=== PATIENT | female | born 1950 | race Two or more races ===

== ENCOUNTER 2020-04-20 08:23 | Outpatient (REF) | payer MEDICARE, SELFPAY ==
[2020-04-20 09:14] LABS: MANUAL DIFF FLAG NO
[2020-04-20 09:18] LABS: Basophils Percent Auto 0.4 % (0-2); Eosinophils Absolute Auto 0.2 X10*3/uL (0.0-0.4); Eosinophils Percent Auto 2.3 % (0-4); Hematocrit 37.1 % (37-47); Hemoglobin 12.5 g/dl (12.0-16.0); Imm Gran Abs Auto 0.02 X10*3/uL (0.00-0.03); Imm Gran Pct Auto 0.3 % (0.0-0.4); Lymphocytes Absolute Auto 1.8 X10*3/uL (1.2-4.9); Mean Corpuscular HGB Conc 33.7 g/dl (31.0-35.0); Mean Corpuscular Hemoglobin 30.8 pg (27.0-33.0); Mean Corpuscular Volume 91.4 fL (80-98); Mean Platelet Volume 11.4 fL (9.4-12.3); Monocytes Absolute Auto 0.6 X10*3/uL (0.1-1.2); Monocytes Percent Auto 7.7 % (2-11); Neutrophils Absolute Auto 4.9 X10*3/uL (2.0-8.3); Neutrophils Percent Auto 65.3 % (45-73); Platelet Count 165 X10*3/uL (160-400); Red Blood Count 4.06 X10*6/uL (4.20-5.50); Red Cell Distribution Width 12.5 % (11.0-16.0); White Blood Count 7.5 X10*3/uL (4.8-10.8)
[2020-04-20 09:30] LABS: Glucose Urine UA NEG (NEG); Leukocyte Esterase Urine NEG (NEG); Nitrite Urine NEG (NEG); Specific Gravity - Urine 1.025 (1.005-1.025); Urine Blood NEG (NEG); Urine Ketones NEG (NEG); Urine Protein NEG (NEG-TRACE)
[2020-04-20 09:32] LABS: Appearance Urine CLEAR; Color Urine YELLOW
[2020-04-20 09:48] LABS: Alanine Aminotransferase 14 U/L (0-31); Alkaline Phosphatase 112 U/L (39-117); Anion Gap 13 (12-20); Aspartate Amino Transferase 15 U/L (5-31); Bilirubin Total 0.7 mg/dL (0.0-1.0); Blood Urea Nitrogen 18 mg/dL (9-16); Calcium 8.9 mg/dL (8.4-10.2); Carbon Dioxide 29 mmol/L (22-29); Chloride 103 mmol/L (96-108); Cholesterol 157 mg/dL; Estimated Glomerular Filt Rate 59; Glucose Fasting 90 mg/dL (60-99); HDL Cholesterol 44 mg/dL; LDL Cholesterol Calculated 82 mg/dl; Potassium 4.5 mmol/l (3.3-5.1); Sodium 140 mmol/L (135-145); Total Protein 6.5 g/dL (6.5-8.0); Triglycerides 157 mg/dL
[2020-04-20 10:14] LABS: Erythrocyte Sedimentation Rate 23 MM/HR (0-20)
[2020-04-20 10:53] LABS: Folate 14.5 ng/mL (> or = 4.0); Vitamin B12 404 pg/mL (200-900)
[2020-04-20 13:24] LABS: Free T4 (Free Thyroxine) 1.16 ng/dL (0.71-1.85); Thyroid Stimulating Hormone 0.28 uIU/mL (0.32-4.0); Vitamin D 25-OH Total 29.4 ng/mL (>30)
== END 2020-04-20 08:24 | disposition home or self-care (01) ==
LOC: HO.LAB 08:23
PROVIDERS: PCP Internal Medicine; Visit Provider Internal Medicine
DX: E66.01 Morbid (severe) obesity due to excess calories (principal); I12.9 Hypertensive chronic kidney disease with stage 1 through stage 4 chronic kidney disease, or unspecified chronic kidney disease; N18.2 Chronic kidney disease, stage 2 (mild); K76.0 Fatty (change of) liver, not elsewhere classified; E03.9 Hypothyroidism, unspecified; E53.8 Deficiency of other specified B group vitamins; R01.1 Cardiac murmur, unspecified; M79.7 Fibromyalgia; N32.81 Overactive bladder; E55.9 Vitamin D deficiency, unspecified
CPT/HCPCS: 36415; 80053; 80061; 81003; 82306; 82607; 82746; 84439; 84443; 85025; 85652

== ENCOUNTER → 2020-05-18 08:18 | Outpatient (BNVA) | payer MEDICARE, SELFPAY | PROVIDERS: PCP Internal Medicine; Visit Provider Student in an Organized Health Care Education/Training Program | DX: M89.49 Other hypertrophic osteoarthropathy, multiple sites (principal) | CPT/HCPCS: Q3014 ==

== ENCOUNTER 2020-07-19 08:20 | Outpatient (REF) | payer MEDICARE, SELFPAY ==
[2020-07-19 09:07] LABS: MANUAL DIFF FLAG NO
[2020-07-19 09:14] LABS: Basophils Percent Auto 0.3 % (0-2); Eosinophils Absolute Auto 0.2 X10*3/uL (0.0-0.4); Eosinophils Percent Auto 2.3 % (0-4); Hematocrit 38.1 % (37-47); Hemoglobin 12.4 g/dl (12.0-16.0); Imm Gran Abs Auto 0.04 X10*3/uL (0.00-0.03); Imm Gran Pct Auto 0.5 % (0.0-0.4); Lymphocytes Absolute Auto 2.4 X10*3/uL (1.2-4.9); Lymphocytes Percent Auto 27.2 % (20-40); Mean Corpuscular HGB Conc 32.5 g/dl (31.0-35.0); Mean Corpuscular Hemoglobin 30.5 pg (27.0-33.0); Mean Corpuscular Volume 93.6 fL (80-98); Mean Platelet Volume 11.1 fL (9.4-12.3); Monocytes Absolute Auto 0.7 X10*3/uL (0.1-1.2); Neutrophils Absolute Auto 5.3 X10*3/uL (2.0-8.3); Neutrophils Percent Auto 61.7 % (45-73); Platelet Count 157 X10*3/uL (160-400); Red Blood Count 4.07 X10*6/uL (4.20-5.50); Red Cell Distribution Width 12.8 % (11.0-16.0); White Blood Count 8.7 X10*3/uL (4.8-10.8)
[2020-07-19 09:28] LABS: Alanine Aminotransferase 11 U/L (0-31); Albumin Level 4.1 g/dL (3.5-5.0); Alkaline Phosphatase 107 U/L (39-117); Anion Gap 12 (12-20); Aspartate Amino Transferase 13 U/L (5-31); Bilirubin Total 0.5 mg/dL (0.0-1.0); Blood Urea Nitrogen 24 mg/dL (9-16); Carbon Dioxide 31 mmol/L (22-29); Chloride 103 mmol/L (96-108); Cholesterol 169 mg/dL; Estimated Glomerular Filt Rate 47; Glucose Fasting 95 mg/dL (60-99); HDL Cholesterol 52 mg/dL; LDL Cholesterol Calculated 97 mg/dl; Potassium 4.8 mmol/L (3.3-5.1); Sodium 141 mmol/L (135-145); Total Protein 6.6 g/dL (6.5-8.0); Triglycerides 103 mg/dL
[2020-07-19 09:41] LABS: Glucose Urine UA NEG (NEG); Leukocyte Esterase Urine NEG (NEG); Nitrite Urine NEG (NEG); Specific Gravity - Urine >= 1.030 (1.005-1.025); Urine Blood NEG (NEG); Urine Ketones NEG (NEG); Urine Protein NEG (NEG-TRACE)
[2020-07-19 09:44] LABS: Appearance Urine CLEAR; Color Urine YELLOW
[2020-07-19 09:51] LABS: Free T4 (Free Thyroxine) 1.08 ng/dL (0.71-1.85); Thyroid Stimulating Hormone 0.94 uIU/mL (0.32-4.0); Vitamin D 25-OH Total 33.4 ng/mL (>30)
[2020-07-19 10:20] LABS: Folate 11.3 ng/mL (> or = 4.0); Vitamin B12 299 pg/mL (200-900)
[2020-07-19 10:34] LABS: Erythrocyte Sedimentation Rate 20 MM/HR (0-20)
== END 2020-07-19 08:21 | disposition home or self-care (01) ==
LOC: HO.LAB 08:20
PROVIDERS: PCP Internal Medicine; Visit Provider Internal Medicine
DX: I12.9 Hypertensive chronic kidney disease with stage 1 through stage 4 chronic kidney disease, or unspecified chronic kidney disease (principal); N18.2 Chronic kidney disease, stage 2 (mild); E55.9 Vitamin D deficiency, unspecified; E66.01 Morbid (severe) obesity due to excess calories; E03.9 Hypothyroidism, unspecified; M79.7 Fibromyalgia; K21.9 Gastro-esophageal reflux disease without esophagitis; K59.00 Constipation, unspecified; E53.8 Deficiency of other specified B group vitamins; E78.00 Pure hypercholesterolemia, unspecified; Z68.42 Body mass index [BMI] 45.0-49.9, adult
CPT/HCPCS: 36415; 80053; 80061; 81003; 82306; 82607; 82746; 84439; 84443; 85025; 85652

== ENCOUNTER 2020-10-18 08:13 | Outpatient (REF) | payer MEDICARE, SELFPAY ==
[2020-10-18 09:12] LABS: MANUAL DIFF FLAG NO
[2020-10-18 09:19] LABS: Basophils Percent Auto 0.5 % (0-2); Eosinophils Absolute Auto 0.2 X10*3/uL (0.0-0.4); Eosinophils Percent Auto 1.8 % (0-4); Hematocrit 37.6 % (37-47); Hemoglobin 12.6 g/dl (12.0-16.0); Imm Gran Abs Auto 0.04 X10*3/uL (0.00-0.03); Imm Gran Pct Auto 0.5 % (0.0-0.4); Lymphocytes Absolute Auto 2.1 X10*3/uL (1.2-4.9); Mean Corpuscular HGB Conc 33.5 g/dl (31.0-35.0); Mean Corpuscular Hemoglobin 30.8 pg (27.0-33.0); Mean Corpuscular Volume 91.9 fL (80-98); Mean Platelet Volume 11.1 fL (9.4-12.3); Monocytes Absolute Auto 0.7 X10*3/uL (0.1-1.2); Monocytes Percent Auto 8.6 % (2-11); Neutrophils Absolute Auto 5.1 X10*3/uL (2.0-8.3); Neutrophils Percent Auto 62.6 % (45-73); Platelet Count 177 X10*3/uL (160-400); Red Blood Count 4.09 X10*6/uL (4.20-5.50); Red Cell Distribution Width 12.8 % (11.0-16.0); White Blood Count 8.2 X10*3/uL (4.8-10.8)
[2020-10-18 09:41] LABS: Glucose Urine UA NEG (NEG); Leukocyte Esterase Urine NEG (NEG); Nitrite Urine NEG (NEG); Specific Gravity - Urine 1.025 (1.005-1.025); Urine Blood NEG (NEG); Urine Ketones NEG (NEG); Urine Protein NEG (NEG-TRACE)
[2020-10-18 09:42] LABS: Appearance Urine HAZY; Color Urine YELLOW
[2020-10-18 09:46] LABS: Alanine Aminotransferase 18 U/L (0-31); Albumin Level 4.2 g/dL (3.5-5.0); Alkaline Phosphatase 117 U/L (39-117); Anion Gap 14 (12-20); Aspartate Amino Transferase 16 U/L (5-31); Bilirubin Total 0.6 mg/dL (0.0-1.0); Blood Urea Nitrogen 24 mg/dL (9-16); Calcium 9.3 mg/dL (8.4-10.2); Carbon Dioxide 28 mmol/L (22-29); Chloride 105 mmol/L (96-108); Cholesterol 173 mg/dL; Estimated Glomerular Filt Rate 53; Glucose Fasting 113 mg/dL (60-99); HDL Cholesterol 48 mg/dL; LDL Cholesterol Calculated 103 mg/dl; Potassium 4.7 mmol/L (3.3-5.1); Sodium 142 mmol/L (135-145); Total Protein 6.7 g/dL (6.5-8.0); Triglycerides 110 mg/dL
[2020-10-18 09:48] LABS: Alanine Aminotransferase 18 U/L (0-31); Albumin Level 4.2 g/dL (3.5-5.0); Alkaline Phosphatase 118 U/L (39-117); Aspartate Amino Transferase 15 U/L (5-31); Bilirubin Direct 0.2 mg/dL (0.0-0.5); Bilirubin Total 0.6 mg/dL (0.0-1.0); Total Protein 6.7 g/dL (6.5-8.0)
[2020-10-18 09:51] LABS: Free T4 (Free Thyroxine) 1.13 ng/dL (0.71-1.85); Thyroid Stimulating Hormone 0.43 uIU/mL (0.32-4.0)
[2020-10-18 09:53] LABS: Vitamin D 25-OH Total 35.8 ng/mL (>30)
[2020-10-18 10:01] LABS: TSH reflex Free T4 0.47 uIU/mL (0.32-4.0)
[2020-10-18 10:06] LABS: Folate 12.9 ng/mL (> or = 4.0); Vitamin B12 334 pg/mL (200-900)
[2020-10-18 10:10] LABS: Erythrocyte Sedimentation Rate 19 MM/HR (0-20)
== END 2020-10-18 08:14 | disposition home or self-care (01) ==
LOC: HO.LAB 08:13
PROVIDERS: Nurse Practitioner Family; PCP Internal Medicine; Visit Provider Internal Medicine
DX: Z00.00 Encounter for general adult medical examination without abnormal findings (principal); K59.00 Constipation, unspecified; K21.9 Gastro-esophageal reflux disease without esophagitis; E53.8 Deficiency of other specified B group vitamins; M79.7 Fibromyalgia; I12.9 Hypertensive chronic kidney disease with stage 1 through stage 4 chronic kidney disease, or unspecified chronic kidney disease; N18.2 Chronic kidney disease, stage 2 (mild); M19.91 Primary osteoarthritis, unspecified site; M51.36 Other intervertebral disc degeneration, lumbar region; M50.30 Other cervical disc degeneration, unspecified cervical region; E03.9 Hypothyroidism, unspecified; E66.01 Morbid (severe) obesity due to excess calories; Z68.42 Body mass index [BMI] 45.0-49.9, adult; N32.81 Overactive bladder; E55.9 Vitamin D deficiency, unspecified
CPT/HCPCS: 36415; 80053; 80061; 80076; 81003; 82248; 82306; 82607; 82746; 84439; 84443; 85025; 85652

== ENCOUNTER 2020-11-01 08:55 | Outpatient (REF) | payer MEDICARE, SELFPAY ==
--- NOTE | ~2020-11-01 | XR_ITS ---
EXAMINATION: XR KNEES, BILATERAL CLINICAL INFORMATION: Primary osteoarthritis. COMPARISON: None TECHNIQUE: 3 views each knee. FINDINGS: Right Knee: Mild reduction in medial and patellofemoral compartment joint space with periarticular spurring. There is minimal suprapatellar joint effusion. No loose body seen. There is no acute fracture. There is small anterior superior patellar enthesophyte. Left Knee: There is mild reduction in the tricompartment joint space with moderate superior patellar spurring. No abnormal joint effusion. No loose bodies. No bony erosive changes. The soft tissues are normal. XR/XR knee LT 3V IMPRESSION: Mild tricompartment degenerative changes left knee with superior patellar spurring. No loose bodies. No acute fracture. Mild degenerative changes medial and patellofemoral compartment with periarticular spurring. No acute fracture or dislocation. Minimal suprapatellar joint effusion.
--- NOTE | ~2020-11-01 | XR_ITS ---
EXAMINATION: XR KNEES, BILATERAL CLINICAL INFORMATION: Primary osteoarthritis. COMPARISON: None TECHNIQUE: 3 views each knee. FINDINGS: Right Knee: Mild reduction in medial and patellofemoral compartment joint space with periarticular spurring. There is minimal suprapatellar joint effusion. No loose body seen. There is no acute fracture. There is small anterior superior patellar enthesophyte. Left Knee: There is mild reduction in the tricompartment joint space with moderate superior patellar spurring. No abnormal joint effusion. No loose bodies. No bony erosive changes. The soft tissues are normal. XR/XR knee RT 3V IMPRESSION: Mild tricompartment degenerative changes left knee with superior patellar spurring. No loose bodies. No acute fracture. Mild degenerative changes medial and patellofemoral compartment with periarticular spurring. No acute fracture or dislocation. Minimal suprapatellar joint effusion.
== END 2020-11-01 08:56 | disposition home or self-care (01) ==
LOC: HO.XRAY 08:55
PROVIDERS: PCP Internal Medicine; Visit Provider Internal Medicine
DX: M19.91 Primary osteoarthritis, unspecified site (principal); M76.52 Patellar tendinitis, left knee; M76.51 Patellar tendinitis, right knee
CPT/HCPCS: 73562

== ENCOUNTER 2021-01-17 08:47 | Outpatient (REF) | payer MEDICARE, SELFPAY ==
[2021-01-17 09:21] LABS: MANUAL DIFF FLAG NO
[2021-01-17 09:25] LABS: Basophils Percent Auto 0.5 % (0-2); Eosinophils Absolute Auto 0.2 X10*3/uL (0.0-0.4); Eosinophils Percent Auto 1.8 % (0-4); Hematocrit 38.2 % (37-47); Hemoglobin 12.6 g/dl (12.0-16.0); Imm Gran Abs Auto 0.04 X10*3/uL (0.00-0.03); Imm Gran Pct Auto 0.5 % (0.0-0.4); Lymphocytes Absolute Auto 1.9 X10*3/uL (1.2-4.9); Lymphocytes Percent Auto 22.4 % (20-40); Mean Corpuscular Hemoglobin 30.8 pg (27.0-33.0); Mean Corpuscular Volume 93.4 fL (80-98); Mean Platelet Volume 10.8 fL (9.4-12.3); Monocytes Absolute Auto 0.7 X10*3/uL (0.1-1.2); Monocytes Percent Auto 8.4 % (2-11); Neutrophils Absolute Auto 5.6 X10*3/uL (2.0-8.3); Neutrophils Percent Auto 66.4 % (45-73); Platelet Count 160 X10*3/uL (160-400); Red Blood Count 4.09 X10*6/uL (4.20-5.50); White Blood Count 8.5 X10*3/uL (4.8-10.8)
[2021-01-17 09:34] LABS: Estimated Average Glucose 114 mg/dL; Hemoglobin A1c % 5.6 %
[2021-01-17 09:46] LABS: Alanine Aminotransferase 18 U/L (0-31); Albumin Level 4.1 g/dL (3.5-5.0); Alkaline Phosphatase 107 U/L (39-117); Anion Gap 12 (12-20); Aspartate Amino Transferase 17 U/L (5-31); Bilirubin Total 0.5 mg/dL (0.0-1.0); Blood Urea Nitrogen 15 mg/dL (9-16); Calcium 9.1 mg/dL (8.4-10.2); Carbon Dioxide 30 mmol/L (22-29); Chloride 106 mmol/L (96-108); Cholesterol 170 mg/dL; Estimated Glomerular Filt Rate 55; Glucose Fasting 102 mg/dL (60-99); HDL Cholesterol 46 mg/dL; LDL Cholesterol Calculated 98 mg/dl; Potassium 4.5 mmol/L (3.3-5.1); Sodium 143 mmol/L (135-145); Total Protein 6.5 g/dL (6.5-8.0); Triglycerides 130 mg/dL
[2021-01-17 09:53] LABS: B Type Natriuretic Peptide 62 pg/mL (<100)
[2021-01-17 10:09] LABS: Free T4 (Free Thyroxine) 1.31 ng/dL (0.71-1.85); Thyroid Stimulating Hormone 0.73 uIU/mL (0.32-4.0)
[2021-01-17 10:53] LABS: Glucose Urine UA NEG (NEG); Leukocyte Esterase Urine NEG (NEG); Nitrite Urine NEG (NEG); Specific Gravity - Urine 1.025 (1.005-1.025); Urine Blood NEG (NEG); Urine Ketones NEG (NEG); Urine Protein NEG (NEG-TRACE)
[2021-01-17 10:57] LABS: Appearance Urine CLEAR; Color Urine YELLOW
== END 2021-01-17 08:48 | disposition home or self-care (01) ==
LOC: HO.LAB 08:47
PROVIDERS: PCP Internal Medicine; Visit Provider Internal Medicine
DX: R06.00 Dyspnea, unspecified (principal); I10 Essential (primary) hypertension; E78.00 Pure hypercholesterolemia, unspecified; E03.9 Hypothyroidism, unspecified; R73.01 Impaired fasting glucose; E66.01 Morbid (severe) obesity due to excess calories; Z68.42 Body mass index [BMI] 45.0-49.9, adult
CPT/HCPCS: 36415; 80053; 80061; 81003; 83036; 83880; 84439; 84443; 85025

== ENCOUNTER 2021-01-20 11:12 | Outpatient (REF) | payer MEDICARE, SELFPAY ==
--- NOTE | ~2021-01-20 | MM_ITS ---
EXAMINATION: MM SCREENING DIGITAL BREAST TOMOSYNTHESIS, BILATERAL CLINICAL INFORMATION: Screening. Asymptomatic. The lifetime risk of breast cancer based on the Tyrer-Cuzick Model is 3%. COMPARISON: Mammography: 01/20/2020, 07/11/2018, 07/09/2017, 05/30/2016 TECHNIQUE: Digital breast tomosynthesis is performed in both the craniocaudal and mediolateral oblique views along with computer-aided detection (CAD). Synthesized 2D images are generated from the tomosynthesis. Additional bilateral exaggerated CC views are provided. FINDINGS: There are scattered areas of fibroglandular density (ACR BI-RADS breast composition Category b). Parenchymal pattern is similar to prior studies. There is scattered benign stable fine smooth nodularity again seen. There is a small stable nodule on left with biopsy clip marker. Bilateral low lying axillary tail nodes again noted. There are scattered punctate and vascular calcifications as well as grouped coarse calcifications central left breast. Neither breast shows developing density or interval mass or architectural abnormality. The skin contours are smooth. No significant changes. MM/MM tomosynthesis screening BI IMPRESSION: No significant changes from prior studies. ASSESSMENT: BI-RADS 2: Benign RECOMMENDATION: Routine annual mammography screening. This patient's information was entered into a reminder system with a target due date for their next mammogram.
== END 2021-01-20 11:13 | disposition home or self-care (01) ==
LOC: HO.MAMMO 11:12
PROVIDERS: PCP Internal Medicine; Visit Provider Internal Medicine
DX: Z12.31 Encounter for screening mammogram for malignant neoplasm of breast (principal)
CPT/HCPCS: 77063; 77067

== ENCOUNTER 2021-04-21 08:46 | Outpatient (REF) | payer MEDICARE, SELFPAY ==
[2021-04-21 08:59] LABS: MANUAL DIFF FLAG NO
[2021-04-21 09:35] LABS: Basophils Percent Auto 0.4 % (0-2); Eosinophils Absolute Auto 0.2 X10*3/uL (0.0-0.4); Eosinophils Percent Auto 2.4 % (0-4); Hematocrit 37.6 % (37.0-47.0); Hemoglobin 12.7 g/dl (12.0-16.0); Imm Gran Abs Auto 0.05 X10*3/uL (0.00-0.03); Imm Gran Pct Auto 0.6 % (0.0-0.4); Lymphocytes Absolute Auto 1.8 X10*3/uL (1.2-4.9); Mean Corpuscular HGB Conc 33.8 g/dl (31.0-35.0); Mean Corpuscular Hemoglobin 31.2 pg (27.0-33.0); Mean Corpuscular Volume 92.4 fL (80.0-98.0); Mean Platelet Volume 10.8 fL (9.4-12.3); Monocytes Absolute Auto 0.8 X10*3/uL (0.1-1.2); Monocytes Percent Auto 10.4 % (2-11); Neutrophils Percent Auto 63.2 % (45-73); Platelet Count 163 X10*3/uL (160-400); Red Blood Count 4.07 X10*6/uL (4.20-5.50); Red Cell Distribution Width 13.1 % (11.0-16.0); White Blood Count 7.9 X10*3/uL (4.8-10.8)
[2021-04-21 09:58] LABS: Alanine Aminotransferase 22 U/L (0-31); Albumin Level 4.1 g/dL (3.5-5.0); Alkaline Phosphatase 117 U/L (39-117); Anion Gap 13 (12-20); Aspartate Amino Transferase 22 U/L (5-31); Bilirubin Total 0.8 mg/dL (0.0-1.0); Blood Urea Nitrogen 13 mg/dL (9-16); Calcium 9.2 mg/dL (8.4-10.2); Carbon Dioxide 29 mmol/L (22-29); Chloride 105 mmol/L (96-108); Cholesterol 191 mg/dL; Estimated Glomerular Filt Rate 53; Glucose Fasting 105 mg/dL (60-99); HDL Cholesterol 47 mg/dL; LDL Cholesterol Calculated 117 mg/dl; Potassium 4.7 mmol/L (3.3-5.1); Sodium 142 mmol/L (135-145); Total Protein 6.6 g/dL (6.5-8.0); Triglycerides 137 mg/dL
[2021-04-21 10:01] LABS: Cholesterol 193 mg/dL; HDL Cholesterol 47 mg/dL; LDL Cholesterol Calculated 119 mg/dl; Triglycerides 138 mg/dL
[2021-04-21 10:20] LABS: TSH reflex Free T4 1.01 uIU/mL (0.32-4.0); Vitamin D 25-OH Total 31.7 ng/mL (>30)
[2021-04-21 10:36] LABS: Folate 18.7 ng/mL (> or = 4.0); Vitamin B12 426 pg/mL (200-900)
[2021-04-21 12:17] LABS: Appearance Urine HAZY; Color Urine YELLOW; Glucose Urine UA NEG (NEG); Leukocyte Esterase Urine NEG (NEG); Nitrite Urine NEG (NEG); Specific Gravity - Urine >= 1.030 (1.005-1.025); Urine Blood NEG (NEG); Urine Ketones 5 MG/DL (NEG); Urine Protein TRACE MG/DL (NEG-TRACE)
== END 2021-04-21 08:47 | disposition home or self-care (01) ==
LOC: HO.LAB 08:46
PROVIDERS: Nurse Practitioner Family; PCP Internal Medicine; Visit Provider Internal Medicine
DX: Z00.00 Encounter for general adult medical examination without abnormal findings (principal); E55.9 Vitamin D deficiency, unspecified; E53.8 Deficiency of other specified B group vitamins; I10 Essential (primary) hypertension; E78.00 Pure hypercholesterolemia, unspecified
CPT/HCPCS: 36415; 80053; 80061; 81003; 82306; 82607; 82746; 84443; 85025

== ENCOUNTER → 2021-05-18 07:54 | Outpatient (BNVA) | payer MEDICARE, SELFPAY | PROVIDERS: PCP Internal Medicine; Visit Provider Nurse Practitioner Family | DX: M89.49 Other hypertrophic osteoarthropathy, multiple sites (principal) | CPT/HCPCS: 99212 ==

== ENCOUNTER 2021-07-22 08:40 | Outpatient (REF) | payer MEDICARE, SELFPAY ==
[2021-07-22 09:02] LABS: MANUAL DIFF FLAG NO
[2021-07-22 09:52] LABS: Estimated Average Glucose 114 mg/dL; Hemoglobin A1c % 5.6 %
[2021-07-22 09:54] LABS: Appearance Urine CLEAR; Color Urine YELLOW; Glucose Urine UA NEG (NEG); Leukocyte Esterase Urine NEG (NEG); Nitrite Urine NEG (NEG); Specific Gravity - Urine >= 1.030 (1.005-1.025); Urine Blood NEG (NEG); Urine Ketones NEG (NEG); Urine Protein NEG (NEG-TRACE)
[2021-07-22 09:55] LABS: Basophils Percent Auto 0.5 % (0-2); Eosinophils Absolute Auto 0.2 X10*3/uL (0.0-0.4); Eosinophils Percent Auto 2.5 % (0-4); Hematocrit 36.9 % (37.0-47.0); Hemoglobin 12.3 g/dl (12.0-16.0); Imm Gran Abs Auto 0.04 X10*3/uL (0.00-0.03); Imm Gran Pct Auto 0.5 % (0.0-0.4); Lymphocytes Absolute Auto 1.8 X10*3/uL (1.2-4.9); Lymphocytes Percent Auto 22.6 % (20-40); Mean Corpuscular HGB Conc 33.3 g/dl (31.0-35.0); Mean Corpuscular Hemoglobin 30.9 pg (27.0-33.0); Mean Corpuscular Volume 92.7 fL (80.0-98.0); Mean Platelet Volume 11.4 fL (9.4-12.3); Monocytes Absolute Auto 0.7 X10*3/uL (0.1-1.2); Monocytes Percent Auto 8.3 % (2-11); Neutrophils Absolute Auto 5.2 x10*3/uL (2.0-8.3); Neutrophils Percent Auto 65.6 % (45-73); Platelet Count 165 X10*3/uL (160-400); Red Blood Count 3.98 X10*6/uL (4.20-5.50); Red Cell Distribution Width 12.7 % (11.0-16.0)
[2021-07-22 10:01] LABS: Alanine Aminotransferase 14 U/L (0-31); Alkaline Phosphatase 114 U/L (39-117); Anion Gap 12 (12-20); Aspartate Amino Transferase 17 U/L (5-31); Bilirubin Total 0.6 mg/dL (0.0-1.0); Blood Urea Nitrogen 18 mg/dL (9-16); Calcium 9.5 mg/dL (8.4-10.2); Carbon Dioxide 30 mmol/L (22-29); Chloride 105 mmol/L (96-108); Cholesterol 174 mg/dL; Estimated Glomerular Filt Rate 53; Glucose Fasting 110 mg/dL (60-99); HDL Cholesterol 43 mg/dL; LDL Cholesterol Calculated 109 mg/dl; Potassium 4.8 mmol/L (3.3-5.1); Sodium 142 mmol/L (135-145); Total Protein 6.5 g/dL (6.5-8.0); Triglycerides 112 mg/dL
[2021-07-22 10:14] LABS: Thyroid Stimulating Hormone 0.35 uIU/mL (0.32-4.0); Vitamin D 25-OH Total 34.1 ng/mL (>30)
== END 2021-07-22 08:41 | disposition home or self-care (01) ==
LOC: HO.LAB 08:40
PROVIDERS: PCP Internal Medicine; Visit Provider Internal Medicine
DX: E78.00 Pure hypercholesterolemia, unspecified (principal); E55.9 Vitamin D deficiency, unspecified; E11.9 Type 2 diabetes mellitus without complications; E03.9 Hypothyroidism, unspecified; I10 Essential (primary) hypertension
CPT/HCPCS: 36415; 80053; 80061; 81003; 82306; 83036; 84443; 85025

== ENCOUNTER 2021-10-26 08:32 | Outpatient (REF) | payer OTHER, SELFPAY ==
[2021-10-26 08:57] LABS: MANUAL DIFF FLAG NO
[2021-10-26 09:25] LABS: Basophils Percent Auto 0.4 % (0-2); Eosinophils Absolute Auto 0.2 X10*3/uL (0.0-0.4); Eosinophils Percent Auto 2.4 % (0-4); Hematocrit 37.1 % (37.0-47.0); Hemoglobin 12.3 g/dl (12.0-16.0); Imm Gran Abs Auto 0.03 X10*3/uL (0.00-0.03); Imm Gran Pct Auto 0.4 % (0.0-0.4); Lymphocytes Absolute Auto 1.7 X10*3/uL (1.2-4.9); Lymphocytes Percent Auto 21.2 % (20-40); Mean Corpuscular HGB Conc 33.2 g/dl (31.0-35.0); Mean Corpuscular Hemoglobin 30.4 pg (27.0-33.0); Mean Corpuscular Volume 91.8 fL (80.0-98.0); Mean Platelet Volume 10.7 fL (9.4-12.3); Monocytes Absolute Auto 0.6 X10*3/uL (0.1-1.2); Monocytes Percent Auto 7.8 % (2-11); Neutrophils Absolute Auto 5.4 x10*3/uL (2.0-8.3); Neutrophils Percent Auto 67.8 % (45-73); Platelet Count 171 X10*3/uL (160-400); Red Blood Count 4.04 X10*6/uL (4.20-5.50); White Blood Count 7.9 X10*3/uL (4.8-10.8)
[2021-10-26 09:35] LABS: Estimated Average Glucose 114 mg/dL; Hemoglobin A1c % 5.6 %
[2021-10-26 09:45] LABS: Alanine Aminotransferase 16 U/L (0-31); Albumin Level 3.8 g/dL (3.5-5.0); Alkaline Phosphatase 120 U/L (39-117); Anion Gap 13 (12-20); Aspartate Amino Transferase 16 U/L (5-31); Bilirubin Total 0.7 mg/dL (0.0-1.0); Blood Urea Nitrogen 12 mg/dL (9-16); Calcium 9.1 mg/dL (8.4-10.2); Carbon Dioxide 28 mmol/L (22-29); Chloride 107 mmol/L (96-108); Cholesterol 165 mg/dL; Estimated Glomerular Filt Rate > 60; Glucose Fasting 103 mg/dL (60-99); HDL Cholesterol 42 mg/dL; LDL Cholesterol Calculated 104 mg/dl; Potassium 4.6 mmol/L (3.3-5.1); Sodium 143 mmol/L (135-145); Total Protein 6.3 g/dL (6.5-8.0); Triglycerides 96 mg/dL
[2021-10-26 10:00] LABS: Appearance Urine HAZY; Color Urine YELLOW; Glucose Urine UA NEG (NEG); Leukocyte Esterase Urine NEG (NEG); Nitrite Urine NEG (NEG); Specific Gravity - Urine 1.025 (1.005-1.025); Urine Blood NEG (NEG); Urine Ketones NEG (NEG); Urine Protein NEG (NEG-TRACE)
[2021-10-26 10:08] LABS: Free T4 (Free Thyroxine) 1.42 ng/dL (0.71-1.85); Thyroid Stimulating Hormone 0.36 uIU/mL (0.32-4.0); Vitamin D 25-OH Total 24.9 ng/mL (>30)
[2021-10-26 10:22] LABS: Folate 10.4 ng/mL (> or = 4.0); Vitamin B12 555 pg/mL (200-900)
== END 2021-10-26 08:33 | disposition home or self-care (01) ==
LOC: HO.LAB 08:32
PROVIDERS: PCP Internal Medicine; Visit Provider Internal Medicine
DX: E78.00 Pure hypercholesterolemia, unspecified (principal); R73.01 Impaired fasting glucose; E03.9 Hypothyroidism, unspecified; E53.8 Deficiency of other specified B group vitamins; I10 Essential (primary) hypertension; E55.9 Vitamin D deficiency, unspecified
CPT/HCPCS: 36415; 80053; 80061; 81003; 82306; 82607; 82746; 83036; 84439; 84443; 85025

== ENCOUNTER 2022-01-04 13:56 | Outpatient (REF) | payer OTHER, SELFPAY ==
[2022-01-04 16:42] LABS: MANUAL DIFF FLAG NO
[2022-01-04 16:46] LABS: Basophils Percent Auto 0.5 % (0-2); Eosinophils Absolute Auto 0.1 X10*3/uL (0.0-0.4); Eosinophils Percent Auto 1.9 % (0-4); Hematocrit 38.4 % (37.0-47.0); Hemoglobin 12.5 g/dl (12.0-16.0); Imm Gran Abs Auto 0.03 X10*3/uL (0.00-0.03); Imm Gran Pct Auto 0.4 % (0.0-0.4); Lymphocytes Absolute Auto 1.8 X10*3/uL (1.2-4.9); Mean Corpuscular HGB Conc 32.6 g/dl (31.0-35.0); Mean Corpuscular Volume 92.1 fL (80.0-98.0); Mean Platelet Volume 11.2 fL (9.4-12.3); Monocytes Absolute Auto 0.7 X10*3/uL (0.1-1.2); Monocytes Percent Auto 9.6 % (2-11); Neutrophils Absolute Auto 4.7 x10*3/uL (2.0-8.3); Neutrophils Percent Auto 63.6 % (45-73); Platelet Count 166 X10*3/uL (160-400); Red Blood Count 4.17 X10*6/uL (4.20-5.50); Red Cell Distribution Width 12.9 % (11.0-16.0); White Blood Count 7.3 X10*3/uL (4.8-10.8)
[2022-01-04 17:10] LABS: Anion Gap 14 (12-20); Carbon Dioxide 27 mmol/L (22-29); Chloride 102 mmol/L (96-108); Potassium 3.7 mmol/L (3.3-5.1); Sodium 139 mmol/L (135-145)
== END 2022-01-04 13:57 | disposition home or self-care (01) ==
LOC: HO.HMGCLDS 13:56
DX: R10.11 Right upper quadrant pain (principal)
CPT/HCPCS: 36415; 80051; 85025

== ENCOUNTER 2022-01-04 14:32 | Outpatient (REF) | payer OTHER, SELFPAY ==
--- NOTE | ~2022-01-04 | US_ITS ---
EXAMINATION: US ABDOMEN LIMITED CLINICAL INFORMATION: Right upper quadrant pain. COMPARISON: 01/17/2018 TECHNIQUE: Real-time imaging of the right upper quadrant abdominal viscera. FINDINGS: The region the pancreas infiltrates no suspicious finding. No free fluid. The distal body and tail are not seen. The liver is prominent in size. 18.5 cm. Appears hyperechoic. Consistent with fatty change. The gallbladder shows no evidence for stone or edema. Common duct measures 2 mm within normal limits. The right kidney is 10.6 cm. No hydronephrosis or stone. US/US abdomen limited IMPRESSION: No evidence for cholelithiasis or cholecystitis. No ductal dilatation. Enlarged hyperechoic liver most consistent with fatty change. No free fluid
== END 2022-01-04 14:33 | disposition home or self-care (01) ==
LOC: HO.HMGCX 14:32
DX: R10.11 Right upper quadrant pain (principal)
CPT/HCPCS: 76705

== ENCOUNTER 2022-01-29 10:29 | Outpatient (REF) | payer OTHER, SELFPAY ==
--- NOTE | ~2022-01-29 | MM_ITS ---
EXAMINATION: MM SCREENING DIGITAL BREAST TOMOSYNTHESIS, BILATERAL CLINICAL INFORMATION: Screening. Asymptomatic. COMPARISON: Mammography: January 20, 2021 and studies dating back to April 01, 2014 TECHNIQUE: Digital breast tomosynthesis is performed in both the craniocaudal and mediolateral oblique views along with computer-aided detection (CAD). Synthesized 2D images are generated from the tomosynthesis. Bilateral exaggerated craniocaudal views performed. FINDINGS: There are scattered areas of fibroglandular density (ACR BI-RADS breast composition Category b). There are no new significant masses, abnormal calcifications, or other abnormalities. MM/MM tomosynthesis screening BI IMPRESSION: No significant changes from prior exam. ASSESSMENT: BI-RADS 1: Negative RECOMMENDATION: Routine annual mammography screening. This patient's information was entered into a reminder system with a target due date for their next mammogram.
== END 2022-01-29 10:30 | disposition home or self-care (01) ==
LOC: HO.MAMMO 10:29
PROVIDERS: PCP Internal Medicine; Visit Provider Internal Medicine
DX: Z12.31 Encounter for screening mammogram for malignant neoplasm of breast (principal)
CPT/HCPCS: 77063; 77067

== ENCOUNTER 2022-02-01 11:49 | Outpatient (REF) | payer OTHER, SELFPAY ==
--- NOTE | ~2022-02-01 | XR_ITS ---
EXAMINATION: XR ABDOMEN WITH DECUBITUS VIEWS CLINICAL INDICATION: Constipation COMPARISON: Previous exam April 2018 TECHNIQUE: Supine and upright views of the abdomen and pelvis FINDINGS: There is stool throughout the colon suggestive of mild constipation. There are no dilated loops of bowel or air-fluid levels to suggest obstruction. There is no evidence of free air. No calcifications are seen. There are degenerative changes of the spine. XR/XR abdomen w decubitus IMPRESSION: Constipation. No evidence of obstruction.
== END 2022-02-01 11:50 | disposition home or self-care (01) ==
LOC: HO.XRAY 11:49
PROVIDERS: Visit Provider Nurse Practitioner
DX: K59.04 Chronic idiopathic constipation (principal); R10.11 Right upper quadrant pain
CPT/HCPCS: 74021; 99202; 99212

== ENCOUNTER → 2022-02-16 11:32 | Outpatient (BNVA) | payer OTHER, SELFPAY | PROVIDERS: PCP Internal Medicine; Referring Provider Internal Medicine; Visit Provider Nurse Practitioner | DX: K59.04 Chronic idiopathic constipation (principal); R10.11 Right upper quadrant pain | CPT/HCPCS: 99212 ==

== ENCOUNTER 2022-02-19 08:44 | Outpatient (REF) | payer OTHER, SELFPAY ==
[2022-02-19 09:13] LABS: MANUAL DIFF FLAG NO
[2022-02-19 09:37] LABS: Basophils Absolute Auto 0.1 X10*3/uL (0.0-0.2); Basophils Percent Auto 0.6 % (0-2); Eosinophils Absolute Auto 0.2 X10*3/uL (0.0-0.4); Eosinophils Percent Auto 2.2 % (0-4); Hematocrit 37.8 % (37.0-47.0); Hemoglobin 12.6 g/dl (12.0-16.0); Imm Gran Abs Auto 0.04 X10*3/uL (0.00-0.03); Imm Gran Pct Auto 0.5 % (0.0-0.4); Lymphocytes Absolute Auto 2.1 X10*3/uL (1.2-4.9); Lymphocytes Percent Auto 24.2 % (20-40); Mean Corpuscular HGB Conc 33.3 g/dl (31.0-35.0); Mean Corpuscular Hemoglobin 30.1 pg (27.0-33.0); Mean Corpuscular Volume 90.4 fL (80.0-98.0); Monocytes Absolute Auto 0.6 X10*3/uL (0.1-1.2); Monocytes Percent Auto 7.2 % (2-11); Neutrophils Absolute Auto 5.7 x10*3/uL (2.0-8.3); Neutrophils Percent Auto 65.3 % (45-73); Platelet Count 173 X10*3/uL (160-400); Red Blood Count 4.18 X10*6/uL (4.20-5.50); White Blood Count 8.7 X10*3/uL (4.8-10.8)
[2022-02-19 09:40] LABS: Appearance Urine Clear; Color Urine Yellow; Glucose Urine UA Negative (Negative); Leukocyte Esterase Urine Negative (Negative); Nitrite Urine Negative (Negative); Urine Blood Negative (Negative); Urine Ketones Negative (Negative); Urine Protein Negative (Neg-Trace)
[2022-02-19 09:59] LABS: Alanine Aminotransferase 17 U/L (0-31); Albumin Level 4.1 g/dL (3.5-5.0); Alkaline Phosphatase 121 U/L (39-117); Anion Gap 15 (12-20); Aspartate Amino Transferase 19 U/L (5-31); Bilirubin Total 0.8 mg/dL (0.0-1.0); Blood Urea Nitrogen 16 mg/dL (9-16); Calcium 9.1 mg/dL (8.4-10.2); Carbon Dioxide 28 mmol/L (22-29); Chloride 105 mmol/L (96-108); Cholesterol 170 mg/dL; Estimated Glomerular Filt Rate 58; Glucose Fasting 99 mg/dL (60-99); HDL Cholesterol 47 mg/dL; LDL Cholesterol Calculated 95 mg/dl; Potassium 4.8 mmol/L (3.3-5.1); Sodium 143 mmol/L (135-145); Total Protein 6.5 g/dL (6.5-8.0); Triglycerides 144 mg/dL
[2022-02-19 10:26] LABS: Free T4 (Free Thyroxine) 1.16 ng/dL (0.71-1.85); Thyroid Stimulating Hormone 0.37 uIU/mL (0.32-4.0)
[2022-02-19 11:02] LABS: Vitamin D 25-OH Total 37.5 ng/mL (>30)
== END 2022-02-19 08:45 | disposition home or self-care (01) ==
LOC: HO.LAB 08:44
PROVIDERS: PCP Internal Medicine; Visit Provider Internal Medicine
DX: E03.9 Hypothyroidism, unspecified (principal); E78.00 Pure hypercholesterolemia, unspecified; I10 Essential (primary) hypertension; E55.9 Vitamin D deficiency, unspecified
CPT/HCPCS: 36415; 80053; 80061; 81003; 82306; 84439; 84443; 85025

== ENCOUNTER → 2022-05-22 12:08 | Outpatient (BNVA) | payer OTHER, SELFPAY | PROVIDERS: PCP Internal Medicine; Visit Provider Nurse Practitioner | DX: K59.04 Chronic idiopathic constipation (principal); R10.11 Right upper quadrant pain; Z79.899 Other long term (current) drug therapy | CPT/HCPCS: 99212 ==

== ENCOUNTER 2022-06-19 08:34 | Outpatient (REF) | payer OTHER, SELFPAY ==
--- NOTE | ~2022-06-19 | XR_ITS ---
EXAMINATION: XR KNEE, BILATERAL CLINICAL INFORMATION: Chronic bilateral knee pain COMPARISON: 11/01/2020 TECHNIQUE: 3 views of each knee FINDINGS: Right knee: Moderate medial and mild patellofemoral/lateral compartment osteoarthritis. No joint effusion. No significant change. Left knee: Moderate-severe patellofemoral compartment and [id number] medial/lateral compartment osteoarthritis. No joint effusion. No change. XR/XR knee RT 3V IMPRESSION: RIGHT KNEE: Moderate medial and mild patellofemoral/lateral compartment osteoarthritis. No significant change. LEFT KNEE: Tricompartmental osteoarthritis, most severe in the patellofemoral compartment. No significant change.
--- NOTE | ~2022-06-19 | XR_ITS ---
EXAMINATION: XR KNEE, BILATERAL CLINICAL INFORMATION: Chronic bilateral knee pain COMPARISON: 11/01/2020 TECHNIQUE: 3 views of each knee FINDINGS: Right knee: Moderate medial and mild patellofemoral/lateral compartment osteoarthritis. No joint effusion. No significant change. Left knee: Moderate-severe patellofemoral compartment and [id number] medial/lateral compartment osteoarthritis. No joint effusion. No change. XR/XR knee LT 3V IMPRESSION: RIGHT KNEE: Moderate medial and mild patellofemoral/lateral compartment osteoarthritis. No significant change. LEFT KNEE: Tricompartmental osteoarthritis, most severe in the patellofemoral compartment. No significant change.
== END 2022-06-19 08:35 | disposition home or self-care (01) ==
LOC: HO.LAB 08:34
PROVIDERS: PCP Internal Medicine; Visit Provider Nurse Practitioner Family
DX: M25.562 Pain in left knee (principal); M25.561 Pain in right knee
CPT/HCPCS: 73562; 99212

== ENCOUNTER → 2022-07-19 09:01 | Outpatient (BNVA) | payer OTHER, SELFPAY | PROVIDERS: PCP Internal Medicine; Visit Provider Nurse Practitioner | DX: K59.04 Chronic idiopathic constipation (principal); K21.9 Gastro-esophageal reflux disease without esophagitis; R10.11 Right upper quadrant pain | CPT/HCPCS: 99212 ==

== ENCOUNTER 2022-08-17 15:52 | Outpatient (REF) | payer OTHER, SELFPAY ==
--- NOTE | ~2022-08-17 | XR_ITS ---
EXAMINATION: XR KNEE AP STANDING CLINICAL INFORMATION: Knee pain COMPARISON: None TECHNIQUE: AP bilateral standing view of the knees was obtained. FINDINGS: Mild narrowing of the medial tibiofemoral compartments with medial and lateral osteophytes seen bilaterally. XR/XR knee standing BI IMPRESSION: Mild osteoarthritis of the bilateral knees.
== END 2022-08-17 15:53 | disposition home or self-care (01) ==
LOC: HO.HOSX 15:52
PROVIDERS: Visit Provider Physician Assistant
DX: M17.0 Bilateral primary osteoarthritis of knee (principal)
CPT/HCPCS: 73565; 99202

== ENCOUNTER 2022-08-24 10:50 | Outpatient (REF) | payer OTHER, SELFPAY ==
[2022-08-24 12:52] LABS: Appearance Urine Cloudy; Color Urine Yellow; Glucose Urine UA Negative (Negative); Leukocyte Esterase Urine Large (3+) (Negative); Nitrite Urine Negative (Negative); UMIC TRIGGER UACC YES; Urine Blood Moderate (2+) (Negative); Urine Ketones Trace mg/dL (Negative); Urine Protein 30 (1+) mg/dL (Neg-Trace)
[2022-08-24 13:09] LABS: Bacteria Urine 2+ (None Seen); Hyaline Casts Urine 0-2 /LPF (0-2); RBC Urine >20 /HPF (0-2); UACC Culture Trigger YES; WBC Urine >50 /HPF (0-5)
== END 2022-08-24 10:51 | disposition home or self-care (01) ==
LOC: HO.LAB 10:50
PROVIDERS: PCP Internal Medicine; Visit Provider Internal Medicine
DX: R30.0 Dysuria (principal); R82.90 Unspecified abnormal findings in urine
CPT/HCPCS: 81001; 87086

== ENCOUNTER 2022-08-25 10:36 | Outpatient (REF) | payer OTHER, SELFPAY ==
[2022-08-25 10:48] LABS: MANUAL DIFF FLAG NO
[2022-08-25 10:57] LABS: Basophils Absolute Auto 0.1 X10*3/uL (0.0-0.2); Basophils Percent Auto 0.5 % (0-2); Eosinophils Absolute Auto 0.2 X10*3/uL (0.0-0.4); Eosinophils Percent Auto 2.2 % (0-4); Hematocrit 39.8 % (37.0-47.0); Hemoglobin 13.4 g/dl (12.0-16.0); Imm Gran Abs Auto 0.03 X10*3/uL (0.00-0.03); Imm Gran Pct Auto 0.3 % (0.0-0.4); Lymphocytes Absolute Auto 2.2 X10*3/uL (1.2-4.9); Lymphocytes Percent Auto 21.9 % (20-40); Mean Corpuscular HGB Conc 33.7 g/dl (31.0-35.0); Mean Corpuscular Hemoglobin 30.4 pg (27.0-33.0); Mean Corpuscular Volume 90.2 fL (80.0-98.0); Mean Platelet Volume 10.5 fL (9.4-12.3); Monocytes Absolute Auto 0.8 X10*3/uL (0.1-1.2); Monocytes Percent Auto 8.2 % (2-11); Neutrophils Absolute Auto 6.6 x10*3/uL (2.0-8.3); Neutrophils Percent Auto 66.9 % (45-73); Platelet Count 193 X10*3/uL (160-400); Red Blood Count 4.41 X10*6/uL (4.20-5.50); Red Cell Distribution Width 12.6 % (11.0-16.0); White Blood Count 9.8 X10*3/uL (4.8-10.8)
[2022-08-25 11:50] LABS: Alanine Aminotransferase 13 U/L (0-31); Albumin Level 4.1 g/dL (3.5-5.0); Alkaline Phosphatase 122 U/L (39-117); Anion Gap 14 (12-20); Aspartate Amino Transferase 17 U/L (5-31); Blood Urea Nitrogen 16 mg/dL (9-16); Calcium 9.6 mg/dL (8.4-10.2); Carbon Dioxide 29 mmol/L (22-29); Chloride 104 mmol/L (96-108); Cholesterol 175 mg/dL; Estimated Glomerular Filt Rate 53; Glucose Fasting 97 mg/dL (60-99); HDL Cholesterol 44 mg/dL; LDL Cholesterol Calculated 109 mg/dl; Potassium 4.9 mmol/L (3.3-5.1); Sodium 142 mmol/L (135-145); Thyroid Stimulating Hormone 0.24 uIU/mL (0.32-4.0); Total Protein 6.6 g/dL (6.5-8.0); Triglycerides 111 mg/dL; Vitamin D 25-OH Total 36.8 ng/mL (>30)
== END 2022-08-25 10:37 | disposition home or self-care (01) ==
LOC: HO.LAB 10:36
PROVIDERS: PCP Internal Medicine; Visit Provider Internal Medicine
DX: E03.9 Hypothyroidism, unspecified (principal); E78.00 Pure hypercholesterolemia, unspecified; E55.9 Vitamin D deficiency, unspecified; I10 Essential (primary) hypertension
CPT/HCPCS: 36415; 80053; 80061; 82306; 84439; 84443; 85025

== ENCOUNTER 2022-09-06 09:33 | Outpatient (REF) | payer OTHER, SELFPAY ==
[2022-09-06 10:25] LABS: Appearance Urine Clear; Color Urine Yellow; Glucose Urine UA Negative (Negative); Leukocyte Esterase Urine Moderate (2+) (Negative); Nitrite Urine Negative (Negative); PH 5.5 (5.0-9.0); UMIC TRIGGER UACC YES; Urine Blood Negative (Negative); Urine Ketones Negative (Negative); Urine Protein Negative (Neg-Trace)
[2022-09-06 10:31] LABS: Bacteria Urine None Seen (None Seen); Hyaline Casts Urine 0-2 /LPF (0-2); RBC Urine 0-2 /HPF (0-2); Squamous Epithelial Cell Urine 0-2 /HPF (0-2); UACC Culture Trigger YES; WBC Urine >50 /HPF (0-5)
== END 2022-09-06 09:34 | disposition home or self-care (01) ==
LOC: HO.LAB 09:33
PROVIDERS: PCP Internal Medicine; Visit Provider Internal Medicine
DX: R30.0 Dysuria (principal)
CPT/HCPCS: 81001; 87086; 87088; 87186

== ENCOUNTER 2022-10-02 08:33 | Outpatient (REF) | payer OTHER, SELFPAY ==
--- NOTE | ~2022-10-02 | CT_ITS ---
EXAMINATION: CT ABDOMEN AND PELVIS WITH CONTRAST CLINICAL INFORMATION: Right upper quadrant pain. COMPARISON: CT abdomen and pelvis 12/22/2015. TECHNIQUE: Multidetector volumetric images were obtained from the superior aspect of the liver through the pubic symphysis following administration 85 mL of Omnipaque 350 intravenous contrast. Sagittal and coronal reformatted images were obtained on the technologist's workstation. Oral contrast: No This CT examination was performed using dose optimization techniques as appropriate, variously including the following: *Automated exposure control *Adjustment of mA and/or kV according to patient size (this includes techniques or standardized protocols for targeted exams where dose is matched to indication/reason for exam; i.e. extremities or head) *Use of iterative reconstruction technique DLP: 788 mGy-cm FINDINGS: LUNG BASES: There are mild atelectatic changes in the lingula. Heart size is normal. LIVER, GALLBLADDER, AND BILIARY TREE: The liver is normal in size, shape, and attenuation. No focal hepatic lesion or biliary ductal dilatation is present. The gallbladder is unremarkable with no evidence of radiopaque gallstones, gallbladder wall thickening, or obvious pericholecystic inflammatory changes. PANCREAS: Unremarkable. SPLEEN: Unremarkable. ADRENAL GLANDS: Unremarkable. KIDNEYS AND URETERS: The kidneys are normal in size, shape, and attenuation. No hydronephrosis, hydroureter, or calculi seen. No perinephric stranding. There is an exophytic hypodense lesion upper pole left kidney measuring 2.0 x 2.3 cm and 19 Hounsfield units likely slightly complex cyst. No additional lesions seen. BLADDER: Unremarkable. GASTROINTESTINAL TRACT: Scattered stool, gas and oral contrast seen throughout the colon without distention. The small bowel loops are normal caliber. Appendix is not visualized. No free air or free fluid seen. ABDOMINAL WALL: A small umbilical hernia containing fat and hyperdense nodule. LYMPH NODES: Normal. VASCULAR: Unremarkable. PELVIC VISCERA: The uterus is anteverted and appears unremarkable. There is no adnexal mass or free fluid. OSSEOUS STRUCTURES: No aggressive lytic or sclerotic process seen. There is vacuum disc phenomena at L5-S1 disc level and lower dorsal spine with mild ventral spondylosis in the lower dorsal spine. No aggressive lytic or sclerotic process seen. CT/CT abdomen pelvis w IV con IMPRESSION: 1. No acute intra-abdominal process seen. 2. Mild constipation. 3. Small complex cyst upper pole left kidney. Fleischner guidelines were followed.
[2022-10-02] MEDS: iohexoL 350 MG/ML 100 ML INFUS..BTL IV (11:14)
[2022-10-02] MEDS: Barium Sulfate Oral (Vanilla) 450 ML ORAL.SUSP 900 ML PO (11:14)
[2022-10-02 12:48] LABS: Creatinine POC 0.7 mg/dL (0.5-1.4); GFR POC > 60
== END 2022-10-02 08:34 | disposition home or self-care (01) ==
LOC: HO.CT 08:33
PROVIDERS: PCP Internal Medicine; Visit Provider Internal Medicine
DX: R10.11 Right upper quadrant pain (principal); R30.0 Dysuria; R31.9 Hematuria, unspecified; R82.81 Pyuria
CPT/HCPCS: 74177; 82565; Q9967

== ENCOUNTER 2022-12-05 09:05 | Outpatient (REF) | payer OTHER, SELFPAY ==
[2022-12-05 09:17] LABS: MANUAL DIFF FLAG NO
[2022-12-05 09:48] LABS: Basophils Percent Auto 0.5 % (0-2); Eosinophils Absolute Auto 0.2 X10*3/uL (0.0-0.4); Eosinophils Percent Auto 2.1 % (0-4); Hematocrit 36.7 % (37.0-47.0); Hemoglobin 12.1 g/dl (12.0-16.0); Imm Gran Abs Auto 0.04 X10*3/uL (0.00-0.03); Imm Gran Pct Auto 0.5 % (0.0-0.4); Lymphocytes Absolute Auto 1.7 X10*3/uL (1.2-4.9); Lymphocytes Percent Auto 21.2 % (20-40); Mean Corpuscular Volume 91.1 fL (80.0-98.0); Mean Platelet Volume 10.7 fL (9.4-12.3); Monocytes Absolute Auto 0.6 X10*3/uL (0.1-1.2); Monocytes Percent Auto 7.2 % (2-11); Neutrophils Absolute Auto 5.6 x10*3/uL (2.0-8.3); Neutrophils Percent Auto 68.5 % (45-73); Platelet Count 161 X10*3/uL (160-400); Red Blood Count 4.03 X10*6/uL (4.20-5.50); White Blood Count 8.1 X10*3/uL (4.8-10.8)
[2022-12-05 10:09] LABS: Appearance Urine Clear; Color Urine Yellow; Glucose Urine UA Negative (Negative); Leukocyte Esterase Urine Negative (Negative); Nitrite Urine Negative (Negative); Urine Blood Negative (Negative); Urine Ketones Negative (Negative); Urine Protein Negative (Neg-Trace)
[2022-12-05 10:25] LABS: Alanine Aminotransferase 12 U/L (0-31); Albumin Level 3.7 g/dL (3.5-5.0); Alkaline Phosphatase 100 U/L (39-117); Anion Gap 8 (12-20); Aspartate Amino Transferase 14 U/L (5-31); Bilirubin Total 0.8 mg/dL (0.0-1.0); Blood Urea Nitrogen 13 mg/dL (9-16); Carbon Dioxide 27 mmol/L (22-29); Chloride 106 mmol/L (96-108); Cholesterol 178 mg/dL; Estimated Glomerular Filt Rate > 60; Glucose Fasting 105 mg/dL (60-99); HDL Cholesterol 42 mg/dL; LDL Cholesterol Calculated 119 mg/dl; Potassium 4.2 mmol/L (3.3-5.1); Sodium 137 mmol/L (135-145); Total Protein 6.4 g/dL (6.5-8.0); Triglycerides 87 mg/dL
[2022-12-05 10:40] LABS: Free T4 (Free Thyroxine) 1.18 ng/dL (0.71-1.85); Thyroid Stimulating Hormone 0.24 uIU/mL (0.32-4.0); Vitamin D 25-OH Total 34.6 ng/mL (>30)
== END 2022-12-05 09:06 | disposition home or self-care (01) ==
LOC: HO.LAB 09:05
PROVIDERS: PCP Internal Medicine; Visit Provider Internal Medicine
DX: E78.00 Pure hypercholesterolemia, unspecified (principal); R30.0 Dysuria; I10 Essential (primary) hypertension; E03.9 Hypothyroidism, unspecified; E55.9 Vitamin D deficiency, unspecified
CPT/HCPCS: 36415; 80053; 80061; 81003; 82306; 84439; 84443; 85025

== ENCOUNTER 2023-02-01 09:33 | Outpatient (REF) | payer OTHER, SELFPAY ==
--- NOTE | ~2023-02-01 | MM_ITS ---
EXAMINATION: MM SCREENING DIGITAL BREAST TOMOSYNTHESIS, BILATERAL CLINICAL INFORMATION: Screening. Asymptomatic. COMPARISON: Mammography: This study is compared with prior exams dating back to 2018. TECHNIQUE: Digital breast tomosynthesis is performed in both the craniocaudal and mediolateral oblique views along with computer-aided detection (CAD). Synthesized 2D images are generated from the tomosynthesis. FINDINGS: There are scattered areas of fibroglandular density (ACR BI-RADS breast composition Category b). There are no significant masses, abnormal calcifications, or other abnormalities. Few, benign calcifications are present in each breast. MM/MM tomosynthesis screening BI IMPRESSION: No mammographic evidence of malignancy. ASSESSMENT: BI-RADS BI-RADS 2 - Benign Findings RECOMMENDATION: Routine annual mammography screening. 1 year F/U This examination should not preclude the clinical evaluation of a suspicious palpable abnormality. This patient's information was entered into a reminder system with a target due date for their next mammogram.
== END 2023-02-01 09:34 | disposition home or self-care (01) ==
LOC: HO.MAMMO 09:33
PROVIDERS: PCP Internal Medicine; Visit Provider Internal Medicine
DX: Z12.31 Encounter for screening mammogram for malignant neoplasm of breast (principal)
CPT/HCPCS: 77063; 77067

== ENCOUNTER → 2023-02-01 10:00 | Outpatient (BNV) | payer OTHER, SELFPAY | PROVIDERS: PCP Internal Medicine; Visit Provider Radiology Diagnostic Radiology | DX: Z12.31 Encounter for screening mammogram for malignant neoplasm of breast (principal) | CPT/HCPCS: 77063; 77067 ==

== ENCOUNTER 2023-03-09 08:52 | Outpatient (REF) | payer OTHER, SELFPAY ==
[2023-03-09 09:15] LABS: MANUAL DIFF FLAG NO
[2023-03-09 09:44] LABS: Basophils Absolute Auto 0.1 X10*3/uL (0.0-0.2); Basophils Percent Auto 0.6 % (0-2); Eosinophils Absolute Auto 0.2 X10*3/uL (0.0-0.4); Eosinophils Percent Auto 2.3 % (0-4); Estimated Average Glucose 114 mg/dL; Hematocrit 38.3 % (37.0-47.0); Hemoglobin 12.7 g/dl (12.0-16.0); Hemoglobin A1c % 5.6 % (<6.0); Imm Gran Abs Auto 0.04 X10*3/uL (0.00-0.03); Imm Gran Pct Auto 0.5 % (0.0-0.4); Lymphocytes Absolute Auto 2.4 X10*3/uL (1.2-4.9); Lymphocytes Percent Auto 28.7 % (20-40); Mean Corpuscular HGB Conc 33.2 g/dl (31.0-35.0); Mean Corpuscular Hemoglobin 30.6 pg (27.0-33.0); Mean Corpuscular Volume 92.3 fL (80.0-98.0); Mean Platelet Volume 11.3 fL (9.4-12.3); Monocytes Absolute Auto 0.7 X10*3/uL (0.1-1.2); Monocytes Percent Auto 8.6 % (2-11); Neutrophils Percent Auto 59.3 % (45-73); Platelet Count 166 X10*3/uL (160-400); Red Blood Count 4.15 X10*6/uL (4.20-5.50); Red Cell Distribution Width 12.8 % (11.0-16.0); White Blood Count 8.4 X10*3/uL (4.8-10.8)
[2023-03-09 10:06] LABS: Appearance Urine Clear; Color Urine Yellow; Glucose Urine UA Negative (Negative); Leukocyte Esterase Urine Negative (Negative); Nitrite Urine Negative (Negative); Specific Gravity - Urine 1.015 (1.005-1.025); Urine Blood Negative (Negative); Urine Ketones Negative (Negative); Urine Protein Negative (Neg-Trace)
[2023-03-09 10:34] LABS: Alanine Aminotransferase 14 U/L (0-31); Alkaline Phosphatase 112 U/L (39-117); Aspartate Amino Transferase 16 U/L (5-31); Bilirubin Total 0.6 mg/dL (0.0-1.0); Blood Urea Nitrogen 19 mg/dL (9-16); Calcium 9.5 mg/dL (8.4-10.2); Chloride 105 mmol/L (96-108); Cholesterol 160 mg/dL (<200); Estimated Glomerular Filt Rate > 60; Glucose Fasting 94 mg/dL (60-99); HDL Cholesterol 45 mg/dL (>40); LDL Cholesterol Calculated 90 mg/dL (<100); Potassium 4.4 mmol/L (3.3-5.1); Sodium 143 mmol/L (135-145); Total Protein 6.7 g/dL (6.5-8.0); Triglycerides 127 mg/dL (<150)
[2023-03-09 10:41] LABS: Anion Gap 13 (12-20)
[2023-03-09 10:47] LABS: Free T4 (Free Thyroxine) 1.21 ng/dL (0.71-1.85); Thyroid Stimulating Hormone 0.27 uIU/mL (0.32-4.0)
[2023-03-09 10:55] LABS: Carbon Dioxide 29 mmol/L (22-29)
== END 2023-03-09 08:53 | disposition home or self-care (01) ==
LOC: HO.LAB 08:52
PROVIDERS: PCP Internal Medicine; Visit Provider Internal Medicine
DX: R30.0 Dysuria (principal); E78.00 Pure hypercholesterolemia, unspecified; R73.01 Impaired fasting glucose; E03.9 Hypothyroidism, unspecified; E55.9 Vitamin D deficiency, unspecified; I10 Essential (primary) hypertension
CPT/HCPCS: 36415; 80053; 80061; 81003; 82306; 83036; 84439; 84443; 85025

== ENCOUNTER 2023-03-20 10:36 | Outpatient (AMB) | payer OTHER, SELFPAY ==
[2023-03-20 10:40] VITALS: BP 134/86; PULSE 81; O2SAT 94; BMI 45.0
--- NOTE | 2023-03-20 10:40 | MHC.PC.OV ---
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 Accompanied by: Self / Same As Patient Allergies No Known Allergies [No Known Allergies*] Allergy (Verified 03/20/23 11:35) Medication List - Last Reconciled 03/20/23 by Antonino Barrera MD [ADULT PULL UPS (Size XXL) As directed] [ADULT WIPES As directed] albuterol sulfate 2.5 mg (3 mL) continuous nebulization Q6-8H PRN albuterol sulfate 90 mcg/actuation (ProAir HFA) 2 puffs inhalation Q6H PRN amlodipine 2.5 mg PO DAILY [BEDSIDE COMMODE As directed] bisacodyl (Dulcolax (bisacodyl)) 10 mg (2 x 5 mg) PO BEDTIME 30 days cholecalciferol (vitamin D3) 25 mcg PO DAILY 90 days CPAP (CPAP Machine/Device) As directed cyanocobalamin (vitamin B-12) 1,000 mcg PO DAILY 90 days diclofenac sodium 1% (Voltaren Arthritis Pain) 2 grams topical BID [DISPOSABLE BED PADS As directed] [Disposable UNDERPADS As directed] donepezil (Aricept) 10 mg PO BEDTIME doxepin 25 mg PO BEDTIME gabapentin 400 mg PO TID hydrocortisone 1% (Cortisone (hydrocortisone)) 1 appl topical BID PRN 10 days hydrocortisone 1% (Anti-Itch (hydrocortisone)) 1 appl topical TID PRN hydrocortisone acetate (Anusol-HC) 25 mg OK BID 14 days [INCONTINENT BED PADS As directed] [KOTEX PADS As directed] levothyroxine 137 mcg PO DAILY 90 days linaclotide (Linzess) 290 mcg PO QAM 30 days lisinopril 40 mg PO DAILY 90 days meclizine 25 mg PO BID PRN omeprazole 20 mg PO DAILY oxybutynin chloride ER 10 mg PO DAILY 90 days oxycodone-acetaminophen 5-325 mg 1 tab PO Q6H PRN 28 days [ROLLATOR WALKER As directed] sertraline 100 mg PO DAILY 90 days [SHOWER CHAIR As directed] spironolactone 100 mg PO BID triamcinolone acetonide 0.025% 1 appl topical BID 10 days Tobacco use date assessed: 03/20/23 Fall risk assessment: No Falls in past year Last assessed Fall Risk: 03/20/23 Dental Screening Dental Screen Date: 03/20/23 Did you have a dental visit in the last 12 months?: Yes Did you have a dental problem in the last 6 months where you did not have access to dental care?: No Was dental information given to patient?: Patient has dentist HPI hyperlipidemia, brain stem lesion, migraine HPI Details Patient comes in today for her follow up visit States that she is currently having some dental issues - received some kind of dental implant around one of her right lower molars a few months ago but the oral surgeon who did her implant in [place] supposedly suddenly took off and closed his practice and states that the dentist that she is now seeing do not know what to do with her implant, which she states is bothering her a lot, and she has been referred over to specialists at [facility] in [place] - is scheduled for sometime next month States that she feels okay otherwise She denies any headaches or dizziness; denies any fever Denies any chest pains, no SOB No nausea/vomiting, no abdominal pain No change in bowel habits noted States that her chronic low back pain and joint pains remain adequately controlled on her current Rx Had her follow up labs done a couple of weeks ago - to discuss her results [facility] Medical History Bilateral primary osteoarthritis of knee Right upper quadrant pain Pruritus Impaired fasting glucose Dyspnea on exertion (~06/2020) Screening for cervical cancer Primary osteoarthritis involving multiple joints Morbid obesity with BMI of 45.0-49.9, adult Depression Anxiety Insomnia Overactive bladder Osteoarthritis Lumbar degenerative disc disease Degenerative disc disease, cervical Vitamin D deficiency Constipation GERD without esophagitis Obstructive sleep apnea Vitamin B12 deficiency Fibromyalgia Cardiac murmur Mild intermittent asthma without complication Chronic kidney disease (CKD), stage II (mild) Acquired hypothyroidism Benign essential hypertension Surgical History History of colonoscopy Family History Father CVD (cardiovascular disease) Mother CVD (cardiovascular disease) Diabetes Hypertension Social History Housing: Apartment Alcohol intake: never Patient Tobacco Use Status: Never used Tobacco e-Cigarette/Vaping Use: Never Used Second Hand Smoke Exposure: No service: No Current occupational status: unemployed, student and disabled Cognitive needs: No Hearing needs: No Vision needs: No Questionnaire PHQ-9 Over the last 2 weeks, how often have you been bothered by any of the following problems? 1. Little interest or pleasure in doing things: not at all 2. Feeling down, depressed, or hopeless: not at all 3. Trouble falling or staying asleep, or sleeping too much: not at all 4. Feeling tired or having little energy: not at all 5. Poor appetite or overeating: not at all 6. Feeling bad about yourself - or that you are a failure or have let yourself or your family down: not at all 7. Trouble concentrating on things, such as reading the newspaper or watching television: not at all 8. Moving or speaking so slowly that other people could have noticed. Or the opposite - being so fidgety or restless that you have been moving around a lot more than usual: not at all 9. Thoughts that you would be better off or of hurting yourself in some way: not at all Total score: 0 Depression Screening Interpretation: Negative Depression Screening Done: Yes 09702 - PHQ-9 Billing: Yes Source: Developed by Drs. Feng Lopez, Selina Pedro, Merlin Villalta and colleagues, with an educational nacho from [employer]. Thrive Questionnaire Date Thrive assessed: 03/20/23 I am a: Patient What is your living situation today?: I have a steady place to live Within the past 12 months, did the food you bought not last and you didn't have the money to get more?: Never true Within the past 12 months, did you worry whether your food would run out before you got money to buy more?: Never true Do you have trouble paying for medicines?: No Do you have trouble getting transportation to medical appointments?: No Do you have trouble paying your heating and electricity bill?: No Do you have trouble taking care of your child, family member or friend?: No Do you have trouble with day-to-day activities such as bathing, preparing meals, shopping, managing finances, etc.?: No Are you currently unemployed and looking for a job?: No Are you interested in more education?: No Please select the resources that you would like help with: None Currently or been in a relationship where the following occur: no concerns reported AUDIT C Alcohol Use Questionnaire (AUDIT-C) 1. How often do you have a drink containing alcohol?: Never 3. How often do you have six or more drinks on one occasion?: Never Total Score: 0 Score Reviewed/Action Taken: Yes IGNACIA-7 AMB Questionnaire IGNACIA-7 Date IGNACIA - 7 assessed: 03/20/23 Feeling nervous, anxious, or on edge: 0 = Not at all Not being able to stop or control worryin = Not at all Worrying too much about different things: 0 = Not at all Trouble relaxin = Not at all Being so restless that it is hard to sit still: 0 = Not at all Becoming easily annoyed or irritable: 0 = Not at all Feeling afraid as if something awful might happen: 0 = Not at all Total IGNACIA-7 score (0-4 normal; 5-9 mild; 10-14 moderate; 15-21 severe): 0 Source: Developed by Drs. Feng Lopez, Selina Pedro, Merlin Villalta and colleagues, with an educational nacho from [employer]. Review of Systems Const Denies chills, Reports fatigue, Denies fever(s) and Denies headache(s) ENT Reports dental pain (see HPI), Denies dysphagia, Denies dizziness, Denies otalgia, Denies headache(s), Reports neck pain, Denies odynophagia and Denies sore throat Card Denies chest pain, Denies palpitations and Reports dyspnea on exertion (mild) Resp Denies cough, Reports dyspnea on exertion (mild) and Denies wheezing GI Details: (+) pain over her hemorrhoids lately Denies abdominal pain, Denies hematochezia, Reports constipation (on and off), Denies dysphagia, Denies heartburn, Denies diarrhea, Denies nausea, Denies odynophagia and Denies vomiting Denies hematuria, Denies difficulty voiding, Denies nocturia, Denies dysuria and Denies urinary urgency Musc Reports back pain, Reports arthralgias (over both knees ) and Reports neck pain Neuro Denies dizziness and Denies headache(s) Endo Reports fatigue and Denies palpitations Aller/Immun Denies wheezing Physical exam (Primary Care) Vital Signs: Last Vital Signs Pulse 81 03/20/23 10:40 BP 134/86 03/20/23 10:40 Pulse Ox 94 03/20/23 10:40 Oxygen Delivery Method Room Air 03/20/23 10:40 BMI result Body Mass Index 45.0 Tobacco/Smoking Status: Tobacco use Status Tobacco use date assessed 03/20/23 03/20/23 10:43 Patient Tobacco Use Status Never used Tobacco 03/20/23 10:43 e-Cigarette/Vaping Use Never Used 03/20/23 10:43 PHQ-9: PHQ-9 Score PHQ-9: Total score 0 03/20/23 11:01 Depression Screening Interpretation: Negative Thrive Assessment: Date of Thrive Assessment Date Thrive assessed 03/20/23 03/20/23 10:43 Currently or been in a relationship where the following occur: no concerns reported Const General: no acute distress and alert HENMT Ears: TM's normal bilaterally and EAC's normal Throat: Yes posterior oropharynx normal and Yes tonsils normal (no TP congestion noted) Neck Neck: Yes no lymphadenopathy and Yes supple Resp Auscultation: clear to auscultation bilaterally, no rales and no wheezes Cardio Rate: regular rate Rhythm: regular rhythm Heart sounds: Murmur heart sound present systolic soft and at the left sternal border (at the left lower sternal border) GI Palpation (GI): Soft to palpation and nontender Auscultation: bowels sounds not normal Back/Spine/Pelvis Cervical Spine: Cervical spine tenderness Thoracic/Lumbar Spine: lumbar spinal tenderness Extrem General: Yes no clubbing, cyanosis or edema Right lower extremity: knee Details: tenderness; no swelling Left lower extremity: knee Details: tenderness; no swelling Results Reviewed Results Reviewed: Laboratory Tests 03/09/23 03/09/23 03/09/23 09:10 09:10 09:12 WBC 8.4 Hgb 12.7 Hct 38.3 Plt Count 166 Sodium 143 Potassium 4.4 Creatinine 0.87 Estimated GFR > 60 Fasting Glucose 94 Hemoglobin A1c % 5.6 Calcium 9.5 AST 16 ALT 14 Triglycerides 127 Cholesterol 160 LDL Cholesterol, Calc 90 HDL Cholesterol 45 25-OH Vitamin D Total 45.0 TSH 0.27 L Free T4 1.21 Ur Specific [place] 1.015 Urine Protein Negative Urine Glucose (UA) Negative Urine Blood Negative Assessment and Plan Assessment & Plan (1) Benign essential hypertension: Code(s): I10 - Essential (primary) hypertension Plan: Results of her labs done a couple of weeks ago reviewed and discussed with patient Reinforced low-sodium diet -?goal is systolic BP of at least 130 to 140 mm or less Continue Lisinopril 40 mg QD, Spironolactone 100 mg BID and Amlodipine 2.5 mg QD Will recheck her labs in 3 months for follow-up (2) Chronic kidney disease (CKD), stage II (mild): Code(s): N18.2 - Chronic kidney disease, stage 2 (mild) Plan: GFR stable?-? will continue to monitor her renal function regularly (3) Acquired hypothyroidism: Code(s): E03.9 - Hypothyroidism, unspecified Plan: TFTs were normal on her recent labs Continue Levothyroxine 150 mcg QD Will continue to monitor her TFTs regularly (4) Mild intermittent asthma without complication: Code(s): J45.20 - Mild intermittent asthma, uncomplicated Plan: Stable/controlled Continue ProAir HFA 2 puffs 4 times a day as needed; patient also has her Albuterol nebulizer that she uses when needed (5) Impaired fasting glucose: Code(s): R73.01 - Impaired fasting glucose Plan: HgbA1c was normal at 5.6% when checked previously Reinforced low calorie/low carb diet; exercise as tolerated (6) Cardiac murmur: Comment: Echocardiogram done in 2011 showed (+) mild MR and trace TR, which are the most likely cause of her cardiac murmur; LVEF was normal and there were no other abnormalities noted Repeat echocardiogram done last year (2019) showed no significant changes from her previous echo in 2012; LV systolic function remains normal and EF was between 65-70% Code(s): R01.1 - Cardiac murmur, unspecified Plan: Will continue to monitor regularly/periodically - will consider repeating her echo next year for follow up (7) Obstructive sleep apnea: Code(s): G47.33 - Obstructive sleep apnea (adult) (pediatric) Plan: Continue using her CPAP device when sleeping at night -??CPAP titration done in January 2018 recommended acceptable CPAP pressure setting of 13-14 cm (8) GERD without esophagitis: Code(s): K21.9 - Gastro-esophageal reflux disease without esophagitis Plan: Dietary restrictions reinforced Continue Omeprazole 20 mg daily (9) Lumbar degenerative disc disease: Code(s): M51.36 - Other intervertebral disc degeneration, lumbar region Plan: Reinforced activity and weight lifting restrictions to minimize aggravating her low back pain Symptoms remain manageable on her current medications, including her Percocet 5-325 mg that she takes every 6 hours as needed (10) Degenerative disc disease, cervical: Code(s): M50.30 - Other cervical disc degeneration, unspecified cervical region Plan: Findings confirmed on cervical spine x-rays done in 2014 -? symptoms are reportedly manageable on her current meds (11) Primary osteoarthritis involving multiple joints: Code(s): M89.49 - Other hypertrophic osteoarthropathy, multiple sites Plan: Continue Salsalate 500 mg 2 tablets 3 times a day and Oxycodone-Acetaminophen 5-325 mg 1 tablet every 6 hours as needed [place] [facility] [place] X[place]rays of both knees done a couple of years ago showed (+) OA? changes bilaterally; repeat x-rays done a few months ago in October 2020 showed similar findings (12) Fibromyalgia: Code(s): M79.7 - Fibromyalgia Plan: Continue Gabapentin 400 mg 3 times a day and Lidoderm patches 5% 1 patch daily Patient again encouraged to exercise regularly to help manage her fibromyalgia symptoms better Follow-up with rheumatology as scheduled (13) Constipation: Code(s): K59.00 - Constipation, unspecified Qualifiers: Constipation type: unspecified constipation type Qualified Code(s): K59.00 - Constipation, unspecified Plan: Encouraged again on increased oral fluids and dietary fiber Continue Senna 8.6 mg 2 tablets at bedtime daily Follow up with GI as scheduled (14) Vitamin B12 deficiency: Code(s): E53.8 - Deficiency of other specified B group vitamins Plan: Corrected - will continue to monitor Vitamin B12 level regularly (15) Vitamin D deficiency: Code(s): E55.9 - Vitamin D deficiency, unspecified Plan: Continue Vitamin D2 32906 units once a week (16) Overactive bladder: Code(s): N32.81 - Overactive bladder Plan: Continue Oxybutynin ER 10 mg once a day (17) Insomnia: Code(s): G47.00 - Insomnia, unspecified Qualifiers: Insomnia type: unspecified Qualified Code(s): G47.00 - Insomnia, unspecified Plan: Sleep hygiene reinforced Continue Zolpidem 10 mg daily at bedtime as needed (18) Anxiety: Code(s): F41.9 - Anxiety disorder, unspecified Plan: Continue Doxepin 25 mg daily at bedtime as needed Patient is also on Sertraline, which helps with her anxiety as well (19) Depression: Code(s): F32.9 - Major depressive disorder, single episode, unspecified Qualifiers: Depression Type: major depressive disorder Major depression recurrence: recurrent Active/Remission status: currently active Major depression episode severity: unspecified Qualified Code(s): F33.9 - Major depressive disorder, recurrent, unspecified Plan: Continue Sertraline 100 mg once a day Follow-up with Psychiatry as scheduled (20) Morbid obesity with BMI of 45.0-49.9, adult: Code(s): E66.01 - Morbid (severe) obesity due to excess calories; Z68.42 - Body mass index [BMI] 45.0-49.9, adult Plan: Reinforced diet/exercise as tolerated/lose weight Plan Follow up in 3 months Orders: Orders Complete Blood Count Auto Diff 3 Months I10 - Essential (primary) hypertension Comprehensive [place]. Panel Fast 3 Months E78.00 - Pure hypercholesterolemia, unspecified Lipid Panel 3 Months E78.00 - Pure hypercholesterolemia, unspecified UA CC w/rflx Micro + Cult 3 Months R30.0 - Dysuria Vitamin D 25-OH Total 3 Months E55.9 - Vitamin D deficiency, unspecified Influenza [id number] Immunization Today Z23 - Encounter for immunization Vitamin B12 and Folate 3 Months E53.8 - Deficiency of other specified B group vitamins Thyroid Stimulating Hormone 3 Months E03.9 - Hypothyroidism, unspecified Free T4 (Free Thyroxine) 3 Months E03.9 - Hypothyroidism, unspecified Medications: New flu vacc [id number] 6mos up(PF) 0.5 mL IM ONCE 0.5 mL 0RF Z23 - Encounter for immunization Coding Level of Care Code Est Pt Level 4 (22545) Diagnoses Benign essential hypertension I10 Chronic kidney disease (CKD), stage II (mild) N18.2 Acquired hypothyroidism E03.9 Mild intermittent asthma without complication J45.20 Impaired fasting glucose R73.01 Cardiac murmur R01.1 Obstructive sleep apnea G47.33 GERD without esophagitis K21.9 Lumbar degenerative disc disease M51.36 Degenerative disc disease, cervical M50.30 Primary osteoarthritis involving multiple joints M89.49 Fibromyalgia M79.7 Constipation, unspecified constipation type K59.00 Constipation type: unspecified constipation type Vitamin B12 deficiency E53.8 Vitamin D deficiency E55.9 Overactive bladder N32.81 Insomnia, unspecified type G47.00 Insomnia type: unspecified Anxiety F41.9 Episode of recurrent major depressive disorder, unspecified depression episode severity F33.9 Depression Type: major depressive disorder Major depression recurrence: recurrent Active/Remission status: currently active Major depression episode severity: unspecified Morbid obesity with BMI of 45.0-49.9, adult E66.01; Z68.42
== END 2023-03-20 11:48 | disposition home or self-care (01) ==
PROVIDERS: PCP Internal Medicine; Visit Provider Internal Medicine
DX: I12.9 Hypertensive chronic kidney disease with stage 1 through stage 4 chronic kidney disease, or unspecified chronic kidney disease (principal); Z68.42 Body mass index [BMI] 45.0-49.9, adult; E66.01 Morbid (severe) obesity due to excess calories; N18.2 Chronic kidney disease, stage 2 (mild); F33.9 Major depressive disorder, recurrent, unspecified; E03.9 Hypothyroidism, unspecified; J45.20 Mild intermittent asthma, uncomplicated; R73.01 Impaired fasting glucose; R01.1 Cardiac murmur, unspecified; G47.33 Obstructive sleep apnea (adult) (pediatric); K21.9 Gastro-esophageal reflux disease without esophagitis; M50.30 Other cervical disc degeneration, unspecified cervical region
CPT/HCPCS: 99214

== ENCOUNTER 2023-04-30 09:36 | Outpatient (AMB) | payer OTHER, SELFPAY ==
--- NOTE | 2023-04-30 09:44 | AM.OFFVISNUR ---
Intake Intake Visit Reasons: flu shot Allergies No Known Allergies [No Known Allergies*] Allergy (Verified 03/20/23 11:35) Office Procedures Flu Questionnaire Does the patient have a severe egg allergy?: No Does the patient have severe life threatening allergies?: No Does the patient have a fever or illness today?: No Has the patient ever had Guillain-[place] Syndrome?: No Has the patient ever had any past reaction to a flu shot?: No Immunizations flu vacc [id number] 6mos up(PF) 60 mcg(15 mcgx4)/0.5 mL IM syringe Performing Provider: Antonino Barrera MD [facility] Administered by: Jackeline Valentin RN on 04/30/23 09:44 Dose Route Admin Location Dispensed Lot Number Expiration Date NDC Regulatory Affairs Assistant 0.5 mL IM Left Deltoid 0.5 mL [id number] 12/08/23 [id number] [employer] VIS Given Date VIS Provided VIS Publication Date 04/30/23 Single Vaccine 21 Eligibility Eligibility Date Funding Source Not [facility] Eligible 04/30/23 Private Coding Assessment & Plan Assessment & Plan Orders: Orders Influenza [id number] Immunization Today Z23 - Encounter for immunization
== END 2023-04-30 09:47 | disposition home or self-care (01) ==
LOC: HO.HMGH 09:36
PROVIDERS: PCP Internal Medicine; Visit Provider Internal Medicine
DX: Z23 Encounter for immunization (principal)
CPT/HCPCS: 90471; 90686

== ENCOUNTER 2023-05-04 09:14 | Inpatient (IN) | payer OTHER, SELFPAY ==
[2023-05-04] VITALS (12 sets, daily range): BP systolic 117–154; BP diastolic 56–71; PULSE 64–96; RESP 16–20; TEMP 36.4–37.4; O2SAT 91–97; BMI 43.3
--- NOTE | ~2023-05-04 | XR_ITS ---
EXAMINATION: XR CHEST CLINICAL INFORMATION: Dyspnea. COMPARISON: None available. TECHNIQUE: Frontal view of the chest was obtained. FINDINGS: No significant abnormality is noted involving the heart, lungs, mediastinum, bony thorax or soft tissues. XR/XR chest 1V IMPRESSION: Unremarkable chest examination.
--- NOTE | 2023-05-04 09:28 | ECG_ITS ---
Test Reason : CHEST PAIN Blood Pressure : / mmHG Vent. Rate : 091 BPM Atrial Rate : 091 BPM P-R Int : 124 ms QRS Dur : 074 ms QT Int : 340 ms P-R-T Axes : 044 -11 035 degrees QTc Int : 418 ms Normal sinus rhythm Nonspecific ST abnormality Abnormal ECG When compared with ECG of 15-JUN-2017 10:37, No significant change was found Referred By: Generic ED Physician Electronically Signed By:DOMINGO CANALES MD
[2023-05-04 09:46] LABS: MANUAL DIFF FLAG NO
--- NOTE | 2023-05-04 09:59 | PC.NURSE ---
a&ox3, vss and up to date aside from low grade oral temp at this time. pt verbalizing fever/chills/n/v/dyspnea/pain on inspiration. pt states pain level increases w/ movement. no sob/wob noted at this time. respirations even and unlabored at this time. fine crackles noted in lower lungs bilaterally. family bedside. call [place] placed within reach.
[2023-05-04 10:09] LABS: Basophils Percent Auto 0.2 % (0-2); Eosinophils Percent Auto 0.4 % (0-4); Hematocrit 38.9 % (37.0-47.0); Hemoglobin 12.9 g/dl (12.0-16.0); Imm Gran Abs Auto 0.02 X10*3/uL (0.00-0.03); Imm Gran Pct Auto 0.4 % (0.0-0.4); Lymphocytes Absolute Auto 1.1 X10*3/uL (1.2-4.9); Lymphocytes Percent Auto 22.2 % (20-40); Mean Corpuscular HGB Conc 33.2 g/dl (31.0-35.0); Mean Corpuscular Hemoglobin 30.3 pg (27.0-33.0); Mean Corpuscular Volume 91.3 fL (80.0-98.0); Mean Platelet Volume 10.7 fL (9.4-12.3); Monocytes Percent Auto 18.9 % (2-11); Neutrophils Percent Auto 57.9 % (45-73); Platelet Count 132 X10*3/uL (160-400); Red Blood Count 4.26 X10*6/uL (4.20-5.50); Red Cell Distribution Width 13.1 % (11.0-16.0); White Blood Count 5.1 X10*3/uL (4.8-10.8)
--- NOTE | 2023-05-04 10:11 | ED_ITS ---
HPI - General Adult General Chief complaint: Dyspnea Stated complaint: cough fever congestion Time Seen by Provider: 05/04/23 09:49 Source: patient and RN notes reviewed Mode of arrival: ambulatory Limitations: no limitations History of Present Illness HPI narrative: This is a 73-year-old female, with a history of asthma, ROSA on CPAP, depression, anxiety, osteoarthritis, degenerative disc disease, constipation, GERD, fibromyalgia, cardiac murmur, chronic kidney disease, hypothyroidism, presenting to the emergency department with complaints of fevers, chills, productive cough, exertional dyspnea, and fevers x4 days. Patient denies any recent sick contacts. Denies chest pain. Denies abdominal pain. No recent travel, hospitalizations, surgeries. She is a nonsmoker. No other complaints or concerns at this time. MD complaint: Cough Onset (ago): day(s) Relieving factors: none Exacerbating factors: none Associated symptoms: cough, diaphoresis, fever/chills, headaches and loss of appetite Treatments prior to arrival: none Related Data Home Medications Medication Instructions Recorded Confirmed CPAP (CPAP Machine/Device) 02/01/22 03/20/23 diclofenac sodium 1 % topical gel 2 g topical BID PRN Pain 05/04/23 05/04/23 linaclotide 290 mcg capsule 290 mcg PO QAM PRN Stomach Upset 05/04/23 05/04/23 (Linzess) Previous Rx's Medication Instructions Recorded Disposable UNDERPADS #100 ea 01/19/21 INCONTINENT BED PADS #2 ea 10/26/21 ROLLATOR WALKER #1 ea 10/26/21 SHOWER CHAIR #1 ea 10/26/21 hydrocortisone 1 % topical cream 1 appl topical TID PRN itching 02/21/22 (Anti-Itch (hydrocortisone)) #28.4 grams ADULT PULL UPS (Size XXL) #100 ea 04/25/22 BEDSIDE COMMODE #1 ea 04/25/22 cyanocobalamin (vitamin B-12) 1,000 mcg PO DAILY 90 days #90 tabs 07/15/22 1,000 mcg tablet omeprazole 20 mg capsule,delayed 20 mg PO DAILY #90 caps 07/19/22 release levothyroxine 137 mcg tablet 137 mcg PO DAILY 90 days #90 tabs 10/10/22 spironolactone 100 mg tablet 100 mg PO BID #180 tabs 08/03/23 albuterol sulfate 2.5 mg/3 mL 2.5 mg (3 mL) continuous 01/16/23 (0.083 %) solution for nebulization nebulization Q6-8H PRN bronchospasm #180 mL lisinopril 40 mg tablet 40 mg PO DAILY 90 days #90 tabs 01/16/23 ADULT WIPES #100 ea 01/22/23 DISPOSABLE BED PADS #30 ea 01/22/23 KOTEX PADS #100 ea 01/22/23 albuterol sulfate 90 mcg/actuation 2 puff inhalation Q6H PRN 01/23/23 aerosol inhaler (ProAir HFA) bronchospasm #8.5 grams amlodipine 2.5 mg tablet 2.5 mg PO DAILY #90 tabs 03/29/23 cholecalciferol (vitamin D3) 25 25 mcg PO DAILY 90 days #90 caps 03/29/23 mcg (1,000 unit) capsule gabapentin 400 mg capsule 400 mg PO TID #270 caps 03/29/23 meclizine 25 mg tablet 25 mg PO BID PRN dizziness #20 tabs 03/29/23 oxybutynin chloride 10 mg 10 mg PO DAILY 90 days #90 tabs 03/29/23 tablet,extended release 24 hr sertraline 100 mg tablet 100 mg PO DAILY 90 days #90 tabs 03/29/23 bisacodyl 5 mg tablet,delayed 10 mg (2 x 5 mg) PO BEDTIME #60 04/05/23 release (Laxative (bisacodyl)) tabs oxycodone-acetaminophen 5 mg-325 1 tab PO Q6H PRN pain 28 days #112 04/29/23 mg tablet tabs dexamethasone 6 mg tablet 6 mg PO DAILY #7 tabs 05/06/23 Allergies Allergy/AdvReac Type Severity Reaction Status Date / Time No Known Allergies Allergy Verified 03/20/23 11:35 [No Known Allergies*] Review of Systems 2 Review of Systems: Yes all other systems are reviewed and are negative Constitutional: Constitutional: Reports as per [facility] Past Medical History Attestation statement: The following information was validated with the patient. Medical History Bilateral primary osteoarthritis of knee Right upper quadrant pain Pruritus Impaired fasting glucose Dyspnea on exertion (~06/2020) Screening for cervical cancer Primary osteoarthritis involving multiple joints Morbid obesity with BMI of 45.0-49.9, adult Depression Anxiety Insomnia Overactive bladder Osteoarthritis Lumbar degenerative disc disease Degenerative disc disease, cervical Vitamin D deficiency Constipation GERD without esophagitis Obstructive sleep apnea Vitamin B12 deficiency Fibromyalgia Cardiac murmur Mild intermittent asthma without complication Chronic kidney disease (CKD), stage II (mild) Acquired hypothyroidism Benign essential hypertension Surgical History History of colonoscopy Family History Family History Father CVD (cardiovascular disease) Mother CVD (cardiovascular disease) Diabetes Hypertension Social History Social History Household Members: Spouse Housing: Condominium Do you presently have visiting nurse or other home services: Yes Alcohol intake: never Patient Tobacco Use Status: Never used Tobacco e-Cigarette/Vaping Use: Never Used Second Hand Smoke Exposure: No service: No Current occupational status: unemployed, student and disabled Cognitive needs: No Hearing needs: No Vision needs: No Physical Exam ED Vital Signs: Vital Signs - 24 hr 05/04/23 09:23 05/04/23 09:47 05/04/23 11:23 Temperature 98.0 F 99.1 F Pulse Rate 96 94 81 Respiratory Rate 20 16 20 Blood Pressure 122/68 138/68 Pulse Oximetry 93 93 Oxygen Delivery Method Room Air Room Air 05/04/23 12:03 Temperature Pulse Rate 86 Respiratory Rate 16 Blood Pressure 138/60 Pulse Oximetry 91 L Oxygen Delivery Method Room Air BMI result Body Mass Index 43.3 Const General: cooperative, comfortable and no acute distress Orientation/consciousness: patient oriented x3 Limitations: no limitations [facility] Head: Yes normal to inspection, Yes normocephalic and Yes atraumatic Ears: hearing grossly normal bilaterally General nose exam: Normal external nose present Face and sinus: Yes normal facial exam Mouth: Normal oral and palatal mucosa present, oropharynx normal and moist mucous membranes Throat: Yes posterior oropharynx normal Eyes General: appearance normal, both eyes and all related structures Eyelids: Yes eyelids normal Conjunctivae: conjunctivae normal Sclerae: sclerae normal Pupils: Equal, round and reactive pupils present EOM: EOMs intact bilaterally Neck Neck: Yes normal visual inspection, Yes full ROM and Yes no lymphadenopathy Lymphatic: no lymphadenopathy noted Chest Chest palpation & inspection: normal inspection of the chest Resp Other: Lungs are diminished in bilateral lung bases, no wheezes, rales, or rhonchi auscultated. Effort & Inspection: normal respiratory effort and able to speak in complete sentences Auscultation: rales Cardio Rate: regular rate Rhythm: regular rhythm Heart sounds: S1 normal heart sound present and S2 normal heart sound present GI Inspection: Yes normal to inspection Skin General skin exam: no rashes or lesions noted Trauma: no lacerations or abrasions Wounds: no wounds Neuro General: patient oriented x3 and moves all extremities Cranial nerves: Yes Equal, round and reactive pupils present Extrem Other: No calf tenderness, no peripheral edema noted. General: Yes normal to inspection Right upper extremity: normal to inspection Left upper extremity: normal to inspection Right lower extremity: normal to inspection Left lower extremity: normal to inspection Course Reevaluation(s) Reevaluation #1: Patient tested positive for COVID, chest x-ray without any consolidations, leukocytosis, chemistry within normal limits. BNP 133. Symptoms consistent with COVID like infection. Oxygen saturation 99 % on room air during reassessment.. Lungs are clear to auscultation bilaterally, will have respiratory therapy evaluate, Will obtain walking O2 saturation Time: 11:09 Reevaluation #2: Walking O2 saturation was 93% to start, and with ambulation O2 saturation down to 84%. Discussed case with Dr. Graham who agrees hospitalist admission is warranted. Decadron 6 mg IV push ordered. Spoke to hospitalist, Tasha Brewster, who recommends medicating with Decadron and re-evaluating. Time: 12:12 Reevaluation #3: after decadron administration, walking o2 at 89%, will transfer care to hospitalist. Discussed this with pt who is agreeable. Medications Administered Discontinued Medications Generic Name Dose Route Start Last Admin Trade Name Freq PRN Reason Stop Dose Admin Albuterol Sulfate 4 puff 05/04/23 11:18 05/04/23 11:22 Albuterol Sulfate 90 Mcg 8 Gm Inhaler INHALE 05/04/23 11:19 4 puff ONCE ONE Administration Albuterol Sulfate 2 puff 05/04/23 13:59 05/05/23 20:33 Albuterol Sulfate 90 Mcg 8 Gm Inhaler INHALE 2 puff Q2H PRN Administration Shortness of Breath/Wheezing Albuterol Sulfate 2 puff 05/04/23 20:26 05/06/23 08:06 Albuterol Sulfate 90 Mcg 8 Gm Inhaler INHALE 2 puff Q6H PRN Administration bronchospasm Albuterol/Ipratropium 3 ml 05/04/23 16:00 05/06/23 17:44 Albuterol/Iprat 2.5/0.5mg 3 Ml Ampul.Neb INHALE Not Given RQ4H WHILE AWAKE [facility] Amlodipine Besylate 2.5 mg 05/05/23 09:00 05/06/23 09:34 Amlodipine Besylate 2.5 Mg Tablet PO 2.5 mg DAILY [facility] Administration Protocol Bisacodyl 10 mg 05/04/23 21:00 05/05/23 23:16 Bisacodyl 5 Mg Tablet.Dr PO Not Given BEDTIME [facility] Cyanocobalamin 1,000 mcg 05/05/23 09:00 05/06/23 09:34 Cyanocobalamin (Vitamin B-12) 1,000 Mcg Tablet PO 1,000 mcg DAILY MARYAM Administration Dexamethasone 6 mg 05/05/23 09:00 05/06/23 09:34 Dexamethasone 6 Mg Tablet PO 6 mg DAILY MARYAM Administration Dexamethasone Sodium Phosphate 6 mg 05/04/23 11:59 05/04/23 12:15 Dexamethasone Sod Phosphate 4 Mg/Ml Vial IVPUSH 05/04/23 12:00 6 mg ONCE ONE Administration Gabapentin 400 mg 05/04/23 21:00 05/06/23 14:58 Gabapentin 400 Mg Capsule PO 400 mg TID MARYAM Administration Heparin Sodium (Porcine) 5,000 unit 05/04/23 14:00 05/06/23 14:53 Heparin Sodium,Porcine 5,000 Unit/Ml Vial SUBCUT 5,000 unit Q12H MARYAM Administration Levothyroxine Sodium 112 mcg 05/05/23 06:00 05/06/23 05:37 Levothyroxine Sodium 112 Mcg Tablet PO 112 mcg DAILY@0600 MARYAM Administration Levothyroxine Sodium 25 mcg 05/05/23 06:00 05/06/23 05:37 Levothyroxine Sodium 25 Mcg Tablet PO 25 mcg DAILY@0600 MARYAM Administration Lisinopril 40 mg 05/05/23 09:00 05/06/23 09:34 Lisinopril 40 Mg Tablet PO 40 mg DAILY [facility] Administration Protocol Omeprazole 20 mg 05/05/23 09:00 05/06/23 09:34 Omeprazole 20 Mg Capsule.Dr PO 20 mg DAILY MARYAM Administration Oxybutynin Chloride 10 mg 05/05/23 09:00 05/06/23 09:34 Oxybutynin Chloride Er 5 Mg Tab.Er.24 PO 10 mg DAILY MARYAM Administration Sertraline HCl 100 mg 05/05/23 09:00 05/06/23 09:35 Sertraline Hcl 100 Mg Tablet PO 100 mg DAILY MARYAM Administration Sodium Chloride 3 ml 05/04/23 16:00 05/06/23 09:35 0.9 % Sodium Chloride Flush 3 Ml Syringe IVFLUSH 3 ml QSHIFT MARYAM Administration Spironolactone 100 mg 05/04/23 21:00 05/06/23 09:34 Spironolactone 25 Mg Tablet PO 100 mg BID MARYAM Administration Protocol Vitamin D 25 mcg 05/05/23 09:00 05/06/23 09:34 Cholecalciferol (Vitamin D3) 25 Mcg Tablet PO 25 mcg DAILY MARYAM Administration Medical Decision Making Medical Decision Making [facility] Narrative: This is a 73-year-old female presenting to the emergency department for evaluation of cough, fevers, wheezing, and fevers for the last 4 days. On arrival to have a blood pressure within normal limits, oxygen saturation 93% on room air. She is not on oxygen at home. Lungs are diminished in bilateral lung bases. She is nontoxic-appearing, under no acute respiratory distress. She has no chest pain. Patient has no risk factors for pulmonary embolism. Plan: Labs, viral swabs, chest x-ray, EKG Differential Diagnosis Differential Diagnoses: The differential diagnosis associated with the presentation includes Pneumonia, COVID, bronchitis Admission/Observation Consideration of admission/observation: Escalation of care including admission/observation considered Escalation of care including admission observation was considered given hypoxia Lab Data [facility] Lab Attestation statement: I reviewed the patient's lab results. No leukocytosis, stable H&H, creatinine 1.2, base line appears to be around 1. BMP 133, COVID positive. 05/05/23 06:09 05/05/23 06:09 Labs: Lab Results 05/04/23 05/04/23 05/05/23 Range/Units 09:33 09:34 06:09 WBC 5.1 4.6 L (4.8-10.8) X10*3/uL RBC 4.26 4.03 L (4.20-5.50) X10*6/uL Hgb 12.9 12.5 (12.0-16.0) g/dl Hct 38.9 36.9 L (37.0-47.0) % MCV 91.3 91.6 (80.0-98.0) fL MCH 30.3 31.0 (27.0-33.0) pg MCHC 33.2 33.9 (31.0-35.0) g/dl RDW 13.1 12.6 (11.0-16.0) % Plt Count 132 L 145 L (160-400) X10*3/uL MPV 10.7 11.4 (9.4-12.3) fL Immature Gran % (Auto) 0.4 0.2 (0.0-0.4) % Neut % (Auto) 57.9 70.2 (45-73) % Lymph % (Auto) 22.2 16.9 L (20-40) % Owen % (Auto) 18.9 H 12.5 H (2-11) % Eos % (Auto) 0.4 0.0 (0-4) % Baso % (Auto) 0.2 0.2 (0-2) % Lymph # (Auto) 1.1 L 0.8 L (1.2-4.9) X10*3/uL [place] # (Auto) 1.0 0.6 (0.1-1.2) X10*3/uL Eos # (Auto) 0.0 0.0 (0.0-0.4) X10*3/uL Baso # (Auto) 0.0 0.0 (0.0-0.2) X10*3/uL Abs Immat Gran (auto) 0.02 0.01 (0.00-0.03) X10*3/uL Absolute Neuts (auto) 3.0 3.2 (2.0-8.3) x10*3/uL Absolute Nucleated RBC 0.000 0.000 (0.0-0.012) X10*3/uL Nucleated RBC % (auto) 0.0 0.0 (0.0-0.2) /100WBC Sodium 139 140 (135-145) mmol/L Potassium 4.0 4.2 (3.3-5.1) mmol/L Chloride 102 105 (96-108) mmol/L Carbon Dioxide 27 26 (22-29) mmol/L Anion Gap 14 13 (12-20) BUN 16 22 H (9-16) mg/dL Creatinine 1.27 1.03 (0.5-1.4) mg/dL Estim Creat Clear Calc 46.4 57.3 Estimated GFR 41 52 Random Glucose 95 132 H (60-115) mg/dL Calcium 9.2 9.1 (8.4-10.2) mg/dL B-Natriuretic Peptide 133 H (<100) pg/mL Influenza Type A (PCR) NEGATIVE (Negative) Influenza Type B (PCR) NEGATIVE (Negative) RSV RNA Qual (PCR) NEGATIVE (Negative) SARS-CoV-2 RNA (RT-PCR) POSITIVE A (Negative) Radiology Impression Discussion of test interpretation with radiology: I have reviewed the radiologist's reading. Radiologist Impression: EXAMINATION: XR CHEST CLINICAL INFORMATION: Dyspnea. COMPARISON: None available. TECHNIQUE: Frontal view of the chest was obtained. FINDINGS: No significant abnormality is noted involving the heart, lungs, mediastinum, bony thorax or soft tissues. XR/XR chest 1V IMPRESSION: Unremarkable chest examination. Dictated By: Ernesto Ashley MD Critical Care Time Critical Care Time Critical Care Time: Yes Total Critical Care Time: 35 Attestation: I have personally provided critical care time exclusive of time spent on separately billable procedures. Time includes review of lab data, radiology results, discussion with consultants, and monitoring for potential decompensation. Intervention performed as documented. Discharge Plan Discharge Clinical Impression: COVID-19, Hypoxia Patient Disposition: Admitted As Inpatient Interventions: Admission Worksheet (ED) Last Done: 05/04/23 16:48 Discharge Date/Time: 05/04/23 17:05
[2023-05-04 10:25] LABS: Anion Gap 14 (12-20); Blood Urea Nitrogen 16 mg/dL (9-16); Calcium 9.2 mg/dL (8.4-10.2); Carbon Dioxide 27 mmol/L (22-29); Chloride 102 mmol/L (96-108); Creatinine Clr Calc Pharmacy 46.4; Estimated Glomerular Filt Rate 41; Glucose Random 95 mg/dL (60-115); Sodium 139 mmol/L (135-145)
[2023-05-04 10:44] LABS: Influenza A PCR NEGATIVE (Negative); Influenza B PCR NEGATIVE (Negative); Resp Syncy Virus RNA Qual PCR NEGATIVE (Negative); SARS COV2 PCR INHOUSE POSITIVE (Negative)
[2023-05-04 10:46] LABS: B Type Natriuretic Peptide 133 pg/mL (<100)
--- NOTE | 2023-05-04 11:16 | PC.NURSE ---
pt performed ambulation trial - 92% on RA, O2 dropped to 84% on RA while ambulating w/ walker. pt ambulated w/ steady gait w/ walker as assistance. RT bedside assessing pt at this time.
[2023-05-04] MEDS: Albuterol Sulfate 90 MCG 8 GM INHALER 4 PUFF INHALE (11:22)
[2023-05-04] MEDS: dexAMETHasone sod phosphate 4 MG/ML VIAL 6 MG IVPUSH (12:15)
--- NOTE | 2023-05-04 12:17 | PC.NURSE ---
pt placed on 2Lvia NC to promote comfort. 22gIV placed in the right AC w/o difficulty - medication administered per provider order. resting comfortably w/ family bedside. respirations remain even and unlabored. call [place] placed within reach.
--- NOTE | 2023-05-04 13:42 | MHC.EDTECH ---
Ambulated with Pt. O2 89-91%. BRE Angulo aware.
--- NOTE | 2023-05-04 13:54 | PM.IMHP ---
History of Present Illness Date of Service: 05/04/23 Attending physician on admission: [facility] Chief Complaint: sob,cough, subjective fevers 73-year-old female with history of depression and anxiety, morbid obesity, lumbar DDD, GERD, ROSA compliant with CPAP, fibromyalgia, asthma, hypothyroidism, hypertension presented to the ED earlier today for evaluation of subjective fevers, dry cough, shortness of breath, pleuritic chest pain, dysgeusia ongoing for 2 days. Denies any known sick contacts. Denies any rigors, sore throat, congestion, abdominal pain, nausea, vomiting, diarrhea, melena, hematochezia, lightheadedness, palpitations, wheezing, chest pain. On arrival, vital stable. No hypoxia at rest or fevers. No leukocytosis. Renal function and electrolyte levels normal. BNP 133. Positive for COVID-19, negative for RSV and influenza. Chest x-ray negative for any acute cardiopulmonary abnormality. EKG shows NSR with nonspecific ST abnormality, rate 91. No BETSY or depressions. Noted to desaturate to 84-89% on RA with ambulation following treatment with albuterol and 6mg IV dexamethasone. Review of Systems Review of Systems: General: +subjective fevers. No malaise, unintentional weight loss HEENT: +dysgeusia. No sore throat, nasal congestion, rhinorrhea, sinus pain, ear pain Cardiovascular: No chest pain, palpitations, or leg edema Respiratory: +sob, +cough. No wheezing GI: No abdominal pain, nausea, vomiting, diarrhea, constipation, melena, hematochezia : No dysuria, hematuria, increased urinary frequency, decreased urinary output MSK: No myalgia, back pain Neuro: No headaches, focal weakness, paresthesias Skin: No rashes or lesions [facility] Medical History Bilateral primary osteoarthritis of knee Right upper quadrant pain Pruritus Impaired fasting glucose Dyspnea on exertion (~06/2020) Screening for cervical cancer Primary osteoarthritis involving multiple joints Morbid obesity with BMI of 45.0-49.9, adult Depression Anxiety Insomnia Overactive bladder Osteoarthritis Lumbar degenerative disc disease Degenerative disc disease, cervical Vitamin D deficiency Constipation GERD without esophagitis Obstructive sleep apnea Vitamin B12 deficiency Fibromyalgia Cardiac murmur Mild intermittent asthma without complication Chronic kidney disease (CKD), stage II (mild) Acquired hypothyroidism Benign essential hypertension Family History Father CVD (cardiovascular disease) Mother CVD (cardiovascular disease) Diabetes Hypertension Surgical History History of colonoscopy Household Members: Spouse Housing: Condominium Do you presently have visiting nurse or other home services: Yes Alcohol intake: never Patient Tobacco Use Status: Never used Tobacco Smoked in Last 30 Days: No e-Cigarette/Vaping Use: Never Used Patient Interested in Nicotine Replacement: No Patient Given Instructions on How to Stop Smoking: No Second Hand Smoke Exposure: No Use of substances other than those prescribed or required for medical reasons: No Currently Displaying Signs/Symptoms of Drug Intoxication Withdrawal: No Any prior treatment program specific to substance use: No Have you been hit, kicked, punched, or otherwise hurt by someone within the past year? If so, by whom?: No Do you feel safe in your current relationship?: Yes Advance Directives: No Advance Directives Information Provided: No Do you have thoughts of harming others: None Do you have a plan to hurt others: No Plan How much weight loss: 2-13 pounds Eating poorly because of decreased appetite: Yes Nutrition Risks: No Nutritional Risk Patient : No : No Poor oral hygiene: No service: No Current occupational status: unemployed, student and disabled Cognitive needs: No Hearing needs: No Vision needs: No Meds Allergies Allergy/AdvReac Type Severity Reaction Status Date / Time No Known Allergies Allergy Verified 03/20/23 11:35 [No Known Allergies*] Home Medications Medication Instructions Recorded Confirmed Last Taken Type CPAP (CPAP Machine/Device) 02/01/22 03/20/23 Unknown History diclofenac sodium 1 % topical gel 2 g topical BID PRN Pain 05/04/23 05/04/23 Unknown History linaclotide 290 mcg capsule 290 mcg PO QAM PRN Stomach Upset 05/04/23 05/04/23 Unknown History (Linzess) Physical Exam Vital Signs and Narrative: Vital Signs: Last Vital Signs Temp 99.3 F 05/04/23 13:40 Pulse 86 05/04/23 13:40 Resp 20 05/04/23 13:40 BP 121/56 L 05/04/23 13:40 Pulse Ox 93 05/04/23 13:40 O2 Del Method Room Air 05/04/23 13:40 O2 Flow Rate 2 05/04/23 12:03 BMI result Body Mass Index 43.3 Constitutional - Awake and Alert, No apparent distress Eyes - PERRLA, EOMI Cardiovascular - S1S2, RRR, No edema Respiratory - Normal lung expansion, Normal respiratory effort, No respiratory distress, diminished bilaterally but CTA bilaterally Gastrointestinal - mild diffuse ttp. ND; +BS; No rebound or guarding Extremities - no calf tenderness bilaterally, no swelling Skin - Warm/Dry Neurological - Alert & oriented x3 Psychological - Appropriate affect Results Labs 05/05/23 06:09 05/05/23 06:09 Labs: Laboratory Results - last 24 hr 05/04/23 05/04/23 09:33 09:34 MCV 91.3 MCH 30.3 MCHC 33.2 RDW 13.1 Plt Count 132 L MPV 10.7 Immature Gran % (Auto) 0.4 Neut % (Auto) 57.9 Lymph % (Auto) 22.2 [place] % (Auto) 18.9 H Eos % (Auto) 0.4 Baso % (Auto) 0.2 Lymph # (Auto) 1.1 L [place] # (Auto) 1.0 Eos # (Auto) 0.0 Baso # (Auto) 0.0 Abs Immat Gran (auto) 0.02 Absolute Neuts (auto) 3.0 Absolute Nucleated RBC 0.000 Nucleated RBC % (auto) 0.0 Anion Gap 14 Estim Creat Clear Calc 46.4 Estimated GFR 41 Random Glucose 95 Calcium 9.2 B-Natriuretic Peptide 133 H Influenza Type A (PCR) NEGATIVE Influenza Type B (PCR) NEGATIVE RSV RNA Qual (PCR) NEGATIVE SARS-CoV-2 RNA (RT-PCR) POSITIVE A Imaging Radiologist's Impressions: Impressions Chest X-Ray 05/04/23 10:08 IMPRESSION: Unremarkable chest examination. Assessment and Plan (1) Exercise hypoxemia: Status: Acute (2) COVID-19: Status: Acute Plan 73-year-old female with history of depression and anxiety, morbid obesity, lumbar DDD, GERD, ROSA compliant with CPAP, fibromyalgia, asthma, hypothyroidism, hypertension to be observed for ambulatory hypoxia related to COVID-19. #Exertional hypoxia r/t COVID-19 likely complicated by obesity hypoventilation syndrome -94-95% on RA, but desaturates to 84-89% with ambulation -CXR negative for any acute pneumonia -decadron 6mg daily (initiated 05/04) -DuoNebs, albuterol p.r.n. -Airborne/contact precautions -HOld on antiviral therapy at this time. No indication for IV antiviral therapy -symptomatic management # mild intermittent asthma -no acute exacerbation -DuoNebs, albuterol p.r.n. as above # hypertension -blood pressure reasonably controlled -continue spironolactone, lisinopril, amlodipine -monitor blood pressures # lumbar degenerative disc disease -continue home oxycodone # hypothyroidism -continue levothyroxine # fibromyalgia/mood disorder -continue home meds # morbid obesity with BMI greater than 43 -weight loss efforts encouraged # GERD -continue PPI DVT prophylaxis-heparin Full code Quality Stroke Does the patient have a stroke diagnosis?: No VTE Prior VTE?: No VTE Risk Level:: Medical - moderate - high VTE Device Contraindication: Treatment Not Indicated VTE Drug Contraindication: N/A - Med Ordered
--- NOTE | 2023-05-04 14:33 | PC.NURSE ---
pt's O2 decreased to 88% on RA - pt placed on 2L via NC at this time - now at 95%. no sob/wob noted. respirations remain even and unlabored. call [place] placed within reach.
[2023-05-04] MEDS: Heparin Sodium,Porcine 5,000 UNIT/ML VIAL 5000 UNIT SUBCUT (14:46)
--- NOTE | 2023-05-04 15:22 | PHA.MEDREC ---
Pharmacy Consult ? Medication Reconciliation Pharmacy has completed the medication reconciliation. Spoke with patients daughter (jovanny). She brought in a list for the patient and reviewed it with me. She reports that the patient did not take any medications today.
--- NOTE | 2023-05-04 15:47 | PC.NURSE ---
this RN attempted to call to give report but was unsuccessful. will try again.
[2023-05-04] MEDS: Albuterol Sulfate 90 MCG 8 GM INHALER 2 PUFF INHALE (15:51)
[2023-05-04] MEDS: 0.9 % Sodium Chloride Flush 3 ML SYRINGE IVFLUSH (16:55)
[2023-05-04] MEDS: Albuterol/Iprat 2.5/0.5MG 3 ML AMPUL.NEB INHALE (19:46)
[2023-05-04] MEDS: Spironolactone 25 MG TABLET 100 MG PO (21:07)
[2023-05-04] MEDS: bisacodyL 5 MG TABLET.DR 10 MG PO (21:07)
[2023-05-04] MEDS: Gabapentin 400 MG CAPSULE PO (21:07)
[2023-05-05] VITALS (11 sets, daily range): BP systolic 106–140; BP diastolic 58–83; PULSE 59–84; RESP 18–20; TEMP 36.2–37.4; O2SAT 91–99
[2023-05-05] MEDS: 0.9 % Sodium Chloride Flush 3 ML SYRINGE IVFLUSH ×4 (00:21→22:39)
[2023-05-05] MEDS: Heparin Sodium,Porcine 5,000 UNIT/ML VIAL 5000 UNIT SUBCUT ×2 (00:21→16:39)
[2023-05-05] MEDS: Levothyroxine Sodium 25 MCG TABLET PO (05:47)
[2023-05-05] MEDS: Levothyroxine Sodium 112 MCG TABLET PO (05:47)
[2023-05-05 06:26] LABS: MANUAL DIFF FLAG NO
[2023-05-05 06:42] LABS: Basophils Percent Auto 0.2 % (0-2); Hematocrit 36.9 % (37.0-47.0); Hemoglobin 12.5 g/dl (12.0-16.0); Imm Gran Abs Auto 0.01 X10*3/uL (0.00-0.03); Imm Gran Pct Auto 0.2 % (0.0-0.4); Lymphocytes Absolute Auto 0.8 X10*3/uL (1.2-4.9); Lymphocytes Percent Auto 16.9 % (20-40); Mean Corpuscular HGB Conc 33.9 g/dl (31.0-35.0); Mean Corpuscular Volume 91.6 fL (80.0-98.0); Mean Platelet Volume 11.4 fL (9.4-12.3); Monocytes Absolute Auto 0.6 X10*3/uL (0.1-1.2); Monocytes Percent Auto 12.5 % (2-11); Neutrophils Absolute Auto 3.2 x10*3/uL (2.0-8.3); Neutrophils Percent Auto 70.2 % (45-73); Platelet Count 145 X10*3/uL (160-400); Red Blood Count 4.03 X10*6/uL (4.20-5.50); Red Cell Distribution Width 12.6 % (11.0-16.0); White Blood Count 4.6 X10*3/uL (4.8-10.8)
[2023-05-05 06:47] LABS: Anion Gap 13 (12-20); Blood Urea Nitrogen 22 mg/dL (9-16); Calcium 9.1 mg/dL (8.4-10.2); Carbon Dioxide 26 mmol/L (22-29); Chloride 105 mmol/L (96-108); Creatinine Clr Calc Pharmacy 57.3; Estimated Glomerular Filt Rate 52; Glucose Random 132 mg/dL (60-115); Potassium 4.2 mmol/L (3.3-5.1); Sodium 140 mmol/L (135-145)
[2023-05-05] MEDS: oxyBUTYnin chloride ER 5 MG TAB.ER.24 10 MG PO (08:47)
[2023-05-05] MEDS: dexAMETHasone 6 MG TABLET PO (08:48)
[2023-05-05] MEDS: Omeprazole 20 MG CAPSULE.DR PO (08:48)
[2023-05-05] MEDS: Sertraline HCL 100 MG TABLET PO (08:49)
[2023-05-05] MEDS: Cyanocobalamin (Vitamin B-12) 1,000 MCG TABLET 1000 MCG PO (08:49)
[2023-05-05] MEDS: Cholecalciferol (Vitamin D3) 25 MCG TABLET PO (08:50)
[2023-05-05] MEDS: Gabapentin 400 MG CAPSULE PO ×3 (08:50→22:39)
[2023-05-05] MEDS: Spironolactone 25 MG TABLET 100 MG PO ×2 (08:50→22:38)
[2023-05-05] MEDS: amLODIPine Besylate 2.5 MG TABLET PO (08:51)
[2023-05-05] MEDS: lisinopriL 40 MG TABLET PO (08:51)
--- NOTE | 2023-05-05 09:49 | HO.PM.IMPN ---
Subjective Subjective Date of Service: 05/05/23 Interval History: Feels better than yesterday Physical Exam Vital Signs: Vital Signs: Last Vital Signs Temp 97.3 F 05/05/23 07:42 Pulse 59 05/05/23 08:41 Resp 18 05/05/23 08:41 BP 140/75 H 05/05/23 07:42 Pulse Ox 96 05/05/23 07:42 O2 Del Method Nasal Cannula 05/05/23 07:42 O2 Flow Rate 3 05/05/23 07:42 BMI result Body Mass Index 43.3 Const: Other: General: AO X 3, no acute distress Resp: CTA bilateral CVS: S1,S2,RRR GI: +BS, NT, no distention Skin: No rash Neuro: motor grossly intact Psych: appropriate affect Objective Data Active Medications Acetaminophen (Acetaminophen 325 Mg Tablet) 650 mg PO Q6H PRN PRN Reason: Pain, Mild (Pain Scale 1-3) Albuterol Sulfate (Albuterol Sulfate 90 Mcg 8 Gm Inhaler) 2 puff INHALE Q2H PRN PRN Reason: Shortness of Breath/Wheezing Last Admin: 05/04/23 15:51 Dose: 2 puff Documented By: MADY Albuterol Sulfate (Albuterol Sulfate (0.083%) 2.5 Mg/3 Ml Vial.Neb) 2.5 mg INHALE Q6H PRN PRN Reason: bronchospasm Albuterol Sulfate (Albuterol Sulfate 90 Mcg 8 Gm Inhaler) 2 puff INHALE Q6H PRN PRN Reason: bronchospasm Albuterol/Ipratropium (Albuterol/Iprat 2.5/0.5mg 3 Ml Ampul.Neb) 3 ml INHALE RQ4H WHILE AWAKE [facility] Last Admin: 05/05/23 08:40 Dose: Not Given Documented By: NEIL Non-Admin Reason: pt given 4 p Albuterol, covid +, no aerosol. Amlodipine Besylate (Amlodipine Besylate 2.5 Mg Tablet) 2.5 mg PO DAILY [facility]; Protocol Last Admin: 05/05/23 08:51 Dose: 2.5 mg Documented By: SERA Bisacodyl (Bisacodyl 5 Mg Tablet.) 10 mg PO BEDTIME [facility] Last Admin: 05/04/23 21:07 Dose: 10 mg Documented By: KELSIE Cyanocobalamin (Cyanocobalamin (Vitamin B-12) 1,000 Mcg Tablet) 1,000 mcg PO DAILY [facility] Last Admin: 05/05/23 08:49 Dose: 1,000 mcg Documented By: SERA Dexamethasone (Dexamethasone 6 Mg Tablet) 6 mg PO DAILY [facility] Last Admin: 05/05/23 08:48 Dose: 6 mg Documented By: SERA Gabapentin (Gabapentin 400 Mg Capsule) 400 mg PO TID [facility] Last Admin: 05/05/23 08:50 Dose: 400 mg Documented By: SERA Guaifenesin (Guaifenesin 200 Mg/10 Ml 10 Ml Liquid) 10 ml PO Q4H PRN PRN Reason: Cough Heparin Sodium (Porcine) (Heparin Sodium,Porcine 5,000 Unit/Ml Vial) 5,000 unit SUBCUT Q12H [facility] Last Admin: 05/05/23 00:21 Dose: 5,000 unit Documented By: YUDY Levothyroxine Sodium (Levothyroxine Sodium 112 Mcg Tablet) 112 mcg PO DAILY@0600 [facility] Last Admin: 05/05/23 05:47 Dose: 112 mcg Documented By: ANDJENNIFER Levothyroxine Sodium (Levothyroxine Sodium 25 Mcg Tablet) 25 mcg PO DAILY@0600 [facility] Last Admin: 05/05/23 05:47 Dose: 25 mcg Documented By: YUDY Lisinopril (Lisinopril 40 Mg Tablet) 40 mg PO DAILY [facility]; Protocol Last Admin: 05/05/23 08:51 Dose: 40 mg Documented By: SERA Meclizine HCl (Meclizine Hcl 25 Mg Tablet) 25 mg PO BID PRN PRN Reason: dizziness Melatonin (Melatonin 3 Mg Tablet) 3 mg PO BEDTIME PRN PRN Reason: Insomnia Non-Formulary Medication (Linaclotide [Linzess]) 290 mcg PO DAILY PRN PRN Reason: Stomach Upset Omeprazole (Omeprazole 20 Mg Capsule.) 20 mg PO DAILY [facility] Last Admin: 05/05/23 08:48 Dose: 20 mg Documented By: SERA Ondansetron HCl (Ondansetron Hcl 4 Mg/2 Ml Vial) 4 mg IVPUSH Q8H PRN PRN Reason: Nausea and Vomiting Oxybutynin Chloride (Oxybutynin Chloride Er 5 Mg Tab.Er.24) 10 mg PO DAILY [facility] Last Admin: 05/05/23 08:47 Dose: 10 mg Documented By: SERA Oxycodone HCl (Oxycodone Hcl Immed Release 5 Mg Tablet) 1 mg PO Q6H PRN PRN Reason: pain Senna (Sennosides 8.6 Mg Tablet) 17.2 mg PO BEDTIME PRN PRN Reason: Constipation Sertraline HCl (Sertraline Hcl 100 Mg Tablet) 100 mg PO DAILY [facility] Last Admin: 05/05/23 08:49 Dose: 100 mg Documented By: SERA Sodium Chloride (0.9 % Sodium Chloride Flush 3 Ml Syringe) [facility] Last Admin: 05/05/23 08:52 Dose: 3 ml Documented By: SERA Spironolactone (Spironolactone 25 Mg Tablet) 100 mg PO BID [facility]; Protocol Last Admin: 05/05/23 08:50 Dose: 100 mg Documented By: SERA Vitamin D (Cholecalciferol (Vitamin D3) 25 Mcg Tablet) 25 mcg PO DAILY [facility] Last Admin: 05/05/23 08:50 Dose: 25 mcg Documented By: SERA Labs 05/05/23 06:09 05/05/23 06:09 Labs: Laboratory Results - last 24 hr 05/04/23 05/04/23 05/05/23 09:33 09:34 06:09 MCV 91.3 91.6 MCH 30.3 31.0 MCHC 33.2 33.9 RDW 13.1 12.6 Plt Count 132 L 145 L MPV 10.7 11.4 Immature Gran % (Auto) 0.4 0.2 Neut % (Auto) 57.9 70.2 Lymph % (Auto) 22.2 16.9 L [place] % (Auto) 18.9 H 12.5 H Eos % (Auto) 0.4 0.0 Baso % (Auto) 0.2 0.2 Lymph # (Auto) 1.1 L 0.8 L [place] # (Auto) 1.0 0.6 Eos # (Auto) 0.0 0.0 Baso # (Auto) 0.0 0.0 Abs Immat Gran (auto) 0.02 0.01 Absolute Neuts (auto) 3.0 3.2 Absolute Nucleated RBC 0.000 0.000 Nucleated RBC % (auto) 0.0 0.0 Anion Gap 14 13 Estim Creat Clear Calc 46.4 57.3 Estimated GFR 41 52 Random Glucose 95 132 H Calcium 9.2 9.1 B-Natriuretic Peptide 133 H Influenza Type A (PCR) NEGATIVE Influenza Type B (PCR) NEGATIVE RSV RNA Qual (PCR) NEGATIVE SARS-CoV-2 RNA (RT-PCR) POSITIVE A Assessment and Plan (1) COVID-19: Status: Acute (2) Exercise hypoxemia: Status: Acute Plan 73-year-old female with history of depression and anxiety, morbid obesity, lumbar DDD, GERD, ROSA compliant with CPAP, fibromyalgia, asthma, hypothyroidism, hypertension to be observed for ambulatory hypoxia related to COVID-19. #Acute hypoxic resp failure due to covid 19, improving. continue steroid, O2 and wean as ezekiel # mild intermittent asthma -no acute exacerbation -DuoNebs, albuterol p.r.n. as above # hypertension -blood pressure reasonably controlled -continue spironolactone, lisinopril, amlodipine -monitor blood pressures # lumbar degenerative disc disease -continue home oxycodone # hypothyroidism -continue levothyroxine # fibromyalgia/mood disorder -continue home meds # morbid obesity with BMI greater than 43 -weight loss efforts encouraged # GERD -continue PPI DVT prophylaxis-heparin Full code admit for at least 2 midngights for management of covid 19 with hypoxia Quality Stroke Does the patient have a stroke diagnosis?: No VTE Prior VTE?: No VTE Risk Level:: Medical - moderate - high VTE Device Contraindication: Treatment Not Indicated VTE Drug Contraindication: N/A - Med Ordered
[2023-05-05] MEDS: Albuterol Sulfate 90 MCG 8 GM INHALER 2 PUFF INHALE ×3 (11:10→20:33)
[2023-05-05 21:13] LABS: Glucose, Whole Blood 185 mg/dL (60-115)
[2023-05-06] VITALS (7 sets, daily range): BP systolic 99–134; BP diastolic 52–66; PULSE 59–91; RESP 18–20; TEMP 36.2–36.9; O2SAT 86–97
[2023-05-06] MEDS: Heparin Sodium,Porcine 5,000 UNIT/ML VIAL 5000 UNIT SUBCUT ×2 (03:07→14:53)
[2023-05-06] MEDS: Levothyroxine Sodium 112 MCG TABLET PO (05:37)
[2023-05-06] MEDS: Levothyroxine Sodium 25 MCG TABLET PO (05:37)
[2023-05-06] MEDS: Albuterol Sulfate 90 MCG 8 GM INHALER 2 PUFF INHALE (08:06)
--- NOTE | 2023-05-06 09:09 | MHC.CM.PN ---
IMM 05/06/23, EMR REVIEWED, PT W/COVID 19, C, CONTACTED PT VIA CELL PHONE D/T COVID+, PT ABLE TO ANSWERS QUESTIONS HOWEVER INSISTS CM CLARIFY W/HER DTR/HCP/[facility], CM CONTACTED [facility] AT 9:03AM AT NUMBER ON FILE, [facility] REPORTS SHE IS PT'S HCP AND UNSURE IF THEY HAVE A COPY OF HCP AT HOME, PER PT GOAL FOR DC IS HOME W/RESUMP OF SERVICES. [facility] AND PT BOTH ASKING ABOUT O2 HOWEVER PT MAY NOT NEED HOME O2 ON DC. PT VERIFIES PCP IS J[facility]ON CORREA, [facility] X3 AND PT'S DTR [facility]IS IS HCP, COPY REQUESTED.
[2023-05-06] MEDS: dexAMETHasone 6 MG TABLET PO (09:34)
[2023-05-06] MEDS: oxyBUTYnin chloride ER 5 MG TAB.ER.24 10 MG PO (09:34)
[2023-05-06] MEDS: Spironolactone 25 MG TABLET 100 MG PO (09:34)
[2023-05-06] MEDS: Omeprazole 20 MG CAPSULE.DR PO (09:34)
[2023-05-06] MEDS: Cholecalciferol (Vitamin D3) 25 MCG TABLET PO (09:34)
[2023-05-06] MEDS: Cyanocobalamin (Vitamin B-12) 1,000 MCG TABLET 1000 MCG PO (09:34)
[2023-05-06] MEDS: lisinopriL 40 MG TABLET PO (09:34)
[2023-05-06] MEDS: Gabapentin 400 MG CAPSULE PO ×2 (09:34→14:58)
[2023-05-06] MEDS: amLODIPine Besylate 2.5 MG TABLET PO (09:34)
[2023-05-06] MEDS: 0.9 % Sodium Chloride Flush 3 ML SYRINGE IVFLUSH (09:35)
[2023-05-06] MEDS: Sertraline HCL 100 MG TABLET PO (09:35)
--- NOTE | 2023-05-06 13:08 | P.PNIM_ITS ---
Subjective Subjective Date of Service: 05/06/23 Interval History: dyspneic with exertion cough improved qualifies for home O2, 1L at baseline, 2L with rest This history was taken in Armenian from the patient. Review of Systems Review of Systems: Yes all other systems are reviewed and are negative Physical Exam 2 Vital Signs: Vital Signs: Last Vital Signs Temp 98.1 F 05/06/23 11:26 Pulse 67 05/06/23 11:26 Resp 20 05/06/23 11:26 BP 111/56 L 05/06/23 11:26 Pulse Ox 92 05/06/23 11:26 O2 Del Method Room Air 05/06/23 11:26 O2 Flow Rate 3 05/05/23 07:42 BMI result Body Mass Index 43.3 Gen: in no acute distress HEENT: sclera anicteric, moist mucus membranes Neck: supple Lungs: clear to auscultation bilaterally Heart: regular rate and rhythm, no murmurs Abd: soft, non-tender, non-distended, obese Ext: no edema Skin: warm/well-perfused Neuro: alert and oriented x3, no focal findings Psych: appropriate affect Objective Data Active Medications Acetaminophen (Acetaminophen 325 Mg Tablet) 650 mg PO Q6H PRN PRN Reason: Pain, Mild (Pain Scale 1-3) Albuterol Sulfate (Albuterol Sulfate 90 Mcg 8 Gm Inhaler) 2 puff INHALE Q2H PRN PRN Reason: Shortness of Breath/Wheezing Last Admin: 05/05/23 20:33 Dose: 2 puff Documented By: FALLON Albuterol Sulfate (Albuterol Sulfate (0.083%) 2.5 Mg/3 Ml Vial.Neb) 2.5 mg INHALE Q6H PRN PRN Reason: bronchospasm Albuterol Sulfate (Albuterol Sulfate 90 Mcg 8 Gm Inhaler) 2 puff INHALE Q6H PRN PRN Reason: bronchospasm Last Admin: 05/06/23 08:06 Dose: 2 puff Documented By: JOSLYN Albuterol/Ipratropium (Albuterol/Iprat 2.5/0.5mg 3 Ml Ampul.Neb) 3 ml INHALE RQ4H WHILE AWAKE [facility] Last Admin: 05/06/23 12:03 Dose: Not Given Documented By: JOSLYN Non-Admin Reason: pt used mdi Amlodipine Besylate (Amlodipine Besylate 2.5 Mg Tablet) 2.5 mg PO DAILY [facility]; Protocol Last Admin: 05/06/23 09:34 Dose: 2.5 mg Documented By: ANDREA Bisacodyl (Bisacodyl 5 Mg Tablet.) 10 mg PO BEDTIME [facility] Last Admin: 05/05/23 23:16 Dose: Not Given Documented By: LUÍS Non-Admin Reason: Patient Refused Cyanocobalamin (Cyanocobalamin (Vitamin B-12) 1,000 Mcg Tablet) 1,000 mcg PO DAILY [facility] Last Admin: 05/06/23 09:34 Dose: 1,000 mcg Documented By: ANDREA Dexamethasone (Dexamethasone 6 Mg Tablet) 6 mg PO DAILY [facility] Last Admin: 05/06/23 09:34 Dose: 6 mg Documented By: ANDREA Gabapentin (Gabapentin 400 Mg Capsule) 400 mg PO TID [facility] Last Admin: 05/06/23 09:34 Dose: 400 mg Documented By: ANDREA Guaifenesin (Guaifenesin 200 Mg/10 Ml 10 Ml Liquid) 10 ml PO Q4H PRN PRN Reason: Cough Heparin Sodium (Porcine) (Heparin Sodium,Porcine 5,000 Unit/Ml Vial) 5,000 unit SUBCUT Q12H [facility] Last Admin: 05/06/23 03:07 Dose: 5,000 unit Documented By: LUÍS Levothyroxine Sodium (Levothyroxine Sodium 112 Mcg Tablet) 112 mcg PO DAILY@0600 [facility] Last Admin: 05/06/23 05:37 Dose: 112 mcg Documented By: LUÍS Levothyroxine Sodium (Levothyroxine Sodium 25 Mcg Tablet) 25 mcg PO DAILY@0600 [facility] Last Admin: 05/06/23 05:37 Dose: 25 mcg Documented By: LUÍS Lisinopril (Lisinopril 40 Mg Tablet) 40 mg PO DAILY [facility]; Protocol Last Admin: 05/06/23 09:34 Dose: 40 mg Documented By: ANDREA Meclizine HCl (Meclizine Hcl 25 Mg Tablet) 25 mg PO BID PRN PRN Reason: dizziness Melatonin (Melatonin 3 Mg Tablet) 3 mg PO BEDTIME PRN PRN Reason: Insomnia Omeprazole (Omeprazole 20 Mg Capsule.) 20 mg PO DAILY [facility] Last Admin: 05/06/23 09:34 Dose: 20 mg Documented By: ANDREA Ondansetron HCl (Ondansetron Hcl 4 Mg/2 Ml Vial) 4 mg IVPUSH Q8H PRN PRN Reason: Nausea and Vomiting Oxybutynin Chloride (Oxybutynin Chloride Er 5 Mg Tab.Er.24) 10 mg PO DAILY [facility] Last Admin: 05/06/23 09:34 Dose: 10 mg Documented By: ANDREA Oxycodone HCl (Oxycodone Hcl Immed Release 5 Mg Tablet) 1 mg PO Q6H PRN PRN Reason: pain Senna (Sennosides 8.6 Mg Tablet) 17.2 mg PO BEDTIME PRN PRN Reason: Constipation Sertraline HCl (Sertraline Hcl 100 Mg Tablet) 100 mg PO DAILY [facility] Last Admin: 05/06/23 09:35 Dose: 100 mg Documented By: ANDREA Sodium Chloride (0.9 % Sodium Chloride Flush 3 Ml Syringe) 3 ml IVFLUSH QSHIFT [facility] Last Admin: 05/06/23 09:35 Dose: 3 ml Documented By: ANDREA Spironolactone (Spironolactone 25 Mg Tablet) 100 mg PO BID [facility]; Protocol Last Admin: 05/06/23 09:34 Dose: 100 mg Documented By: ANDREA Vitamin D (Cholecalciferol (Vitamin D3) 25 Mcg Tablet) 25 mcg PO DAILY [facility] Last Admin: 05/06/23 09:34 Dose: 25 mcg Documented By: ANDREA Labs 05/05/23 06:09 05/05/23 06:09 Labs: Laboratory Results - last 24 hr 05/05/23 21:09 POC Glucose 185 H Assessment and Plan (1) COVID-19: Status: Acute (2) Exercise hypoxemia: Status: Acute Plan d3 73yo F with depression/anxiety, morbid obestiy, lumbar DDD, GERD, ROSA on CPAP, FM, asthma, hypothyroidism, HTN admitted for hypoxia due to Covid-19 infection acute hypoxic resp failure due to Covid-19 infection - dexamethasone d3/10, isolation precautions - qualifies for home O2 1L at rest/2L with ambulation mild intermittent asthma without acute exac - prn albuterol HTN - lisinopril, amlodipine, spironolactone lumbar DDD - oxycodone hypothyroidism - continue LT4 morbid obesity - diet/exercise counseling FM mood disorder - continue gabapentin, sertraline GERD - PPI VTE ppx - UFH dispo - PT eval pending In my clinical judgment, the patient requires continued inpatient hospitalization for the following reasons: PT eval, hypoxia Total time managing care of this patient today: 35 minutes. Quality Stroke Does the patient have a stroke diagnosis?: No VTE Prior VTE?: No VTE Risk Level:: Medical - moderate - high VTE Device Contraindication: Treatment Not Indicated VTE Drug Contraindication: N/A - Med Ordered
--- NOTE | 2023-05-06 15:06 | P.F2F_ITS ---
Service Date Service Date: 05/06/23 Encounter Date of encounter: 05/06/23 Reasons for Services Signs and symptoms assessed: hypoxia Reason for intermediate: other (new O2 start) Reason for physical therapy: home safety and mobility, therapeutic exercises, gait/transfer training, assess need for DME, ADL training and energy conservation MD Overseeing Care: Antonino Barrera Homebound: Leaving the home is medically contraindicated at this time without the asist of a device and/or another person due th the listed conditions above and below. Reason homebound: unsteady gait / fall risk and shortness of breath with minimal effort Certification: Based on the above findings, I certify that this patient is confined to the home and needs intermittent intermediate care, physical therapy and/or speech therapy, or continues to need occupational therapy. The patient is under my care, and I have initiated the establishment of the plan of care. The patient will be followed by a physician who will periodically review the plan of care. Time Spent With Patient Time: Total time managing care of this patient today ____ minutes.
--- NOTE | 2023-05-06 15:11 | P.DS_ITS ---
DS: Providers Provider Date of Service: 05/06/23 Date of admission: 05/05/23 10:18 Date of discharge: 05/06/23 Primary care physician: Antonino Barrera MD DS: Diagnosis Discharge Diagnosis (1) COVID-19: Status: Acute (2) Acute respiratory failure with hypoxia: Status: Acute (3) Morbid obesity: Status: Acute DS: Summary Hospital Course Hospital Course: from admission H+P by hospitalist BRE Brewster, 05/04/23: 73-year-old female with history of depression and anxiety, morbid obesity, lumbar DDD, GERD, ROSA compliant with CPAP, fibromyalgia, asthma, hypothyroidism, hypertension presented to the ED earlier today for evaluation of subjective fevers, dry cough, shortness of breath, pleuritic chest pain, dysgeusia ongoing for 2 days. Denies any known sick contacts. Denies any rigors, sore throat, congestion, abdominal pain, nausea, vomiting, diarrhea, melena, hematochezia, lightheadedness, palpitations, wheezing, chest pain. On arrival, vital stable. No hypoxia at rest or fevers. No leukocytosis. Renal function and electrolyte levels normal. BNP 133. Positive for COVID-19, negative for RSV and influenza. Chest x-ray negative for any acute cardiopulmonary abnormality. EKG shows NSR with nonspecific ST abnormality, rate 91. No BETSY or depressions. Noted to desaturate to 84-89% on RA with ambulation following treatment with albuterol and 6mg IV dexamethasone. 73yo F with depression/anxiety, morbid obestiy, lumbar DDD, GERD, ROSA on CPAP, FM, asthma, hypothyroidism, HTN who was admitted for hypoxia due to Covid-19 infection. She improved with 3 days of dexamethasone. Per home oxygen evaluation, she qualifies for home oxygen, 1L at rest and 2L with ambulation. She will continue dexamethasone for another 7 days. Home VNA/PT services were arranged. Time Attestation Total time managing care of this patient today: 35 mintues. Discharge coordination time: Greater than 30 minutes Quality: Safe Use of Opioids Does Pt have an Active Cancer Diagnosis on the Problem List?: No Quality: Stroke Does the patient have a stroke diagnosis?: No Physical Exam Vital Signs: Vital Signs: Last Vital Signs Temp 98.1 F 05/06/23 11:26 Pulse 67 05/06/23 11: Resp 20 05/06/23 11:26 BP 111/56 L 05/06/23 11: Pulse Ox 92 05/06/23 11: O2 Del Method Room Air 05/06/23 11: O2 Flow Rate 3 05/05/23 07:42 BMI result Body Mass Index 43.3 Gen: in no acute distress HEENT: sclera anicteric, moist mucus membranes Neck: supple Lungs: clear to auscultation bilaterally Heart: regular rate and rhythm, no murmurs Abd: soft, non-tender, non-distended, morbid obesity Ext: no edema Skin: warm/well-perfused Neuro: alert and oriented x3, no focal findings Psych: appropriate affect DS: Data Data Completed and Pending Completed studies during hospitalization [Text1]: Laboratory Results WBC 4.6 X10*3/uL (4.8-10.8) L 05/05/23 06:09 RBC 4.03 X10*6/uL (4.20-5.50) L 05/05/23 06:09 Hgb 12.5 g/dl (12.0-16.0) 05/05/23 06:09 Hct 36.9 % (37.0-47.0) L 05/05/23 06:09 MCV 91.6 fL (80.0-98.0) 05/05/23 06:09 MCH 31.0 pg (27.0-33.0) 05/05/23 06:09 MCHC 33.9 g/dl (31.0-35.0) 05/05/23 06:09 RDW 12.6 % (11.0-16.0) 05/05/23 06:09 Plt Count 145 X10*3/uL (160-400) L 05/05/23 06:09 MPV 11.4 fL (9.4-12.3) 05/05/23 06:09 Immature Gran % (Auto) 0.2 % (0.0-0.4) 05/05/23 06:09 Neut % (Auto) 70.2 % (45-73) 05/05/23 06:09 Lymph % (Auto) 16.9 % (20-40) L 05/05/23 06:09 [place] % (Auto) 12.5 % (2-11) H 05/05/23 06:09 Eos % (Auto) 0.0 % (0-4) 05/05/23 06:09 Baso % (Auto) 0.2 % (0-2) 05/05/23 06:09 Lymph # (Auto) 0.8 X10*3/uL (1.2-4.9) L 05/05/23 06:09 [place] # (Auto) 0.6 X10*3/uL (0.1-1.2) 05/05/23 06:09 Eos # (Auto) 0.0 X10*3/uL (0.0-0.4) 05/05/23 06:09 Baso # (Auto) 0.0 X10*3/uL (0.0-0.2) 05/05/23 06:09 Abs Immat Gran (auto) 0.01 X10*3/uL (0.00-0.03) 05/05/23 06:09 Absolute Neuts (auto) 3.2 x10*3/uL (2.0-8.3) 05/05/23 06:09 Absolute Nucleated RBC 0.000 X10*3/uL (0.0-0.012) 05/05/23 06:09 Nucleated RBC % (auto) 0.0 /100WBC (0.0-0.2) 05/05/23 06:09 Sodium 140 mmol/L (135-145) 05/05/23 06:09 Potassium 4.2 mmol/L (3.3-5.1) 05/05/23 06:09 Chloride 105 mmol/L (96-108) 05/05/23 06:09 Carbon Dioxide 26 mmol/L (22-29) 05/05/23 06:09 Anion Gap 13 (12-20) 05/05/23 06:09 BUN 22 mg/dL (9-16) H 05/05/23 06:09 Creatinine 1.03 mg/dL (0.5-1.4) 05/05/23 06:09 Estim Creat Clear Calc 57.3 05/05/23 06:09 Estimated GFR 52 05/05/23 06:09 POC Glucose 185 mg/dL (60-115) H 05/05/23 21:09 Random Glucose 132 mg/dL (60-115) H 05/05/23 06:09 Calcium 9.1 mg/dL (8.4-10.2) 05/05/23 06:09 B-Natriuretic Peptide 133 pg/mL (<100) H 05/04/23 09:34 Influenza Type A (PCR) NEGATIVE (Negative) 05/04/23 09:33 Influenza Type B (PCR) NEGATIVE (Negative) 05/04/23 09:33 RSV RNA Qual (PCR) NEGATIVE (Negative) 05/04/23 09:33 SARS-CoV-2 RNA (RT-PCR) POSITIVE (Negative) A 05/04/23 09:33 Impressions Chest X-Ray 05/04/23 10:08 IMPRESSION: Unremarkable chest examination. Discharge Plan Discharge Anticipated Discharge Date/Time: 05/06/23 16:07 Patient Disposition: Home Health Service Discharge Diagnosis: hypoxia due to Covid-19 Referrals: Antonino Barrera MD [Primary Care Provider] - 1 Week Discharge Medications: New dexamethasone 6 mg Tablet 6 mg PO DAILY Qty: 7 0RF Continued (DME) ROLLATOR WALKER See Rx Instructions .Route .MEDSUPPLY Qty: 1 0RF Rx Instructions: As directed (DME) SHOWER CHAIR See Rx Instructions .Route .MEDSUPPLY Qty: 1 0RF Rx Instructions: As directed (DME) INCONTINENT BED PADS See Rx Instructions .Route .MEDSUPPLY Qty: 2 0RF Rx Instructions: As directed (DME) ADULT PULL UPS (Size XXL) XXL See Rx Instructions .Route .MEDSUPPLY Qty: 100 12RF Rx Instructions: As directed (DME) BEDSIDE COMMODE See Rx Instructions .Route .MEDSUPPLY Qty: 1 0RF Rx Instructions: As directed cyanocobalamin (vitamin B-12) 1,000 mcg tablet 1,000 mcg PO DAILY 90 Days Qty: 90 3RF levothyroxine 137 mcg tablet 137 mcg PO DAILY 90 Days Qty: 90 3RF spironolactone 100 mg tablet 100 mg PO BID Qty: 180 5RF lisinopril 40 mg tablet 40 mg PO DAILY 90 Days Qty: 90 1RF albuterol sulfate 2.5 mg /3 mL (0.083 %) solution for nebulization 2.5 mg continuous nebulization Q6-8H PRN (Reason: bronchospasm) Qty: 180 0RF (DME) DISPOSABLE BED PADS See Rx Instructions .Route .MEDSUPPLY Qty: 30 12RF Rx Instructions: As directed (DME) ADULT WIPES See Rx Instructions .Route .MEDSUPPLY Qty: 100 12RF Rx Instructions: As directed (DME) KOTEX PADS See Rx Instructions .Route .MEDSUPPLY Qty: 100 12RF Rx Instructions: As directed albuterol sulfate [ProAir HFA] 90 mcg/actuation HFA aerosol inhaler 2 puff inhalation Q6H PRN (Reason: bronchospasm) Qty: 8.5 3RF sertraline 100 mg tablet 100 mg PO DAILY 90 Days Qty: 90 1RF gabapentin 400 mg capsule 400 mg PO TID Qty: 270 1RF oxybutynin chloride 10 mg tablet extended release 24hr 10 mg PO DAILY 90 Days Qty: 90 1RF cholecalciferol (vitamin D3) 25 mcg (1,000 unit) capsule 25 mcg PO DAILY 90 Days Qty: 90 3RF amlodipine 2.5 mg tablet 2.5 mg PO DAILY Qty: 90 1RF meclizine 25 mg tablet 25 mg PO BID PRN (Reason: dizziness) Qty: 20 2RF bisacodyl [Laxative (bisacodyl)] 5 mg tablet,delayed release (DR/EC) 10 mg PO BEDTIME Qty: 60 6RF oxycodone-acetaminophen 5-325 mg tablet 1 tab PO Q6H PRN (Reason: pain) 28 Days Qty: 112 0RF diclofenac sodium 1 % gel 2 g topical BID PRN (Reason: Pain) Rx Instructions: knee pain Linzess 290 mcg capsule 290 mcg PO QAM PRN (Reason: Stomach Upset) (DME) Disposable UNDERPADS 30 x 36 See Rx Instructions .Route .MEDSUPPLY Qty: 100 11RF Rx Instructions: As directed hydrocortisone [Anti-Itch (HC)] 1 % cream 1 appl topical TID PRN (Reason: itching) Qty: 28.4 1RF (DME) CPAP Machine/Device Device See Rx Instructions .Route Rx Instructions: As directed omeprazole 20 mg capsule,delayed release(DR/EC) 20 mg PO DAILY Qty: 90 4RF Discharge Orders: Discharge Order (Routine); Ordered 05/06/23 Ordered By: Anthony Casillas Diet: Low salt diet Activity on Discharge: As tolerated Stand Alone Forms: Patient Portal Discharge page Care Plan Goals: recovery from Covid-19 Health Concerns: hypoxia due to Covid-19 Plan of Treatment: dexamethasone 6 mg daily for 7 days oxygen 1L at baseline, 2L with ambulation isolation per CDC guidelines for 10 days Please follow up with your primary care doctor within 1 week. Return to the hospital if you experience recurrent or worsening symptoms. Assessment: See Discharge Summary. Discharge Date/Time: 05/06/23 16:30
--- NOTE | 2023-05-06 16:18 | MHC.CM.PN ---
Addendum entered by Jody Dave RN 05/06/23 16:30: pt will also dc w/new vna for home group home and home PT, cm will follow up w/dtr [facility] once vna is secured. Original Note: Pt medically cleared for dc w/new home O2 w/[facility], per respiratory they will meet w/dtr when she returns, family for transport.
--- NOTE | 2023-05-07 08:51 | MHC.CM.PN ---
POST DC NOTE: CM RECEIVED MESSAGE FROM [facility] REPORTING [facility] CAN PROVIDE SERVICES FOR PT W/IN 48HRS, CM CONTACTED PT'S DTR IRIS AT 0849 AT NUMBER ON FILE, PER REQUEST CM WILL GIVE [facility]S NUMBER FOR CONTACT.
== END 2023-05-06 16:30 | disposition home health service (06) | DRG 177 ==
LOC: HO.ED 12:05 → HO.EDOVER 13:57 → HO.IMC 15:31
PROVIDERS: Internal Medicine; Physician Assistant Medical; Admitting Provider Physician Assistant; Emergency Provider Emergency Medicine; PCP Internal Medicine; Visit Provider Family Medicine
DX: U07.1 COVID-19 (principal); J96.01 Acute respiratory failure with hypoxia; E66.2 Morbid (severe) obesity with alveolar hypoventilation; Z68.41 Body mass index [BMI] 40.0-44.9, adult; I10 Essential (primary) hypertension; K21.9 Gastro-esophageal reflux disease without esophagitis; F32.A Depression, unspecified; F41.9 Anxiety disorder, unspecified; M51.36 Other intervertebral disc degeneration, lumbar region; J45.20 Mild intermittent asthma, uncomplicated; M79.7 Fibromyalgia; E03.9 Hypothyroidism, unspecified; Z79.890 Hormone replacement therapy; Z79.899 Other long term (current) drug therapy
CPT/HCPCS: 0241U; 36415; 71045; 80048; 82947; 83880; 85025; 93005; 94640; 94660; 97161; 99222; 99285; J1100; J1644; J8540

== ENCOUNTER → 2023-05-04 13:56 | Outpatient (BNV) | payer OTHER, SELFPAY | PROVIDERS: Admitting Provider Physician Assistant; Emergency Provider Emergency Medicine; PCP Internal Medicine; Visit Provider Physician Assistant | DX: U07.1 COVID-19 (principal); J96.01 Acute respiratory failure with hypoxia; E66.01 Morbid (severe) obesity due to excess calories; Z68.41 Body mass index [BMI] 40.0-44.9, adult | CPT/HCPCS: 99223; 99232; 99239 ==

== ENCOUNTER 2023-05-22 09:53 | Outpatient (AMB) | payer OTHER, SELFPAY ==
--- NOTE | 2023-05-22 09:57 | MHC.PC.OV ---
Vital Signs 05/22/23 09:59 Height 5 ft 3 in Weight 111.697 kg BMI 43.6 BP 120/62 Blood Pressure Location Rt brachial Position Sitting Pulse 99 Pulse Source Pulse Oximeter Pulse Oximetry (%) 95 Oxygen Delivery Method Room Air Intake Visit Re[place] [facility] [place] COVID+ and low O2 Intake Note: Patient is here for hospital discharge follow up. Patient was [place] [facility] [place]. Health And Wellness Manager Required: Yes Health And Wellness Manager Language: Filipino Information Interpreted: non-clinical & clinical Truck Engine Technician: Present Accompanied by: Daughter Allergies No Known Allergies [No Known Allergies*] Allergy (Verified 05/22/23 09:58) Tobacco use date assessed: 05/22/23 Fall risk assessment: No Falls in past year Last assessed Fall Risk: 05/22/23 Dental Screening Dental Screen Date: 05/22/23 Did you have a dental visit in the last 12 months?: Yes Did you have a dental problem in the last 6 months where you did not have access to dental care?: No Was dental information given to patient?: Patient has dentist HPI HPI Comments History of Present Illness Details 73-year-old female with history of depression anxiety, morbid obesity, lumbar DDD, GERD, ROSA compliant with CPAP, fibromyalgia, asthma, hypothyroidism, hypertension presents to the office today with her daughter Jailene who is also her RAMP SERVICE AGENT and with whom she lives for hospital discharge follow-up. The patient was admitted from 05/04-05/06 due to COVID-19 with acute hypoxemic respiratory failure. The patient had presented to the ED with upper respiratory symptoms with dry cough, shortness of breath, pleuritic chest pain, and dysgeusia. While in the ED, labs unremarkable though she did test positive for COVID-19. Chest x-ray was negative. She was noted to have ambulatory hypoxemia to 84-89% on room air and was therefore admitted to the medical floors with nebulizer treatments IV dexamethasone. Symptomatic Yvette she did improve though continued to require supplemental oxygen. She did undergo home oxygen evaluation with respiratory therapy and did qualify for home oxygen at 1 L at rest and 2 L with ambulation. She was also discharged on dexamethasone x7 days and was discharged with home VNA/PT. Today, the patient reports she is feeling much better. She is still bringing her oxygen tank with her but is not actually wearing the oxygen as her oximetry has been ranging 96-100% both at rest and with ambulation. She does continue at home with VNA nurse who monitors vital signs. Reports blood pressures have been well controlled at home. There is also PT through the VNA twice weekly. She does also continue with exercises throughout the week and is working on weight loss strategies with the help of her daughter. She has lost about 15 lb through lifestyle modification. She reports this is helping her pain associated with lumbar DDD and fibromyalgia somewhat. Reports her pain is about a 4/10 currently when she is taking her tramadol but is otherwise a 9/10. SHe does follow with rheumatology. [facility] Medical History Bilateral primary osteoarthritis of knee Right upper quadrant pain Pruritus Impaired fasting glucose Dyspnea on exertion (~06/2020) Screening for cervical cancer Primary osteoarthritis involving multiple joints Morbid obesity with BMI of 45.0-49.9, adult Depression Anxiety Insomnia Overactive bladder Osteoarthritis Lumbar degenerative disc disease Degenerative disc disease, cervical Vitamin D deficiency Constipation GERD without esophagitis Obstructive sleep apnea Vitamin B12 deficiency Fibromyalgia Cardiac murmur Mild intermittent asthma without complication Chronic kidney disease (CKD), stage II (mild) Acquired hypothyroidism Benign essential hypertension Surgical History History of colonoscopy Family History Father CVD (cardiovascular disease) Mother CVD (cardiovascular disease) Diabetes Hypertension Social History Household Members: Spouse Housing: Condominium Do you presently have visiting nurse or other home services: Yes Alcohol intake: never Patient Tobacco Use Status: Never used Tobacco e-Cigarette/Vaping Use: Never Used Second Hand Smoke Exposure: No service: No Current occupational status: unemployed, student and disabled Cognitive needs: Yes (walker) Hearing needs: No Vision needs: Yes (glasses) Questionnaire Thrive Questionnaire Date Thrive assessed: 05/06/23 IGNACIA-7 AMB Questionnaire IGNACIA-7 Date IGNACIA - 7 assessed: 03/20/23 Source: Developed by Drs. Feng Lopez, Selina Pedro, Merlin Villalta and colleagues, with an educational nacho from [employer]. Review of Systems Const No All systems reviewed & are unremarkable except as noted in HPI and below Physical exam (Primary Care) Vital Signs: Last Vital Signs Pulse 99 05/22/23 09:59 BP 120/62 05/22/23 09:59 Pulse Ox 95 05/22/23 09:59 Oxygen Delivery Method Room Air 05/22/23 09:59 BMI result Body Mass Index 43.6 Tobacco/Smoking Status: Tobacco use Status Tobacco use date assessed 05/22/23 05/22/23 09:58 Patient Tobacco Use Status Never used Tobacco 05/22/23 09:58 e-Cigarette/Vaping Use Never Used 05/22/23 09:58 Thrive Assessment: Date of Thrive Assessment Date Thrive assessed 05/06/23 05/22/23 09:58 Const Other: Constitutional - Awake and Alert, No apparent distress Eyes - PERRLA, EOMI Cardiovascular - S1S2, RRR, No edema Respiratory - Normal lung expansion, Normal respiratory effort, No respiratory distress, CTA bilaterally Extremities - no calf tenderness bilaterally, no swelling Skin - Warm/Dry Neurological - Alert & oriented x3 Psychological - Appropriate affect Results Reviewed Results Reviewed: cbc, bmp, serologies, cxr, h&p, discharge summary Assessment and Plan Assessment & Plan (1) Acute respiratory failure with hypoxia: Code(s): J96.01 - Acute respiratory failure with hypoxia Plan: Related to COVID-19. Discharge with home O2 but has been maintaining oximetry 95-100% on room air both at rest and with exertion. Advised to keep her oxygen tank for at least 1 more week and if oxygen levels remain stable, can return the oxygen tank. (2) COVID-19: Code(s): U07.1 - COVID-19 Plan: Symptomatic we resolved. Hospitalized for acute hypoxemic respiratory failure secondary to COVID-19. Did not require treatment with IV antiviral therapy but was treated with IV dexamethasone and completed course of 7 days dexamethasone outpatient. No recurrence of symptoms. (3) Exercise hypoxemia: Code(s): R09.02 - Hypoxemia Plan: Appears to have resolved. Oximetry ranging 95-100% on room air at rest and with exertion. Advised to continue monitoring her oximetry for at least 1 more week before sending back her oxygen tank. (4) Morbid obesity: Code(s): E66.01 - Morbid (severe) obesity due to excess calories Plan: Has been making efforts towards weight loss and is congratulated on this. Had lost about 15 lb. Encouraged to work on increased activity/exercise as tolerated and following a diet lower in calories specifically including unhealthy fats, excess carbohydrates, and sugars. (5) Fibromyalgia: Code(s): M79.7 - Fibromyalgia Plan: Reports weight loss is helping with chronic pain. Encouraged to continue with increased activity/exercise as tolerated. Continue with healthy diet limiting inflammatory foods. Congratulated on efforts thus far. Discussed the close link between pain management, exercise, mood stability. Continue on antidepressants. Continue with gabapentin and tramadol as prescribed. Follow-up with rheumatology as scheduled. (6) Edema of both lower extremities: Code(s): R60.0 - Localized edema Plan: Noted to have chronic bilateral lower extremity edema. Compression stockings ordered. Advised to elevate her legs at rest and limit sodium intake. Medications: New [compression stockings] As directed 2 ea 0RF ble edema R60.0 - Localized edema Coding Level of Care Code Est Pt Level 5 (60504) Diagnoses Acute respiratory failure with hypoxia J96.01 COVID-19 U07.1 Exercise hypoxemia R09.02 Morbid obesity E66.01 Fibromyalgia M79.7 Edema of both lower extremities R60.0 Time Spent (min) 45 Comment reviewed as above, discussions w/ pt and dtr, documentation time
[2023-05-22 09:59] VITALS: BP 120/62; PULSE 99; O2SAT 95; BMI 43.6
== END 2023-05-22 10:36 | disposition home or self-care (01) ==
PROVIDERS: PCP Internal Medicine; Visit Provider Physician Assistant
DX: J96.01 Acute respiratory failure with hypoxia (principal); U07.1 COVID-19; M79.7 Fibromyalgia; R60.0 Localized edema
CPT/HCPCS: 99215

== ENCOUNTER 2023-06-24 08:39 | Outpatient (REF) | payer OTHER, SELFPAY ==
[2023-06-24 08:52] LABS: MANUAL DIFF FLAG NO
[2023-06-24 09:58] LABS: Basophils Percent Auto 0.5 % (0-2); Eosinophils Absolute Auto 0.2 X10*3/uL (0.0-0.4); Eosinophils Percent Auto 2.8 % (0-4); Hematocrit 38.1 % (37.0-47.0); Hemoglobin 12.7 g/dl (12.0-16.0); Imm Gran Abs Auto 0.03 X10*3/uL (0.00-0.03); Imm Gran Pct Auto 0.5 % (0.0-0.4); Lymphocytes Absolute Auto 1.4 X10*3/uL (1.2-4.9); Mean Corpuscular HGB Conc 33.3 g/dl (31.0-35.0); Mean Corpuscular Hemoglobin 30.6 pg (27.0-33.0); Mean Corpuscular Volume 91.8 fL (80.0-98.0); Mean Platelet Volume 11.1 fL (9.4-12.3); Monocytes Absolute Auto 0.6 X10*3/uL (0.1-1.2); Monocytes Percent Auto 9.3 % (2-11); Neutrophils Absolute Auto 4.3 x10*3/uL (2.0-8.3); Neutrophils Percent Auto 65.9 % (45-73); Platelet Count 160 X10*3/uL (160-400); Red Blood Count 4.15 X10*6/uL (4.20-5.50); Red Cell Distribution Width 13.2 % (11.0-16.0); White Blood Count 6.5 X10*3/uL (4.8-10.8)
[2023-06-24 10:47] LABS: Alanine Aminotransferase 15 U/L (0-31); Alkaline Phosphatase 105 U/L (39-117); Anion Gap 11 (12-20); Aspartate Amino Transferase 14 U/L (5-31); Bilirubin Total 0.7 mg/dL (0.0-1.0); Blood Urea Nitrogen 15 mg/dL (9-16); Calcium 9.3 mg/dL (8.4-10.2); Carbon Dioxide 31 mmol/L (22-29); Chloride 106 mmol/L (96-108); Cholesterol 178 mg/dL (<200); Estimated Glomerular Filt Rate 59; Glucose Fasting 106 mg/dL (60-99); HDL Cholesterol 44 mg/dL (>40); LDL Cholesterol Calculated 111 mg/dL (<100); Potassium 4.5 mmol/L (3.3-5.1); Sodium 143 mmol/L (135-145); Total Protein 6.7 g/dL (6.5-8.0); Triglycerides 118 mg/dL (<150)
[2023-06-24 11:08] LABS: Free T4 (Free Thyroxine) 1.28 ng/dL (0.71-1.85); Thyroid Stimulating Hormone 0.86 uIU/mL (0.32-4.0); Vitamin D 25-OH Total 31.7 ng/mL (>30)
[2023-06-24 11:09] LABS: Folate 6.5 ng/mL (> or = 4.0); Vitamin B12 570 pg/mL (200-900)
[2023-06-24 11:29] LABS: Appearance Urine Clear; Color Urine Yellow; Glucose Urine UA Negative (Negative); Leukocyte Esterase Urine Negative (Negative); Nitrite Urine Negative (Negative); PH 6.5 (5.0-9.0); Urine Blood Negative (Negative); Urine Ketones Negative (Negative); Urine Protein Negative (Neg-Trace)
== END 2023-06-24 08:40 | disposition home or self-care (01) ==
LOC: HO.LAB 08:39
PROVIDERS: PCP Internal Medicine; Visit Provider Internal Medicine
DX: I10 Essential (primary) hypertension (principal); E03.9 Hypothyroidism, unspecified; E78.00 Pure hypercholesterolemia, unspecified; E53.8 Deficiency of other specified B group vitamins; E55.9 Vitamin D deficiency, unspecified; R30.0 Dysuria
CPT/HCPCS: 36415; 80053; 80061; 81003; 82306; 82607; 82746; 84439; 84443; 85025

== ENCOUNTER 2023-07-03 10:16 | Outpatient (AMB) | payer OTHER, SELFPAY ==
[2023-07-03 10:29] VITALS: BP 132/80; PULSE 83; O2SAT 96; BMI 43.5
--- NOTE | 2023-07-03 10:29 | A.OFFPC_ITS ---
Vital Signs 07/03/23 10:29 Height 5 ft 3 in Weight 245 lb 6 oz BMI 43.5 BP 132/80 Blood Pressure Location Lt brachial Position Sitting Pulse 83 Pulse Source Pulse Oximeter Pulse Oximetry (%) 96 Oxygen Delivery Method Room Air Intake Visit Reasons: 3mth f/u Small Offset Printer Required: No Accompanied by: Daughter Allergies No Known Allergies [No Known Allergies*] Allergy (Verified 07/08/23 21:32) Medication List - Last Reconciled 07/03/23 by Antonino Barrera MD [ADULT PULL UPS (Size XXL) As directed] [ADULT WIPES As directed] albuterol sulfate 90 mcg/actuation (ProAir HFA) 2 puffs inhalation Q6H PRN albuterol sulfate 2.5 mg (3 mL) continuous nebulization Q6-8H PRN amlodipine 2.5 mg PO DAILY [BEDSIDE COMMODE As directed] bisacodyl (Laxative (bisacodyl)) 10 mg (2 x 5 mg) PO BEDTIME cholecalciferol (vitamin D3) 25 mcg PO DAILY 90 days [compression stockings As directed] CPAP (CPAP Machine/Device) As directed cyanocobalamin (vitamin B-12) 1,000 mcg PO DAILY 90 days dexamethasone 6 mg PO DAILY diclofenac sodium 1% 2 grams topical BID [DISPOSABLE BED PADS As directed] [Disposable UNDERPADS As directed] gabapentin 400 mg PO TID hydrocortisone 1% (Anti-Itch (hydrocortisone)) 1 appl topical TID PRN [INCONTINENT BED PADS As directed] [KOTEX PADS As directed] levothyroxine 137 mcg PO DAILY 90 days linaclotide (Linzess) 290 mcg PO QAM PRN lisinopril 40 mg PO DAILY 90 days meclizine 25 mg PO BID PRN omeprazole 20 mg PO DAILY oxybutynin chloride ER 10 mg PO DAILY 90 days oxycodone-acetaminophen 5-325 mg 1 tab PO Q6H PRN 28 days [ROLLATOR WALKER As directed] sertraline 100 mg PO DAILY 90 days [SHOWER CHAIR As directed] spironolactone 100 mg PO BID Tobacco use date assessed: 07/03/23 Fall risk assessment: No Falls in past year Last assessed Fall Risk: 07/03/23 Dental Screening Dental Screen Date: 07/03/23 Did you have a dental visit in the last 12 months?: Yes Did you have a dental problem in the last 6 months where you did not have access to dental care?: No Was dental information given to patient?: Patient has dentist HPI 3mth f/u HPI Details Patient comes in today for her follow up visit States that she feels okay but currently has some pain over the corner of her right big toenail - thinks that she has an ingrown nail with some swelling on the toe Thinks that she has an infection there now and would like to have this addressed JOB She denies any headaches or dizziness Denies any chest pains, no increased SOB No nausea/vomiting, no abdominal pain No change in bowel habits noted States that her chronic low back pain and joint pains remain adequately controlled on her current medications Had her follow up labs done last week - to discuss her results [facility] Medical History Osteoarthritis of hands, bilateral Intermittent pain and swelling of hand Bilateral primary osteoarthritis of knee Right upper quadrant pain Pruritus Impaired fasting glucose Dyspnea on exertion (~06/2020) Screening for cervical cancer Primary osteoarthritis involving multiple joints Morbid obesity with BMI of 45.0-49.9, adult Depression Anxiety Insomnia Overactive bladder Osteoarthritis Lumbar degenerative disc disease Degenerative disc disease, cervical Vitamin D deficiency Constipation GERD without esophagitis Obstructive sleep apnea Vitamin B12 deficiency Fibromyalgia Cardiac murmur Mild intermittent asthma without complication Chronic kidney disease (CKD), stage II (mild) Acquired hypothyroidism Benign essential hypertension Surgical History History of colonoscopy Family History Father CVD (cardiovascular disease) Mother CVD (cardiovascular disease) Diabetes Hypertension Social History Household Members: Spouse Housing: Condominium Do you presently have visiting nurse or other home services: Yes Alcohol intake: never Patient Tobacco Use Status: Never used Tobacco e-Cigarette/Vaping Use: Never Used Second Hand Smoke Exposure: No service: No Current occupational status: unemployed, student and disabled Cognitive needs: Yes (walker) Hearing needs: No Vision needs: Yes (glasses) Questionnaire PHQ-9 Over the last 2 weeks, how often have you been bothered by any of the following problems? 1. Little interest or pleasure in doing things: not at all 2. Feeling down, depressed, or hopeless: not at all 3. Trouble falling or staying asleep, or sleeping too much: not at all 4. Feeling tired or having little energy: not at all 5. Poor appetite or overeating: not at all 6. Feeling bad about yourself - or that you are a failure or have let yourself or your family down: not at all 7. Trouble concentrating on things, such as reading the newspaper or watching television: not at all 8. Moving or speaking so slowly that other people could have noticed. Or the op posite - being so fidgety or restless that you have been moving around a lot more than usual: not at all 9. Thoughts that you would be better off or of hurting yourself in some way: not at all Total score: 0 Depression Screening Interpretation: Negative Depression Screening Done: Yes 64493 - PHQ-9 Billing: Yes Source: Developed by Drs. Feng Lopez, Selina Pedro, Merlin Villalta and colleagues, with an educational nacho from [employer]. Thrive Questionnaire Date Thrive assessed: 07/03/23 I am a: Patient What is your living situation today?: I have a steady place to live Within the past 12 months, did the food you bought not last and you didn't have the money to get more?: Never true Within the past 12 months, did you worry whether your food would run out before you got money to buy more?: Never true Do you have trouble paying for medicines?: No Do you have trouble getting transportation to medical appointments?: No Do you have trouble paying your heating and electricity bill?: No Do you have trouble taking care of your child, family member or friend?: No Do you have trouble with day-to-day activities such as bathing, preparing meals, shopping, managing finances, etc.?: No Are you currently unemployed and looking for a job?: No Are you interested in more education?: No Please select the resources that you would like help with: None Currently or been in a relationship where the following occur: no concerns reported THRIVE Score: 0 AUDIT C Alcohol Use Questionnaire (AUDIT-C) 1. How often do you have a drink containing alcohol?: Never 3. How often do you have six or more drinks on one occasion?: Never Total Score: 0 Score Reviewed/Action Taken: Yes IGNACIA-7 AMB Questionnaire IGNACIA-7 Date IGNACIA - 7 assessed: 07/03/23 Feeling nervous, anxious, or on edge: 0 = Not at all Not being able to stop or control worryin = Not at all Worrying too much about different things: 0 = Not at all Trouble relaxin = Not at all Being so restless that it is hard to sit still: 0 = Not at all Becoming easily annoyed or irritable: 0 = Not at all Feeling afraid as if something awful might happen: 0 = Not at all Total IGNACIA-7 score (0-4 normal; 5-9 mild; 10-14 moderate; 15-21 severe): 0 Source: Developed by Drs. Feng Lopez, Selina Pedro, Merlin Villalta and colleagues, with an educational nacho from [employer]. Review of Systems Const Denies chills, Reports fatigue, Denies fever(s) and Denies headache(s) ENT Denies dysphagia, Denies dizziness, Denies otalgia, Denies headache(s), Reports neck pain, Denies odynophagia and Denies sore throat Card Denies chest pain, Denies palpitations and Reports dyspnea on exertion (mild) Resp Denies cough, Reports dyspnea on exertion (mild) and Denies wheezing GI Denies abdominal pain, Reports constipation (on and off), Denies dysphagia, Denies diarrhea, Denies nausea, Denies odynophagia and Denies vomiting Denies hematuria, Denies difficulty voiding, Denies nocturia and Denies dysuria Musc Reports back pain, Reports arthralgias (over both knees ) and Reports neck pain Skin/Breast Details: (+) painful ingrown nail (medial side) of the right big toe, with some swelling Denies rash Neuro Denies dizziness and Denies headache(s) Endo Reports fatigue and Denies palpitations Aller/Immun Denies wheezing Physical exam (Primary Care) Vital Signs: Last Vital Signs Pulse 83 07/03/23 10:29 BP 132/80 07/03/23 10:29 Pulse Ox 96 07/03/23 10:29 Oxygen Delivery Method Room Air 07/03/23 10:29 BMI result Body Mass Index 43.5 Tobacco/Smoking Status: Tobacco use Status Tobacco use date assessed 07/03/23 07/03/23 10:35 Patient Tobacco Use Status Never used Tobacco 07/03/23 10:35 e-Cigarette/Vaping Use Never Used 07/03/23 10:35 PHQ-9: PHQ-9 Score PHQ-9: Total score 0 07/03/23 11:09 Depression Screening Interpretation: Negative Thrive Assessment: Date of Thrive Assessment Date Thrive assessed 07/03/23 07/03/23 10:35 Currently or been in a relationship where the following occur: no concerns reported Const General: no acute distress and alert HENMT Ears: TM's normal bilaterally and EAC's normal Throat: Yes posterior oropharynx normal and Yes tonsils normal (no TP congestion noted) Neck Neck: Yes no lymphadenopathy and Yes supple Resp Auscultation: clear to auscultation bilaterally, no rales and no wheezes Cardio Rate: regular rate Rhythm: regular rhythm Heart sounds: Murmur heart sound present systolic soft and at the left sternal border (at the left lower sternal border) GI Palpation (GI): Soft to palpation and nontender Auscultation: bowels sounds not normal Back/Spine/Pelvis Cervical Spine: Cervical spine tenderness Thoracic/Lumbar Spine: lumbar spinal tenderness Extrem Other: (+) tenderness and mild edema noted over the medial side of the toenail of the right big toe General: Yes no clubbing, cyanosis or edema Right lower extremity: knee Details: tenderness; no swelling Left lower extremity: knee Details: tenderness; no swelling Results Reviewed Results Reviewed: Laboratory Tests 06/24/23 06/24/23 08:47 08:51 WBC 6.5 Hgb 12.7 Hct 38.1 Plt Count 160 Sodium 143 Potassium 4.5 Creatinine 0.93 Estimated GFR 59 Fasting Glucose 106 H Calcium 9.3 AST 14 ALT 15 Triglycerides 118 Cholesterol 178 LDL Cholesterol, Calc 111 H HDL Cholesterol 44 Vitamin B12 570 25-OH Vitamin D Total 31.7 TSH 0.86 Free T4 1.28 Ur Specific [place] 1.010 Urine Protein Negative Urine Glucose (UA) Negative Urine Blood Negative Assessment and Plan Assessment & Plan (1) Benign essential hypertension: Code(s): I10 - Essential (primary) hypertension Plan: Results of her labs done a couple of weeks ago reviewed and discussed with patient Reinforced low-sodium diet -?goal is systolic BP of at least 130 to 140 mm or less Continue Lisinopril 40 mg QD, Spironolactone 100 mg BID and Amlodipine 2.5 mg QD Will recheck her labs in 3 months for follow-up (2) Chronic kidney disease (CKD), stage II (mild): Code(s): N18.2 - Chronic kidney disease, stage 2 (mild) Plan: GFR stable?-? will continue to monitor her renal function regularly (3) Acquired hypothyroidism: Code(s): E03.9 - Hypothyroidism, unspecified Plan: TFTs were normal on her recent labs Continue Levothyroxine 150 mcg QD Will continue to monitor her TFTs regularly (4) Mild intermittent asthma without complication: Code(s): J45.20 - Mild intermittent asthma, uncomplicated Plan: Stable/controlled Continue ProAir HFA 2 puffs 4 times a day as needed; patient also has her Albuterol nebulizer that she uses when needed (5) Impaired fasting glucose: Code(s): R73.01 - Impaired fasting glucose Plan: HgbA1c was normal at 5.6% when checked previously Reinforced low calorie/low carb diet; exercise as tolerated (6) Cardiac murmur: Comment: Echocardiogram done in 2011 showed (+) mild MR and trace TR, which are the most likely cause of her cardiac murmur; LVEF was normal and there were no other abnormalities noted Repeat echocardiogram done last year (2019) showed no significant changes from her previous echo in 2012; LV systolic function remains normal and EF was between 65-70% Code(s): R01.1 - Cardiac murmur, unspecified Plan: Will continue to monitor regularly/periodically - will consider repeating her echo next year for follow up (7) Obstructive sleep apnea: Code(s): G47.33 - Obstructive sleep apnea (adult) (pediatric) Plan: Continue using her CPAP device when sleeping at night -??CPAP titration done in January 2018 recommended acceptable CPAP pressure setting of 13-14 cm (8) GERD without esophagitis: Code(s): K21.9 - Gastro-esophageal reflux disease without esophagitis Plan: Dietary restrictions reinforced Continue Omeprazole 20 mg daily (9) Lumbar degenerative disc disease: Code(s): M51.36 - Other intervertebral disc degeneration, lumbar region Plan: Reinforced activity and weight lifting restrictions to minimize aggravating her low back pain Symptoms remain manageable on her current medications, including her Percocet 5- 325 mg that she takes every 6 hours as needed (10) Degenerative disc disease, cervical: Code(s): M50.30 - Other cervical disc degeneration, unspecified cervical region Plan: Findings confirmed on cervical spine x-rays done in 2014 -? symptoms are reportedly manageable on her current meds (11) Primary osteoarthritis involving multiple joints: Code(s): M89.49 - Other hypertrophic osteoarthropathy, multiple sites Plan: Continue Salsalate 500 mg 2 tablets 3 times a day and Oxycodone-Acetaminophen 5- 325 mg 1 tablet every 6 hours as needed Follow-up with Rheumatology at [facility] as scheduled X-rays of both knees done a couple of years ago showed (+) OA? changes bilaterally; repeat x-rays done a few months ago in October 2020 showed similar findings (12) Fibromyalgia: Code(s): M79.7 - Fibromyalgia Plan: Continue Gabapentin 400 mg 3 times a day and Lidoderm patches 5% 1 patch daily Patient again encouraged to exercise regularly to help manage her fibromyalgia symptoms better Follow-up with rheumatology as scheduled (13) Constipation: Code(s): K59.00 - Constipation, unspecified Qualifiers: Constipation type: unspecified constipation type Qualified Code(s): K59.00 - Constipation, unspecified Plan: Encouraged again on increased oral fluids and dietary fiber Continue Senna 8.6 mg 2 tablets at bedtime daily Follow up with GI as scheduled (14) Vitamin B12 deficiency: Code(s): E53.8 - Deficiency of other specified B group vitamins Plan: Corrected - will continue to monitor Vitamin B12 level regularly (15) Vitamin D deficiency: Code(s): E55.9 - Vitamin D deficiency, unspecified Plan: Continue Vitamin D2 90457 units once a week (16) Overactive bladder: Code(s): N32.81 - Overactive bladder Plan: Continue Oxybutynin ER 10 mg once a day (17) Ingrown right big toenail: Code(s): L60.0 - Ingrowing nail Plan: Will start her empirically for now on Amoxicillin 500 mg Q 8 hours x 7 days Will refer her to podiatry JOB for further management and excision of her ingrown toenail (18) Insomnia: Code(s): G47.00 - Insomnia, unspecified Qualifiers: Insomnia type: unspecified Qualified Code(s): G47.00 - Insomnia, unspecified Plan: Sleep hygiene reinforced Continue Zolpidem 10 mg daily at bedtime as needed (19) Anxiety: Code(s): F41.9 - Anxiety disorder, unspecified Plan: Continue Doxepin 25 mg daily at bedtime as needed Patient is also on Sertraline, which helps with her anxiety as well (20) Depression: Code(s): F32.9 - Major depressive disorder, single episode, unspecified Qualifiers: Active/Remission status: currently active Depression Type: major depressive disorder Major depression episode severity: unspecified Major depression recurrence: recurrent Qualified Code(s): F33.9 - Major depressive disorder, recurrent, unspecified Plan: Continue Sertraline 100 mg once a day Follow-up with Psychiatry as scheduled (21) Morbid obesity with BMI of 45.0-49.9, adult: Code(s): E66.01 - Morbid (severe) obesity due to excess calories; Z68.42 - Body mass index [BMI] 45.0-49.9, adult Plan: Reinforced diet/exercise as tolerated/lose weight Plan Follow up in 3 months Orders: Orders Lipid Panel 3 Months E78.00 - Pure hypercholesterolemia, unspecified Complete Blood Count Auto Diff 3 Months D64.9 - Anemia, unspecified Vitamin D 25-OH Total 3 Months E55.9 - Vitamin D deficiency, unspecified Comprehensive [place]. Panel Fast 3 Months E78.00 - Pure hypercholesterolemia, unsp ecified UA CC w/rflx Micro + Cult 3 Months R30.0 - Dysuria TSH reflex Free T4 3 Months E78.00 - Pure hypercholesterolemia, unspecified Referrals Podiatry Referral L60.0 - Ingrowing nail Medications: New amoxicillin 500 mg PO Q8H 7 days 21 caps 0RF Coding Level of Care Code Est Pt Level 4 (32999) Diagnoses Benign essential hypertension I10 Chronic kidney disease (CKD), stage II (mild) N18.2 Acquired hypothyroidism E03.9 Mild intermittent asthma without complication J45.20 Impaired fasting glucose R73.01 Cardiac murmur R01.1 Obstructive sleep apnea G47.33 GERD without esophagitis K21.9 Lumbar degenerative disc disease M51.36 Degenerative disc disease, cervical M50.30 Primary osteoarthritis involving multiple joints M89.49 Fibromyalgia M79.7 Constipation, unspecified constipation type K59.00 Constipation type: unspecified constipation type Vitamin B12 deficiency E53.8 Vitamin D deficiency E55.9 Overactive bladder N32.81 Ingrown right big toenail L60.0 Insomnia, unspecified type G47.00 Insomnia type: unspecified Anxiety F41.9 Episode of recurrent major depressive disorder, unspecified depression episode severity F33.9 Active/Remission status: currently active Depression Type: major depressive disorder Major depression episode severity: unspecified Major depression recurrence: recurrent Morbid obesity with BMI of 45.0-49.9, adult E66.01; Z68.42
== END 2023-07-03 11:22 | disposition home or self-care (01) ==
PROVIDERS: PCP Internal Medicine; Visit Provider Internal Medicine
DX: I12.9 Hypertensive chronic kidney disease with stage 1 through stage 4 chronic kidney disease, or unspecified chronic kidney disease (principal); N18.2 Chronic kidney disease, stage 2 (mild); F33.9 Major depressive disorder, recurrent, unspecified; E66.01 Morbid (severe) obesity due to excess calories; Z68.42 Body mass index [BMI] 45.0-49.9, adult; E03.9 Hypothyroidism, unspecified; J45.20 Mild intermittent asthma, uncomplicated; R73.01 Impaired fasting glucose; R01.1 Cardiac murmur, unspecified; G47.33 Obstructive sleep apnea (adult) (pediatric); K21.9 Gastro-esophageal reflux disease without esophagitis; M51.36 Other intervertebral disc degeneration, lumbar region
CPT/HCPCS: 99214

== ENCOUNTER 2023-07-04 14:42 | Outpatient (AMB) | payer OTHER, SELFPAY ==
[2023-07-04 14:47] VITALS: BP 110/70; PULSE 113; TEMP 36.1; O2SAT 93; BMI 44.1
--- NOTE | 2023-07-04 14:47 | A.OFFVIS_ITS ---
Intake Vital Signs 07/04/23 14:47 Height 5 ft 3 in Weight 248 lb 14.43 oz BMI 44.1 BP 110/70 Blood Pressure Location Lt brachial Position Sitting Pulse 113 H Pulse Source Pulse Oximeter Temp 97 F Temp Source Skin Pulse Oximetry (%) 93 Oxygen Delivery Method Room Air Intake Visit Reasons: osteoarthritis Intake Note: Patient last seen 06/19/22 by Yanet, presents today for yearly follow up. Electronic Scale Subassembler Required: No Accompanied by: Daughter Allergies No Known Allergies [No Known Allergies*] Allergy (Verified 07/04/23 14:50) HPI HPI Comments History of Present Illness Details Ms. Jalloh, 72yoF presents with her daughter Jailene, for follow-up osteoarthritis. Last seen in June 2022. Patient reports chronic bilateral knee pain that is worsening. She states that her pain is aching with numbness that is worse with use. Pain is worse with prolonged standing or walking. She is taking oxycodone -acetaminophen and gabapentin, and diclofenac 1% topical gel. She states that her PCP recommended PT but she has not done it yet.. She says she does get relief from the pain with these medication, she goes to sleep but then wakes up with pain. ? [facility] Medical History (Updated 07/04/23 @ 15:28 [facility] Osteoarthritis of hands, bilateral Intermittent pain and swelling of hand Bilateral primary osteoarthritis of knee Right upper quadrant pain Pruritus Impaired fasting glucose Dyspnea on exertion (~06/2020) Screening for cervical cancer Primary osteoarthritis involving multiple joints Morbid obesity with BMI of 45.0-49.9, adult Depression Anxiety Insomnia Overactive bladder Osteoarthritis Lumbar degenerative disc disease Degenerative disc disease, cervical Vitamin D deficiency Constipation GERD without esophagitis Obstructive sleep apnea Vitamin B12 deficiency Fibromyalgia Cardiac murmur Mild intermittent asthma without complication Chronic kidney disease (CKD), stage II (mild) Acquired hypothyroidism Benign essential hypertension Surgical History History of colonoscopy Family History Father CVD (cardiovascular disease) Mother CVD (cardiovascular disease) Diabetes Hypertension Social History Household Members: Spouse Housing: Condominium Do you presently have visiting nurse or other home services: Yes Alcohol intake: never Patient Tobacco Use Status: Never used Tobacco e-Cigarette/Vaping Use: Never Used Second Hand Smoke Exposure: No service: No Current occupational status: unemployed, student and disabled Cognitive needs: Yes (walker) Hearing needs: No Vision needs: Yes (glasses) Review of Systems Const All systems reviewed & are unremarkable except as noted in HPI and below Physical Exam Vital Signs: Last Vital Signs Temp 97 F 07/04/23 14:47 Pulse 113 H 07/04/23 14:47 BP 110/70 07/04/23 14:47 Pulse Ox 93 07/04/23 14:47 Oxygen Delivery Method Room Air 07/04/23 14:47 BMI result Body Mass Index 44.1 APPEARANCE: Patient in no acute distress, groomed. nourished EYES: no redness, eyelids normal EARS: External ear normal. NOSE/SINUS: Airflow through both nares, no nasal discharge, no bleeding THROAT: Oral mucosa moist, no ulcerations NECK: No thyromegaly or masses, no adenopathy, trachea midline. HEART: Regular rhythm, S1-S2 heard, no murmurs, rubs or gallops. LUNG: Clear to auscultation, respiratory rate regular nonlabored. EXTREMITIES: No edema, no calf tenderness, normal peripheral pulses. NEURO: Oriented and alert x3. No focal weakness. Gait antalgic. SKIN: No inflammatory or neoplastic lesions. Normal color and turgor JOINT EXAM:? Hands:? Normal pain-free range of motion with diffused mild tenderness across IP joints but no swelling, increased warmth or erythema. Bilateral thumb appears to be telescoping into joint. 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 Wrists:? Normal pain-free range of motion with mild tenderness but no swelling, increased warmth or erythema. Elbows: Normal pain-free range of motion without tenderness, swelling, increased warmth or erythema. Shoulders:?? Full range of motion without pain. No tenderness, weakness, swelling, increased warmth or erythema. Hips:? Full range of motion without pain. Hip bursa:? No tenderness. Knees: LEFT: Normal range of motion. Tenderness to palpation of the medial joint line, lateral joint, infrapatellar and prepatellar areas. No swelling, increased warmth or erythema.? Normal sensation. There is no effusion or crepitation. RIGHT: Normal range of motion. Tenderness to palpation of the medial joint line, lateral joint, infrapatellar and prepatellar areas. No swelling, increased warmth or erythema. Decreased sensation to light touch of skin over the patella. There is no effusion or crepitation. Ankles:? Normal pain-free range of motion without tenderness, swelling, increased warmth or erythema. Feet:? Normal pain-free range of motion without tenderness, swelling, increased warmth or erythema. Results Reviewed Results Reviewed: Laboratory Tests 06/24/23 06/24/23 08:47 08:51 WBC 6.5 Hgb 12.7 Hct 38.1 Plt Count 160 Sodium 143 Potassium 4.5 Creatinine 0.93 Estimated GFR 59 Fasting Glucose 106 H Calcium 9.3 AST 14 ALT 15 Triglycerides 118 Cholesterol 178 LDL Cholesterol, Calc 111 H HDL Cholesterol 44 Vitamin B12 570 25-OH Vitamin D Total 31.7 TSH 0.86 Free T4 1.28 Ur Specific [place] 1.010 Urine Protein Negative Urine Glucose (UA) Negative Urine Blood Negative Ordering Physician: Clarissa Holt NP Date of Service: 06/20/22 Procedure(s): XR knee RT 3V Accession Number(s): [id number] cc: Clarissa Holt NP~ EXAMINATION: XR KNEE, BILATERAL CLINICAL INFORMATION: Chronic bilateral knee pain COMPARISON: 11/01/2020 TECHNIQUE: 3 views of each knee FINDINGS: Right knee: Moderate medial and mild patellofemoral/lateral compartment osteoarthritis. No joint effusion. No significant change. Left knee: Moderate-severe patellofemoral compartment and [id number] medial/lateral compartment osteoarthritis. No joint effusion. No change. XR/XR knee RT 3V IMPRESSION: RIGHT KNEE: Moderate medial and mild patellofemoral/lateral compartment osteoarthritis. No significant change. LEFT KNEE: Tricompartmental osteoarthritis, most severe in the patellofemoral compartment. No significant change. Assessment & Plan Assessment & Plan (1) Bilateral primary osteoarthritis of knee: Code(s): M17.0 - Bilateral primary osteoarthritis of knee Plan: Patient with known osteoarthritis in bilateral knees, per patient report her pain symptoms are worsening. On exam she has tenderness to palpation throughout bilateral knees. No swelling, erythema or warmth noted, no effusion noted, range of motion is normal. She reports decreased sensation to light touch of skin over the right patella. Recommend updating bilateral knee x-rays, referral to PT and Orthopedics which she agrees to. She would like to try Voltaren gel, medication ordered. She is aware not to take Voltaren gel with oral NSAIDs. Continue gabapentin and oxycodone- acetaminophen prescribed by PCP. Education provided that weight loss may help improve her joint pain. Follow-up 1 year or sooner if needed. 20 minutes spent with reviewing chart, evaluating patient and documenting. (2) Intermittent pain and swelling of hand: Code(s): M79.643 - Pain in unspecified hand; M79.89 - Other specified soft tissue disorders (3) Osteoarthritis of hands, bilateral: Code(s): M19.041 - Primary osteoarthritis, right hand; M19.042 - Primary osteoarthritis, left hand Qualifiers: Osteoarthritis type: primary Qualified Code(s): M19.041 - Primary osteoarthritis, right hand; M19.042 - Primary osteoarthritis, left hand Plan #OA multiple Joints: Ms Jalloh is a 73 yoF with known osteoarthritis in bilateral knees and hands and per patient report her pain symptoms are worsening. On exam she has tenderness to palpation throughout bilateral knees. No swelling, erythema or warmth noted, no effusion noted, range of motion is normal. She does uses the Voltaren gel and she is aware not to take Voltaren gel with oral NSAIDs. She continues with gabapentin and oxycodone- acetaminophen prescribed by PCP and finds relief with these. Again, education provided that weight loss may help improve her joint pain. I will obtain xrays of her hands. Her thumbs are telescoping into the joint - she may benefit from Ortho evaluation hich she deferrs at this time. I have also suggested corticosteroid injections for her knees - patient is apprehensive, but will think about this option if the pain becomes worse. Follow-up 1 year or sooner if needed. Orders: Orders Erythrocyte Sedimentation Rate Today M79.643 - Pain in unspecified hand, M79.89 - Other specified soft tissue disorders Uric Acid Today M79.643 - Pain in unspecified hand, M79.89 - Other specified soft tissue disorders C Reactive Protein Today M79.643 - Pain in unspecified hand, M79.89 - Other specified soft tissue disorders Coding Level of Care Code Est Pt Level 3 (57294) Diagnoses Bilateral primary osteoarthritis of knee M17.0 Intermittent pain and swelling of hand M79.643; M79.89 Primary osteoarthritis of both hands M19.041; M19.042 Osteoarthritis type: primary
== END 2023-07-04 15:19 | disposition home or self-care (01) ==
PROVIDERS: PCP Internal Medicine; Visit Provider Nurse Practitioner Family
DX: M17.0 Bilateral primary osteoarthritis of knee (principal); M79.643 Pain in unspecified hand; M79.89 Other specified soft tissue disorders; M19.041 Primary osteoarthritis, right hand; M19.042 Primary osteoarthritis, left hand
CPT/HCPCS: 99213

== ENCOUNTER → 2023-07-04 14:42 | Outpatient (BNVA) | payer OTHER, SELFPAY | PROVIDERS: Visit Provider Nurse Practitioner Family | DX: M17.0 Bilateral primary osteoarthritis of knee (principal); M79.643 Pain in unspecified hand; M79.89 Other specified soft tissue disorders; M19.041 Primary osteoarthritis, right hand; M19.042 Primary osteoarthritis, left hand | CPT/HCPCS: 99212 ==

== ENCOUNTER 2023-07-16 11:08 | Outpatient (REF) | payer OTHER, SELFPAY ==
[2023-07-16 13:27] LABS: Erythrocyte Sedimentation Rate 22 MM/HR (0-20)
[2023-07-16 14:15] LABS: C Reactive Protein 0.98 mg/dL (< or = 0.50)
[2023-07-16 14:39] LABS: Uric Acid 7.4 mg/dL (2.4-5.7)
== END 2023-07-16 11:09 | disposition home or self-care (01) ==
LOC: HO.LAB 11:08
PROVIDERS: PCP Internal Medicine; Visit Provider Nurse Practitioner Family
DX: M79.643 Pain in unspecified hand (principal); M79.89 Other specified soft tissue disorders
CPT/HCPCS: 36415; 84550; 85652; 86140

== ENCOUNTER 2023-08-14 10:15 | Outpatient (AMB) | payer OTHER, SELFPAY ==
--- NOTE | 2023-08-14 10:33 | A.OFFVIS_ITS ---
Intake Vital Signs 08/14/23 10:43 Height 5 ft 3 in Weight 243 lb 9.773 oz BMI 43.1 BP 144/68 H Blood Pressure Location Rt radial Position Sitting Pulse 98 Pulse Source Pulse Oximeter Temp 97.6 F Temp Source Skin Pulse Oximetry (%) 95 Oxygen Delivery Method Room Air Intake Visit Reasons: Discuss Labs and possible treatment Intake Note: Patient last seen 07/04/23 by Emily, presents today for for test results and to discuss possible treatment. 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 Jalloh, 72yoF presents with her daughter Jailene, for follow-up osteoarthritis and to review lab results. Last seen in June 2023. Patient reports chronic bilateral knee pain that is worsening. She states that her pain is aching with numbness that is worse with use. Pain is worse with prolonged standing or walking. She is taking oxycodone -acetaminophen and gabapentin, and diclofenac 1% topical gel. She states that her PCP recommended PT but she has not done it yet.. She says she does get relief from the pain with these medication, she goes to sleep but then wakes up with pain. ? [facility] Medical History (Updated 08/15/23 @ 17:44 by Jayla Diaz, 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, bilateral Intermittent pain and swelling of hand Bilateral primary osteoarthritis of knee Right upper quadrant pain Pruritus Impaired fasting glucose Dyspnea on exertion (~06/2020) Screening for cervical cancer Primary osteoarthritis involving multiple joints Morbid obesity with BMI of 45.0-49.9, adult Depression Anxiety Insomnia Overactive bladder Osteoarthritis Lumbar degenerative disc disease Degenerative disc disease, cervical Vitamin D deficiency Constipation GERD without esophagitis Obstructive sleep apnea Vitamin B12 deficiency Fibromyalgia Cardiac murmur Mild intermittent asthma without complication Chronic kidney disease (CKD), stage II (mild) Acquired hypothyroidism Benign essential hypertension Surgical History History of colonoscopy Family History Father CVD (cardiovascular disease) Mother CVD (cardiovascular disease) Diabetes Hypertension Social History Household Members: Spouse Housing: Condominium Do you presently have visiting nurse or other home services: Yes Alcohol intake: never Patient Tobacco Use Status: Never used Tobacco e-Cigarette/Vaping Use: Never Used Second Hand Smoke Exposure: No service: No Current occupational status: unemployed, student and disabled Cognitive needs: Yes (walker) Hearing needs: No Vision needs: Yes (glasses) Review of Systems Const All systems reviewed & are unremarkable except as noted in HPI and below Physical Exam Vital Signs: Last Vital Signs Temp 97.6 F 08/14/23 10:43 Pulse 98 08/14/23 10:43 BP 144/68 H 08/14/23 10:43 Pulse Ox 95 08/14/23 10:43 Oxygen Delivery Method Room Air 08/14/23 10:43 BMI result Body Mass Index 43.1 APPEARANCE: Patient in no acute distress, groomed. nourished EYES: no redness, eyelids normal EARS: External ear normal. NOSE/SINUS: Airflow through both nares, no nasal discharge, no bleeding THROAT: Oral mucosa moist, no ulcerations NECK: No thyromegaly or masses, no adenopathy, trachea midline. HEART: Regular rhythm, S1-S2 heard, no murmurs, rubs or gallops. LUNG: Clear to auscultation, respiratory rate regular nonlabored. EXTREMITIES: No edema, no calf tenderness, normal peripheral pulses. NEURO: Oriented and alert x3. No focal weakness. Gait antalgic. SKIN: No inflammatory or neoplastic lesions. Normal color and turgor JOINT EXAM:? Hands:? Normal pain-free range of motion with diffused mild tenderness across IP joints but no swelling, increased warmth or erythema. Bilateral thumb appears to be telescoping into joint. 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 Wrists:? Normal pain-free range of motion with mild tenderness but no swelling, increased warmth or erythema. Elbows: Normal pain-free range of motion without tenderness, swelling, increased warmth or erythema. Results Reviewed Results Reviewed: Laboratory Tests 07/16/23 11:44 ESR 22 H Uric Acid 7.4 H C-Reactive Protein 0.98 H Assessment & Plan Assessment & Plan (1) Bilateral primary osteoarthritis of knee: Code(s): M17.0 - Bilateral primary osteoarthritis of knee Plan: Patient with known osteoarthritis in bilateral knees, per patient report her pain symptoms are worsening. On exam she has tenderness to palpation throughout bilateral knees. No swelling, erythema or warmth noted, no effusion noted, range of motion is normal. She reports decreased sensation to light touch of skin over the right patella. Recommend updating bilateral knee x-rays, referral to PT and Orthopedics which she agrees to. She would like to try Voltaren gel, medication ordered. She is aware not to take Voltaren gel with oral NSAIDs. Continue gabapentin and oxycodone- acetaminophen prescribed by PCP. Education provided that weight loss may help improve her joint pain. Follow-up 1 year or sooner if needed. 20 minutes spent with reviewing chart, evaluating patient and documenting. 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 One wonders if her intermittent hand swelling has to do with gout flares. I recommend the patient to call the office to come in to be assessed if this episode happens again where her hands are swollen and tender. Given that her sed rate and ESR are mildly elevated and her uric acid it may be reasonable to start allopurinol. However, since I have not witnessed a flare and the patient is not sure, we will hold off on starting allopurinol. Patient will call the office for earlier appointment if needed. Prior visit 07/04/2023 Ms Jalloh is a 73 yoF with known osteoarthritis in bilateral knees and hands and per patient report her pain symptoms are worsening. On exam she has tenderness to palpation throughout bilateral knees. No swelling, erythema or warmth noted, no effusion noted, range of motion is normal. She does uses the Voltaren gel and she is aware not to take Voltaren gel with oral NSAIDs. She continues with gabapentin and oxycodone- acetaminophen prescribed by PCP and finds relief with these. Again, education provided that weight loss may help improve her joint pain. I will obtain xrays of her hands. Her thumbs are dana coping into the joint - she may benefit from Ortho evaluation which she deferrs at this time. I have also suggested corticosteroid injections for her knees - patient is apprehensive, but will think about this option if the pain becomes worse. Follow-up 1 year or sooner if needed. 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
[2023-08-14 10:43] VITALS: BP 144/68; PULSE 98; TEMP 36.4; O2SAT 95; BMI 43.1
== END 2023-08-14 11:15 | disposition home or self-care (01) ==
PROVIDERS: PCP Internal Medicine; Visit Provider Nurse Practitioner Family
DX: M17.0 Bilateral primary osteoarthritis of knee (principal); M79.643 Pain in unspecified hand; M79.89 Other specified soft tissue disorders; M19.041 Primary osteoarthritis, right hand; M19.042 Primary osteoarthritis, left hand; E79.0 Hyperuricemia without signs of inflammatory arthritis and tophaceous disease
CPT/HCPCS: 99212

== ENCOUNTER → 2023-08-14 10:15 | Outpatient (BNVA) | payer OTHER, SELFPAY | PROVIDERS: PCP Internal Medicine; Visit Provider Nurse Practitioner Family | DX: M17.0 Bilateral primary osteoarthritis of knee (principal); M79.643 Pain in unspecified hand; M79.89 Other specified soft tissue disorders; M19.041 Primary osteoarthritis, right hand; M19.042 Primary osteoarthritis, left hand; E79.0 Hyperuricemia without signs of inflammatory arthritis and tophaceous disease | CPT/HCPCS: 99212 ==

== ENCOUNTER 2023-08-22 10:38 | Outpatient (REF) | payer OTHER, SELFPAY ==
--- NOTE | ~2023-08-22 | XR_ITS ---
EXAMINATION: XR RIGHT KNEE, LEFT KNEE, RIGHT HAND, LEFT HAND CLINICAL INFORMATION: Unilateral primary osteoarthritis left knee, right hand. COMPARISON: Standing view bilateral knees 08/17/2022. Bilateral knee radiographs 06/25/2022. Right hand and wrist 09/11/2018 left hand and wrist 04/29/2012. TECHNIQUE: 3 views of each knee. 3 views of each hand. FINDINGS: Right Knee: The bones are diffusely demineralized. Moderate narrowing of the medial compartment. No significant suprapatellar effusion. Small tricompartmental osteophytes. Left Knee: The bones are diffusely demineralized. Small tricompartmental osteophytes. Moderate narrowing of the medial compartment. No significant suprapatellar effusion. Degenerative changes in the patellofemoral compartment. Left Hand: The bones are diffusely demineralized. Radiopaque marker placed indicating area of concern indicated by the patient to the technologist at the level of the first carpometacarpal joint. Progression of severe degenerative changes in the first carpometacarpal joint with joint space narrowing and hypertrophic change. Minimal degenerative changes and scattered IP joints of the hand. Right Hand: The bones are diffusely demineralized. Radiopaque marker placed by the technologist indicated the area of concern as indicated by the patient along the midportion of the first metacarpal. Progression of severe degenerative changes in the first carpometacarpal joint with joint space narrowing and hypertrophic change. Redemonstration of deformity of the right fourth metacarpal compatible with given history of remote fracture. Mild degenerative changes in scattered MCP and IP joints. XR/XR hand RT min 3V IMPRESSION: 1. Moderate degenerative changes bilateral knees. 2. Progression of severe degenerative changes in the first carpometacarpal joints bilaterally. 3. Mild degenerative changes in scattered MCP and IP joints of the hands bilaterally.
--- NOTE | ~2023-08-22 | XR_ITS ---
EXAMINATION: XR RIGHT KNEE, LEFT KNEE, RIGHT HAND, LEFT HAND CLINICAL INFORMATION: Unilateral primary osteoarthritis left knee, right hand. COMPARISON: Standing view bilateral knees 08/17/2022. Bilateral knee radiographs 06/25/2022. Right hand and wrist 09/11/2018 left hand and wrist 04/29/2012. TECHNIQUE: 3 views of each knee. 3 views of each hand. FINDINGS: Right Knee: The bones are diffusely demineralized. Moderate narrowing of the medial compartment. No significant suprapatellar effusion. Small tricompartmental osteophytes. Left Knee: The bones are diffusely demineralized. Small tricompartmental osteophytes. Moderate narrowing of the medial compartment. No significant suprapatellar effusion. Degenerative changes in the patellofemoral compartment. Left Hand: The bones are diffusely demineralized. Radiopaque marker placed indicating area of concern indicated by the patient to the technologist at the level of the first carpometacarpal joint. Progression of severe degenerative changes in the first carpometacarpal joint with joint space narrowing and hypertrophic change. Minimal degenerative changes and scattered IP joints of the hand. Right Hand: The bones are diffusely demineralized. Radiopaque marker placed by the technologist indicated the area of concern as indicated by the patient along the midportion of the first metacarpal. Progression of severe degenerative changes in the first carpometacarpal joint with joint space narrowing and hypertrophic change. Redemonstration of deformity of the right fourth metacarpal compatible with given history of remote fracture. Mild degenerative changes in scattered MCP and IP joints. XR/XR knee LT 3V IMPRESSION: 1. Moderate degenerative changes bilateral knees. 2. Progression of severe degenerative changes in the first carpometacarpal joints bilaterally. 3. Mild degenerative changes in scattered MCP and IP joints of the hands bilaterally.
--- NOTE | ~2023-08-22 | XR_ITS ---
EXAMINATION: XR RIGHT KNEE, LEFT KNEE, RIGHT HAND, LEFT HAND CLINICAL INFORMATION: Unilateral primary osteoarthritis left knee, right hand. COMPARISON: Standing view bilateral knees 08/17/2022. Bilateral knee radiographs 06/25/2022. Right hand and wrist 09/11/2018 left hand and wrist 04/29/2012. TECHNIQUE: 3 views of each knee. 3 views of each hand. FINDINGS: Right Knee: The bones are diffusely demineralized. Moderate narrowing of the medial compartment. No significant suprapatellar effusion. Small tricompartmental osteophytes. Left Knee: The bones are diffusely demineralized. Small tricompartmental osteophytes. Moderate narrowing of the medial compartment. No significant suprapatellar effusion. Degenerative changes in the patellofemoral compartment. Left Hand: The bones are diffusely demineralized. Radiopaque marker placed indicating area of concern indicated by the patient to the technologist at the level of the first carpometacarpal joint. Progression of severe degenerative changes in the first carpometacarpal joint with joint space narrowing and hypertrophic change. Minimal degenerative changes and scattered IP joints of the hand. Right Hand: The bones are diffusely demineralized. Radiopaque marker placed by the technologist indicated the area of concern as indicated by the patient along the midportion of the first metacarpal. Progression of severe degenerative changes in the first carpometacarpal joint with joint space narrowing and hypertrophic change. Redemonstration of deformity of the right fourth metacarpal compatible with given history of remote fracture. Mild degenerative changes in scattered MCP and IP joints. XR/XR knee RT 3V IMPRESSION: 1. Moderate degenerative changes bilateral knees. 2. Progression of severe degenerative changes in the first carpometacarpal joints bilaterally. 3. Mild degenerative changes in scattered MCP and IP joints of the hands bilaterally.
--- NOTE | ~2023-08-22 | XR_ITS ---
EXAMINATION: XR RIGHT KNEE, LEFT KNEE, RIGHT HAND, LEFT HAND CLINICAL INFORMATION: Unilateral primary osteoarthritis left knee, right hand. COMPARISON: Standing view bilateral knees 08/17/2022. Bilateral knee radiographs 06/25/2022. Right hand and wrist 09/11/2018 left hand and wrist 04/29/2012. TECHNIQUE: 3 views of each knee. 3 views of each hand. FINDINGS: Right Knee: The bones are diffusely demineralized. Moderate narrowing of the medial compartment. No significant suprapatellar effusion. Small tricompartmental osteophytes. Left Knee: The bones are diffusely demineralized. Small tricompartmental osteophytes. Moderate narrowing of the medial compartment. No significant suprapatellar effusion. Degenerative changes in the patellofemoral compartment. Left Hand: The bones are diffusely demineralized. Radiopaque marker placed indicating area of concern indicated by the patient to the technologist at the level of the first carpometacarpal joint. Progression of severe degenerative changes in the first carpometacarpal joint with joint space narrowing and hypertrophic change. Minimal degenerative changes and scattered IP joints of the hand. Right Hand: The bones are diffusely demineralized. Radiopaque marker placed by the technologist indicated the area of concern as indicated by the patient along the midportion of the first metacarpal. Progression of severe degenerative changes in the first carpometacarpal joint with joint space narrowing and hypertrophic change. Redemonstration of deformity of the right fourth metacarpal compatible with given history of remote fracture. Mild degenerative changes in scattered MCP and IP joints. XR/XR hand LT min 3V IMPRESSION: 1. Moderate degenerative changes bilateral knees. 2. Progression of severe degenerative changes in the first carpometacarpal joints bilaterally. 3. Mild degenerative changes in scattered MCP and IP joints of the hands bilaterally.
== END 2023-08-22 10:39 | disposition home or self-care (01) ==
LOC: HO.XRAY 10:38
PROVIDERS: Visit Provider Nurse Practitioner Family
DX: M19.041 Primary osteoarthritis, right hand (principal); M19.042 Primary osteoarthritis, left hand; M79.89 Other specified soft tissue disorders; M17.0 Bilateral primary osteoarthritis of knee
CPT/HCPCS: 73130; 73562

== ENCOUNTER 2023-10-04 08:12 | Outpatient (REF) | payer OTHER, SELFPAY ==
[2023-10-04 08:31] LABS: MANUAL DIFF FLAG NO
[2023-10-04 08:40] LABS: Basophils Absolute Auto 0.1 X10*3/uL (0.0-0.2); Basophils Percent Auto 0.6 % (0-2); Eosinophils Absolute Auto 0.2 X10*3/uL (0.0-0.4); Eosinophils Percent Auto 2.4 % (0-4); Hematocrit 38.7 % (37.0-47.0); Imm Gran Abs Auto 0.05 X10*3/uL (0.00-0.03); Imm Gran Pct Auto 0.6 % (0.0-0.4); Lymphocytes Percent Auto 22.5 % (20-40); Mean Corpuscular HGB Conc 33.6 g/dl (31.0-35.0); Mean Corpuscular Hemoglobin 30.7 pg (27.0-33.0); Mean Corpuscular Volume 91.5 fL (80.0-98.0); Mean Platelet Volume 10.4 fL (9.4-12.3); Monocytes Absolute Auto 0.7 X10*3/uL (0.1-1.2); Monocytes Percent Auto 7.7 % (2-11); Neutrophils Absolute Auto 5.8 x10*3/uL (2.0-8.3); Neutrophils Percent Auto 66.2 % (45-73); Platelet Count 172 X10*3/uL (160-400); Red Blood Count 4.23 X10*6/uL (4.20-5.50); Red Cell Distribution Width 12.8 % (11.0-16.0); White Blood Count 8.7 X10*3/uL (4.8-10.8)
[2023-10-04 09:20] LABS: Alanine Aminotransferase 15 U/L (0-31); Alkaline Phosphatase 114 U/L (39-117); Anion Gap 12 (12-20); Aspartate Amino Transferase 16 U/L (5-31); Bilirubin Total 0.6 mg/dL (0.0-1.0); Blood Urea Nitrogen 16 mg/dL (9-16); Calcium 9.3 mg/dL (8.4-10.2); Carbon Dioxide 31 mmol/L (22-29); Chloride 105 mmol/L (96-108); Cholesterol 187 mg/dL (<200); Estimated Glomerular Filt Rate > 60; Glucose Fasting 113 mg/dL (60-99); HDL Cholesterol 47 mg/dL (>40); LDL Cholesterol Calculated 119 mg/dL (<100); Potassium 4.5 mmol/L (3.3-5.1); Sodium 143 mmol/L (135-145); Total Protein 6.8 g/dL (6.5-8.0); Triglycerides 106 mg/dL (<150)
[2023-10-04 09:36] LABS: TSH reflex Free T4 0.47 uIU/mL (0.32-4.0); Vitamin D 25-OH Total 35.7 ng/mL (>30)
[2023-10-04 10:19] LABS: Appearance Urine Clear; Color Urine Yellow; Glucose Urine UA Negative (Negative); Leukocyte Esterase Urine Negative (Negative); Nitrite Urine Negative (Negative); PH 6.5 (5.0-9.0); Urine Blood Negative (Negative); Urine Ketones Negative (Negative); Urine Protein Negative (Neg-Trace)
== END 2023-10-04 08:13 | disposition home or self-care (01) ==
LOC: HO.LAB 08:12
PROVIDERS: PCP Internal Medicine; Visit Provider Internal Medicine
DX: E78.00 Pure hypercholesterolemia, unspecified (principal); R30.0 Dysuria; D64.9 Anemia, unspecified; E55.9 Vitamin D deficiency, unspecified
CPT/HCPCS: 36415; 80053; 80061; 81003; 82306; 84443; 85025

== ENCOUNTER 2023-10-08 13:39 | Outpatient (AMB) | payer OTHER, SELFPAY ==
[2023-10-08 13:40] VITALS: BP 160/90; PULSE 95; O2SAT 93; BMI 44.6
--- NOTE | 2023-10-08 13:40 | A.OFFPC_ITS ---
Vital Signs 10/08/23 13:40 10/08/23 14:30 Height 5 ft 3 in Weight 252 lb 0.6 oz BMI 44.6 BP 160/90 H 170/100 H Blood Pressure Location Lt brachial Lt brachial Position Sitting Sitting Pulse 95 Pulse Source Pulse Oximeter Pulse Oximetry (%) 93 Oxygen Delivery Method Room Air Intake Visit Reasons: HTN, hypothyroidism, CKD, asthma, ROSA Intake Note: Patient is here to follow up on HTN, hypothyroidism, CKD, asthma, ROSA Scenario Writer Required: No Allergies No Known Allergies [No Known Allergies*] Allergy (Verified 10/08/23 14:18) Medication List - Last Reconciled 10/08/23 by Antonino Barrera MD [ADULT PULL UPS (Size XXL) As directed] [ADULT WIPES As directed] albuterol sulfate 90 mcg/actuation (ProAir HFA) 2 puffs inhalation Q6H PRN albuterol sulfate 2.5 mg (3 mL) continuous nebulization Q6-8H PRN amlodipine 2.5 mg PO DAILY [BEDSIDE COMMODE As directed] bisacodyl (Laxative (bisacodyl)) 10 mg (2 x 5 mg) PO BEDTIME cholecalciferol (vitamin D3) 25 mcg PO DAILY 90 days [compression stockings As directed] CPAP (CPAP Machine/Device) As directed cyanocobalamin (vitamin B-12) 1,000 mcg PO DAILY 90 days diclofenac sodium 1% 2 grams topical BID [DISPOSABLE BED PADS As directed] [Disposable UNDERPADS As directed] gabapentin 400 mg PO TID hydrocortisone 1% (Anti-Itch (hydrocortisone)) 1 appl topical TID PRN [INCONTINENT BED PADS As directed] [KOTEX PADS As directed] levothyroxine 137 mcg PO DAILY 90 days linaclotide (Linzess) 290 mcg PO QAM lisinopril 40 mg PO DAILY 90 days meclizine 25 mg PO BID PRN omeprazole 20 mg PO DAILY oxybutynin chloride ER 10 mg PO DAILY 90 days oxycodone-acetaminophen 5-325 mg 1 tab PO Q6H PRN 28 days [ROLLATOR WALKER As directed] sertraline 100 mg PO DAILY 90 days [SHOWER CHAIR As directed] spironolactone 100 mg PO BID Tobacco use date assessed: 10/08/23 Fall risk assessment: No Falls in past year Last assessed Fall Risk: 10/08/23 Dental Screening Dental Screen Date: 07/03/23 HPI HTN, hypothyroidism, CKD, asthma, ROSA HPI Details Patient comes in today for her follow up visit States that she feels okay She denies any headaches or dizziness Denies any chest pains, no increased SOB No nausea/vomiting, no abdominal pain No change in bowel habits noted States that her chronic low back pain and joint pains remain adequately controlled on her current medications Had her follow up labs done a few days ago - to discuss her results [facility] Medical History 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, bilateral Intermittent pain and swelling of hand Bilateral primary osteoarthritis of knee Right upper quadrant pain Pruritus Impaired fasting glucose Dyspnea on exertion (~06/2020) Screening for cervical cancer Primary osteoarthritis involving multiple joints Morbid obesity with BMI of 45.0-49.9, adult Depression Anxiety Insomnia Overactive bladder Osteoarthritis Lumbar degenerative disc disease Degenerative disc disease, cervical Vitamin D deficiency Constipation GERD without esophagitis Obstructive sleep apnea Vitamin B12 deficiency Fibromyalgia Cardiac murmur Mild intermittent asthma without complication Chronic kidney disease (CKD), stage II (mild) Acquired hypothyroidism Benign essential hypertension Surgical History History of colonoscopy Family History Father CVD (cardiovascular disease) Mother CVD (cardiovascular disease) Diabetes Hypertension Social History Household Members: Spouse Housing: Condominium Do you presently have visiting nurse or other home services: Yes Alcohol intake: never Patient Tobacco Use Status: Never used Tobacco e-Cigarette/Vaping Use: Never Used Second Hand Smoke Exposure: No service: No Current occupational status: unemployed, student and disabled Cognitive needs: Yes (walker) Hearing needs: No Vision needs: Yes (glasses) Questionnaire PHQ-9 Over the last 2 weeks, how often have you been bothered by any of the following problems? 1. Little interest or pleasure in doing things: not at all 2. Feeling down, depressed, or hopeless: not at all 3. Trouble falling or staying asleep, or sleeping too much: not at all 4. Feeling tired or having little energy: not at all 5. Poor appetite or overeating: not at all 6. Feeling bad about yourself - or that you are a failure or have let yourself or your family down: not at all 7. Trouble concentrating on things, such as reading the newspaper or watching television: not at all 8. Moving or speaking so slowly that other people could have noticed. Or the opposite - being so fidgety or restless that you have been moving around a lot more than usual: not at all 9. Thoughts that you would be better off or of hurting yourself in some way: not at all Total score: 0 Depression Screening Interpretation: Negative Depression Screening Done: Yes 36746 - PHQ-9 Billing: Yes Source: Developed by Drs. Feng Lopez, Selina Pedro, Merlin Villalta and colleagues, with an educational nacho from [employer]. Thrive Questionnaire Date Thrive assessed: 10/08/23 I am a: Patient What is your living situation today?: I have a steady place to live Within the past 12 months, did the food you bought not last and you didn't have the money to get more?: Never true Within the past 12 months, did you worry whether your food would run out before you got money to buy more?: Never true Do you have trouble paying for medicines?: No Do you have trouble getting transportation to medical appointments?: No Do you have trouble paying your heating and electricity bill?: No Do you have trouble taking care of your child, family member or friend?: No Do you have trouble with day-to-day activities such as bathing, preparing meals, shopping, managing finances, etc.?: No Are you currently unemployed and looking for a job?: No Are you interested in more education?: No Please select the resources that you would like help with: None Currently or been in a relationship where the following occur: no concerns reported THRIVE Score: 0 AUDIT C Alcohol Use Questionnaire (AUDIT-C) 1. How often do you have a drink containing alcohol?: Never 3. How often do you have six or more drinks on one occasion?: Never Total Score: 0 Score Reviewed/Action Taken: Yes IGNACIA-7 AMB Questionnaire IGNACIA-7 Date IGNACIA - 7 assessed: 07/03/23 Source: Developed by Drs. Feng Lopez, Selina Pedro, Merlin Villalta and colleagues, with an educational nacho from [employer]. Review of Systems Const Denies chills, Reports fatigue, Denies fever(s) and Denies headache(s) ENT Denies dysphagia, Denies dizziness, Denies otalgia, Denies headache(s), Reports neck pain, Denies odynophagia and Denies sore throat Card Denies chest pain, Denies palpitations and Reports dyspnea on exertion (mild) Resp Denies cough, Reports dyspnea on exertion (mild) and Denies wheezing GI Denies abdominal pain, Reports constipation (on and off), Denies dysphagia, Denies diarrhea, Denies nausea, Denies odynophagia and Denies vomiting Denies hematuria, Denies difficulty voiding, Denies nocturia, Denies dysuria and Denies urinary urgency Musc Reports back pain, Reports arthralgias (over both knees ) and Reports neck pain Skin/Breast Denies rash Neuro Denies dizziness and Denies headache(s) Endo Reports fatigue and Denies palpitations Aller/Immun Denies wheezing Physical exam (Primary Care) Vital Signs: Last Vital Signs Pulse 95 10/08/23 13:40 BP 160/90 H 10/08/23 13:40 Pulse Ox 93 10/08/23 13:40 Oxygen Delivery Method Room Air 10/08/23 13:40 BMI result Body Mass Index 44.6 Tobacco/Smoking Status: Tobacco use Status Tobacco use date assessed 10/08/23 10/08/23 13:42 Patient Tobacco Use Status Never used Tobacco 10/08/23 13:42 e-Cigarette/Vaping Use Never Used 10/08/23 13:42 Depression Screening Interpretation: Negative Thrive Assessment: Date of Thrive Assessment Date Thrive assessed 10/08/23 10/08/23 13:42 Currently or been in a relationship where the following occur: no concerns reported Const General: no acute distress and alert HENMT Ears: TM's normal bilaterally and EAC's normal Throat: Yes posterior oropharynx normal and Yes tonsils normal (no TP congestion noted) Neck Neck: Yes no lymphadenopathy and Yes supple Thyroid: Thyroid normal Resp Auscultation: clear to auscultation bilaterally, no rales and no wheezes Cardio Rate: regular rate Rhythm: regular rhythm Heart sounds: Murmur heart sound present systolic soft and at the left sternal border (at the left lower sternal border) GI Palpation (GI): Soft to palpation and nontender Auscultation: normal bowel sounds General: Yes no CVA tenderness Back/Spine/Pelvis Back: no CVA tenderness Cervical Spine: Cervical spine tenderness Thoracic/Lumbar Spine: lumbar spinal tenderness Skin Rashes: no rashes Extrem General: Yes no clubbing, cyanosis or edema Right lower extremity: knee Details: tenderness; no swelling Left lower extremity: knee Details: tenderness; no swelling Results Reviewed Results Reviewed: Laboratory Tests 10/04/23 10/04/23 08:29 08:30 WBC 8.7 Hgb 13.0 Hct 38.7 Plt Count 172 Sodium 143 Potassium 4.5 Creatinine 0.82 Estimated GFR > 60 Fasting Glucose 113 H Calcium 9.3 AST 16 ALT 15 Triglycerides 106 Cholesterol 187 LDL Cholesterol, Calc 119 H HDL Cholesterol 47 25-OH Vitamin D Total 35.7 TSH 0.47 Ur Specific [place] 1.020 Urine Protein Negative Urine Glucose (UA) Negative Urine Blood Negative Urine Nitrite Negative Ur Leukocyte Esterase Negative Assessment and Plan Assessment & Plan (1) Benign essential hypertension: Code(s): I10 - Essential (primary) hypertension Plan: Results of her labs done a few days ago reviewed and discussed with patient - she is cautioned that her cholesterol levels, even though they are still within normal range, have increased significantly over the past 6 months Patient also admits to eating a lot of Cheetos lately, which is a very salty (high sodium content) snack Reinforced low-sodium diet -?goal is systolic BP of at least 130 to 140 mm or less Continue Lisinopril 40 mg QD, Spironolactone 100 mg BID and Amlodipine 2.5 mg QD for now Have advised patient to continue monitoring her blood pressure regularly and to call if her blood pressure remains consistently elevated over the next few weeks Will also recheck her labs and fasting lipids in 3 months for follow-up (2) Chronic kidney disease (CKD), stage II (mild): Code(s): N18.2 - Chronic kidney disease, stage 2 (mild) Plan: GFR stable?-? will continue to monitor her renal function regularly (3) Acquired hypothyroidism: Code(s): E03.9 - Hypothyroidism, unspecified Plan: TFTs were normal on her recent labs Continue Levothyroxine 150 mcg QD Will continue to monitor her TFTs regularly (4) Mild intermittent asthma without complication: Code(s): J45.20 - Mild intermittent asthma, uncomplicated Plan: Stable/controlled Continue Albuterol HFA 2 puffs 4 times a day as needed; patient also has her Albuterol nebulizer that she uses when needed (5) Impaired fasting glucose: Code(s): R73.01 - Impaired fasting glucose Plan: HgbA1c was normal at 5.6% when checked previously Reinforced low calorie/low carb diet; exercise as tolerated (6) Cardiac murmur: Comment: Echocardiogram done in 2011 showed (+) mild MR and trace TR, which are the most likely cause of her cardiac murmur; LVEF was normal and there were no other abnormalities noted Repeat echocardiogram done last year (2019) showed no significant changes from her previous echo in 2011; LV systolic function remains normal and EF was between 65-70% Code(s): R01.1 - Cardiac murmur, unspecified Plan: Will continue to monitor regularly/periodically We were considering repeating her echo later this year for follow up but with her high blood pressure readings lately, will go ahead and order a repeat echocardiogram now for follow up (7) Obstructive sleep apnea: Code(s): G47.33 - Obstructive sleep apnea (adult) (pediatric) Plan: Continue using her CPAP device when sleeping at night -??CPAP titration done in January 2018 recommended acceptable CPAP pressure setting of 13-14 cm (8) GERD without esophagitis: Code(s): K21.9 - Gastro-esophageal reflux disease without esophagitis Plan: Dietary restrictions reinforced Continue Omeprazole 20 mg QD (9) Lumbar degenerative disc disease: Code(s): M51.36 - Other intervertebral disc degeneration, lumbar region Plan: Reinforced activity and weight lifting restrictions to minimize aggravating her low back pain Symptoms remain manageable on her current medications, including her Percocet 5- 325 mg that she takes every 6 hours as needed (10) Degenerative disc disease, cervical: Code(s): M50.30 - Other cervical disc degeneration, unspecified cervical region Plan: Findings confirmed on cervical spine x-rays done in 2014 -? symptoms are reportedly manageable on her current meds (11) Primary osteoarthritis involving multiple joints: Code(s): M89.49 - Other hypertrophic osteoarthropathy, multiple sites Plan: Continue Salsalate 500 mg 2 tablets 3 times a day and Oxycodone-Acetaminophen 5- 325 mg 1 tablet every 6 hours as needed Follow-up with Rheumatology at [facility] as scheduled X-rays of both knees done a couple of years ago showed (+) OA? changes bilaterally; repeat x-rays done a few months ago in October 2020 showed similar findings (12) Fibromyalgia: Code(s): M79.7 - Fibromyalgia Plan: Continue Gabapentin 400 mg 3 times a day and Lidoderm patches 5% 1 patch daily Patient again encouraged to exercise regularly to help manage her fibromyalgia symptoms better Follow-up with rheumatology as scheduled (13) Constipation: Code(s): K59.00 - Constipation, unspecified Qualifiers: Constipation type: unspecified constipation type Qualified Code(s): K59.00 - Constipation, unspecified Plan: Encouraged again on increased oral fluids and dietary fiber Continue Senna 8.6 mg 2 tablets at bedtime daily Follow up with GI as scheduled (14) Vitamin B12 deficiency: Code(s): E53.8 - Deficiency of other specified B group vitamins Plan: Corrected - will continue to monitor Vitamin B12 level regularly (15) Vitamin D deficiency: Code(s): E55.9 - Vitamin D deficiency, unspecified Plan: Continue Vitamin D2 45503 units once a week (16) Overactive bladder: Code(s): N32.81 - Overactive bladder Plan: Continue Oxybutynin ER 10 mg once a day (17) Insomnia: Code(s): G47.00 - Insomnia, unspecified Qualifiers: Insomnia type: unspecified Qualified Code(s): G47.00 - Insomnia, unspecified Plan: Sleep hygiene reinforced Continue Zolpidem 10 mg daily at bedtime as needed (18) Anxiety: Code(s): F41.9 - Anxiety disorder, unspecified Plan: Continue Doxepin 25 mg daily at bedtime as needed Patient is also on Sertraline, which helps with her anxiety as well (19) Depression: Code(s): F32.9 - Major depressive disorder, single episode, unspecified Qualifiers: Depression Type: major depressive disorder Major depression recurrence: recurrent Active/Remission status: currently active Major depression episode severity: unspecified Qualified Code(s): F33.9 - Major depressive disorder, recurrent, unspecified Plan: Continue Sertraline 100 mg once a day Follow-up with Psychiatry as scheduled (20) Morbid obesity with BMI of 40.0-44.9, adult: Code(s): E66.01 - Morbid (severe) obesity due to excess calories; Z68.41 - Body mass index [BMI] 40.0-44.9, adult Plan: Reinforced diet/exercise as tolerated/lose weight Plan Follow up in 3 months Orders: Orders Complete Blood Count Auto Diff 3 Months D64.9 - Anemia, unspecified Lipid Panel 3 Months E78.00 - Pure hypercholesterolemia, unspecified UA CC w/rflx Micro + Cult 3 Months R30.0 - Dysuria Vitamin D 25-OH Total 3 Months E55.9 - Vitamin D deficiency, unspecified Uric Acid 3 Months M10.9 - Gout, unspecified Hemoglobin A1c 3 Months R73.01 - Impaired fasting glucose CA echo transthoracic complete Today R01.1 - Cardiac murmur, unspecified Comprehensive [place]. Panel Fast 3 Months E78.00 - Pure hypercholesterolemia, unspecified TSH reflex Free T4 3 Months E78.00 - Pure hypercholesterolemia, unspecified Coding Level of Care Code Est Pt Level 4 (20902) Diagnoses Benign essential hypertension I10 Chronic kidney disease (CKD), stage II (mild) N18.2 Acquired hypothyroidism E03.9 Mild intermittent asthma without complication J45.20 Impaired fasting glucose R73.01 Cardiac murmur R01.1 Obstructive sleep apnea G47.33 GERD without esophagitis K21.9 Lumbar degenerative disc disease M51.36 Degenerative disc disease, cervical M50.30 Primary osteoarthritis involving multiple joints M89.49 Fibromyalgia M79.7 Constipation, unspecified constipation type K59.00 Constipation type: unspecified constipation type Vitamin B12 deficiency E53.8 Vitamin D deficiency E55.9 Overactive bladder N32.81 Insomnia, unspecified type G47.00 Insomnia type: unspecified Anxiety F41.9 Episode of recurrent major depressive disorder, unspecified depression episode severity F33.9 Depression Type: major depressive disorder Major depression recurrence: recurrent Active/Remission status: currently active Major depression episode severity: unspecified Morbid obesity with BMI of 40.0-44.9, adult E66.01; Z68.41
[2023-10-08 14:30] VITALS: BP 170/100
== END 2023-10-08 14:45 | disposition home or self-care (01) ==
PROVIDERS: PCP Internal Medicine; Visit Provider Internal Medicine
DX: I12.9 Hypertensive chronic kidney disease with stage 1 through stage 4 chronic kidney disease, or unspecified chronic kidney disease (principal); N18.2 Chronic kidney disease, stage 2 (mild); E66.01 Morbid (severe) obesity due to excess calories; Z68.41 Body mass index [BMI] 40.0-44.9, adult; F33.9 Major depressive disorder, recurrent, unspecified; E03.9 Hypothyroidism, unspecified; J45.20 Mild intermittent asthma, uncomplicated; R73.01 Impaired fasting glucose; R01.1 Cardiac murmur, unspecified; G47.33 Obstructive sleep apnea (adult) (pediatric); K21.9 Gastro-esophageal reflux disease without esophagitis; M51.36 Other intervertebral disc degeneration, lumbar region
CPT/HCPCS: 99214

== ENCOUNTER 2023-10-15 12:44 | Outpatient (AMB) | payer OTHER, SELFPAY ==
[2023-10-15 12:44] VITALS: BP 148/73; PULSE 94; BMI 44.2
--- NOTE | 2023-10-15 12:44 | MHC.OFFVIS ---
Vital Signs 10/15/23 12:44 Height 5 ft 3 in Weight 249 lb 9.012 oz BMI 44.2 BP 148/73 H Blood Pressure Location Lt brachial Position Sitting Pulse 94 Intake Visit Reasons: medication renewal Intake Note: Patient returns in follow up today for medication renewal. CC: Patient reports occasional RUQ abdominal, occasional constipation, and heartburn sometimes. Denies having any other GI concerns today. 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 She remains satisfied with her GI regimen. ROV 6 mos. (2) GERD without esophagitis: ?Code(s): K21.9 - Gastro-esophageal reflux disease without esophagitis ? ? ? Medications: Refilled bisacodyl (Dulcolax (bisacodyl)) 10 mg (2 x 5 mg) PO BEDTIME 60 tabs 6RF 30 days ? ? linaclotide (Linzess) 290 mcg PO QAM 30 caps 6RF 30 days ? ? omeprazole 20 mg PO DAILY 90 caps 4RF ? ? Discontinued sennosides ?? Discontinued Reason:? Doctor's Order 17.2 mg (2 x 8.6 mg) PO BEDTIME PRN 60 tabs 5RF constipa TODAY'S VISIT She is doing fine with bisacodyl and LInzess 290, and omeprazole 20 mg daily for GERD.? She remains satisfied with her GI regimen. Return office visit in 6 months [facility] Medical History (Updated 10/15/23 @ 13:02 by CRISTOPHER Barton) Dysuria Hematuria Abdominal pain Morbid obesity with BMI of 45.0-49.9, adult Intermittent pain and swelling of hand Screening for cervical cancer Dyspnea on exertion (~06/2020) Acute respiratory failure with hypoxia COVID-19 Hypoxia Onycholysis of toenail Pyuria Osteoarthritis Pruritus Osteoarthritis of right knee Osteoarthritis of left knee Constipation Right upper quadrant pain Encounter for Medicare annual wellness exam 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, bilateral Bilateral primary osteoarthritis of knee Impaired fasting glucose Primary osteoarthritis involving multiple joints Depression Anxiety Insomnia Overactive bladder Lumbar degenerative disc disease Degenerative disc disease, cervical Vitamin D deficiency GERD without esophagitis Obstructive sleep apnea Vitamin B12 deficiency Fibromyalgia Cardiac murmur Mild intermittent asthma without complication Chronic kidney disease (CKD), stage II (mild) Acquired hypothyroidism Benign essential hypertension Surgical History (Updated 10/15/23 @ 13:08 by CRISTOPHER Barton) History of colonoscopy Family History Father CVD (cardiovascular disease) Mother CVD (cardiovascular disease) Diabetes Hypertension Social History Household Members: Spouse [facility]: [facility] Do you presently have visiting nurse or other home services: Yes Alcohol intake: never Patient Tobacco Use Status: Never used Tobacco e-Cigarette/Vaping Use: Never Used Second Hand Smoke Exposure: No service: No Current occupational status: unemployed, student and disabled Cognitive needs: Yes (walker) Hearing needs: No Vision needs: Yes (glasses) Review of Systems Const Denies fatigue, Denies fever(s), Denies night sweats, Denies poor appetite and Denies weight loss ENT Reports Normal hearing present, Denies dental pain, Denies dysphagia, Denies hearing loss, Denies mouth pain, Denies odynophagia, Denies throat swelling, Denies tongue swelling and Reports other (Dentition adequate) Card Reports no additional complaints Resp Reports no additional complaints GI Details: Denies abdominal pain, Denies melena, Denies bloating, Denies hematochezia, Reports constipation, Denies GI cramping, Denies dysphagia, Denies excessive flatus, Denies early satiety, Reports heartburn, Denies diarrhea, Denies nausea, Denies odynophagia, Denies vomiting and Denies hematemesis Skin/Breast Denies pruritus, Denies lesions, Denies rash and Denies jaundice Neuro Reports Normal hearing present and Denies Abnormal speech present Endo Denies fatigue Aller/Immun Denies throat swelling and Denies tongue swelling Physical Exam Vital Signs: Last Vital Signs Pulse 94 10/15/23 12:44 BP 148/73 H 10/15/23 12:44 BMI result Body Mass Index 44.2 Const General: cooperative, no acute distress, well developed and well groomed Nutritional Appearance: well nourished, obese morbidly obese and overweight Orientation/consciousness: oriented to person, oriented to place and oriented to time Limitations: No language barrier HEENT Head: Yes normocephalic and Yes atraumatic Eyes General: appearance normal, both eyes and all related structures Pupils: Equal, round and reactive pupils present Neck Neck: Yes normal visual inspection and Yes no lymphadenopathy Thyroid: Thyroid normal Resp Effort & Inspection: normal respiratory effort and able to speak in complete sentences Auscultation: clear to auscultation bilaterally Cardio Rate: regular rate Rhythm: regular rhythm Heart sounds: Normal, physiologic split S2 sound present Peripheral pulses: radial pulses present and posterior tibial pulses present GI Inspection: No distended, Yes Abdominal panniculus present and Yes obesity Palpation (GI): Soft to palpation, nontender, no guarding, not rigid and No hepatosplenomegaly present Percussion: Yes normal to percussion Auscultation: normal bowel sounds Rectal Exam - Female: deferred Skin General skin exam: no rashes or lesions noted, turgor normal, skin not dry, no jaundice, No spider nevi and no striae Rashes: no rashes Nails: normal Neuro General: oriented to person, oriented to place and oriented to time Cranial nerves: Yes Equal, round and reactive pupils present and Yes Normal hearing present Speech: No Abnormal speech present Extrem General: Yes normal to inspection, No clubbing, No cyanosis and No edema Psych Appearance: grossly normal and well kempt Mental Status: mental status grossly normal Speech and movement: Normal speech and movement present Affect: normal affect Attitude: cooperative Thought process: Normal thought process present and not confabulating Thought content: Normal thought content present Insight: Fair insight present (Psych) Judgement: Fair judgement present (Psych) Assessment & Plan Assessment & Plan (1) GERD without esophagitis: Code(s): K21.9 - Gastro-esophageal reflux disease without esophagitis Category: Medical (2) Chronic idiopathic constipation: Code(s): K59.04 - Chronic idiopathic constipation Category: Medical Plan She is doing fine with bisacodyl and LInzess 290, and omeprazole 20 mg daily for GERD.? She remains satisfied with her GI regimen. Return office visit in 6 months Medications: Refilled omeprazole 20 mg PO DAILY 90 caps 4RF linaclotide (Linzess) 290 mcg PO QAM 30 caps 6RF Coding Level of Care Code Est Pt Level 3 (84736) Diagnoses GERD without esophagitis K21.9 Chronic idiopathic constipation K59.04
== END 2023-10-15 13:11 | disposition home or self-care (01) ==
PROVIDERS: PCP Internal Medicine; Visit Provider Nurse Practitioner
DX: K21.9 Gastro-esophageal reflux disease without esophagitis (principal); K59.04 Chronic idiopathic constipation
CPT/HCPCS: 99213

== ENCOUNTER → 2023-10-15 12:44 | Outpatient (BNVA) | payer OTHER, SELFPAY | PROVIDERS: PCP Internal Medicine; Visit Provider Nurse Practitioner | DX: K59.04 Chronic idiopathic constipation (principal); K21.9 Gastro-esophageal reflux disease without esophagitis; Z79.899 Other long term (current) drug therapy | CPT/HCPCS: 99212 ==

== ENCOUNTER → 2023-10-29 10:06 | Outpatient (REF) | payer OTHER, SELFPAY ==
--- NOTE | 2023-10-29 10:08 | CA_ITS ---
Transthoracic Echocardiogram Patient (Last, First, Middle): Yeimi Cahloun, Gender: Female Date of : 1950 Age: 73 Procedure Date: 10/29/2023 Procedure Type: Transthoracic Echocardiogram Location: OP Height: 157.48 cm Weight: 116.58 kg BSA: 2.13 m2 Heart Rate: bpm BP: 150 / 78 mmHg Advertising Account Manager: TO Referring MD: Antonino Barrera MD Symptoms: R01.1 - Cardiac murmur, unspecified Study Quality: Technically Difficult/Contrast ECG Rhythm: Sinus Conclusions: - The left ventricular systolic function is normal. The calculated ejection fraction is 62% by biplane method. - No obvious valvular pathology seen on this study. Findings Procedure Information Contrast agent, definity, is being given per protocol without apparent complications. Left Ventricle Normal left ventricular cavity size. There is mildly increased left ventricular wall thickness. The left ventricular systolic function is normal. The calculated ejection fraction is 62% by biplane method. There is no evidence of regional wall motion abnormalities. Diastolic function is normal for age. Right Ventricle Normal right ventricular cavity size and systolic function. Atria Both atria are normal in size. Aortic Valve There is a normal trileaflet aortic valve. There is no aortic valve stenosis. There is no aortic valve regurgitation. Mitral Valve The mitral valve appears normal. There is trace mitral valve regurgitation. There is no mitral valve stenosis. Pulmonic Valve The pulmonic valve is likely normal. Tricuspid Valve There is trace tricuspid valve regurgitation. There is no evidence of pulmonary hypertension. Great Vessels The asc aorta is normal in size. Venous The inferior vena cava is normal in size and collapses greater than 50% with inspiration. Pericardium/Pleural There is no evidence of pericardial effusion. Recommendations, Care & Conclusions No obvious valvular pathology seen on this study. Measurements 2D Linear Measurements IVSd: 1.21 0.6-0.9/0.6-1.0 cm LVIDd: 4.92 3.9-5.3/4.2-5.9 cm LVIDd Index: 2.31 2.4-3.2/2.2-3.1 cm/m2 LVIDs: 3.26 2.0-3.6 cm LVPWd: 1.03 0.7-1.1 cm LA Diam: 4.20 2.7-3.8/3.0-4.0 cm LAIDs Index: 1.97 1.5-2.3 cm/m2 LV Mass: 257.88 67-162/88-224 g LV Mass Index: 121.07 43-95/49-115 g/m2 LVOT Diam: 2.00 3.0+(-)1.3 cm 2D Systolic Function EF 4C: 62.50 >55% EF 2C: 60.70 >55% EF BiP: 62.40 >55% Mitral Valve MV Pk E: 0.55 MV PK A: 0.76 MV Decel Time: 199.00 E/A: 0.70 E'Lateral: 6.74 E'Medial: 5.77 E/E' Med: 9.50 E/E' Lat: 8.10 PHT: 58.00 MVA PHT: 3.79 Decel Winkler: 2.76 Aortic Valve AoV Pk Shan: 1.61 AoV Mn Shan: 1.19 AoV VTI: 0.33 AoV Pk Grad: 10.00 Aov Mn Grad: 6.00 JOSETTE Cont.VTI: 1.86 LVOT LVOT Pk Shan: 0.82 LVOT Mn Shan: 0.61 LVOT VTI: 0.20 LVOT Pk Grad: 3.00 LVOT Mn Grad: 2.00 LVOT Diam: 2.00 LVOT Area: 3.14 Diastolic Function MV Pk E: 0.55 MV Pk A: 0.76 E/A: 0.70 E'Medial: 5.77 E/E' Med: 9.50 E' Laterial: 6.74 E/E' Lat: 8.10 Right Ventricle TAPSE (mm): 19.40 TVS' Shan: 14.10 Tricuspid Valve RA Press: 3.00 Great Vessels Aorta Sinus of Valsalva: 3.46 2.0-3.[address] [place]: 2.47 1.7-3.4 cm Ao Asc: 3.00 2.1-3.4 cm Updated in Other Vendor System with Status of Final Luis Buckley MD electronically signed on 10/29/2023 2:26:52 PM with status of Final
== END ==
LOC: HO.CARD 10:06
PROVIDERS: PCP Internal Medicine; Visit Provider Internal Medicine
DX: R01.1 Cardiac murmur, unspecified (principal)
CPT/HCPCS: 93306; Q9957

== ENCOUNTER → 2023-10-29 10:08 | Outpatient (BNV) | payer OTHER, SELFPAY | PROVIDERS: PCP Internal Medicine; Visit Provider Internal Medicine | DX: R01.1 Cardiac murmur, unspecified (principal) | CPT/HCPCS: 93306 ==

== ENCOUNTER 2023-12-05 11:07 | Outpatient (AMB) | payer OTHER, SELFPAY ==
--- NOTE | 2023-12-05 11:16 | A.OFFPC_ITS ---
Vital Signs 12/05/23 11:18 Height 5 ft 3 in Weight 247 lb 4 oz BMI 43.8 BP 130/70 Blood Pressure Location Lt brachial Position Sitting Pulse 90 Pulse Source Pulse Oximeter Pulse Oximetry (%) 95 Oxygen Delivery Method Room Air Intake Visit Reasons: cataract surgery 12/15 and 12/29 [facility] Intake Note: Patient is here for a Pre-op for Cataract surgery scheduled with [facility] on 12/16/23 and 12/30/23. Green Jobs Trainer Required: No Able Bodied Seaman: Present Accompanied by: Daughter Allergies No Known Allergies [No Known Allergies*] Allergy (Verified 12/05/23 11:47) Medication List - Last Reconciled 12/05/23 by Antonino Barrera MD [ADULT PULL UPS (Size XXL) As directed] [ADULT WIPES As directed] albuterol sulfate 90 mcg/actuation (ProAir HFA) 2 puffs inhalation Q6H PRN albuterol sulfate 2.5 mg (3 mL) continuous nebulization Q6-8H PRN amlodipine 2.5 mg PO DAILY [BEDSIDE COMMODE As directed] bisacodyl (Laxative (bisacodyl)) 10 mg (2 x 5 mg) PO BEDTIME cholecalciferol (vitamin D3) 25 mcg PO DAILY 90 days [compression stockings As directed] CPAP (CPAP Machine/Device) As directed cyanocobalamin (vitamin B-12) 1,000 mcg PO DAILY 90 days diclofenac sodium 1% 2 grams topical BID [DISPOSABLE BED PADS As directed] [Disposable UNDERPADS As directed] gabapentin 400 mg PO TID hydrocortisone 1% (Anti-Itch (hydrocortisone)) 1 appl topical TID PRN [INCONTINENT BED PADS As directed] [KOTEX PADS As directed] levothyroxine 137 mcg PO DAILY 90 days linaclotide (Linzess) 290 mcg PO QAM lisinopril 40 mg PO DAILY 90 days meclizine 25 mg PO BID PRN omeprazole 20 mg PO DAILY oxybutynin chloride ER 10 mg PO DAILY 90 days oxycodone-acetaminophen 5-325 mg 1 tab PO Q6H PRN 28 days [ROLLATOR WALKER As directed] sertraline 100 mg PO DAILY 90 days [SHOWER CHAIR As directed] spironolactone 100 mg PO BID Tobacco use date assessed: 12/05/23 Fall risk assessment: No Falls in past year Last assessed Fall Risk: 12/05/23 Dental Screening Dental Screen Date: 07/03/23 HPI cataract surgery 12/15 and 12/29 [facility] Details Patient comes in today at the request of Dr. Nathan Willoughby for a preoperative medical examination for clearance for surgery She is scheduled for cataract extraction/phacoemulsification with IOL under MAC of the right eye on 12/16/2023, followed by the same procedure on the left eye a couple of weeks later on 12/30/2023 Patient states that she currently feels well She denies any headaches or dizziness Denies any chest pains, no increased SOB No nausea/vomiting, no abdominal pain No change in bowel habits noted She had her routine follow up labs done a couple of months ago and recalls being advised recently that she did okay on those She would like to get something to help with the recurrent itching and rash that she has been experiencing over the back of her neck lately [facility] Medical History (Updated 12/05/23 @ 12:50 by Antonino Barrera MD) Cataracts, bilateral Morbid obesity with BMI of 45.0-49.9, adult Acute respiratory failure with hypoxia COVID-19 Pruritus Constipation 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, bilateral Bilateral primary osteoarthritis of knee Impaired fasting glucose Primary osteoarthritis involving multiple joints Depression Anxiety Insomnia Overactive bladder Lumbar degenerative disc disease Degenerative disc disease, cervical Vitamin D deficiency GERD without esophagitis Obstructive sleep apnea Vitamin B12 deficiency Fibromyalgia Cardiac murmur Mild intermittent asthma without complication Chronic kidney disease (CKD), stage II (mild) Acquired hypothyroidism Benign essential hypertension Surgical History History of colonoscopy Family History Father CVD (cardiovascular disease) Mother CVD (cardiovascular disease) Diabetes Hypertension Social History Household Members: Spouse Housing: Condominium Do you presently have visiting nurse or other home services: Yes Alcohol intake: never Patient Tobacco Use Status: Never used Tobacco e-Cigarette/Vaping Use: Never Used Second Hand Smoke Exposure: No service: No Current occupational status: unemployed, student and disabled Cognitive needs: Yes (haresh) Hearing needs: No Vision needs: Yes (glasses) Questionnaire Thrive Questionnaire Date Thrive assessed: 10/08/23 IGNACIA-7 AMB Questionnaire IGNACIA-7 Date IGNACIA - 7 assessed: 07/03/23 Source: Developed by Drs. Feng Lopez, Selina Pedro, Merlin Villalta and colleagues, with an educational nacho from [employer]. Review of Systems Const Denies chills, Denies fatigue, Denies fever(s) and Denies headache(s) Eyes Reports blurry vision ENT Denies dysphagia, Denies dizziness, Denies otalgia, Denies headache(s), Reports neck pain (chronic), Denies odynophagia and Denies sore throat Card Denies chest pain, Denies palpitations and Reports dyspnea on exertion (mild) Resp Denies cough, Reports dyspnea on exertion (mild) and Denies wheezing GI Denies abdominal pain, Reports constipation (on and off), Denies dysphagia, Denies diarrhea, Denies nausea, Denies odynophagia and Denies vomiting Denies difficulty voiding, Denies nocturia, Denies dysuria and Denies urinary urgency Musc Reports back pain (over the lower back - chronic), Reports arthralgias (over both knees ) and Reports neck pain (chronic) Skin/Breast Reports rash (recurrent lately, over the back of the neck) Neuro Denies dizziness and Denies headache(s) Endo Denies fatigue and Denies palpitations Aller/Immun Denies wheezing Physical exam (Primary Care) Vital Signs: Last Vital Signs Pulse 90 12/05/23 11:18 BP 130/70 12/05/23 11:18 Pulse Ox 95 12/05/23 11:18 Oxygen Delivery Method Room Air 12/05/23 11:18 BMI result Body Mass Index 43.8 Tobacco/Smoking Status: Tobacco use Status Tobacco use date assessed 12/05/23 12/05/23 11:23 Patient Tobacco Use Status Never used Tobacco 12/05/23 11:23 e-Cigarette/Vaping Use Never Used 12/05/23 11:23 Thrive Assessment: Date of Thrive Assessment Date Thrive assessed 10/08/23 12/05/23 11:23 Const General: no acute distress and alert HENMT Ears: TM's normal bilaterally and EAC's normal Throat: Yes posterior oropharynx normal and Yes tonsils normal (no TP congestion noted) Neck Neck: Yes no lymphadenopathy and Yes supple Thyroid: Thyroid normal Resp Auscultation: clear to auscultation bilaterally, no rales and no wheezes Cardio Rate: regular rate Rhythm: regular rhythm Heart sounds: Murmur heart sound present systolic soft and at the left sternal border (at the left lower sternal border) GI Palpation (GI): Soft to palpation and nontender Auscultation: normal bowel sounds General: Yes no CVA tenderness Back/Spine/Pelvis Back: no CVA tenderness Cervical Spine: Cervical spine tenderness Thoracic/Lumbar Spine: lumbar spinal tenderness Skin Rashes: no rashes Extrem General: Yes no clubbing, cyanosis or edema Right lower extremity: knee Details: tenderness; no swelling Left lower extremity: knee Details: tenderness; no swelling Assessment and Plan Assessment & Plan (1) Preoperative examination: Code(s): Z01.818 - Encounter for other preprocedural examination Plan: Patient presents with acceptable risks for planned low cardiac-risk procedure She is presently medically optimized and has no contraindications to undergo her upcoming surgeries as planned (2) Cataracts, bilateral: Code(s): H26.9 - Unspecified cataract Qualifiers: Cataract type: age-related Age-related cataract type: unspecified Qualified Code(s): H25.9 - Unspecified age-related cataract Plan: She is scheduled for cataract extraction/phacoemulsification with IOL under MAC of the right eye on 12/16/2023, followed by the same procedure on the left eye a couple of weeks later on 12/30/[address] Nathan Willoughby (3) Benign essential hypertension: Code(s): I10 - Essential (primary) hypertension Plan: Reinforced low-sodium diet -?goal is systolic BP of at least 130 to 140 mm or le ss Continue Lisinopril 40 mg QD, Spironolactone 100 mg BID and Amlodipine 2.5 mg QD (4) Chronic kidney disease (CKD), stage II (mild): Code(s): N18.2 - Chronic kidney disease, stage 2 (mild) Plan: GFR stable?-? will continue to monitor her renal function regularly (5) Acquired hypothyroidism: Code(s): E03.9 - Hypothyroidism, unspecified Plan: Continue Levothyroxine 150 mcg QD (6) Mild intermittent asthma without complication: Code(s): J45.20 - Mild intermittent asthma, uncomplicated Plan: Stable/controlled Continue Albuterol HFA 2 puffs 4 times a day as needed; patient also has her Albuterol nebulizer that she uses when needed (7) Impaired fasting glucose: Code(s): R73.01 - Impaired fasting glucose Plan: HgbA1c was normal at 5.6% when checked previously Reinforced low calorie/low carb diet; exercise as tolerated (8) Obstructive sleep apnea: Code(s): G47.33 - Obstructive sleep apnea (adult) (pediatric) Plan: Continue using her CPAP device when sleeping at night -??CPAP titration done in January 2018 recommended acceptable CPAP pressure setting of 13-14 cm (9) GERD without esophagitis: Code(s): K21.9 - Gastro-esophageal reflux disease without esophagitis Plan: Dietary restrictions reinforced Continue Omeprazole 20 mg QD (10) Rash: Code(s): R21 - Rash and other nonspecific skin eruption Plan: Patient c/o recurrent itchy rash over the back of her neck lately She currently has no visible rash on exam Will start her on Mometasone 0.1% cream QD PRN (11) Anxiety: Code(s): F41.9 - Anxiety disorder, unspecified Plan: Continue Doxepin 25 mg daily at bedtime as needed Patient is also on Sertraline, which helps with her anxiety as well (12) Depression: Code(s): F32.9 - Major depressive disorder, single episode, unspecified Qualifiers: Depression Type: major depressive disorder Major depression recurrence: recurrent Active/Remission status: currently active Major depression episode severity: unspecified Qualified Code(s): F33.9 - Major depressive disorder, recurrent, unspecified Plan: Continue Sertraline 100 mg once a day Follow-up with Psychiatry as scheduled Plan Patient is currently medically optimized and has no contraindications to undergo her eye procedures as planned - she is medically cleared for cataract surgery Follow up as scheduled in January 2024 Medications: New mometasone 0.1% 1 appl topical DAILY PRN 45 grams 0RF rash Coding Level of Care Code Est Pt Level 3 (89167) Diagnoses Preoperative examination Z01.818 Age-related cataract of both eyes, unspecified age-related cataract type H25.9 Cataract type: age-related Age-related cataract type: unspecified Benign essential hypertension I10 Chronic kidney disease (CKD), stage II (mild) N18.2 Acquired hypothyroidism E03.9 Mild intermittent asthma without complication J45.20 Impaired fasting glucose R73.01 Obstructive sleep apnea G47.33 GERD without esophagitis K21.9 Rash R21 Anxiety F41.9 Episode of recurrent major depressive disorder, unspecified depression episode severity F33.9 Depression Type: major depressive disorder Major depression recurrence: recurrent Active/Remission status: currently active Major depression episode severity: unspecified
[2023-12-05 11:18] VITALS: BP 130/70; PULSE 90; O2SAT 95; BMI 43.8
== END 2023-12-05 11:55 | disposition home or self-care (01) ==
PROVIDERS: PCP Internal Medicine; Visit Provider Internal Medicine
DX: I12.9 Hypertensive chronic kidney disease with stage 1 through stage 4 chronic kidney disease, or unspecified chronic kidney disease (principal); N18.2 Chronic kidney disease, stage 2 (mild); Z01.818 Encounter for other preprocedural examination; F33.9 Major depressive disorder, recurrent, unspecified; H25.9 Unspecified age-related cataract; E03.9 Hypothyroidism, unspecified; J45.20 Mild intermittent asthma, uncomplicated; R73.01 Impaired fasting glucose; G47.33 Obstructive sleep apnea (adult) (pediatric); K21.9 Gastro-esophageal reflux disease without esophagitis; R21 Rash and other nonspecific skin eruption; F41.9 Anxiety disorder, unspecified
CPT/HCPCS: 99213

== ENCOUNTER 2023-12-16 08:06 | Day surgery (SDC) | payer OTHER, SELFPAY ==
[2023-12-10 07:50] VITALS: BMI 43.7
[2023-12-16] MEDS: Tetracaine HCl/PF 0.5% Oph Sol 4 ML DROPS 1 DROP EYE-RIGHT (08:33)
[2023-12-16] MEDS: Cyclopentolate 1 % Ophth Sol 2 ML DRPBTL 1 DROP EYE-RIGHT ×3 (08:34→08:50)
[2023-12-16] MEDS: Tropicamide 1 % Ophth Sol 3 ML BTL 1 DROP EYE-RIGHT ×3 (08:36→08:52)
[2023-12-16] MEDS: Ketorolac Tromethamine 0.5% Op 10 ML DROPS 1 DROP EYE-RIGHT ×3 (08:38→08:54)
[2023-12-16] MEDS: Phenylephrine HCL 2.5% Oph SoL 2 ML BOTTLE 1 DROP EYE-RIGHT ×3 (08:40→08:56)
[2023-12-16 09:02] VITALS: BP 194/87; PULSE 98; RESP 16; TEMP 36.2; O2SAT 92
[2023-12-16 09:03] VITALS: BP 161/81
--- NOTE | 2023-12-16 09:08 | P.CONAN_ITS ---
HPI - Anesthesia Eval Consult details Narrative: 73 yo female patient for Right Cataract extraction, IOL insertion PMFSH Active Problems Active Problems: All Active Problems Rash (Acute) Cataracts, bilateral (Acute) Preoperative examination (Acute) Morbid obesity with BMI of 40.0-44.9, adult (Acute) Hyperuricemia without signs inflammatory arthritis/tophaceous disease (Acute) Osteoarthritis of hands, bilateral (Acute) Ingrown right big toenail (Acute) Edema of both lower extremities (Acute) Morbid obesity (Acute) BMI 43.8 Exercise hypoxemia (Acute) Hemorrhoids (Acute) Bilateral primary osteoarthritis of knee (Acute) Chronic idiopathic constipation (Acute) Dizziness (Acute) Impaired fasting glucose (Acute) Primary osteoarthritis involving multiple joints (Acute) Depression (Acute) Anxiety (Acute) Insomnia (Acute) Overactive bladder (Acute) Lumbar degenerative disc disease (Acute) Degenerative disc disease, cervical (Acute) Vitamin D deficiency (Acute) GERD without esophagitis (Acute) Obstructive sleep apnea (Acute). Uses CPAP machine every night Vitamin B12 deficiency (Acute) Fibromyalgia (Acute) Cardiac murmur (Acute) Mild intermittent asthma without complication (Acute) Chronic kidney disease (CKD), stage II (mild) (Acute) Acquired hypothyroidism (Acute) Benign essential hypertension (Acute) Past Medical History Medical History Cataracts, bilateral Morbid obesity with BMI of 45.0-49.9, adult Acute respiratory failure with hypoxia COVID-19 Pruritus Constipation 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, bilateral Bilateral primary osteoarthritis of knee Impaired fasting glucose Primary osteoarthritis involving multiple joints Depression Anxiety Insomnia Overactive bladder Lumbar degenerative disc disease Degenerative disc disease, cervical Vitamin D deficiency GERD without esophagitis Obstructive sleep apnea Vitamin B12 deficiency Fibromyalgia Cardiac murmur Mild intermittent asthma without complication Chronic kidney disease (CKD), stage II (mild) Acquired hypothyroidism Benign essential hypertension Family History Family History Father CVD (cardiovascular disease) Mother CVD (cardiovascular disease) Diabetes Hypertension Family history of problems with anesthesia: No Surgical History Surgical History (Updated 12/16/23 @ 09:26 by Lucila Uribe MD) S/P excision of lipoma H/O blepharoplasty History of colonoscopy History of Problems with Anesthesia: No Social History Social History Household Members: Spouse Housing: Condominium Are you a primary residential caregiver to a significant other at home: No Do you presently have visiting nurse or other home services: Yes Alcohol intake: never Patient Tobacco Use Status: Never used Tobacco e-Cigarette/Vaping Use: Never Used Second Hand Smoke Exposure: No Are you DNR?: No Advance Directives: No Advance Directives Information Provided: Yes Advance Directives on File: No Recently lost weight without trying: No Nutrition Risks: No Nutritional Risk Patient : No : No service: No Current occupational status: unemployed, student and disabled Cognitive needs: Yes (walker) Hearing needs: No Vision needs: Yes (glasses) Meds Allergies Allergy/AdvReac Type Severity Reaction Status Date / Time No Known Allergies Allergy Verified 12/16/23 09:00 [No Known Allergies*] Active Medications: Current Medications Povidone Iodine (Povidone Iodine 5 % Ophth Soln 30 Ml Bottle) 1 appl EYE-RIGHT PREOP PRN PRN Reason: Pre-Op Surgical Implant Prophy Home Medications ?Medication ?Instructions ?Recorded ?Confirmed ?Last Taken ?Type CPAP (CPAP Machine/Device) 02/01/22 12/10/23 Unknown History Exam Height,Weight and Vital Signs: Height 5 ft 3 in Weight 112.037 kg Last Vital Signs Temp 97.1 F 12/16/23 09:02 Pulse 98 12/16/23 09:02 Resp 16 12/16/23 09:02 BP 161/81 H 12/16/23 09:03 Pulse Ox 92 12/16/23 09:02 O2 Del Method Room Air 12/16/23 09:02 Airway Mallampati Class: II TM Dist: >3cm Loose/Missing/Broken Teeth: Yes (Many missing teeth. A couple of broken teeth. No loose teeth) Heart: RRR Lungs: CTAB Assessment and Plan Assessment Anesthesia Assessment: Anesthesia Plan Discussed and Chart Reviewed Final Anesthetic Review Family History of Problems with Anesthesia: No History of Problems with Anesthesia: No NPO: Yes ASA Class: III Final Preanesthetic Review: No Changes in Pt Med Stat, Meds/Allgs Chart Reviewed, Consent Obtained/Reviewed and Anes Risks/Benef Reviewed Patient Risk: Intermediate Procedure Risk: Low Assessment/Block/Sedation in SS: Assess/Block/Sedation-SS Anesthetic Plan Anesthetic Plan: MAC: Disposition: Standard PACU
--- NOTE | 2023-12-16 09:35 | MHC.SHP ---
Pre-Procedural Eval Section A - 24 Hr Update-Section A only Date of Service: 12/16/23 The patient is an INPATIENT: No Changes since office visit: No Cold of Flu in the past 2 weeks, No New Medical Problems, No Changes in Medication and No Patient answered all questions The patient has been examined within 24 hours of the surgical procedure. The History & Physical has been completed within 30 days and I have reviewed it.: Yes Section B - Complete if H&P > 30 days Chief Complaint: Age-related nuclear cataract, right eye Allergies: Allergies Allergy/AdvReac Type Severity Reaction Status Date / Time No Known Allergies Allergy Verified 12/16/23 09:00 [No Known Allergies*] Plan Diagnosis/Plan: Unchanged I have reviewed the history and physical and performed a pertinent physical examination on my patient. No changes have occurred unless specified. Time Spent With Patient Time: Total time managing care of this patient today ____ minutes.
--- NOTE | 2023-12-16 09:36 | P.PCNO_ITS ---
Ophthalmology Procedure Procedure Date of Service: 12/16/23 Ophthalmology Viscoelastic: Healon Duet Dual Pack Pro Ophthalmology Lenses: IOL Acrysof MP - MA60AC (23) Procedure Notes: PREOPERATIVE DIAGNOSIS: Decreased visual acuity right eye secondary to cataract POSTOPERATIVE DIAGNOSIS: Same PROCEDURE: Right cataract extraction with intraocular lens insertion SURGEON: Nathan Gonzalez M.D. ANESTHESIA: Topical/MAC ESTIMATED BLOOD LOSS: None COMPLICATIONS: None After obtaining informed consent, the patient was brought to the operating room suite and placed in the supine position. After adequate sedation per anesthesia, topical drops of Tetracaine were given to the right eye. The eye was then prepped and draped in the usual sterile fashion. The operating room microscope was then positioned over the operative eye and a lid speculum placed. A paracentesis was created. Viscoelastic was then instilled into the anterior chamber. A three plane incision was then created temporally, utilizing a 2.85 mm keratome. Capsulotomy forceps were then utilized to create a circular tear capsulotomy. Hydrodissection and hydrodelineation were carried out until adequate mobilization of the nucleus occurred. Phacoemulsification was then utilized to remove the dense central nucl eus followed by removal of the cortical material utilizing the automated aspiration irrigation unit. Viscoelastic was instilled into the posterior capsular bag followed by placement of a posterior chamber intraocular lens without difficulty. The residual Viscoelastic was then removed utilizing the automated IA machine. The wound was checked and found to be watertight. The patient tolerated the procedure well and the lid speculum was removed. Intracameral injection of Vigamox 0.1 mL followed by a subtenon injection of Kenalog-40 0.2 mL were administered. The patient will be seen in the a.m.
[2023-12-16 10:01] VITALS: BP 161/83; PULSE 85; RESP 14; TEMP 36.6; O2SAT 93
== END 2023-12-16 10:17 | disposition home or self-care (01) ==
PROVIDERS: PCP Internal Medicine; Visit Provider Ophthalmology
PROC: (CPT 66985; principal; 2023-12-16 09:40)
DX: H25.11 Age-related nuclear cataract, right eye (principal); H52.4 Presbyopia; H18.413 Arcus senilis, bilateral; H43.393 Other vitreous opacities, bilateral; I10 Essential (primary) hypertension; E07.9 Disorder of thyroid, unspecified; Z79.899 Other long term (current) drug therapy; L98.9 Disorder of the skin and subcutaneous tissue, unspecified
CPT/HCPCS: 66984; J2250; J3010; J3301; V2630

== ENCOUNTER 2023-12-30 05:43 | Day surgery (SDC) | payer OTHER, SELFPAY ==
[2023-12-10 07:56] VITALS: BMI 43.7
[2023-12-30 06:45] VITALS: BP 169/78; PULSE 80; RESP 18; TEMP 36.7; O2SAT 95
[2023-12-30] MEDS: Tropicamide 1 % Ophth Sol 3 ML BTL 1 DROP EYE-LEFT ×3 (06:46→06:54)
[2023-12-30] MEDS: Phenylephrine HCL 2.5% Oph SoL 2 ML BOTTLE 1 DROP EYE-LEFT ×3 (06:46→06:54)
[2023-12-30] MEDS: Ketorolac Tromethamine 0.5% Op 10 ML DROPS 1 DROP EYE-LEFT ×3 (06:46→06:54)
[2023-12-30] MEDS: Tetracaine HCl/PF 0.5% Oph Sol 4 ML DROPS 1 DROP EYE-LEFT (06:46)
[2023-12-30] MEDS: Cyclopentolate 1 % Ophth Sol 2 ML DRPBTL 1 DROP EYE-LEFT ×3 (06:46→06:54)
--- NOTE | 2023-12-30 07:20 | HO.ANESPROP2 ---
HPI - Anesthesia Eval Consult details Narrative: 73 yo F presenting for cataract extraction IOL insertion left eye. Had right eye done previously. ROSA on CPAP. PMFSH Active Problems Active Problems: All Active Problems Rash (Acute) Cataracts, bilateral (Acute) Preoperative examination (Acute) Morbid obesity with BMI of 40.0-44.9, adult (Acute) Hyperuricemia without signs inflammatory arthritis/tophaceous disease (Acute) Osteoarthritis of hands, bilateral (Acute) Ingrown right big toenail (Acute) Edema of both lower extremities (Acute) Morbid obesity (Acute) Exercise hypoxemia (Acute) Hemorrhoids (Acute) Bilateral primary osteoarthritis of knee (Acute) Chronic idiopathic constipation (Acute) Dizziness (Acute) Impaired fasting glucose (Acute) Primary osteoarthritis involving multiple joints (Acute) Depression (Acute) Anxiety (Acute) Insomnia (Acute) Overactive bladder (Acute) Lumbar degenerative disc disease (Acute) Degenerative disc disease, cervical (Acute) Vitamin D deficiency (Acute) GERD without esophagitis (Acute) Obstructive sleep apnea (Acute) Vitamin B12 deficiency (Acute) Fibromyalgia (Acute) Cardiac murmur (Acute) Mild intermittent asthma without complication (Acute) Chronic kidney disease (CKD), stage II (mild) (Acute) Acquired hypothyroidism (Acute) Benign essential hypertension (Acute) Past Medical History Medical History Cataracts, bilateral Morbid obesity with BMI of 45.0-49.9, adult Acute respiratory failure with hypoxia COVID-19 Pruritus Constipation 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, bilateral Bilateral primary osteoarthritis of knee Impaired fasting glucose Primary osteoarthritis involving multiple joints Depression Anxiety Insomnia Overactive bladder Lumbar degenerative disc disease Degenerative disc disease, cervical Vitamin D deficiency GERD without esophagitis Obstructive sleep apnea Vitamin B12 deficiency Fibromyalgia Cardiac murmur Mild intermittent asthma without complication Chronic kidney disease (CKD), stage II (mild) Acquired hypothyroidism Benign essential hypertension Family History Family History Father CVD (cardiovascular disease) Mother CVD (cardiovascular disease) Diabetes Hypertension Family history of problems with anesthesia: No Surgical History Surgical History S/P excision of lipoma H/O blepharoplasty History of colonoscopy History of Problems with Anesthesia: No Social History Social History Household Members: Spouse Housing: Condominium Are you a primary intensive care unit registered nurse to a significant other at home: No Do you presently have visiting nurse or other home services: Yes Alcohol intake: never Patient Tobacco Use Status: Never used Tobacco e-Cigarette/Vaping Use: Never Used Second Hand Smoke Exposure: No Use of substances other than those prescribed or required for medical reasons: No Advance Directives: No Advance Directives Information Provided: Yes Advance Directives on File: No Recently lost weight without trying: No Nutrition Risks: No Nutritional Risk Patient : No : No service: No Current occupational status: unemployed, student and disabled Cognitive needs: Yes (walker) Hearing needs: No Vision needs: Yes (glasses) Meds Allergies Allergy/AdvReac Type Severity Reaction Status Date / Time No Known Allergies Allergy Verified 12/30/23 06:59 [No Known Allergies*] Active Medications: Current Medications Povidone Iodine (Povidone Iodine 5 % Ophth Soln 30 Ml Bottle) 1 appl EYE-LEFT PREOP PRN PRN Reason: Pre-Op Surgical Implant Prophy Home Medications ?Medication ?Instructions ?Recorded ?Confirmed ?Last Taken ?Type CPAP (CPAP Machine/Device) 02/01/22 12/10/23 Unknown History Exam Exam Date and Time: December 30, 2023 0720 Height,Weight and Vital Signs: Height 5 ft 3 in Weight 112.037 kg Last Vital Signs Temp 98.1 F 12/30/23 06:45 Pulse 80 12/30/23 06:45 Resp 18 12/30/23 06:45 BP 169/78 H 12/30/23 06:45 Pulse Ox 95 12/30/23 06:45 O2 Del Method Room Air 12/30/23 06:45 Airway Mallampati Class: III TM Dist: >3cm Neck ROM: Full Loose/Missing/Broken Teeth: Yes (a few broken teeth. No loose teeth.) Heart: S1S2 Lungs: CTAB Assessment and Plan Assessment Anesthesia Assessment: Anesthesia Plan Discussed and Chart Reviewed Final Anesthetic Review Family History of Problems with Anesthesia: No History of Problems with Anesthesia: No NPO: Yes ASA Class: III Final Preanesthetic Review: No Changes in Pt Med Stat, Meds/Allgs Chart Reviewed, Consent Obtained/Reviewed and Anes Risks/Benef Reviewed Patient Risk: Intermediate Procedure Risk: Low Anesthetic Plan Anesthetic Plan: MAC: and Agree w/ Assess. and Plan Disposition: Standard PACU
--- NOTE | 2023-12-30 07:27 | MHC.SHP ---
Pre-Procedural Eval Section A - 24 Hr Update-Section A only Date of Service: 12/30/23 The patient is an INPATIENT: No Changes since office visit: No Cold of Flu in the past 2 weeks, No New Medical Problems, No Changes in Medication and No Patient answered all questions The patient has been examined within 24 hours of the surgical procedure. The History & Physical has been completed within 30 days and I have reviewed it.: Yes Section B - Complete if H&P > 30 days Chief Complaint: Age-related nuclear cataract, left eye Allergies: Allergies Allergy/AdvReac Type Severity Reaction Status Date / Time No Known Allergies Allergy Verified 12/30/23 06:59 [No Known Allergies*] Plan Diagnosis/Plan: Unchanged I have reviewed the history and physical and performed a pertinent physical examination on my patient. No changes have occurred unless specified. Time Spent With Patient Time: Total time managing care of this patient today ____ minutes.
--- NOTE | 2023-12-30 07:55 | HO.PNOPHT ---
Ophthalmology Procedure Procedure Date of Service: 12/30/23 Ophthalmology Viscoelastic: Healon Duet Dual Pack Pro Ophthalmology Lenses: IOL Acrysof MP - MA60AC (23) Procedure Notes: PREOPERATIVE DIAGNOSIS: Decreased visual acuity left eye secondary to cataract POSTOPERATIVE DIAGNOSIS: Same PROCEDURE: Left cataract extraction with intraocular lens insertion SURGEON: Nathan Gonzalez M.D. ANESTHESIA: Topical/MAC ESTIMATED BLOOD LOSS: None COMPLICATIONS: None After obtaining informed consent, the patient was brought to the operation room suite and placed in the supine position. After adequate sedation per anesthesia, topical drops of Tetracaine were given to the left eye. The eye was then prepped and draped in the usual sterile fashion. The operating room microscope was then positioned over the operative eye and a lid speculum placed. A paracentesis was created. Viscoelastic was then instilled into the anterior chamber. A three plane incision was then created temporally, utilizing a 2.85 mm keratome. Capsulotomy forceps were then utilized to create a circular tear capsulotomy. Hydrodissection and hydrodelineation were carried out until adequate mobilization of the nucleus occurred. Phacoemulsification was then utilized to remove the dense central nucleus followed by removal of the cortical material utilizing the automated aspiration irrigation unit. Viscoat elastic was instilled into the posterior capsular bag followed by placement of a posterior chamber intraocular lens without difficulty. The residual Viscoat elastic was then removed utilizing the automated IA machine. The wound was check and found to be watertight. The patient tolerated the procedure well and the lid speculum was removed. Intracameral injection of Vigamox 0.1 mL followed by a subtenon injection of Kenalog-40 0.2 mL were administered. The patient will be seen in the a.m.
[2023-12-30 07:56] VITALS: BP 156/85; PULSE 96; RESP 16; TEMP 36.2; O2SAT 97
== END 2023-12-30 08:26 | disposition home or self-care (01) ==
PROVIDERS: PCP Internal Medicine; Visit Provider Ophthalmology
PROC: (CPT 66985; principal; 2023-12-30 07:50)
DX: H25.12 Age-related nuclear cataract, left eye (principal); H52.4 Presbyopia; Z83.511 Family history of glaucoma; H18.413 Arcus senilis, bilateral; H43.393 Other vitreous opacities, bilateral; I12.9 Hypertensive chronic kidney disease with stage 1 through stage 4 chronic kidney disease, or unspecified chronic kidney disease; N18.2 Chronic kidney disease, stage 2 (mild); R73.01 Impaired fasting glucose; E03.9 Hypothyroidism, unspecified; J45.20 Mild intermittent asthma, uncomplicated; D64.9 Anemia, unspecified; M79.7 Fibromyalgia; E66.01 Morbid (severe) obesity due to excess calories; Z68.42 Body mass index [BMI] 45.0-49.9, adult; G47.33 Obstructive sleep apnea (adult) (pediatric); F33.2 Major depressive disorder, recurrent severe without psychotic features; Z79.899 Other long term (current) drug therapy; Z99.89 Dependence on other enabling machines and devices
CPT/HCPCS: 66984; J2250; J3301; V2630

== ENCOUNTER 2024-01-08 08:33 | Outpatient (REF) | payer OTHER, SELFPAY ==
[2024-01-08 08:49] LABS: MANUAL DIFF FLAG NO
[2024-01-08 09:16] LABS: Basophils Percent Auto 0.3 % (0-2); Eosinophils Absolute Auto 0.2 X10*3/uL (0.0-0.4); Eosinophils Percent Auto 1.8 % (0-4); Hemoglobin 12.8 g/dl (12.0-16.0); Imm Gran Abs Auto 0.05 X10*3/uL (0.00-0.03); Imm Gran Pct Auto 0.6 % (0.0-0.4); Lymphocytes Absolute Auto 1.9 X10*3/uL (1.2-4.9); Lymphocytes Percent Auto 21.3 % (20-40); Mean Corpuscular HGB Conc 33.7 g/dl (31.0-35.0); Mean Corpuscular Hemoglobin 30.9 pg (27.0-33.0); Mean Corpuscular Volume 91.8 fL (80.0-98.0); Mean Platelet Volume 10.9 fL (9.4-12.3); Monocytes Absolute Auto 0.7 X10*3/uL (0.1-1.2); Monocytes Percent Auto 7.8 % (2-11); Neutrophils Absolute Auto 5.9 x10*3/uL (2.0-8.3); Neutrophils Percent Auto 68.2 % (45-73); Platelet Count 153 X10*3/uL (160-400); Red Blood Count 4.14 X10*6/uL (4.20-5.50); White Blood Count 8.7 X10*3/uL (4.8-10.8)
[2024-01-08 09:35] LABS: Estimated Average Glucose 114 mg/dL; Hemoglobin A1c % 5.6 % (<6.0)
[2024-01-08 09:47] LABS: Alanine Aminotransferase 10 U/L (0-31); Albumin Level 4.1 g/dL (3.5-5.0); Alkaline Phosphatase 114 U/L (39-117); Anion Gap 11 (12-20); Aspartate Amino Transferase 14 U/L (5-31); Bilirubin Total 0.8 mg/dL (0.0-1.0); Blood Urea Nitrogen 16 mg/dL (9-16); Calcium 9.5 mg/dL (8.4-10.2); Carbon Dioxide 31 mmol/L (22-29); Chloride 105 mmol/L (96-108); Cholesterol 180 mg/dL (<200); Estimated Glomerular Filt Rate 55; Glucose Fasting 101 mg/dL (60-99); HDL Cholesterol 49 mg/dL (>40); LDL Cholesterol Calculated 113 mg/dL (<100); Potassium 4.3 mmol/L (3.3-5.1); Sodium 143 mmol/L (135-145); Total Protein 6.7 g/dL (6.5-8.0); Triglycerides 90 mg/dL (<150)
[2024-01-08 09:58] LABS: Appearance Urine Clear; Color Urine Yellow; Glucose Urine UA Negative (Negative); Leukocyte Esterase Urine Negative (Negative); Nitrite Urine Negative (Negative); PH 5.5 (5.0-9.0); Urine Blood Negative (Negative); Urine Ketones Negative (Negative); Urine Protein Negative (Neg-Trace)
[2024-01-08 10:08] LABS: TSH reflex Free T4 0.81 uIU/mL (0.32-4.0); Vitamin D 25-OH Total 37.4 ng/mL (>30)
== END 2024-01-08 08:34 | disposition home or self-care (01) ==
LOC: HO.LAB 08:33
PROVIDERS: PCP Internal Medicine; Visit Provider Internal Medicine
DX: D64.9 Anemia, unspecified (principal); R30.0 Dysuria; R73.01 Impaired fasting glucose; E78.00 Pure hypercholesterolemia, unspecified; E55.9 Vitamin D deficiency, unspecified; M10.9 Gout, unspecified
CPT/HCPCS: 36415; 80053; 80061; 81003; 82306; 83036; 84443; 84550; 85025

== ENCOUNTER 2024-01-09 09:47 | Outpatient (AMB) | payer OTHER, SELFPAY ==
[2024-01-09 09:56] VITALS: BP 164/82; PULSE 77; O2SAT 96; BMI 44.1
--- NOTE | 2024-01-09 09:56 | A.OFFPC_ITS ---
Vital Signs 01/09/24 09:56 01/09/24 10:53 Height 5 ft 3 in Weight 249 lb BMI 44.1 BP 164/82 H 146/86 H Blood Pressure Location Lt brachial Lt brachial Position Sitting Left Lateral Pulse 77 Pulse Source Pulse Oximeter Pulse Oximetry (%) 96 Oxygen Delivery Method Room Air Intake Visit Reasons: HTN, OA, asthma, CKD, hypothyroidism, IFG, ROSA Accompanied by: Daughter Allergies No Known Allergies [No Known Allergies*] Allergy (Verified 01/09/24 10:51) Medication List - Last Reconciled 01/09/24 by Antonino Barrera MD [ADULT PULL UPS (Size XXL) As directed] [ADULT WIPES As directed] albuterol sulfate 2.5 mg (3 mL) continuous nebulization Q6-8H PRN albuterol sulfate 90 mcg/actuation 2 puffs inhalation Q6H PRN amlodipine 2.5 mg PO DAILY [BEDSIDE COMMODE As directed] bisacodyl (Laxative (bisacodyl)) 10 mg (2 x 5 mg) PO BEDTIME cholecalciferol (vitamin D3) 25 mcg PO DAILY 90 days [compression stockings As directed] CPAP (CPAP Machine/Device) As directed cyanocobalamin (vitamin B-12) 1,000 mcg PO DAILY 90 days diclofenac sodium 1% 2 grams topical BID [DISPOSABLE BED PADS As directed] [Disposable UNDERPADS As directed] gabapentin 400 mg PO TID hydrocortisone 1% (Anti-Itch (hydrocortisone)) 1 appl topical TID PRN [INCONTINENT BED PADS As directed] [KOTEX PADS As directed] levothyroxine 137 mcg PO DAILY 90 days linaclotide (Linzess) 290 mcg PO QAM lisinopril 40 mg PO DAILY 90 days meclizine 25 mg PO BID PRN mometasone 0.1% 1 appl topical DAILY PRN omeprazole 20 mg PO DAILY oxybutynin chloride ER 10 mg PO DAILY 90 days oxycodone-acetaminophen 5-325 mg 1 tab PO Q6H PRN 28 days [ROLLATOR WALKER As directed] sertraline 100 mg PO DAILY 90 days [SHOWER CHAIR As directed] spironolactone 100 mg PO BID Tobacco use date assessed: 12/05/23 Fall risk assessment: No Falls in past year Last assessed Fall Risk: 01/09/24 Dental Screening Dental Screen Date: 07/03/23 HPI HTN, OA, asthma, CKD, hypothyroidism, IFG, ROSA HPI Details Patient comes in today for follow-up visit States she feels okay She denies any headaches or dizziness Denies any chest pains, no increased shortness of breath No nausea/ vomiting, no abdominal pain No change in bowel habits noted States that her chronic neck pain, low back pain and joint pains remain adequately controlled on her current medications She had her follow-up labs done a couple of days ago - to discuss her results [facility] Medical History Cataracts, bilateral Morbid obesity with BMI of 45.0-49.9, adult Acute respiratory failure with hypoxia COVID-19 Pruritus Constipation 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, bilateral Bilateral primary osteoarthritis of knee Impaired fasting glucose Primary osteoarthritis involving multiple joints Depression Anxiety Insomnia Overactive bladder Lumbar degenerative disc disease Degenerative disc disease, cervical Vitamin D deficiency GERD without esophagitis Obstructive sleep apnea Vitamin B12 deficiency Fibromyalgia Cardiac murmur Mild intermittent asthma without complication Chronic kidney disease (CKD), stage II (mild) Acquired hypothyroidism Benign essential hypertension Surgical History S/P excision of lipoma H/O blepharoplasty History of colonoscopy Family History Father CVD (cardiovascular disease) Mother CVD (cardiovascular disease) Diabetes Hypertension Social History Household Members: Spouse Housing: [facility] Are you a primary health care social worker to a significant other at home: No Do you presently have visiting nurse or other home services: Yes Alcohol intake: never Patient Tobacco Use Status: Never used Tobacco e-Cigarette/Vaping Use: Never Used Second Hand Smoke Exposure: No service: No Current occupational status: unemployed, student and disabled Cognitive needs: Yes (walker) Hearing needs: No Vision needs: Yes (glasses) Questionnaire Thrive Questionnaire Date Thrive assessed: 10/08/23 IGNACIA-7 AMB Questionnaire IGNACIA-7 Date IGNACIA - 7 assessed: 07/03/23 Source: Developed by Drs. Feng Lopez, Selina Pedro, Merlin Villalta and colleagues, with an educational nacho from [employer]. Review of Systems Const Denies chills, Denies fatigue, Denies fever(s) and Denies headache(s) ENT Denies dysphagia, Denies dizziness, Denies otalgia, Denies headache(s), Reports neck pain (chronic), Denies odynophagia and Denies sore throat Card Denies chest pain, Denies palpitations and Reports dyspnea on exertion (mild) Resp Denies cough, Reports dyspnea on exertion (mild) and Denies wheezing GI Denies abdominal pain, Reports constipation (on and off), Denies dysphagia, Denies diarrhea, Denies nausea, Denies odynophagia and Denies vomiting Denies difficulty voiding, Denies nocturia, Denies dysuria and Denies urinary urgency Musc Reports back pain (over the lower back - chronic), Reports arthralgias (over both knees ) and Reports neck pain (chronic) Skin/Breast Denies rash Neuro Denies dizziness and Denies headache(s) Endo Denies fatigue and Denies palpitations Aller/Immun Denies wheezing Physical exam (Primary Care) Vital Signs: Last Vital Signs Pulse 77 01/09/24 09:56 BP 146/86 H 01/09/24 10:53 Pulse Ox 96 01/09/24 09:56 Oxygen Delivery Method Room Air 01/09/24 09:56 BMI result Body Mass Index 44.1 Tobacco/Smoking Status: Tobacco use Status Tobacco use date assessed 12/05/23 01/09/24 09:57 Patient Tobacco Use Status Never used Tobacco 01/09/24 09:57 e-Cigarette/Vaping Use Never Used 01/09/24 09:57 Thrive Assessment: Date of Thrive Assessment Date Thrive assessed 10/08/23 01/09/24 09:57 Const General: no acute distress and alert HENMT Ears: TM's normal bilaterally and EAC's normal Throat: Yes posterior oropharynx normal and Yes tonsils normal (no TP congestion noted) Neck Neck: Yes no lymphadenopathy and Yes supple Thyroid: Thyroid normal Resp Auscultation: clear to auscultation bilaterally, no rales and no wheezes Cardio Rate: regular rate Rhythm: regular rhythm Heart sounds: Murmur heart sound present systolic soft and at the left sternal border (at the left lower sternal border) GI Palpation (GI): Soft to palpation and nontender Auscultation: normal bowel sounds General: Yes no CVA tenderness Back/Spine/Pelvis Back: no CVA tenderness Cervical Spine: Cervical spine tenderness Thoracic/Lumbar Spine: lumbar spinal tenderness Skin Rashes: no rashes Extrem General: Yes no clubbing, cyanosis or edema Right lower extremity: knee Details: tenderness; no swelling Left lower extremity: knee Details: tenderness; no swelling Results Reviewed Results Reviewed: Laboratory Tests 01/08/24 01/08/24 08:42 08:47 WBC 8.7 Hgb 12.8 Hct 38.0 Plt Count 153 L Sodium 143 Potassium 4.3 Creatinine 0.99 Estimated GFR 55 Fasting Glucose 101 H Hemoglobin A1c % 5.6 Uric Acid 9.0 H Calcium 9.5 AST 14 ALT 10 Triglycerides 90 Cholesterol 180 LDL Cholesterol, Calc 113 H HDL Cholesterol 49 25-OH Vitamin D Total 37.4 TSH 0.81 Ur Specific [place] 1.020 Urine Protein Negative Urine Glucose (UA) Negative Urine Blood Negative Urine Nitrite Negative Ur Leukocyte Esterase Negative Assessment and Plan Assessment & Plan (1) Benign essential hypertension: Code(s): I10 - Essential (primary) hypertension Plan: Results of her labs done a couple of days ago reviewed and discussed with patient - she is advised that her cholesterol levels are still within normal range and have improved slightly from previous Reinforced low-sodium diet -?goal is systolic BP of at least 130 to 140 mm or less Continue Lisinopril 40 mg QD, Spironolactone 100 mg BID and Amlodipine 2.5 mg QD for now Have advised patient to continue monitoring her blood pressure regularly Will recheck her labs and fasting lipids in 3 months for follow-up (2) Chronic kidney disease (CKD), stage II (mild): Code(s): N18.2 - Chronic kidney disease, stage 2 (mild) Plan: GFR stable?-? will continue to monitor her renal function regularly (3) Acquired hypothyroidism: Code(s): E03.9 - Hypothyroidism, unspecified Plan: TFTs were normal on her recent labs Continue Levothyroxine 150 mcg QD Will continue to monitor her TFTs regularly (4) Mild intermittent asthma without complication: Code(s): J45.20 - Mild intermittent asthma, uncomplicated Plan: Stable/controlled Continue Albuterol HFA 2 puffs 4 times a day as needed; patient also has her Albuterol nebulizer that she uses when needed (5) Impaired fasting glucose: Code(s): R73.01 - Impaired fasting glucose Plan: Her HgbA1c has remained normal and mostly unchanged from previous at 5.6% when checked a couple of days ago Reinforced low calorie/low carb diet; exercise as tolerated (6) Cardiac murmur: Comment: Echocardiogram done in 2011 showed (+) mild MR and trace TR, which are the most likely cause of her cardiac murmur; LVEF was normal and there were no other abnormalities noted Repeat echocardiogram done last year (2019) showed no significant changes from her previous echo in 2012; LV systolic function remains normal and EF was between 65-70% Code(s): R01.1 - Cardiac murmur, unspecified Plan: Echocardiogram done in October 2023 revealed that the left ventricular systolic function is normal and the calculated ejection fraction is around 62% by biplane method. There are trace MR and TR with no other obvious valvular pathology seen on this study Will continue to monitor these regularly/periodically (7) Obstructive sleep apnea: Code(s): G47.33 - Obstructive sleep apnea (adult) (pediatric) Plan: Continue using her CPAP device when sleeping at night -??CPAP titration done in January 2018 recommended acceptable CPAP pressure setting of 13-14 cm (8) GERD without esophagitis: Code(s): K21.9 - Gastro-esophageal reflux disease without esophagitis Plan: Dietary restrictions reinforced Continue Omeprazole 20 mg QD (9) Lumbar degenerative disc disease: Code(s): M51.36 - Other intervertebral disc degeneration, lumbar region Plan: Reinforced activity and weight lifting restrictions to minimize aggravating her low back pain Symptoms remain manageable on her current medications, including her Percocet 5- 325 mg that she takes every 6 hours as needed (10) Degenerative disc disease, cervical: Code(s): M50.30 - Other cervical disc degeneration, unspecified cervical region Plan: Findings confirmed on cervical spine x-rays done in 2014 -? symptoms are reportedly manageable on her current meds (11) Primary osteoarthritis involving multiple joints: Code(s): M89.49 - Other hypertrophic osteoarthropathy, multiple sites Plan: Continue Salsalate 500 mg 2 tablets 3 times a day and Oxycodone-Acetaminophen 5- 325 mg 1 tablet every 6 hours as needed [place] [facility] [place]rays of both knees done a couple of years ago showed (+) OA? changes bilaterally; repeat x-rays done a few months ago in October 2020 showed similar findings (12) Fibromyalgia: Code(s): M79.7 - Fibromyalgia Plan: Continue Gabapentin 400 mg 3 times a day and Lidoderm patches 5% 1 patch daily Patient is again encouraged to exercise regularly to help manage her fib romyalgia symptoms better Follow-up with rheumatology as scheduled (13) Constipation: Code(s): K59.00 - Constipation, unspecified Qualifiers: Constipation type: unspecified constipation type Qualified Code(s): K59.00 - Constipation, unspecified Plan: She is encouraged again on increased oral fluids and dietary fiber Continue Senna 8.6 mg 2 tablets at bedtime daily Follow up with GI as scheduled (14) Vitamin B12 deficiency: Code(s): E53.8 - Deficiency of other specified B group vitamins Plan: Will continue to monitor her serum Vitamin B12 level regularly (15) Vitamin D deficiency: Code(s): E55.9 - Vitamin D deficiency, unspecified Plan: Continue Vitamin D2 69399 units once a week (16) Overactive bladder: Code(s): N32.81 - Overactive bladder Plan: Continue Oxybutynin ER 10 mg once a day (17) Insomnia: Code(s): G47.00 - Insomnia, unspecified Qualifiers: Insomnia type: unspecified Qualified Code(s): G47.00 - Insomnia, unspecified Plan: Sleep hygiene reinforced Continue Zolpidem 10 mg daily at bedtime as needed (18) Anxiety: Code(s): F41.9 - Anxiety disorder, unspecified Plan: Continue Doxepin 25 mg daily at bedtime as needed Patient is also on Sertraline, which helps with her anxiety as well (19) Depression: Code(s): F32.9 - Major depressive disorder, single episode, unspecified Qualifiers: Active/Remission status: currently active Depression Type: major depressive disorder Major depression episode severity: unspecified Major depression recurrence: recurrent Qualified Code(s): F33.9 - Major depressive disorder, recurrent, unspecified Plan: Continue Sertraline 100 mg once a day Follow-up with Psychiatry as scheduled (20) Morbid obesity with BMI of 40.0-44.9, adult: Code(s): E66.01 - Morbid (severe) obesity due to excess calories; Z68.41 - Body mass index [BMI] 40.0-44.9, adult Plan: Reinforced diet/exercise as tolerated/lose weight Plan Follow up in 3 months Orders: Orders Thyroid Stimulating Hormone 3 Months E03.9 - Hypothyroidism, unspecified Free T4 (Free Thyroxine) 3 Months E03.9 - Hypothyroidism, unspecified Uric Acid 3 Months E79.0 - Hyperuricemia without signs of inflammatory arthritis and tophaceous disease Complete Blood Count Auto Diff 3 Months D64.9 - Anemia, unspecified Comprehensive [place]. Panel Fast 3 Months E78.00 - Pure hypercholesterolemia, unspecified Lipid Panel 3 Months E78.00 - Pure hypercholesterolemia, unspecified UA CC w/rflx Micro + Cult 3 Months R30.0 - Dysuria Vitamin D 25-OH Total 3 Months E55.9 - Vitamin D deficiency, unspecified Coding Level of Care Code Est Pt Level 4 (04836) Complex EM visit Add On G2211 Diagnoses Benign essential hypertension I10 Chronic kidney disease (CKD), stage II (mild) N18.2 Acquired hypothyroidism E03.9 Mild intermittent asthma without complication J45.20 Impaired fasting glucose R73.01 Cardiac murmur R01.1 Obstructive sleep apnea G47.33 GERD without esophagitis K21.9 Lumbar degenerative disc disease M51.36 Degenerative disc disease, cervical M50.30 Primary osteoarthritis involving multiple joints M89.49 Fibromyalgia M79.7 Constipation, unspecified constipation type K59.00 Constipation type: unspecified constipation type Vitamin B12 deficiency E53.8 Vitamin D deficiency E55.9 Overactive bladder N32.81 Insomnia, unspecified type G47.00 Insomnia type: unspecified Anxiety F41.9 Episode of recurrent major depressive disorder, unspecified depression episode severity F33.9 Active/Remission status: currently active Depression Type: major depressive disorder Major depression episode severity: unspecified Major depression recurrence: recurrent Morbid obesity with BMI of 40.0-44.9, adult E66.01; Z68.41
[2024-01-09 10:53] VITALS: BP 146/86
== END 2024-01-09 11:35 | disposition home or self-care (01) ==
PROVIDERS: PCP Internal Medicine; Visit Provider Internal Medicine
DX: I12.9 Hypertensive chronic kidney disease with stage 1 through stage 4 chronic kidney disease, or unspecified chronic kidney disease (principal); N18.2 Chronic kidney disease, stage 2 (mild); E03.9 Hypothyroidism, unspecified; J45.20 Mild intermittent asthma, uncomplicated; R73.01 Impaired fasting glucose; R01.1 Cardiac murmur, unspecified; G47.33 Obstructive sleep apnea (adult) (pediatric); K21.9 Gastro-esophageal reflux disease without esophagitis; M51.36 Other intervertebral disc degeneration, lumbar region; M50.30 Other cervical disc degeneration, unspecified cervical region; M89.49 Other hypertrophic osteoarthropathy, multiple sites; M79.7 Fibromyalgia; K59.00 Constipation, unspecified; E53.8 Deficiency of other specified B group vitamins; E55.9 Vitamin D deficiency, unspecified; N32.81 Overactive bladder; G47.00 Insomnia, unspecified
CPT/HCPCS: 99214; G2211

== ENCOUNTER 2024-02-04 09:05 | Outpatient (REF) | payer OTHER, SELFPAY ==
--- NOTE | ~2024-02-04 | MM_ITS ---
EXAMINATION: MM SCREENING DIGITAL BREAST TOMOSYNTHESIS, BILATERAL CLINICAL INFORMATION: Screening. Asymptomatic. COMPARISON: Mammography: Comparison is made with available priors TECHNIQUE: Digital breast tomosynthesis is performed in both the craniocaudal and mediolateral oblique views along with computer-aided detection (CAD). Synthesized 2D images are generated from the tomosynthesis. FINDINGS: There are scattered areas of fibroglandular density (ACR BI-RADS breast composition Category b). Bilateral circumscribed oval masses consistent with benign fibrocystic changes. There are no significant masses, abnormal calcifications, or other abnormalities. MM/MM tomosynthesis screening BI IMPRESSION: No mammographic evidence of malignancy. ASSESSMENT: BI-RADS BI-RADS 2 - Benign Findings RECOMMENDATION: Routine annual mammography screening. 1 year F/U This examination should not preclude the clinical evaluation of a suspicious palpable abnormality. This patient's information was entered into a reminder system with a target due date for their next mammogram. Electronically signed by: Mila Ramírez DO 02/28/2024 01:05 PM EDT
== END 2024-02-04 09:06 | disposition home or self-care (01) ==
LOC: HO.MAMMO 09:05
PROVIDERS: PCP Internal Medicine; Visit Provider Internal Medicine
DX: Z12.31 Encounter for screening mammogram for malignant neoplasm of breast (principal)
CPT/HCPCS: 77063; 77067

== ENCOUNTER → 2024-02-04 09:15 | Outpatient (BNV) | payer OTHER, SELFPAY | PROVIDERS: PCP Internal Medicine; Visit Provider Internal Medicine | DX: Z12.31 Encounter for screening mammogram for malignant neoplasm of breast (principal) | CPT/HCPCS: 77063; 77067 ==

== ENCOUNTER 2024-04-25 08:53 | Outpatient (REF) | payer OTHER, SELFPAY ==
[2024-04-25 10:44] LABS: Basophils Absolute Auto 0.1 X10*3/uL (0.0-0.2); Basophils Percent Auto 0.5 % (0-2); Eosinophils Absolute Auto 0.2 X10*3/uL (0.0-0.4); Hematocrit 39.4 % (37.0-47.0); Hemoglobin 13.1 g/dl (12.0-16.0); Imm Gran Abs Auto 0.05 X10*3/uL (0.00-0.03); Imm Gran Pct Auto 0.5 % (0.0-0.4); Lymphocytes Absolute Auto 1.6 X10*3/uL (1.2-4.9); Lymphocytes Percent Auto 17.6 % (20-40); MANUAL DIFF FLAG SCAN; Mean Corpuscular HGB Conc 33.2 g/dl (31.0-35.0); Mean Corpuscular Hemoglobin 30.7 pg (27.0-33.0); Mean Corpuscular Volume 92.3 fL (80.0-98.0); Monocytes Absolute Auto 0.7 X10*3/uL (0.1-1.2); Monocytes Percent Auto 7.7 % (2-11); Neutrophils Absolute Auto 6.5 x10*3/uL (2.0-8.3); Neutrophils Percent Auto 71.7 % (45-73); PLT CLUMP 1; Red Blood Count 4.27 X10*6/uL (4.20-5.50); Red Cell Distribution Width 13.4 % (11.0-16.0); SCAN SMEAR FLAG 1
[2024-04-25 10:45] LABS: Platelet Count 142 X10*3/uL (160-400); White Blood Count 9.1 X10*3/uL (4.8-10.8)
[2024-04-25 10:47] LABS: SLIDE REVIEW VERIFIED
[2024-04-25 11:12] LABS: Anion Gap 11 (12-20)
[2024-04-25 11:22] LABS: Alanine Aminotransferase 15 U/L (0-31); Alkaline Phosphatase 105 U/L (39-117); Aspartate Amino Transferase 21 U/L (5-31); Bilirubin Total 0.6 mg/dL (0.0-1.0); Blood Urea Nitrogen 17 mg/dL (9-16); Calcium 9.4 mg/dL (8.4-10.2); Carbon Dioxide 30 mmol/L (22-29); Chloride 108 mmol/L (96-108); Cholesterol 181 mg/dL (<200); Estimated Glomerular Filt Rate 53; Glucose Fasting 111 mg/dL (60-99); HDL Cholesterol 49 mg/dL (>40); LDL Cholesterol Calculated 105 mg/dL (<100); Potassium 4.7 mmol/L (3.3-5.1); Sodium 144 mmol/L (135-145); Total Protein 6.7 g/dL (6.5-8.0); Triglycerides 139 mg/dL (<150)
[2024-04-25 11:48] LABS: Free T4 (Free Thyroxine) 1.07 ng/dL (0.71-1.85); Thyroid Stimulating Hormone 0.92 uIU/mL (0.32-4.0); Vitamin D 25-OH Total 35.3 ng/mL (>30)
[2024-04-25 11:51] LABS: Appearance Urine Clear; Color Urine Yellow; Glucose Urine UA Negative (Negative); Leukocyte Esterase Urine Negative (Negative); Nitrite Urine Negative (Negative); PH 5.5 (5.0-9.0); Specific Gravity - Urine 1.025 (1.005-1.025); Urine Blood Negative (Negative); Urine Ketones Negative (Negative); Urine Protein Negative (Neg-Trace)
[2024-04-25 13:59] LABS: Uric Acid 8.3 mg/dL (2.4-5.7)
== END 2024-04-25 08:54 | disposition home or self-care (01) ==
LOC: HO.LAB 08:53
PROVIDERS: PCP Internal Medicine; Visit Provider Internal Medicine
DX: E79.0 Hyperuricemia without signs of inflammatory arthritis and tophaceous disease (principal); E55.9 Vitamin D deficiency, unspecified; D64.9 Anemia, unspecified; E78.00 Pure hypercholesterolemia, unspecified; E03.9 Hypothyroidism, unspecified; R30.0 Dysuria
CPT/HCPCS: 36415; 80053; 80061; 81003; 82306; 84439; 84443; 84550; 85025

== ENCOUNTER 2024-04-29 14:44 | Outpatient (AMB) | payer OTHER, SELFPAY ==
[2024-04-29 14:51] VITALS: BP 116/70; PULSE 93; O2SAT 93; BMI 45.9
--- NOTE | 2024-04-29 14:51 | MHC.PC.OV ---
Vital Signs 04/29/24 14:51 Height 5 ft 3 in Weight 259 lb BMI 45.9 BP 116/70 Blood Pressure Location Lt brachial Position Sitting Pulse 93 Pulse Source Pulse Oximeter Pulse Oximetry (%) 93 Oxygen Delivery Method Room Air Intake Visit Reasons: 3mth f/u Non Profit Job Titles Required: No Accompanied by: Self / Same As Patient Allergies No Known Allergies [No Known Allergies*] Allergy (Verified 04/29/24 15:28) Medication List - Last Reconciled 04/29/24 by Antonino Barrera MD [ADULT PULL UPS (Size XXL) As directed] [ADULT WIPES As directed] albuterol sulfate 2.5 mg (3 mL) continuous nebulization Q6-8H PRN albuterol sulfate 90 mcg/actuation 2 puffs inhalation Q6H PRN amlodipine 2.5 mg PO DAILY [BEDSIDE COMMODE As directed] bisacodyl (Laxative (bisacodyl)) 10 mg (2 x 5 mg) PO BEDTIME cholecalciferol (vitamin D3) 25 mcg PO DAILY 90 days [compression stockings As directed] CPAP (CPAP Machine/Device) As directed cyanocobalamin (vitamin B-12) 1,000 mcg PO DAILY 90 days diclofenac sodium 1% 2 grams topical BID [DISPOSABLE BED PADS As directed] [Disposable UNDERPADS As directed] gabapentin 400 mg PO TID hydrocortisone 1% (Anti-Itch (hydrocortisone)) 1 appl topical TID PRN [INCONTINENT BED PADS As directed] [KOTEX PADS As directed] levothyroxine 137 mcg PO DAILY 90 days linaclotide (Linzess) 290 mcg PO QAM lisinopril 40 mg PO DAILY 90 days meclizine 25 mg PO BID PRN mometasone 0.1% 1 appl topical DAILY PRN omeprazole 20 mg PO DAILY oxybutynin chloride ER 10 mg PO DAILY 90 days oxycodone-acetaminophen 5-325 mg 1 tab PO Q6H PRN 28 days [ROLLATOR WALKER As directed] sertraline 100 mg PO DAILY 90 days [SHOWER CHAIR As directed] spironolactone 100 mg PO BID Tobacco use date assessed: 12/05/23 Fall risk assessment: No Falls in past year Last assessed Fall Risk: 04/29/24 Dental Screening Dental Screen Date: 04/29/24 Did you have a dental visit in the last 12 months?: Yes Did you have a dental problem in the last 6 months where you did not have access to dental care?: No Was dental information given to patient?: Patient has dentist HPI 3mth f/u HPI Details Patient comes in today for follow-up visit States she feels okay She denies any headaches or dizziness Denies any chest pains, no increased shortness of breath No nausea/ vomiting, no abdominal pain No change in bowel habits noted States that her chronic neck pain, low back pain and joint pains remain adequately controlled on her current medications She is currently requesting for a referral for bariatric surgery - is aware that she has gained a lot of weight (about 10 pounds) since her last visit and admits that she needs help in losing weight She is also requesting for Rx for a motorized scooter as she is looking to try getting a power mobility device to help her get around better - states that her joint pains and low back pain have significantly limited her mobility over the years She also has a couple of dark skin lesions on her chest and left forearm and would like to see someone about having them checked out and removed if possible She also reports experiencing worsening of her urinary symptoms (frequency, urgency and at times, incontinence) despite her current Rx and would like to know what to do about them now Needs her pain med Rx refilled She had her follow-up labs done a few days ago - to discuss her results [facility] Medical History (Updated 04/29/24 @ 16:34 by Antonino Barrera MD) Morbid obesity with BMI of 45.0-49.9, adult Cataracts, bilateral Acute respiratory failure with hypoxia COVID-19 Pruritus Constipation 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, bilateral Bilateral primary osteoarthritis of knee Impaired fasting glucose Primary osteoarthritis involving multiple joints Depression Anxiety Insomnia Overactive bladder Lumbar degenerative disc disease Degenerative disc disease, cervical Vitamin D deficiency GERD without esophagitis Obstructive sleep apnea Vitamin B12 deficiency Fibromyalgia Cardiac murmur Mild intermittent asthma without complication Chronic kidney disease (CKD), stage II (mild) Acquired hypothyroidism Benign essential hypertension Surgical History S/P excision of lipoma H/O blepharoplasty History of colonoscopy Family History Father CVD (cardiovascular disease) Mother CVD (cardiovascular disease) Diabetes Hypertension Social History Household Members: Spouse Housing: Condominium Are you a primary direct care specialist to a significant other at home: No Do you presently have visiting nurse or other home services: Yes Alcohol intake: never Patient Tobacco Use Status: Never used Tobacco e-Cigarette/Vaping Use: Never Used Second Hand Smoke Exposure: No service: No Current occupational status: unemployed, student and disabled Cognitive needs: Yes (walker) Hearing needs: No Vision needs: Yes (glasses) Questionnaire PHQ-9 Over the last 2 weeks, how often have you been bothered by any of the following problems? 1. Little interest or pleasure in doing things: not at all 2. Feeling down, depressed, or hopeless: not at all 3. Trouble falling or staying asleep, or sleeping too much: not at all 4. Feeling tired or having little energy: not at all 5. Poor appetite or overeating: not at all 6. Feeling bad about yourself - or that you are a failure or have let yourself or your family down: not at all 7. Trouble concentrating on things, such as reading the newspaper or watching television: not at all 8. Moving or speaking so slowly that other people could have noticed. Or the opposite - being so fidgety or restless that you have been moving around a lot more than usual: not at all 9. Thoughts that you would be better off or of hurting yourself in some way: not at all Total score: 0 Depression Screening Interpretation: Negative Depression Screening Done: Yes 34304 - PHQ-9 Billing: Yes Source: Developed by Drs. Feng Lopez, Selina Pedro, Merlin Villalta and colleagues, with an educational nacho from [employer]. Thrive Questionnaire Date Thrive assessed: 04/29/24 I am a: Patient What is your living situation today?: I have a steady place to live Within the past 12 months, did the food you bought not last and you didn't have the money to get more?: Never true Within the past 12 months, did you worry whether your food would run out before you got money to buy more?: Never true Do you have trouble paying for medicines?: No Do you have trouble getting transportation to medical appointments?: No Do you have trouble paying your heating and electricity bill?: No Do you have trouble taking care of your child, family member or friend?: No Do you have trouble with day-to-day activities such as bathing, preparing meals, shopping, managing finances, etc.?: No Are you currently unemployed and looking for a job?: No Are you interested in more education?: No Please select the resources that you would like help with: None Currently or been in a relationship where the following occur: No concerns reported THRIVE Score: 0 AUDIT C Alcohol Use Questionnaire (AUDIT-C) 1. How often do you have a drink containing alcohol?: Never 3. How often do you have six or more drinks on one occasion?: Never Total Score: 0 Score Reviewed/Action Taken: Yes IGNACIA-7 AMB Questionnaire IGNACIA-7 Date IGNACIA - 7 assessed: 04/29/24 Feeling nervous, anxious, or on edge: 0 = Not at all Not being able to stop or control worryin = Not at all Worrying too much about different things: 0 = Not at all Trouble relaxin = Not at all Being so restless that it is hard to sit still: 0 = Not at all Becoming easily annoyed or irritable: 0 = Not at all Feeling afraid as if something awful might happen: 0 = Not at all Total IGNACIA-7 score (0-4 normal; 5-9 mild; 10-14 moderate; 15-21 severe): 0 Source: Developed by Drs. Feng Lopez, Selina Pedro, Mrelin Villalta and colleagues, with an educational nacho from [employer]. Review of Systems Const Denies chills, Denies fatigue, Denies fever(s), Denies headache(s) and Reports weight gain ENT Denies dysphagia, Denies dizziness, Denies otalgia, Denies headache(s), Reports neck pain (chronic), Denies odynophagia and Denies sore throat Card Denies chest pain, Denies palpitations and Reports dyspnea on exertion (mild) Resp Denies cough, Reports dyspnea on exertion (mild) and Denies wheezing GI Denies abdominal pain, Reports constipation (on and off), Denies dysphagia, Denies diarrhea, Denies nausea, Denies odynophagia and Denies vomiting Denies difficulty voiding, Reports nocturia, Denies dysuria, Reports urinary incontinence and Denies urinary urgency Musc Reports back pain (over the lower back - chronic), Reports arthralgias (over both knees ) and Reports neck pain (chronic) Skin/Breast Details: (+) couple of dark spots on her skin - on the chest wall and on the left forearm Denies rash Neuro Denies dizziness and Denies headache(s) Endo Denies fatigue and Denies palpitations Aller/Immun Denies wheezing Physical exam (Primary Care) Vital Signs: Last Vital Signs Pulse 93 04/29/24 14:51 BP 116/70 04/29/24 14:51 Pulse Ox 93 04/29/24 14:51 Oxygen Delivery Method Room Air 04/29/24 14:51 BMI result Body Mass Index 45.9 Tobacco/Smoking Status: Tobacco use Status Tobacco use date assessed 12/05/23 04/29/24 14:57 Patient Tobacco Use Status Never used Tobacco 04/29/24 14:57 e-Cigarette/Vaping Use Never Used 04/29/24 14:57 PHQ-9: PHQ-9 Score PHQ-9: Total score 0 04/29/24 14:57 Depression Screening Interpretation: Negative Thrive Assessment: Date of Thrive Assessment Date Thrive assessed 04/29/24 04/29/24 14:57 Currently or been in a relationship where the following occur: No concerns reported Const General: no acute distress and alert HENMT Ears: TM's normal bilaterally and EAC's normal Throat: Yes posterior oropharynx normal and Yes tonsils normal (no TP congestion noted) Neck Neck: Yes no lymphadenopathy and Yes supple Thyroid: Thyroid normal Resp Auscultation: clear to auscultation bilaterally, no rales and no wheezes Cardio Rate: regular rate Rhythm: regular rhythm Heart sounds: Murmur heart sound present systolic soft and at the left sternal border (at the left lower sternal border) GI Palpation (GI): Soft to palpation and nontender Auscultation: normal bowel sounds General: Yes no CVA tenderness Back/Spine/Pelvis Back: no CVA tenderness Cervical Spine: Cervical spine tenderness Thoracic/Lumbar Spine: lumbar spinal tenderness Skin Other: (+) hyperpigmented flat lesions on the anterior chest wall and over the left forearm distally Rashes: no rashes Extrem General: Yes no clubbing, cyanosis or edema Right lower extremity: knee Details: tenderness; no swelling Left lower extremity: knee Details: tenderness; no swelling Results Reviewed Results Reviewed: Laboratory Tests 04/25/24 09:28 WBC 9.1 Hgb 13.1 Hct 39.4 Plt Count 142 L Sodium 144 Potassium 4.7 Creatinine 1.02 Estimated GFR 53 Fasting Glucose 111 H Uric Acid 8.3 H Calcium 9.4 AST 21 ALT 15 Triglycerides 139 Cholesterol 181 LDL Cholesterol, Calc 105 H HDL Cholesterol 49 25-OH Vitamin D Total 35.3 TSH 0.92 Free T4 1.07 Ur Specific [place] 1.025 Urine Protein Negative Urine Glucose (UA) Negative Urine Blood Negative Coding Level of Care Code Est Pt Level 4 (68745) Complex EM visit Add On G2211 Diagnoses Benign essential hypertension I10 Chronic kidney disease (CKD), stage II (mild) N18.2 Acquired hypothyroidism E03.9 Mild intermittent asthma without complication J45.20 Impaired fasting glucose R73.01 Cardiac murmur R01.1 Obstructive sleep apnea G47.33 GERD without esophagitis K21.9 Degeneration of intervertebral disc of lumbar region with discogenic back pain and lower extremity pain M51.362 Disc-related pain type: discogenic back pain and lower extremity pain Degenerative disc disease, cervical M50.30 Primary osteoarthritis involving multiple joints M89.49 Fibromyalgia M79.7 Chronic idiopathic constipation K59.04 Hyperpigmented skin lesion L81.9 Vitamin B12 deficiency E53.8 Vitamin D deficiency E55.9 Overactive bladder N32.81 Insomnia, unspecified type G47.00 Insomnia type: unspecified Anxiety F41.9 Episode of recurrent major depressive disorder, unspecified depression episode severity F33.9 Depression Type: major depressive disorder Major depression recurrence: recurrent Active/Remission status: currently active Major depression episode severity: unspecified Morbid obesity with BMI of 45.0-49.9, adult E66.01; Z68.42 Additional Codes PHQ-9 - 86526 - PHQ-9 Billing: Yes ([id number]) Assessment & Plan Assessment & Plan (1) Benign essential hypertension: Code(s): I10 - Essential (primary) hypertension Category: Medical Plan: Results of her labs done a few days ago reviewed and discussed with patient Reinforced low-sodium diet -?goal is systolic BP of at least 130 to 140 mm or less Continue Lisinopril 40 mg QD, Spironolactone 100 mg BID and Amlodipine 2.5 mg QD Have reminded patient to continue monitoring her blood pressure regularly Will recheck her labs and fasting lipids in 3 months for follow-up (2) Chronic kidney disease (CKD), stage II (mild): Code(s): N18.2 - Chronic kidney disease, stage 2 (mild) Category: Medical Plan: GFR stable?-? will continue to monitor her renal function regularly (3) Acquired hypothyroidism: Code(s): E03.9 - Hypothyroidism, unspecified Category: Medical Plan: Her TFTs were normal on her recent labs Continue Levothyroxine 150 mcg QD Will continue to monitor her TFTs regularly (4) Mild intermittent asthma without complication: Code(s): J45.20 - Mild intermittent asthma, uncomplicated Category: Medical Plan: Stable/controlled Continue Albuterol HFA 2 puffs 4 times a day as needed; patient also has her Albuterol nebulizer that she uses when needed (5) Impaired fasting glucose: Code(s): R73.01 - Impaired fasting glucose Category: Medical Plan: Have cautioned patient that her FBS has increased to 111 mg/dl on her recent labs, likely in relation to her recent weight gain Her HgbA1c has remained normal and mostly unchanged from previous at 5.6% when last checked a few months ago Reinforced low calorie/low carb diet; exercise as tolerated (6) Cardiac murmur: Comment: Echocardiogram done in 2011 showed (+) mild MR and trace TR, which are the most likely cause of her cardiac murmur; LVEF was normal and there were no other abnormalities noted Repeat echocardiogram done in 2019 showed no significant changes from her previous echo in 2011; LV systolic function remains normal and EF was between 65-70% Code(s): R01.1 - Cardiac murmur, unspecified Category: Medical Plan: Echocardiogram done in October 2023 revealed that the left ventricular systolic function is normal and the calculated ejection fraction is around 62% by biplane method. There are trace MR and TR with no other obvious valvular pathology seen on this study Will continue to monitor these regularly/periodically (7) Obstructive sleep apnea: Code(s): G47.33 - Obstructive sleep apnea (adult) (pediatric) Category: Medical Plan: Continue using her CPAP device when sleeping at night -??CPAP titration done in January 2018 recommended acceptable CPAP pressure setting of 13-14 cm Follow up with Sleep Medicine as scheduled (8) GERD without esophagitis: Code(s): K21.9 - Gastro-esophageal reflux disease without esophagitis Category: Medical Plan: Dietary restrictions reinforced Continue Omeprazole 20 mg QD (9) Lumbar degenerative disc disease: Code(s): M51.36 - Other intervertebral disc degeneration, lumbar region Category: Medical Qualifiers: Disc-related pain type: discogenic back pain and lower extremity pain Qualified Code(s): M51.362 - Other intervertebral disc degeneration, lumbar region with discogenic back pain and lower extremity pain Plan: Reinforced activity and weight lifting restrictions to minimize aggravating her low back pain States that her symptoms remain mostly manageable on her current medications, including her Percocet 5-325 mg that she takes every 6 hours as needed (10) Degenerative disc disease, cervical: Code(s): M50.30 - Other cervical disc degeneration, unspecified cervical region Category: Medical Plan: Findings confirmed on cervical spine x-rays done in 2014 -? symptoms are reportedly manageable on her current meds (11) Primary osteoarthritis involving multiple joints: Code(s): M89.49 - Other hypertrophic osteoarthropathy, multiple sites Category: Medical Plan: Continue Salsalate 500 mg 2 tablets 3 times a day and Oxycodone-Acetaminophen 5-325 mg 1 tablet every 6 hours as needed [place] [facility] [place] [facility] [place] X-rays of both knees done years ago showed (+) OA?changes bilaterally; repeat x-rays done most recently in August 2023 revealed (+) moderate degenerative changes in bilateral knees (12) Fibromyalgia: Code(s): M79.7 - Fibromyalgia Category: Medical Plan: Continue Gabapentin 400 mg 3 times a day and Lidoderm patches 5% 1 patch daily Patient is again encouraged to exercise regularly to help manage her fibromyalgia symptoms better Follow-up with rheumatology as scheduled (13) Chronic idiopathic constipation: Code(s): K59.04 - Chronic idiopathic constipation Category: Medical Plan: Patient is encouraged again on increased oral fluids and dietary fiber Continue Senna 8.6 mg 2 tablets at bedtime daily Follow up with GI as scheduled (14) Hyperpigmented skin lesion: Code(s): L81.9 - Disorder of pigmentation, unspecified Category: Medical Plan: Will refer her to dermatology for further evaluation and management (15) Vitamin B12 deficiency: Code(s): E53.8 - Deficiency of other specified B group vitamins Category: Medical Plan: Will continue to monitor her serum Vitamin B12 level regularly (16) Vitamin D deficiency: Code(s): E55.9 - Vitamin D deficiency, unspecified Category: Medical Plan: Continue Vitamin D2 06264 units once a week (17) Overactive bladder: Code(s): N32.81 - Overactive bladder Category: Medical Plan: Continue Oxybutynin ER 10 mg QD Will refer her to urology for further evaluation and management although have advised patient that her urinary frequency may be in part, due to her recently declining diabetes control (18) Insomnia: Code(s): G47.00 - Insomnia, unspecified Category: Medical Qualifiers: Insomnia type: unspecified Qualified Code(s): G47.00 - Insomnia, unspecified Plan: Sleep hygiene reinforced Continue Zolpidem 10 mg daily at bedtime as needed (19) Anxiety: Code(s): F41.9 - Anxiety disorder, unspecified Category: Medical Plan: Continue Doxepin 25 mg daily at bedtime as needed Patient is also on Sertraline, which helps with her anxiety as well (20) Depression: Code(s): F32.9 - Major depressive disorder, single episode, unspecified Category: Medical Qualifiers: Depression Type: major depressive disorder Major depression recurrence: recurrent Active/Remission status: currently active Major depression episode severity: unspecified Qualified Code(s): F33.9 - Major depressive disorder, recurrent, unspecified Plan: Continue Sertraline 100 mg once a day Follow-up with Psychiatry as scheduled (21) Morbid obesity with BMI of 45.0-49.9, adult: Code(s): E66.01 - Morbid (severe) obesity due to excess calories; Z68.42 - Body mass index [BMI] 45.0-49.9, adult Category: Medical Plan: Reinforced diet/exercise as tolerated/lose weight She has gained a lot of weight since her last visit (about 10 pounds) and is now requesting for referral to bariatric surgery - referral done Plan Follow up in 3 months Orders: Orders Erythrocyte Sedimentation Rate 3 Months E79.0 - Hyperuricemia without signs of inflammatory arthritis and tophaceous disease, M19.041 - Primary osteoarthritis, right hand, M19.042 - Primary osteoarthritis, left hand Hemoglobin A1c 3 Months R73.01 - Impaired fasting glucose Free T4 (Free Thyroxine) 3 Months E03.9 - Hypothyroidism, unspecified Comprehensive [place]. Panel Fast 3 Months E78.00 - Pure hypercholesterolemia, unspecified Complete Blood Count Auto Diff 3 Months D64.9 - Anemia, unspecified UA CC w/rflx Micro + Cult 3 Months R30.0 - Dysuria Uric Acid 3 Months E79.0 - Hyperuricemia without signs of inflammatory arthritis and tophaceous disease Thyroid Stimulating Hormone 3 Months E03.9 - Hypothyroidism, unspecified Lipid Panel 3 Months E78.00 - Pure hypercholesterolemia, unspecified Vitamin D 25-OH Total 3 Months E55.9 - Vitamin D deficiency, unspecified Referrals Bariatric Surgery Referral E66.01 - Morbid (severe) obesity due to excess calories, Z68.42 - Body mass index [BMI] 45.0-49.9, adult Dermatology Referral L81.9 - Disorder of pigmentation, unspecified Urology Referral N32.81 - Overactive bladder Medications: New [MOTORIZED SCOOTER] As directed 1 ea 0RF M17.0 - Bilateral primary osteoarthritis of knee, M51.36 - Other intervertebral disc degeneration, lumbar region, M89.49 - Other hypertrophic osteoarthropathy, multiple sites Refilled oxycodone-acetaminophen 5-325 mg 1 tab PO Q6H 28 days PRN 112 tabs 0RF pain
== END 2024-04-29 15:44 | disposition home or self-care (01) ==
PROVIDERS: PCP Internal Medicine; Visit Provider Internal Medicine
DX: I12.9 Hypertensive chronic kidney disease with stage 1 through stage 4 chronic kidney disease, or unspecified chronic kidney disease (principal); N18.2 Chronic kidney disease, stage 2 (mild); F33.9 Major depressive disorder, recurrent, unspecified; E66.01 Morbid (severe) obesity due to excess calories; Z68.42 Body mass index [BMI] 45.0-49.9, adult; E03.9 Hypothyroidism, unspecified; J45.20 Mild intermittent asthma, uncomplicated; R73.01 Impaired fasting glucose; R01.1 Cardiac murmur, unspecified; G47.33 Obstructive sleep apnea (adult) (pediatric); K21.9 Gastro-esophageal reflux disease without esophagitis; M51.362 Other intervertebral disc degeneration, lumbar region with discogenic back pain and lower extremity pain

== ENCOUNTER → 2024-04-29 14:44 | Outpatient (BNVA) | payer OTHER, SELFPAY | PROVIDERS: PCP Internal Medicine; Visit Provider Internal Medicine | DX: I12.9 Hypertensive chronic kidney disease with stage 1 through stage 4 chronic kidney disease, or unspecified chronic kidney disease (principal); N18.2 Chronic kidney disease, stage 2 (mild); E03.9 Hypothyroidism, unspecified; J45.20 Mild intermittent asthma, uncomplicated; R73.01 Impaired fasting glucose; R01.1 Cardiac murmur, unspecified; K21.9 Gastro-esophageal reflux disease without esophagitis; E55.9 Vitamin D deficiency, unspecified; N32.89 Other specified disorders of bladder; F33.9 Major depressive disorder, recurrent, unspecified; F41.9 Anxiety disorder, unspecified | CPT/HCPCS: 96127; 99212 ==

== ENCOUNTER 2024-06-12 08:00 | Outpatient (AMB) | payer OTHER, SELFPAY ==
--- NOTE | 2024-06-12 10:20 | A.OFFVIS_ITS ---
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* Candy Cooker Helper Required: Yes Candy Cooker Helper Services: Candy Cooker Helper Present Information Interpreted: clinical only Allergies No Known Allergies [No Known Allergies*] Allergy (Verified 06/12/24 10:20) Medication List - Last Reconciled 06/12/24 by Yuriy Luong MD [ADULT PULL UPS (Size XXL) As directed] [ADULT WIPES As directed] albuterol sulfate 2.5 mg (3 mL) continuous nebulization Q6-8H PRN albuterol sulfate 90 mcg/actuation 2 puffs inhalation Q6H PRN amlodipine 2.5 mg PO DAILY [BEDSIDE COMMODE As directed] bisacodyl (Laxative (bisacodyl)) 10 mg (2 x 5 mg) PO BEDTIME cholecalciferol (vitamin D3) 25 mcg PO DAILY 90 days [compression stockings As directed] CPAP (CPAP Machine/Device) As directed cyanocobalamin (vitamin B-12) 1,000 mcg PO DAILY 90 days diclofenac sodium 1% 2 grams topical BID [DISPOSABLE BED PADS As directed] [Disposable UNDERPADS As directed] gabapentin 400 mg PO TID hydrocortisone 1% (Anti-Itch (hydrocortisone)) 1 appl topical TID PRN [INCONTINENT BED PADS As directed] [KOTEX PADS As directed] levothyroxine 137 mcg PO DAILY 90 days linaclotide (Linzess) 290 mcg PO QAM lisinopril 40 mg PO DAILY 90 days meclizine 25 mg PO BID PRN mometasone 0.1% 1 appl topical DAILY PRN [MOTORIZED SCOOTER As directed] omeprazole 20 mg PO DAILY oxybutynin chloride ER 10 mg PO DAILY 90 days oxycodone-acetaminophen 5-325 mg 1 tab PO Q6H PRN 28 days [ROLLATOR WALKER As directed] sertraline 100 mg PO DAILY 90 days [SHOWER CHAIR As directed] spironolactone 100 mg PO BID HPI HPI 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 52.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*: Details: Start time: 10.18am, End time: 11.03am ?I spent 40 minutes speaking with the patient on the phone plus an additional 5 minutes reviewing and updating records for a total of 45 minutes HPI Comments Details: Previous weight loss efforts: exercise Wakes up: 7.30am, Sleeps: 10pm Breakfast: 8am (eggs, sandwich) Lunch: 11am (sandwich, tortilla, rice with beans) Dinner: 3pm (soups, salad, meat) Snacks: 10am (plantain, apple), 1pm (mac and cheese, biscuits), 9pm (yogurt) Exercise: Fluids: Coffee (2 cups/day milk and sugar), tea (2 cups per day with honey, soda: none, juice: 1 glass per day (orange juice), ETOH: none PFSH Medical History (Updated 04/29/24 @ 16:34 by Antonino Barrera MD) Morbid obesity with BMI of 45.0-49.9, adult Cataracts, bilateral Acute respiratory failure with hypoxia COVID-19 Pruritus Constipation 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, bilateral Bilateral primary osteoarthritis of knee Impaired fasting glucose Primary osteoarthritis involving multiple joints Depression Anxiety Insomnia Overactive bladder Lumbar degenerative disc disease Degenerative disc disease, cervical Vitamin D deficiency GERD without esophagitis Obstructive sleep apnea Vitamin B12 deficiency Fibromyalgia Cardiac murmur Mild intermittent asthma without complication Chronic kidney disease (CKD), stage II (mild) Acquired hypothyroidism Benign essential hypertension Surgical History S/P excision of lipoma H/O blepharoplasty History of colonoscopy Family History Father CVD (cardiovascular disease) Mother CVD (cardiovascular disease) Diabetes Hypertension Social History Household Members: Spouse Housing: Condominium Are you a primary hearing care professional to a significant other at home: No Do you presently have visiting nurse or other home services: Yes Alcohol intake: never Patient Tobacco Use Status: Never used Tobacco e-Cigarette/Vaping Use: Never Used Second Hand Smoke Exposure: No service: No Current occupational status: unemployed, student and disabled Cognitive needs: Yes (walker) Hearing needs: No Vision needs: Yes (glasses) Physical Exam Vital Signs: BMI result Body Mass Index 52.2 Telehealth Telehealth Telehealth Platform: Telephone Location of provider rendering services: practice address Location of patient: address on file Patient Identification confirmed using: Name, : Yes Telehealth method: voice only Patient verbally consented to treatment: Yes Patient verbally consented to billing insurance company: Yes Patient informed of any privacy concerns related to visit: Yes Minutes spent on Phone/Video with Pt.: 45 Assessment & Plan Assessment & Plan (1) Morbid obesity: Code(s): E66.01 - Morbid (severe) obesity due to excess calories Category: Medical Plan: 1.? Plan for lap sleeve gastrectomy. If diaphragmatic or ventral hernias are present at time of surgery, these will be repaired laparoscopically as well. I emphasized the importance of close follow-up, adherence to instructions and good communication. The surgery does not replace the need to change your lifestlyle which is the cause of the obesity problem. The surgery provides the motivation to try again to change your lifestyle, it reduces the appetite and make the transition to a better lifestyle easier and doubles the amount of weight you would lose compared to doing the lifestyle change without the surgery. You will need to be on a liquid diet with protein shakes for 2 weeks before surgery to maximize weight loss and boost your nutritional status to recover better from surgery and also for the first two weeks after surgery to let the stomach heal before we introduce other foods. After the first 2 weeks we will introduce protein bars and soft foods like scrambled eggs, cottage cheese and yogurt and after the 6th week will introduce meat, fish and cooked veg etables in small amounts. Over time you should be able to eat everything in small amounts. Side effects like nausea, vomiting, heartburn or abdominal pain are not common in the practice unless you are not following in the practice. This operation requires lifetime commitment to following in our practice and communication with me. You will much less weight and experience side effects if you don?t communicate or not following in the practice. Complications are rare and in our practice is about 1/10 of the national average. However, you can develop bleeding that may require transfusion (hasn?t happened for year in the practice), you may from complications (we did not have any deaths in the practice) and infections. Infections are usually a result of breakdown in communication or not understanding or following directions correctly. They are difficult to treat, they can happen during the first 6 weeks, they may require to be in the hospital for weeks or even months, not being able to eat by mouth and you may have drains and surgeries to try and correct the issue. Other risks and complications include possible conversion to an open procedure, leaks, small bowel obstruction, blood clots, cardiac, or pulmonary complications, as terminal gauger supervisor complications such as ulcers, insufficient weight loss and vitamin deficiencies. The patient wishes to discuss this option with her family first a nd she will let us know if she would like to proceed or not.
[2024-06-12 10:42] VITALS: BMI 52.2
== END 2024-06-12 11:04 | disposition home or self-care (01) ==
LOC: HO.HBS 08:00
PROVIDERS: PCP Internal Medicine; Visit Provider Surgery
DX: E66.01 Morbid (severe) obesity due to excess calories (principal)
CPT/HCPCS: 99204

== ENCOUNTER → 2024-06-12 08:00 | Outpatient (BNVA) | payer OTHER, SELFPAY | PROVIDERS: PCP Internal Medicine; Visit Provider Surgery ==

== ENCOUNTER 2024-06-24 08:41 | Outpatient (AMB) | payer OTHER, SELFPAY ==
--- NOTE | 2024-06-24 09:04 | A.OFFVIS_ITS ---
Intake Visit Reasons: overactive bladder Intake Note: New patient Presents for Overactive Bladder referred by PCP Any Urology Medication: Oxybutynin Antibiotic Allergies: None Blood Thinners: None PVR: 0ml Site Auditor Required: No Accompanied by: Daughter Allergies No Known Allergies [No Known Allergies*] Allergy (Verified 06/24/24 09:45) Medication List - Last Reconciled 06/24/24 by ISAÍAS Allison-BC [ADULT PULL UPS (Size XXL) As directed] [ADULT WIPES As directed] albuterol sulfate 2.5 mg (3 mL) continuous nebulization Q6-8H PRN albuterol sulfate 90 mcg/actuation 2 puffs inhalation Q6H PRN amlodipine 2.5 mg PO DAILY [BEDSIDE COMMODE As directed] bisacodyl (Laxative (bisacodyl)) 10 mg (2 x 5 mg) PO BEDTIME cholecalciferol (vitamin D3) 25 mcg PO DAILY 90 days [compression stockings As directed] CPAP (CPAP Machine/Device) As directed cyanocobalamin (vitamin B-12) 1,000 mcg PO DAILY 90 days diclofenac sodium 1% 2 grams topical BID [DISPOSABLE BED PADS As directed] [Disposable UNDERPADS As directed] gabapentin 400 mg PO TID hydrocortisone 1% (Anti-Itch (hydrocortisone)) 1 appl topical TID PRN [INCONTINENT BED PADS As directed] [KOTEX PADS As directed] levothyroxine 137 mcg PO DAILY 90 days linaclotide (Linzess) 290 mcg PO QAM lisinopril 40 mg PO DAILY 90 days meclizine 25 mg PO BID PRN mometasone 0.1% 1 appl topical DAILY PRN [MOTORIZED SCOOTER As directed] omeprazole 20 mg PO DAILY oxybutynin chloride ER 10 mg PO DAILY 90 days oxycodone-acetaminophen 5-325 mg 1 tab PO Q6H PRN 28 days [ROLLATOR WALKER As directed] sertraline 100 mg PO DAILY 90 days [SHOWER CHAIR As directed] spironolactone 100 mg PO BID HPI Comments Details: Yeimi is a very pleasant 74-year-old English-speaking female patient of Dr. Barrera who was accompanied by her daughter at today's office visit. She has a past medical history of obesity, bilateral cataracts, constipation, osteoarthritis, depression, anxiety, insomnia, overactive bladder, lumbar degenerative disc disease, vitamin-D deficiency, GERD, obstructive sleep apnea, vitamin B12 deficiency, fibromyalgia, asthma, chronic kidney disease stage 2, hypothyroidism, and hypertension. She presents to the office today as a new patient for ongoing lower urinary tract symptoms she has been experiencing. In discussion with the patient today she reports having followed up with her PCP in discussing episodes of urinary urgency, urinary frequency, nocturia, and mixed urinary incontinence at which time she was started on oxybutynin and referral was made for urology for further assessment evaluation. She reports minimal improvement with 10 mg of oxybutynin daily. We discussed at length potential causes of lower urinary tract symptoms patient is experiencing. She otherwise denies hematuria, dysuria, foul smelling urine, changes to urinary stream, flank pain, fever, and or chills. In office urinalysis results reviewed with the patient today. PVR 0 mL. She reports lower urinary tract symptoms have been present for years however feels they are worsening. She does have a previous history of 8 vaginal deliveries. We discussed further treatment options as well as risks and benefits of these treatment options. All questions were answered. She otherwise offers no other issues or concerns at this time [facility] Medical History Morbid obesity with BMI of 45.0-49.9, adult Cataracts, bilateral Acute respiratory failure with hypoxia COVID-19 Pruritus Constipation 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, bilateral Bilateral primary osteoarthritis of knee Impaired fasting glucose Primary osteoarthritis involving multiple joints Depression Anxiety Insomnia Overactive bladder Lumbar degenerative disc disease Degenerative disc disease, cervical Vitamin D deficiency GERD without esophagitis Obstructive sleep apnea Vitamin B12 deficiency Fibromyalgia Cardiac murmur Mild intermittent asthma without complication Chronic kidney disease (CKD), stage II (mild) Acquired hypothyroidism Benign essential hypertension Surgical History S/P excision of lipoma H/O blepharoplasty History of colonoscopy Family History Father CVD (cardiovascular disease) Mother CVD (cardiovascular disease) Diabetes Hypertension Social History Household Members: Spouse Housing: Condominium Are you a primary manager intensive care unit to a significant other at home: No Do you presently have visiting nurse or other home services: Yes Alcohol intake: never Patient Tobacco Use Status: Never used Tobacco e-Cigarette/Vaping Use: Never Used Second Hand Smoke Exposure: No service: No Current occupational status: unemployed, student and disabled Cognitive needs: Yes (walker) Hearing needs: No Vision needs: Yes (glasses) Review of Systems Eyes Reports as per [facility] ENT Reports no additional complaints Card Reports as per [facility] Resp Reports as per [facility] GI Reports as per [facility] Reports as per [facility] Musc Reports as per [facility] Neuro Reports no additional complaints Psych Reports as per [facility] Endo Reports as per [facility] Javier/Lymph Reports no additional complaints Aller/Immun Reports no additional complaints Physical Exam Const General: cooperative, healthy appearing, comfortable, no acute distress, well developed, alert and awake Nutritional Appearance: overweight Orientation/consciousness: patient oriented x3 Limitations: no limitations HEENT Head: Yes normal to inspection, Yes normocephalic and Yes atraumatic Ears: hearing grossly normal bilaterally Eyes General: appearance normal, both eyes and all related structures Neck Neck: Yes normal visual inspection and Yes trachea midline Chest Chest palpation & inspection: normal inspection of the chest Resp Effort & Inspection: normal respiratory effort and able to speak in complete sentences Cardio Rate: regular rate GI Inspection: Yes normal to inspection General: Yes no CVA tenderness Back/Spine/Pelvis Back: no CVA tenderness Skin General skin exam: no rashes or lesions noted Neuro General: patient oriented x3 Extrem General: Yes normal to inspection Psych Appearance: grossly normal and well kempt Mental Status: mental status grossly normal Speech and movement: Normal speech and movement present and Clear speech present Affect: normal affect Attitude: cooperative Thought process: Normal thought process present Thought content: Normal thought content present Insight: Fair insight present (Psych) Judgement: Fair judgement present (Psych) Office Procedures Post Void Residual Post Residual Void Post Void Residual (PVR): 0 [id number] Void Residual by ultrasound Results AMB Urinalysis, Automated UA Leukoctes 0 Carlos/uL Last Edit by Kacey Hodges CMA on 06/24/24 09:24 UA Nitrite Negative Last Edit by Kacey Hodges CMA on 06/24/24 09:24 UA Urobilinogen 0.2 mg/dL Last Edit by Kacey Hodges CMA on 06/24/24 09:2 4 UA Protein 15 mg/dL Last Edit by Kacey Hodges CMA on 06/24/24 09:24 UA pH 6.0 Last Edit by Kacey Hodges CMA on 06/24/24 09:24 UA Blood 0 Inder/uL Last Edit by Kacey Hodges CMA on 06/24/24 09:24 UA Specific Cypress 1.020 Last Edit by Kacey Hodges CMA on 06/24/24 09: 24 UA Ketone Negative Last Edit by Kacey Hodges CMA on 06/24/24 09:24 UA Bilirubin 0 mg/dL Last Edit by Kacey Hodges CMA on 06/24/24 09:24 UA Glucose 0 mg/dL Last Edit by Kacey Hodges CMA on 06/24/24 09:24 Results Reviewed Results Reviewed: Laboratory Last Values Urine pH (Auto) 6.0 06/24/24 09:08 Specific Cypress (Auto) 1.020 06/24/24 09:08 Urine Protein (Auto) 15 mg/dL 06/24/24 09:08 Glucose (UA)(Auto) 0 mg/dL 06/24/24 09:08 Urine Ketones (Auto) Negative 06/24/24 09:08 Urine Blood (Auto) 0 Inder/uL 06/24/24 09:08 Urine Nitrite (Auto) Negative 06/24/24 09:08 Urine Bilirubin (Auto) 0 mg/dL 06/24/24 09:08 Urine Urobilinogen (Auto) 0.2 mg/dL 06/24/24 09:08 Leukocyte Esterase (Auto) 0 Carlos/uL 06/24/24 09:08 Assessment & Plan Assessment & Plan (1) Overactive bladder: Code(s): N32.81 - Overactive bladder Category: Medical Plan In office urinalysis results with the patient today; as noted above. PVR 0 mL. We discussed and stressed the importance of weight loss in relation to lower urinary tract symptoms as well as overall health and well-being. We discussed further treatment options and risks and benefits of these treatment options. Will obtain retroperitoneal ultrasound for further assessment evaluation. Stop oxybutynin. Start Myrbetriq as discussed and prescribed. We discussed bladder triggers/irritants. We discussed pelvic floor exercises. We discussed importance of timed/scheduled voiding given decreased mobility. Follow-up in 1-3 months with imaging and PVR; or sooner with any issues, concer ns, and or questions. Orders: Orders AMB Post Void Residual by ultrasound Today N32.81 - Overactive bladder AMB Urinalysis Automated Today Z13.9 - Encounter for screening, unspecified US retroperitoneal comp Today N32.81 - Overactive bladder, N39.46 - Mixed incontinence, R35.1 - Nocturia Medications: New mirabegron ER (Myrbetriq) 25 mg PO DAILY 30 tabs 3RF 30 days N30.10 - Interstitial cystitis (chronic) without hematuria, N32.81 - Overactive bladder, R35.1 - Nocturia, R39.15 - Urgency of urination Changed From omeprazole 20 mg PO DAILY 90 caps 4RF To omeprazole stopped in error ... please continue 20 mg PO DAILY 90 caps 3RF 90 days Discontinued omeprazole Discontinued Reason: Ancillary Entered New Order 20 mg PO DAILY 90 caps 4RF oxybutynin chloride ER Discontinued Reason: Doctor's Order 10 mg PO DAILY 90 days 90 tabs 1RF Patient Instructions: The patient had an opportunity to ask questions regarding the treatment plan. All questions were answered. Physical exam, labs, and imaging were discussed and reviewed in detail. As well as risks, benefits, and discussion of treatment choices. No major barriers to understanding were identified. The patient expressed understanding and agreement with the above treatment plan. The patient was made aware they should contact our office by phone for worsening of their current condition, the appearance of new symptoms, or with any questions or concerns. Compliance is encouraged with any medications and follow up testing that is ordered. It is a privilege to be allowed the opportunity to participate in? your urological care.? Again, if you have any questions or concerns If you have any questions or concerns please do not hesitate to contact me. The office is [phone]. This note is constructed using voice recognition software. While every effort has been made to ensure accuracy civil cad designer errors may have been included. Yours sincerely, ISAÍAS Allison-DANYELL Coding Level of Care Code New Pt Level 4 (95578) Diagnoses Overactive bladder N32.81 CPT Codes Post Residual Void - PVR CPT Code: 12854-Gdxd Void Residual by ultrasound ([id number])
== END 2024-06-24 09:51 | disposition home or self-care (01) ==
PROVIDERS: PCP Internal Medicine; Visit Provider Nurse Practitioner Family
DX: Z13.9 Encounter for screening, unspecified (principal); N32.81 Overactive bladder
CPT/HCPCS: 99204

== ENCOUNTER → 2024-06-24 08:41 | Outpatient (BNVA) | payer OTHER, SELFPAY | PROVIDERS: PCP Internal Medicine; Visit Provider Nurse Practitioner Family | DX: N32.81 Overactive bladder (principal); N30.10 Interstitial cystitis (chronic) without hematuria; E66.9 Obesity, unspecified; N39.46 Mixed incontinence; R35.1 Nocturia; R35.0 Frequency of micturition; Z79.899 Other long term (current) drug therapy | CPT/HCPCS: 51798; 81003; 99202 ==

== ENCOUNTER 2024-08-04 08:52 | Outpatient (REF) | payer OTHER, SELFPAY ==
[2024-08-04 09:06] LABS: MANUAL DIFF FLAG NO
--- OUTSIDE RECORDS SUMMARY | 2024-08-04 09:33 | XMS_ITS | Clinical Summary ---
Author Organization [address] [facility] Address [address] [place] [address] Phone Care Team Providers Care Portal Architect Name Role Phone Antonino Barrera MD Primary Care Provider [phone] Encounters Date Type Department Care Team Description 06/17/2024 9:30 AM EST Evaluation [address] [phone] Mercedes Braun PT Physical deconditioning (Primary Dx) 06/17/2024 Plan of Care Documentation [address] [phone] from Last 3 Months Social History Tobacco Use Types Packs/Day Years Used Date Smoking Tobacco: Never Assessed Comments Unknown Sex and Gender Information Value Date Recorded Sex Assigned at Not on file Legal Sex Female 11:02 AM EDT Gender Identity Not on file Sexual Orientation Not on file Plan of Treatment Health Maintenance Due Date Last Done Comments Pneumococcal Vaccine: 50+ Years (1 of 1 - PCV) 1999 Colorectal Cancer Screening: Colonoscopy 01/10/2024 Depression Screening 01/10/2024 Falls Risk Assessment 01/10/2024 Hepatitis C Screening 01/10/2024 Medicare Annual Wellness Visit 01/10/2024 Osteoporosis Screening (Bone Density Screening) 01/10/2024 Social Influencers of Health Screening 01/10/2024 RSV Immunization Patients 60+ Years Old (1 - 1-dose 75+ series) 02/07/2024 COVID-19 Vaccine (3 - season) 2024 05/26/2021, 09/12/2020 Influenza Vaccine (#1) 2024 3, 06/07/2022, 05/10/2021, Additional history exists Zoster Vaccines (2 of 2) 07/21/2024 05/26/2024 DTaP,Tdap,and Td Vaccines (3 - Td or Tdap) 06/07/2032 06/07/2022, 05/26/2008 HIB Vaccines Aged Out No longer eligi ble based on patient's age to complete this topic HPV Vaccines Aged Out No longer eligi ble based on patient's age to complete this topic Hepatitis A Vaccines Aged Out No long er eligible based on patient's age to complete this topic Hepatitis B Vaccines Aged Out No long er eligible based on patient's age to complete this topic IPV Vaccines Aged Out No longer eligi ble based on patient's age to complete this topic MMR Vaccines Aged Out No longer eligi ble based on patient's age to complete this topic Meningococcal ACWY Vaccine Aged Out N o longer eligible based on patient's age to complete this topic Meningococcal B Vacine Aged Out No lo nger eligible based on patient's age to complete this topic RSV Immunization Patients Under 20 months Aged Out No longer eligible based on patient's age to complete this topic Varicella Vaccines Aged Out No longer eligible based on patient's age to complete this topic Insurance [employer] MEDICARE Care Teams Portal Architect Relationship Specialty Start Date End Date Antonino Barrera MD [address] [place] [id number] PCP - General Internal Medicine 05/26/24
--- OUTSIDE RECORDS SUMMARY | 2024-08-04 09:33 | XMS_ITS ---
Author Name Mariaelena Garcia NP Address [address] [place] [address] Phone [phone] Organization [facility] Team Providers Care Engine Room Helper Name Role Phone Mariaelena Garcia Unavailable [phone] Bruce Antonino Unavailable [phone] Unavailable Unavailable Unavailable Reason for Referral Not Available Allergies, adverse reactions, alerts No known allergies History of medication use Medication Class Instructions Start Date End Date Levothyroxine Sodium 137 MCG Tab TAKE 1 TABLET BY MOUTH EVERY DAY 2021-08-18 No Data Available Albuterol Sulfate (2.5 mg/3ML) 0.083% Nebulization Solution INHALE 2.5 MG (3 ML) CONTINUOUS NEBULIZATION EVERY 6-8 HOURS NEEDED FOR BRONCHOSPASM 2021-10-24 No Data Available Senna-Time 8.6 mg Tab TAKE 2 TABLETS BY MOUTH AT BEDTIME NEEDED FOR CONSTIPATION 2021-10-24 No Data Available Oxybutynin Chloride ER 10 mg Tab ER 24hr TAKE 10 MG ORALLY DAILY FOR 90 DAYS 2021-08-21 No Data Available oxyCODONE-Acetaminophen 5/32 5 mg Tab TAKE 1 TABLET BY MOUTH EVERY 6 HOURS NEEDED FOR PAIN 2021-11-08 No Data Available Sertraline 100 mg Tab TAKE 1 TABLET BY M OUTH EVERY DAY 2021-08-21 No Data Available VITAMIN D3 1,000 UNIT SOFTGEL TAKE 1 CAP BREANA BY MOUTH DAILY 2021-08-24 No Data Available Spironolactone 100 mg Tab TAKE 1 TABLET BY MOUTH 2 TIMES A DAY 2021-11-20 No Data Available Gabapentin 400 mg Cap TAKE 1 CAPSULE BY MOUTH 3 TIMES A DAY 2021-08-29 No Data Available Lisinopril 40 mg Tab TAKE 1 TABLET BY MO UTH DAILY 2021-06-30 No Data Available Omeprazole 20 mg Cap delayed rel TAKE 1 CAPSULE BY MOUTH DAILY 2021-06-16 No Data Available VITAMIN B-12 1,000 MCG TABLET TAKE 1 TAB LET BY MOUTH EVERY DAY FOR 90 DAYS 2021-07-25 2023-04-24 Meclizine 25 mg Tab TAKE 1 TABLET BY LONG TH TWICE A DAY NEEDED FOR DIZZINESS 2022-01-19 No Data Available Linzess 290 MCG Cap TAKE 1 CAPSULE BY MO UTH EVERY MORNING 2022-02-01 No Data Available amLODIPine Besylate 2.5 mg Tab TAKE 1 TABLET BY MOUTH DAILY 2022-02-21 2022-04-17 Hydrocortisone 1 % Crm APPLY 1 APPLICATI ON TOPICALLY 3 TIMES A DAY NEEDED FOR ITCHING 2022-02-21 No Data Available Albuterol Sulfate HFA 108 (9 0 Base) MCG/ACT Aerosol Solution Inhalation 2 puffs Q 4-6H PRN cough, wheezing, SOB 2023-04-24 No Data Available oxyCODONE 5 mg Tab 1 tablet by mouth th ree times daily PRN 2023-04-24 No Data Available amLODIPine Besylate 2.5 mg Tab TAKE 1 TABLET ORALLY DAILY 2022-10-17 No Data Avail able Bisacodyl EC 5 mg Tab delaye d rel TAKE 2 TABLETS BY MOUTH AT BEDTIME FOR 30 DAYS 2022-05-22 No Data Available Amoxicillin 875 mg Tab TAKE 1 TAB BY LONG TH 3 TIMES A DAY UNTIL GONE 2023-02-01 No Data Available Diclofenac Sodium 1 % Gel APPLY 2 G TOPI JENNY 2 TIMES A DAY 2023-03-29 No Data Available B-12 1,000 MCG TABLET TAKE 1 TABLET BY M OUTH DAILY 2022-07-15 No Data Available [facility] Pain [facility] 4 % Patch 1 patch topica lly to affected area daily as needed 2023-04-24 2023-07-17 dexAMETHasone 6 mg Tab TAKE 1 TABLET BY MOUTH EVERY DAY 2023-05-06 2023-07-17 Vitamin B-12 1000 MCG Tab TAKE 1 TABLET BY MOUTH EVERY DAY 2023-06-11 No Data Available Glucometer w/Device Kit with strips and lancets - provide brand covered by insurance Check blood glucose twice daily 2023-07-17 No Data Available Problem List Problem Status Onset Date Resolved Date GERD (gastroesophageal reflux disease) Active 01-05-08 N/A Anxiety and major depressive disorder, recurent, moderate Active 2022-04-17 N/A Sleep apnea, obstructive Active 2022-04-17 N/A IBS (irritable bowel syndrome) Active 2022-04-17 N/A Hypothyroid Active 2022-04-17 N/A Hypertension Active 2022-04-17 N/A Asthma Active 2022-04-17 N/A Chronic back pain Active 2022-04-17 N/A Morbid Obesity Active 2022-04-17 N/A Opioid use Active 2022-04-19 N/A Encounters Encounters Type Facility Date of Service Diagnosis/Co mplaint Medication List Documented (1159F) [facility], ([place]) [place] Medication List Documented (1159F) [facility] ([place] Medication List Documented (1159F) [facility] Medication List Documented (1159F) [facility] Medication List Documented (1159F) [facility] Medication List Documented (1159F) [facility] Essential (primary) hypertensionUnspecified asthma, uncomplicatedMorbid (severe) obesity due to excess caloriesOpioid dependence, uncomplicatedMajor depressive disorder, recurrent, moderateBody mass index (BMI) 45.0-49.9, adultAnxiety disorder, unspecifiedDorsalgia, unspecifiedGastro-esophageal reflux disease without esophagitisOther chronic painHypothyroidism, unspecifiedObstructive sleep apnea (adult) (pediatric)Irritable bowel syndrome without diarrhea Medication List Documented (1159F) [facility] ([place] 04[place] Medication List Documented (1159F) [facility] ([place]) 04[place] Estab. patient 30-39min; chronic exacerbation, 2 stable chronic or 1 acute illness add add modifier 95 for video, (do not use for phone, instead use [id number]) [facility], ([place]) 04/24/2023 Essential (primary) hypertensionGastro-esophageal reflux disease without esophagitisAnxiety disorder, unspecifiedMajor depressive disorder, recurrent, moderateMorbid (severe) obesity due to excess caloriesUnspecified asthma, uncomplicatedObstructive sleep apnea (adult) (pediatric)Dorsalgia, unspecifiedOther chronic painIrritable bowel syndrome without diarrheaHypothyroidism, unspecifiedOpioid dependence, uncomplicatedBody mass index (BMI) 40.0-44.9, adult Estab. patient 30-39min; chronic exacerbation, 2 stable chronic or 1 acute illness add add modifier 95 for video, (do not use for phone, instead use 10139-18) [facility], ([place]) 04[place] Estab. patient 30-39min; chronic exacerbation, 2 stable chronic or 1 acute illness add add modifier 95 for video, (do not use for phone, instead use 15897-44) [facility] ([place] 04[place] Estab. patient 30-39min; chronic exacerbation, 2 stable chronic or 1 acute illness add add modifier 95 for video, (do not use for phone, instead use 65673-30) [facility] ([place] Estab. patient 30-39min; chronic exacerbation, 2 stable chronic or 1 acute illness add add modifier 95 for video, (do not use for phone, instead use 60457-62) [facility] ([place] Estab. patient 30-39min; chronic exacerbation, 2 stable chronic or 1 acute illness add add modifier 95 for video, (do not use for phone, instead use 65455-11) [facility] ([place] 04[place] Estab. patient 30-39min; chronic exacerbation, 2 stable chronic or 1 acute illness add add modifier 95 for video, (do not use for phone, instead use 96091-52) [facility] ([place] 04[place]/20[place] Estab. patient 30-39min; chronic exacerbation, 2 stable chronic or 1 acute illness add add modifier 95 for video, (do not use for phone, instead use 26086-06) [facility] ([place] 04[place]/20[place] Estab. patient 30-39min; chronic exacerbation, 2 stable chronic or 1 acute illness add add modifier 95 for video, (do not use for phone, instead use 76094-94) [facility] ([place] 04[place]/20[place] Estab. patient 30-39min; chronic exacerbation, 2 stable chronic or 1 acute illness add add modifier 95 for video, (do not use for phone, instead use 68708-81) [facility] ([place] 04[place]/20[place] Estab. patient 30-39min; chronic exacerbation, 2 stable chronic or 1 acute illness add add modifier 95 for video, (do not use for phone, instead use 62768-43) [facility] ([place] 07[place]/2023 Essential (primary) hypertensionGastro-esophageal reflux disease without esophagitisAnxiety disorder, unspecifiedMajor depressive disorder, recurrent, moderateMorbid (severe) obesity due to excess caloriesUnspecified asthma, uncomplicatedObstructive sleep apnea (adult) (pediatric)Other problems related to medical facilities and other health careIrritable bowel syndrome without diarrheaHypothyroidism, unspecifiedDorsalgia, unspecifiedOther chronic painBody mass index (BMI) 40.0-44.9, adultOpioid use, unspecified, uncomplicated Estab. patient 30-39min; chronic exacerbation, 2 stable chronic or 1 acute illness add add modifier 95 for video, (do not use for phone, instead use 30470-71) [facility] ([place] 07[place] Estab. patient 30-39min; chronic exacerbation, 2 stable chronic or 1 acute illness add add modifier 95 for video, (do not use for phone, instead use 48265-11) [facility] ([place] 07[place] Estab. patient 30-39min; chronic exacerbation, 2 stable chronic or 1 acute illness add add modifier 95 for video, (do not use for phone, instead use 78979-14) [facility] ([place] 07[place] Estab. patient 30-39min; chronic exacerbation, 2 stable chronic or 1 acute illness add add modifier 95 for video, (do not use for phone, instead use 37026-09) [facility] ([place]) 07[place] Estab. patient 30-39min; chronic exacerbation, 2 stable chronic or 1 acute illness add add modifier 95 for video, (do not use for phone, instead use 35058-93) [facility], ([place]) 07[place]/20[place] Estab. patient 30-39min; chronic exacerbation, 2 stable chronic or 1 acute illness add add modifier 95 for video, (do not use for phone, instead use 01650-25) [facility], ([place]) 07[place]20[place] Estab. patient 30-39min; chronic exacerbation, 2 stable chronic or 1 acute illness add add modifier 95 for video, (do not use for phone, instead use 20981-72) [facility], ([place]) 07[place]/2023 Vital Signs Date of Collection Vitals 2022-04-17 08:59:16 Height - 157.48 cmWe ight - 112.04 kgBody Mass Index (BMI) - 45.18 kg/m2BP Diastolic - 82.0 mm[Hg]BP Systolic - 123.0 mm[Hg] 2023-04-24 10:11:57 Height - 157.48 cmWe ight - 111.13 kgBody Mass Index (BMI) - 44.81 kg/m2BP Diastolic - 75.0 mm[Hg]BP Systolic - 127.0 mm[Hg]Heart Rate - 80.0 /minPain Scale - 4.0 {score} 2023-07-17 08:01:59 Height - 157.48 cmWe ight - 111.58 kgBody Mass Index (BMI) - 44.99 kg/m2BP Diastolic - 81.0 mm[Hg]BP Systolic - 137.0 mm[Hg] Social History Social History Social History Observation Description Effec tive Time Current Smoking Status Never smoker 2024-07-12 4 Sex Female History of Procedures Procedures Service Procedure code Service date Servicing provider Phone# Medication List Documented (1159F) 1159F 2022-04-17 No Data Available No Data Candice ilable Medication Review by prescribing provider or pharmacist documented (1160F) 1160F 2022-04-17 No Data Available No Data Candice ilable Functional Status Assessed (1170F) 1170F 2022-04-17 No Data Available No Data Avail able Advance Care Directive Advance care planning discussion documented in the medical record (1158F) 1158F 2022-04-17 No Data Available No Data Availa ble BMI obtained (3008F) 3008F 2022-04-17 No Data Availab le No Data Available New patient,40-59min; chronic exacerbation, 2 stable chronic or 1 acute illness add add modifier 95 for video (do not use for phone, instead use [id number]) 53585 2022-04-17 No Data Available No Data Availa ble SBP < 130 (3074F) 3074F 2022-04-17 No Data Available No Data Available DBP 80-89 (3079F) 3079F 2022-04-17 No Data Available No Data Available Estab. patient 30-39min; chronic exacerbation, 2 stable chronic or 1 acute illness add add modifier 95 for video, (do not use for phone, instead use [id number]) 34932 2023-04-24 No Data Available No Data Availa ble Medication List Documented (1159F) 1159F 2023-04-24 No Data Available No Data Candice ilable Medication Review by prescribing provider or pharmacist documented (1160F) 1160F 2023-04-24 No Data Available No Data Candice ilable Pain Assessment - Pain Documented on a Pain Scale (1125F) 1125F 2023-04-24 No Data Available No Data Candice ilable BMI obtained (3008F) 3008F 2023-04-24 No Data Availab le No Data Available Advance Care Directive Advance care planning discussion documented in the medical record (1158F) 1158F 2023-04-24 No Data Available No Data Availa ble Advance care planning discussed and documented ? advance care plan or surrogate decision-maker was documented in the medical record. (1123F) 1123F 2023-04-24 No Data Available No Data Availa ble SBP < 130 (3074F) 3074F 2023-04-24 No Data Available No Data Available DBP <80 (3078F) 3078F 2023-04-24 No Data Available No Data Available Functional Status Assessed (1170F) 1170F 2023-04-24 No Data Available No Data Avail able Estab. patient 30-39min; chronic exacerbation, 2 stable chronic or 1 acute illness add add modifier 95 for video, (do not use for phone, instead use [id number]) 10932 2023-07-17 No Data Available No Data Availa ble Medication List Documented (1159F) 1159F 2023-07-17 No Data Available No Data Candice ilable Medication Review by prescribing provider or pharmacist documented (1160F) 1160F 2023-07-17 No Data Available No Data Candice ilable BMI obtained (3008F) 3008F 2023-07-17 No Data Availab le No Data Available SBP 130-139 (3075F) 3075F 2023-07-17 No Data Availabl e No Data Available DBP 80-89 (3079F) 3079F 2023-07-17 No Data Available No Data Available Pain Assessment - Pain Documented on a Pain Scale (1125F) 1125F 2023-07-17 No Data Available No Data Candice ilable Functional Status Assessed (1170F) 1170F 2023-07-17 No Data Available No Data Avail able Functional Status Functional Category Effective Dates Cognition Status: Oriented t o Person, Place and TimeRecall 2/3 words at 3 minutes 2022-04-17 Has wheelchair, uses walker 2023-04-24 Has life alert 2023-04-24 Has BP cuff 2023-04-24 [facility]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-24 Continent uses bed pads for accidents 20 02-05-15 Lives alone, but daughter there most of day, daughter is [employer] 2023-04-24 ADLsAmbulating - Needs Alejandrina tanceDressing - Needs assistanceBathing - Needs assistanceToileting - Needs assistanceTransfers - Needs assistanceEating - Some assistanceiADLsShopping - Needs assistanceMedications - Needs assistanceHousekeeping - Needs assistanceCooking - Needs assistanceFalls in last 6 months - No 2023-07-17 Mental Status Status Date Cognition Status: Oriented t o Person, Place and Time,Recall 2/3 unrelated words at 3 minutes 2022-04-17 Assessments Date of Service Assessments 2022-04-17 08:59:16 HypertensionAsthmaSl eep apnea, obstructiveGERD (gastroesophageal reflux disease)HypothyroidChronic back painIBS (irritable bowel syndrome)Morbid ObesityOpioid dependence, uncomplicatedAnxiety and major depressive disorder, recurent, moderate 2023-04-24 10:11:57 HypertensionGERD (ga stroesophageal reflux disease)Anxiety and major depressive disorder, recurent, moderateMorbid ObesityAsthmaSleep apnea, obstructiveChronic back painIBS (irritable bowel syndrome)HypothyroidOpioid dependence, uncomplicated 2023-07-17 08:01:59 Other problems relat ed to medical facilities and other health careHypertensionGERD (gastroesophageal reflux disease)Anxiety and major depressive disorder, recurent, moderateMorbid ObesityAsthmaSleep apnea, obstructiveIBS (irritable bowel syndrome)HypothyroidOpioid dependence, uncomplicatedChronic back pain Plan of Care Date of Service Plans 2022-04-17 08:59:16 Medication Review by prescribing provider or pharmacist documented (1160F)Medication List Documented (1159F)Functional Status Assessed (1170F)Advance Care Directive Advance care planning discussion documented in the medical record (1158F)BMI obtained (3008F)SBP < 130 (3074F)DBP 80-89 (3079F)Televideo new patient,40-59min; chronic exacerbation, 2 stable chronic or 1 acute illness add modifier 95Continue to see PCP. Follow-up with [facility] as needed for any acute or disease education needs that may arise.Diagnosed many years ago was previously on ACEi and amlodipine, recent drug adjustment by PCP now on spironolactone as well sees PCP every 3 months, BP assessed by [employer] dailyrecommend healthy lifestyle changes (weight loss, heart healthy diet, sodium restriction, increase physical activity and alcohol restriction)stable for many years denies any recent attacks or hospitalizations due to asthmaon a rescue inhaler PRNassessed frequency of KAMILA use, counseled patient on understanding signs and symptoms of when to use inhalerrecommend close follow up with PCP, continue to use inhaler as needed and avoiding asthma exacerbation known triggersstable without disease progression on CPAP at night time states no issues with current settings, last adjusted two years agodiscussed and counseled patient on adherence to CPAP userecommend nightly use to avoid sleep issues and daytime sleepiness , weight loss also recommendedDiagnosed in 2007, on a daily PPI states spicy foods to be triggers of flare upsmeds reviewed and patient counseled on use of PPI recommend dietary modifications, avoiding triggers and weight lossstable on Levothyroxine daily no lab data available for review, pt states she's been in current dose for years reviewed meds and assessed pt for signs of current thyroid functionrecommend continue with medication and following with PCP every 3 monthspt takes gabapentin and OTC medications as needed no recent scans on file or work up data to support diagnosis counseled pt on non pharmacological ways to reduce painrecommend following up with PCP, regular exercise and weight lossstable without disease progression on Linzess and senna pt reported medication effectiveness and compiancediscussed meds and any changes in bowel movementsrecommend continue to take prescribed medicationswith limited mobility due to pain, denies recent weight gaincurrently working on healthy diet choices for weight loss discussed importance of lifestyle modificationsrecommend continuing with healthier food choices, increasing physical activity as tolerated BMI 45taking hydrocodone routinely with refills monthlyHas tolerance and inability to cut down or stop. Overdose prevention discussed. Be cautious with use. There is risk for dependence/respiratory depression/falls/cognitive dysfunction.stable on a SSRI, sertraline, no recent attacks reported medication effectiveness reviewed with the patient discussed current state and counseled on signs and symptoms of worsening anxietyrecommend continue with SSRI and to report any worsening symptoms 2023-04-24 10:11:57 Medication Review by prescribing provider or pharmacist documented (1160F)Medication List Documented (1159F)Functional Status Assessed (1170F)Advance Care Directive Advance care planning discussion documented in the medical record (1158F)BMI obtained (3008F)SBP < 130 (3074F)DBP <80 (3078F)Televideo 30-39min; chronic exacerbation, 2 stable chronic or 1 acute illness add modifier 95Advance care planning discussed and documented ? advance care plan or surrogate decision-maker was documented in the medical record. (1123F)Advance care planning discussed and documented in the medical record ? beneficiary/patient did not wish to or was unable to provide an advance care plan or name a surrogate decision-king telles. (1124F)Pain Assessment - Pain Documented (1125F)Continue to see PCP. Follow-up with [facility] as needed for any acute or disease education needs that may arise.Continues on Amlodipine, Lisinopril, Spironolactone sees PCP every 3 months, BP assessed by [employer] dailyLast BP 127/75; has BP cuff at home recommend healthy lifestyle changes (weight loss, heart healthy diet, sodium restriction, increase physical activity and alcohol restriction)Diagnosed in 2007, on a daily PPI states spicy foods to be triggers of flare ups; recommend avoidance meds reviewed and patient counseled on use of PPI recommend dietary modifications, avoiding triggers and weight lossstable on a SSRI, sertraline, no recent attacks reported Depression tips: Spend time with family and friends, practice mindfulness and meditation, deep breathing, journaling, exercise if able, get outdoors, eat a balanced diet, and get regular sleep. Advised to take medications as prescribed. If you begin to have suicidal or homicidal thoughts discontinue medication and call office or 911. Call provider if adverse effects occur. Follow up with PCP.with limited mobility due to pain, denies recent weight gainBMI 45Advised to eat a healthy diet include emphasizing fruits, vegetables, whole grains, poultry, fish and nuts and limiting sugary foods and beverages. Eating this way may help increase fiber, which is also beneficial. A diet high in fiber can help lower cholesterol levels by as much as 10 percent. DASH diet. Increase exercise to 30-45 min q day. Decrease sugary drinks, stop soda intake. Limit ETOH intake. If you smoke, quit smoking.stable for many years denies any recent attacks or hospitalizations due to asthma; on a rescue inhaler PRN, has rescue inhaler and nebulizer recommend close follow up with PCP, continue to use inhaler as needed and avoiding asthma exacerbation known triggers Contingency Plan Normal oxgyen flow rate: NoneCurrent PRN medications: Albuterol MDI PRNFor worsening symptoms: Increase use of albuterol inhaler/nebulizer to q2h PRN cough, breathlessness, Fever and purulent sputum - add azithromycin 500mg on day 1 then 250 mg on day 2-5, Avoid environmental irritants (such as smoke, smog, garden and grass cuttings, chemicals, animals, and other irritants), Start Flonase 2 sprays daily and Start Claritin 10mg dailystable without disease progression on CPAP at night time; states no issues with current settings, last adjusted two years agodiscussed and counseled patient on adherence to CPAP userecommend nightly use to avoid sleep issues and daytime sleepiness , weight loss also recommendedpt takes gabapentin and OTC medications as needed Will trial lidoderm patches. counseled pt on non pharmacological ways to reduce painrecommend following up with PCP, regular exercise and weight lossContinues on Linzesspt reported medication effectiveness and compliancediscussed meds and any changes in bowel movementsrecommend continue to take prescribed medicationsstable on Levothyroxine daily no lab data available for review, pt states she's been in current dose for years reviewed meds and assessed pt for signs of current thyroid functionrecommend continue with medication and following with PCP every 3 monthstaking hydrocodone routinely with refills monthlyHas tolerance and inability to cut down or stop. Overdose prevention discussed. Be cautious with use. There is risk for dependence/respiratory depression/falls/cognitive dysfunction. 2023-07-17 08:01:59 Medication Review by prescribing provider or pharmacist documented (1160F)Medication List Documented (1159F)Functional Status Assessed (1170F)Advance Care Directive Advance care planning discussion documented in the medical record (1158F)BMI obtained (3008F)SBP 130-139 (3075F)DBP 80-89 (3079F)Televideo 30-39min; chronic exacerbation, 2 stable chronic or 1 acute illness add modifier 95Advance care planning discussed and documented ? advance care plan or surrogate decision-maker was documented in the medical record. (1123F)Pain Assessment - Pain Documented (1125F)Continue to see PCP. Follow-up with [facility] as needed for any acute or disease education needs that may arise.<Add contingency plans here>Continues on Amlodipine, Lisinopril, Spironolactone sees PCP every 3 months, BP assessed by [employer] dailyLast BP 127/75; has BP cuff at home recommend healthy lifestyle changes (weight loss, heart healthy diet, sodium restriction, increase physical activity and alcohol restriction)Diagnosed in 2007, on a daily PPI states spicy foods to be triggers of flare ups; recommend avoidance meds reviewed and patient counseled on use of PPI recommend dietary modifications, avoiding triggers and weight lossstable on a SSRI, sertraline, no recent attacks reported Depression tips: Spend time with family and friends, practice mindfulness and meditation, deep breathing, journaling, exercise if able, get outdoors, eat a balanced diet, and get regular sleep. Advised to take medications as prescribed. If you begin to have suicidal or homicidal thoughts discontinue medication and call office or 911. Call provider if adverse effects occur. Follow up with PCP.with limited mobility due to pain, denies recent weight gainBMI 45Advised to eat a healthy diet include emphasizing fruits, vegetables, whole grains, poultry, fish and nuts and limiting sugary foods and beverages. Eating this way may help increase fiber, which is also beneficial. A diet high in fiber can help lower cholesterol levels by as much as 10 percent. DASH diet. Increase exercise to 30-45 min q day. Decrease sugary drinks, stop soda intake. Limit ETOH intake. If you smoke, quit smoking.07/17/2023Spoke at length about the role her extra weight plays on her pain and other problems. Pt doesn't like to walk due to her pain, and takes opioids PRN and gabapentin, and Miralax and Linzess to manage the consequent constipation. Offered weight loss clinic consultation - pt was very hesitant and said she would think about it.Recommend limiting starches (rice, bread, potatoes, milk, sugar), eating more fiber and protein.stable for many years denies any recent attacks or hospitalizations due to asthma; on a rescue inhaler PRN, has rescue inhaler and nebulizer recommend close follow up with PCP, continue to use inhaler as needed and avoiding asthma exacerbation known triggers Contingency Plan Normal oxgyen flow rate: NoneCurrent PRN medications: Albuterol MDI PRNFor worsening symptoms: Increase use of albuterol inhaler/nebulizer to q2h PRN cough, breathlessness, Fever and purulent sputum - add azithromycin 500mg on day 1 then 250 mg on day 2-5, Avoid environmental irritants (such as smoke, smog, garden and grass cuttings, chemicals, animals, and other irritants), Start Flonase 2 sprays daily and Start Claritin 10mg dailystable without disease progression on CPAP at night time; states no issues with current settings, last adjusted two years agodiscussed and counseled patient on adherence to CPAP userecommend nightly use to avoid sleep issues and daytime sleepiness , weight loss also recommendedContinues on Linzesspt reported medication effectiveness and compliancediscussed meds and any changes in bowel movementsrecommend continue to take prescribed medicationsstable on Levothyroxine daily no lab data available for review, pt states she's been in current dose for years reviewed meds and assessed pt for signs of current thyroid functionrecommend continue with medication and following with PCP every 3 monthstaking hydrocodone routinely with refills monthlyHas tolerance and inability to cut down or stop. Overdose prevention discussed. Be cautious with use. There is risk for dependence/respiratory depression/falls/cognitive dysfunction. 4Declines Narcan. 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 counseled pt on non pharmacological ways to reduce painrecommend following up with PCP, regular exercise and weight loss Very resistant to losing weight. Encouragement. Goals Date Goal 2022-04-17 Remember to take you r medications as prescribed and to check BP daily 2022-04-17 Call me if you have any questions or concerns 2022-04-17 Keep it up with the [facility] Concerns Date Concern 2023-07-17 Visit completed usin g audio/video. Patient/Guardian agreed to visit via telehealth. Today, patient has chief complaint of: follow up care and comprehensive review.Reviewed Allergies, Medications, Active Medical conditions, past medical/surgical history, Social history. 2023-07-17 Full code, CPR, atte mpt resuscitation. HCP: Daughter Health Care Surrogate : Jailene Boykin [phone] 2023-07-17 Most recent hospital stay(s) or ER visit(s) and precipitating factors: 2023-07-17 Open HEDIS Measure wali rodríguez:
--- OUTSIDE RECORDS SUMMARY | 2024-08-04 09:33 | XMS_ITS ---
Author Organization [facility] Address [address] [place] [address] Care Team Providers Care Solution Architect Name Role Phone Bruce BOLAÑOS, [place] Primary Care Provider Tisha Vital Unavailable [phone] REASON FOR VISIT [facility] Entered Encounters Encounter Location Date Provider Diagnosis [facility] [address] [place] [address] 01/30/2024 Tisha Arguello Plan Of Treatment No Information Progress Notes * Yeimi FUENTESDOB:1950 (73 yo F)Acc No.[id number]:01/30/2024 Patient:?Yeimi Fuentes :1950???Age:73 Y???Sex:Female Address:[address] [place], [address] * true * Date:? Generated for Francesca jennings/Levi/eTransmitting on:?08/04/2024 09:32 AM EST
--- OUTSIDE RECORDS SUMMARY | 2024-08-04 09:33 | XMS_ITS ---
Author Organization [facility] [place] Address [address] [place] [address] Care Team Providers Care Superintendent Meters Name Role Phone Bruce BOLAÑOS, [place] Primary Care Provider Tisha Vital Unavailable [phone] Allergies No Known Allergies REASON FOR VISIT Pcp- 03/03, Skin Problem, Painful Toe(s) Medications Medication SIG (Take, Route, Frequency, Duration) Notes Start Date End Date Status Gabapentin 400 MG TAKE 1 CAPSULE BY MO UTH 3 TIMES A DAY Oral for 90 Days Active Levothyroxine Sodium 137 MCG TAKE 1 TABLET BY MOUTH EVERY DAY Oral for 90 Days Active Meclizine HCl 25 MG TAKE 1 TABLET BY LONG 2 TIMES A DAY NEEDED FOR DIZZINESS Oral for 30 Days Active Omeprazole 20 MG TAKE 1 CAPSULE BY MO UTH EVERY DAY Oral for 90 Days Active Hydrocortisone 01/30/2024 Acti ve oxyBUTYnin Chloride ER 10 MG TAKE 1 TABLET BY MOUTH EVERY DAY Oral for 90 Days Active oxyCODONE-Acetaminophen 5-325 MG TAKE 1 TABLET BY MOUTH EVERY 6 HOURS NEEDED FOR PAIN Oral for 28 Days Active Spironolactone 100 MG TAKE 1 TABLET BY M OUTH TWICE A DAY Oral for 90 Days Active Diclofenac Sodium 1 % APPLY 2GM TOPICALL Y 2 TIMES A DAY External for 5 Days Active Ciclopirox Olamine 0.77 % 1 application Externally Twice a day to feet including between the toes for 30 days Active D3-1000 25 MCG (1000 UT) TAKE 1 CAPSULE ORALLY DAILY FOR 90 DAYS Oral for 90 Days Active Albuterol Sulfate HFA 108 (90 Base) MCG/ACT INHALE 2 PUFFS BY MOUTH EVERY 6 HOURS NEEDED FOR BRONCHOSPASM Inhalation for 25 Days Active Linzess 290 MCG TAKE 1 CAPSULE BY MO UTH EVERY MORNING Oral for 30 Days Active Vitamin B-12 1000 MCG TAKE 1 TABLET BY M OUTH EVERY DAY Oral for 90 Days Active Lisinopril 40 MG TAKE 1 TABLET BY LONG TH DAILY Oral for 90 Days Active Sertraline HCl 100 MG TAKE 1 TABLET ORAL LY DAILY FOR 90 DAYS Oral for 90 Days Active Social History Tobacco Use: Social History Observation Description Date Details (start date - stop date) Never Smoker NA - NA Tobacco Use/Smoking Question Answer Notes Are you a: nonsmoker Additional Findings: Tobacco Non-User Current no n-smoker Alcohol Screen Question Answer Notes Did you have a drink containing alcohol in the p ast year? No Points 0 Interpretation Negative Tobacco use other than smoking: Question Answer Notes Are you an other tobacco user? No Problems Problem Type SNOMED Code ICD Code Onset Dates Problem Status W/U Status Risk Notes Problem Acquired hammer toe of right foot (6651290601092449) Other hammer toe(s) (acquired), right foot (M20.41) Active confirmed Problem Localized, primary osteoarthritis of the ankle and/or foot (924484660) Arthritis of joint of lesser toe, right (M19.071) Active confirmed Problem Acquired hammer toe of left foot (9028036408065755) Other hammer toe(s) (acquired), left foot (M20.42) Active confirmed Problem Localized, primary osteoarthritis of the ankle and/or foot (798636485) Arthritis of joint of lesser toe, left (M19.072) Active confirmed Vital Signs Height 5ft 2in in 03/06/2024 Weight 240 lbs 03/06/2024 BMI 43.89 kg/m2 03/06/2024 Encounters Encounter Location Date Provider Diagnosis [facility] [address] [place] [address] 03/06/2024 Tisha Arguello Tinea pedis of both feet B35.3 ; Pain in right toe(s) M79.674 ; Other hammer toe(s) (acquired), right foot M20.41 ; Pain in left toe(s) M79.675 and Other hammer toe(s) (acquired), left foot M20.42 Assessments Encounter Date Diagnosis (ICD Code) Assessment Notes Treatment Notes Treatment Clinical Notes Section Notes 03/06/2024 Tinea pedis of both feet (ICD-10 - B35.3) 03/06/2024 Pain in right toe(s) (ICD-10 - M79.674) 03/06/2024 Other hammer toe(s) (acquired), right foot (ICD-10 - M20.41) 03/06/2024 Pain in left toe(s) (ICD-10 - M79.675) 03/06/2024 Other hammer toe(s) (acquired), left foot (ICD-10 - M20.42) Plan Of Treatment Medication Medication Name Sig Start Date Stop Date Notes Ciclopirox Olamine 0.77 % 1 application Externally Twice a day to feet including between the toes for 30 days Next Appt Details Follow Up: prn, Reason: Progress Notes * Yeimi FUENTESDOB:1950 (74 yo F)Acc No.[id number]:03/06/2024 Progress Notes Patient:?Ed Fuentesaris Provider:?Tisha Arguello DPM :1950???Age:74 Y???Sex:Female D ate:03/06/2024 Address:[address] [place] [address], [facility], [place] Pcp:Antonino Barrera MD Subjective: * Chief Complaints: * ???Pcp- 03/03Kadie ProblemPai nful Toe(s) * HPI: ???Skin problems:?Nature:?scaling , , itching.?Location:?Left.?Duration:?several days.?Course:?worse.?Toe pain:?Nature:?tenderness.?Location:?Great toe , B/L feet.?Course:?worse.?Aggravated by:?shoes, any pressure.?Treatments:?rest/alter normal daily activity, change in shoes.? * ROS:?General/Constitutional:?Nausea?admits.?Vomiting?denies.?Hunger Thirst?denies.?Loss appetite?denies.?Chills?denies.?Fatigue?admits.?Fever?denies.?Night Sweats?denies.?Unexplained weight loss?denies.?Unexplained weight gain?admits.?HEENTM:?Dentures?denies.?Dizziness?admits.?Glasses/contacts?admits.?Retinopathy?ad mits.?Blurred/double vision?denies.?TMJ?denies.?Discharge/drainage?denies.?Implants?denies.?Sore throat?denies.?Dental implants?denies.?Hard of hearing ?denies.?Difficulty chewing/swallowing/speaking?denies.?Nose bleeds?denies.?Sore mouth?denies.?Respiratory:?On Oxygen?denies.?Pneumonia/pleurisy?denies.?Bronchitis?denies.?Emphysema?denies.?C oughing?admits.?Cough blood?denies.?Shortness of breath?admits.?Wheezing?denies.?Cardiovascular:?Pacemaker?denies.?MVP?denies.?WPW?denies.?CHF?denies.?Heart attack?denies.?Septal defect?denies.?Rapid beat?denies.?Chest pain ?denies.?Atrial Fib.?denies.?Murmur/Palpitations?denies.?Gastrointestinal:?Hemorrhoids?admits.?Stomach/Abdominal pain?denies.?Dark blood stool?denies.?Irritable bowel ?denies.?Constipation?admits.?Diarrhea?denies.?Hematology:?Swelling?admits.?Clots?denies.?Varicose Veins?denies.?Bruising?denies.?Bleeding problem?denies.?Genitourinary:?Blood urine?denies.?Frequent/Painfu/urination/bladder control?admits.?Kidney stones?denies.?Infection (UTI)?denies.?Nephropathy?denies.?sex trans dis (STD)?denies.?Prostate?denies.?Musculoskeletal:?Hammertoes?denies.?Bunions?denies.?Back Pain?admits.?Muscle Cramps/ Resting?denies.?Muscle cramps / walking?admits.?Generalized aches and pains?denies.?Weakness?admits.?Integ.:?Stephens?denies.?Scars?denies.?Corns/calluses?denies.?Ingrown nails?denies.?Painful nails?admits.?Open Sores?denies.?Rashes?denies.?Neurologic:?Difficulty sleeping?denies.?Brain disorder?denies.?Numbness?admits.?Balance trouble?denies.?Confusion?denies.?Fainting/blackouts?denies.?Tingling?admits.?Tr emors?denies.? * Medical History:? * Surgical History:?cataract s urgery implants removed * Hospitalization/Major Diagno stic Procedure:?Denies Past Hospitalization * Family History:?Mother: dece ased, diagnosed with Unspecified essential hypertension, Other specified conditions influencing health status, Family history of arthritis, Diabetic - NIDDM.?Father: , diagnosed with Unspecified essential hypertension, Unspecified heart disease, Unspecified cerebral artery occlusion with cerebral infarction, Other specified conditions influencing health status.? * Social History:?Tobacco Use:?Tobacco Use/Smoking?Are you a:?nonsmoker ?Additional Findings: Tobacco Non-User?Current non-smoker ?Tobacco use other than smoking?Are you an other tobacco user??No ???Drugs/Alcohol:?Drugs?Have you used drugs other than those for medical reasons in the past 12 months??No ?Alcohol Screen?Did you have a drink containing alcohol in the past year??No ?Points?0 ?Interpretation?Negative ???Miscellaneous:?Caffeine: yes, 2-3 cups per day. ?Children: yes, 1. ?Exercise: yes, walking. ?Marital status: . ?Occupation: not working and not retired. * Medications:?TakingLisinopri l 40 MG Tablet TAKE 1 TABLET BY MOUTH DAILY Oral Linzess 290 MCG Capsule TAKE 1 CAPSULE BY MOUTH EVERY MORNING Oral Diclofenac Sodium 1 % Gel APPLY 2GM TOPICALLY 2 TIMES A DAY External Spironolactone 100 MG Tablet TAKE 1 TABLET BY MOUTH TWICE A DAY Oral oxyCODONE-Acetaminophen 5-325 MG Tablet TAKE 1 TABLET BY MOUTH EVERY 6 HOURS NEEDED FOR PAIN Oral oxyBUTYnin Chloride ER 10 MG Tablet Extended Release 24 Hour TAKE 1 TABLET BY MOUTH EVERY DAY Oral Omeprazole 20 MG Capsule Delayed Release TAKE 1 CAPSULE BY MOUTH EVERY DAY Oral Meclizine HCl 25 MG Tablet TAKE 1 TABLET BY MOUTH 2 TIMES A DAY NEEDED FOR DIZZINESS Oral Levothyroxine Sodium 137 MCG Tablet TAKE 1 TABLET BY MOUTH EVERY DAY Oral Gabapentin 400 MG Capsule TAKE 1 CAPSULE BY MOUTH 3 TIMES A DAY Oral Hydrocortisone Sertraline HCl 100 MG Tablet TAKE 1 TABLET ORALLY DAILY FOR 90 DAYS Oral Vitamin B-12 1000 MCG Tablet TAKE 1 TABLET BY MOUTH EVERY DAY Oral Albuterol Sulfate HFA 108 (90 Base) MCG/ACT Aerosol Solution INHALE 2 PUFFS BY MOUTH EVERY 6 HOURS NEEDED FOR BRONCHOSPASM Inhalation D3-1000 25 MCG (1000 UT) Capsule TAKE 1 CAPSULE ORALLY DAILY FOR 90 DAYS Oral Medication List reviewed and reconciled with the patientTaking Lisinopril 40 MG Tablet TAKE 1 TABLET BY MOUTH DAILY Oral Taking Linzess 290 MCG Capsule TAKE 1 CAPSULE BY MOUTH EVERY MORNING Oral Taking Diclofenac Sodium 1 % Gel APPLY 2GM TOPICALLY 2 TIMES A DAY External Taking Spironolactone 100 MG Tablet TAKE 1 TABLET BY MOUTH TWICE A DAY Oral Taking oxyCODONE-Acetaminophen 5-325 MG Tablet TAKE 1 TABLET BY MOUTH EVERY 6 HOURS NEEDED FOR PAIN Oral Taking oxyBUTYnin Chloride ER 10 MG Tablet Extended Release 24 Hour TAKE 1 TABLET BY MOUTH EVERY DAY Oral Taking Omeprazole 20 MG Capsule Delayed Release TAKE 1 CAPSULE BY MOUTH EVERY DAY Oral Taking Meclizine HCl 25 MG Tablet TAKE 1 TABLET BY MOUTH 2 TIMES A DAY NEEDED FOR DIZZINESS Oral Taking Levothyroxine Sodium 137 MCG Tablet TAKE 1 TABLET BY MOUTH EVERY DAY Oral Taking Gabapentin 400 MG Capsule TAKE 1 CAPSULE BY MOUTH 3 TIMES A DAY Oral Taking Hydrocortisone Taking Sertraline HCl 100 MG Tablet TAKE 1 TABLET ORALLY DAILY FOR 90 DAYS Oral Taking Vitamin B-12 1000 MCG Tablet TAKE 1 TABLET BY MOUTH EVERY DAY Oral Taking Albuterol Sulfate HFA 108 (90 Base) MCG/ACT Aerosol Solution INHALE 2 PUFFS BY MOUTH EVERY 6 HOURS NEEDED FOR BRONCHOSPASM Inhalation Taking D3-1000 25 MCG (1000 UT) Capsule TAKE 1 CAPSULE ORALLY DAILY FOR 90 DAYS Oral Medication List reviewed and reconciled with the patient * Allergies:?N.K.D.A.yes[Aller gies Verified] Objective: * Vitals:?Ht: 5ft 2in, Wt:240, BMI:43.89, Shoe size: 8, Ht-cm: 157.48 cm, Wt-k.86 kg. * Examination: ???General Examination: ?GENERAL APPEARANCE:?Reveals a pleasant, alert, well-nourished, well- developed, well hydrated individual, who demonstrates proper attention to hygiene/body habitus, and is in no acute distress, Pt serves as own?historian for office visit today.?ORIENTED:?person, place, and time.?Neurological: ?SENSORY:?Neurological exam reveals intact sensorium, pain sensation normal, vibration sensation intact, pinprick sensation is normal in the lower extremities, Pt denies, anesthesia, burning, paresthesia, tingling, B/L.?DEEP TENDON REFLEXES:?Achilles, 2/4, B/L.?Vascular: ?DP PULSES(B):?3/4, B/L.?PT PULSES(B):?3/4, B/L.?CAPILLARY FILL TIME:?immediate, all digits, B/L.?TROPHIC CONDITION-TEXTURE/ELASTICITY/TURGOR/HAIR GROWTH(B):?normal, B/L.?TEMPERTURE GRADIENT(C):?warm to cool, proximal to distal, B/L.?PIGMENTATION:?normal, B/L.?EDEMA(C):?absent, B/L.?Dermatologic: ?SKIN FINDINGS:?Skin shows sign(s) of, scaling, in a moccasin fashion, no fissure(s) present, puritis left , Skin exam reveals Keratotic lesion(s) located at , Medial , TA , T5.?Orthopedic: ?MUSCLE STRENGTH:?5/5 all groups in a symmetrical fashion , B/L.?DIGITAL DEFORMITIES:?Digital contracture, PIPJ, 2-5 B/L, reducible with WB, or to push-up test, no over, nor underlapping.?FOOTWEAR:? shoe gear properties exacerbate patients foot/toe deformity.? Assessment: * Assessment: 1.?Pain in right toe(s) - M7 9.674?2.?Tinea pedis of both feet - B35.3, Acute problem, Uncomplicated (3),Rx drug management (4)?3.?Other hammer toe(s) (acquired), right foot - M20.41?4.?Pain in left toe(s) - M79.675?5.?Other hammer toe(s) (acquired), left foot - M20.42? Plan: * Treatment: * Procedure Codes:? * Preventive Medicine:? ??Counseling:?Discussion:?-03: Office or other outpatient visit for the evaluation and management of a new patient, which required a medically appropriate history and/or examination and LOW level of DECISION MAKING for: 1 STABLE ACUTE UNCOMPLICATED PROBLEM, 2 OR MORE MINOR PROBLEMS, OR 1 STABLE CHRONIC PROBLEM, THAT POSE(S) A LOW RISK FOR MORBIDITY/MORTALITY. The visit on the day of the encounter encompassed interpreting the data and educating the patient as to the nature of their condition, treatment options available according to their individual PMH, meds, allergies, and overall health/living conditions, as well as any potential risks or complications that may occur from a failure to adhere to, and participate in, the recommended course of therapy. The discussion included a complete verbal, and/or written explanation of the examination results, any x-rays taken, the proposed diagnosis, and outline of the treatment plan. A schedule for future care needs was also explained. The patient verbalized an understanding of the instructions at this time and agreed to be an active participant in their treatment. If the patient should think of any questions or concerns after the visit, I have encouraged the patient to call the office.?Digital Treatment:?I explained to the patient the possible etiologies of Hammertoes, including genetics/foot type/shoegear/activity level/exercise routine and the risks/benefits of all the different treatment options for pain including: No treatment at all, Rest, Ice, New/supportive/wider/deeper Shoegear, Digital Padding/Strapping/Taping/Bracing/Gel protective sleeves, Foot/Ankle AFO Bracing, Stretching exercises, Deep Tissue Massage, Arch support/shoe inserts with splay metatarsal padding, and Custom orthoses. I insisted that any digital devices be removed daily and not worn overnight for safety. The patient is to carefully examine the toes daily for any skin irritation while using any splinting or padding device. The advantages and disadvantages of each option were discussed and the patients questions re: shoegear, padding, custom vs prefabricated inserts, activity level, and consistency in home treatment regimens for optimal success were answered to their verbally confirmed satisfaction.?Shoe Gear Counseling:?The patient and I reviewed the types of shoes they should be wearing. My recommendation included obtaining a well-fitted shoe with a good supportive, non-foldable nor twistable sole, plenty of toe/room for the forefoot, and proper arch support. Based on todays examination, I recommended the patient look for new shoes, by having their feet professionally measured. We discussed that generally the best time of the day for a shoe fitting is the afternoon. Different shoes types and brands to best match the patients occupation and vocation were discussed. Specific brand selection will be up to the patient, their individual foot condition/deformities, and fit. The patient and I reviewed the standard new shoe break in period by wearing them for a few hours a day while checking for redness or sores as wear time is increased. The patient verbally confirmed to understanding the information discussed.?Tinea Pedis:?The patient was counseled on the diagnosis, potential etiologies, and treatment options for their skin condition. We discussed the risks and benefits of each option from performing no treatment, to utilizing OTC topical skin creams, prescription topical creams, customized compounded topical medications, and, if necessary, to utilize oral antifungal therapy. We discussed the advantages and disadvantages of each possible treatment and importance for adherence to all the recommended therapies for optimum success and avoid potential complications such as open sore/infection/possible hospitalization. We discussed the potential effectiveness of each topical preparation as well as each ones possible side effects and/or patient medication interactions if oral therapy is selected. Patient questions re: the advantages and disadvantages of each treatment choice, medication use/dosage, successful outcomes, and application consistency were reviewed and the patient verbalized that all answers were clearly understood. The patient was told they can help alleviate symptoms by utilizing moisture absorbant innersoles with activated charcoal and baking soda, applying antifungal sprays daily, aerating toe web spaces at night by putting cotton or lambs wool between the toes, alternating shoe gear daily if possible so they can dry out, changing socks at least once during the day, wearing well-ventilated shoes or sandals. The patient has decided to apply antifungal skin creams to their feet as directed. Rx was sent to their pharmacy at the time of visit.? * Follow Up:?prn * Images: * Sign off status: Completed true * Provider:?Tisha Arguello DPM Date:? Generated for Francesca jennings/Levi/Sam on:?08/04/2024 09:32 AM EST History and Physical Notes * HPI (History of Present Illness) Category Sub-Category Detail Notes Category Not es Toe pain Nature: tenderness Location: Great toe , B/L feet Course: worse Aggravated by: shoes, any pressure Treatments: rest/alter normal da edilson activity, change in shoes Skin problems Nature: scaling , , itching Location: Left Duration: several days Course: worse Examination Category Sub-Category Detail Notes Category Not es Neurological SENSORY: Neurological exa m reveals intact sensorium, pain sensation normal, vibration sensation intact, pinprick sensation is normal in the lower extremities, Pt denies, anesthesia, burning, paresthesia, tingling, B/L DEEP TENDON REFLEXES: Achilles, 2/4, B/L Dermatologic SKIN FINDINGS: Skin shows sign( s) of, scaling, in a moccasin fashion, no fissure(s) present, puritis left , Skin exam reveals Keratotic lesion(s) located at , Medial , TA , T5 Orthopedic FOOTWEAR: shoe gear proper ties exacerbate patients foot/toe deformity DIGITAL DEFORMITIES: Digital contracture , PIPJ, 2-5 B/L, reducible with WB, or to push-up test, no over, nor underlapping MUSCLE STRENGTH: 5/5 all groups in a symmetrical fashion , B/L General Examination GENERAL APPEARANCE: Reveals a pleasant, alert, well- nourished, well-developed, well hydrated individual, who demonstrates proper attention to hygiene/body habitus, and is in no acute distress, Pt serves as own historian for office visit today ORIENTED: person, place, and t [place] V[facility] DP PULSES (B): 3/4, B/L PT PULSES (B): 3/4, B/L CAPILLARY FILL TIME: immediate, all digi ts, B/L TEMPERTURE GRADIENT (C): warm to cool, p roximal to distal, B/L TROPHIC CONDITION-TEXTURE/ELASTICITY/TURGOR/HAIR GROWTH (B): normal, B/L EDEMA (C): absent, B/L PIGMENTATION: normal, B/L
--- OUTSIDE RECORDS SUMMARY | 2024-08-04 09:33 | XMS_ITS | Patient Health Record ---
Author Organization [facility] Center[facility] kayla HarringtonEnder Address [address] [facility] [place] [address] Care Team Providers Care Fisher Troll Line Name Role Phone Antonino Barrera MD Primary Care Provider Tisha Vital Unavailable [phone] Allergies No Known Allergies Reason For Referral No Information Medications Medication SIG (Take, Route, Frequency, Duration) Notes Start Date End Date Status oxyCODONE-Acetaminophen 5-325 MG TAKE 1 TABLET BY MOUTH EVERY 6 HOURS NEEDED FOR PAIN Oral for 28 Days Active Spironolactone 100 MG TAKE 1 TABLET BY M OUTH TWICE A DAY Oral for 90 Days Active D3-1000 25 MCG (1000 UT) TAKE 1 CAPSULE ORALLY DAILY FOR 90 DAYS Oral for 90 Days Active Diclofenac Sodium 1 % APPLY 2GM TOPICALL Y 2 TIMES A DAY External for 5 Days Active Albuterol Sulfate HFA 108 (90 [...] 90 DAYS Oral for 90 Days Active Ciclopirox Olamine 0.77 % 1 application Externally Twice a day to feet including between the toes for 30 days Active Hydrocortisone 01/30/2024 Acti ve Gabapentin 400 MG TAKE 1 CAPSULE BY MO UTH 3 TIMES A DAY Oral for 90 Days Active Levothyroxine Sodium 137 MCG TAKE 1 TABLET BY MOUTH EVERY DAY Oral for 90 Days Active Meclizine HCl 25 MG TAKE 1 TABLET BY LONG 2 TIMES A DAY NEEDED FOR DIZZINESS Oral for 30 Days Active Omeprazole 20 MG TAKE 1 CAPSULE BY MO [facility] EVERY DAY Oral for 90 Days Active oxyBUTYnin Chloride ER 10 MG TAKE 1 TABLET BY MOUTH EVERY DAY Oral for 90 Days Active Social History [...] Problem Acquired hammer toe of right foot (8655395692041099) Other hammer toe(s) (acquired), right foot (M20.41) Active confirmed Problem Acquired hammer toe of left foot (7523723593641011) Other hammer toe(s) (acquired), left foot (M20.42) Active confirmed Problem Localized, primary osteoarthritis of the ankle and/or foot (923506073) Arthritis of joint of lesser toe, left (M19.072) Active confirmed Problem Localized, primary osteoarthritis of the ankle and/or foot (258057051) Arthritis of joint of lesser toe, right (M19.071) Active confirmed Vital Signs Height 5ft 2in in 03/06/2024 Weight 240 lbs 03/06/2024 BMI 43.89 kg/m2 03/06/2024 Encounters Encounter Location Date Provider Diagnosis [facility] [address] 03/06/2024 Tisha Arguello Tinea pedis of both feet B35.3 ; Pain in right toe(s) M79.674 ; Other hammer toe(s) (acquired), right foot M20.41 ; Pain in left toe(s) M79.675 and Other hammer toe(s) (acquired), left foot M20.42 [facility] [address] 01/30/2024 Tisha Arguello Assessments Encounter Date Diagnosis (ICD Code) Assessment Notes Treatment Notes Treatment Clinical Notes Section Notes 03/06/2024 Pain in right toe(s) (ICD-10 - M79.674) 03/06/2024 Tinea pedis of both feet (ICD-10 - B35.3) 03/06/2024 Other hammer toe(s) (acquired), right foot (ICD-10 - M20.41) 03/06/2024 Pain in left toe(s) (ICD-10 - M79.675) 03/06/2024 Other hammer toe(s) (acquired), left foot (ICD-10 - M20.42) Plan Of Treatment No Information Insurance Providers Payer Name Payer Address Payer Phone Subscriber Number Group Number Insured Name Patient Relationship to Insured Coverage Start Date Coverage End Date [id number] [address] [place] [id number] [facility] [place] Self - patient is the insured Medical (General) History Medical History History ICD Code Anxiety Arthritis asthma Back,Hip,and Knee pain CAD (Cholesterol) Cataracts covid-19 Depression Fibromyalgia Headaches/Migraines Hypertension Reflux ( GERD) Rheumatic fever Chicken pox Surgical History Surgery Date(Month/Year) cataract surgery implants removed
[2024-08-04 09:35] LABS: Basophils Percent Auto 0.4 % (0-2); Eosinophils Absolute Auto 0.2 X10*3/uL (0.0-0.4); Eosinophils Percent Auto 1.6 % (0-4); Hemoglobin 13.1 g/dl (12.0-16.0); Imm Gran Abs Auto 0.05 X10*3/uL (0.00-0.03); Imm Gran Pct Auto 0.5 % (0.0-0.4); Lymphocytes Absolute Auto 1.9 X10*3/uL (1.2-4.9); Lymphocytes Percent Auto 19.7 % (20-40); Mean Corpuscular HGB Conc 33.6 g/dl (31.0-35.0); Mean Corpuscular Hemoglobin 30.7 pg (27.0-33.0); Mean Corpuscular Volume 91.3 fL (80.0-98.0); Monocytes Absolute Auto 0.7 X10*3/uL (0.1-1.2); Monocytes Percent Auto 7.3 % (2-11); Neutrophils Absolute Auto 6.9 x10*3/uL (2.0-8.3); Neutrophils Percent Auto 70.5 % (45-73); Platelet Count 168 X10*3/uL (160-400); Red Blood Count 4.27 X10*6/uL (4.20-5.50); Red Cell Distribution Width 12.9 % (11.0-16.0); White Blood Count 9.8 X10*3/uL (4.8-10.8)
[2024-08-04 09:44] LABS: Estimated Average Glucose 117 mg/dL; Hemoglobin A1C 134.0394 umol/L; Hemoglobin A1c % 5.7 % (<6.0); Total Hemoglobin (HGBA1C) 3433.4082 umol/L
[2024-08-04 09:48] LABS: Appearance Urine Clear; Color Urine Yellow; Glucose Urine UA Negative (Negative); Leukocyte Esterase Urine Negative (Negative); Nitrite Urine Negative (Negative); PH 5.5 (5.0-9.0); Specific Gravity - Urine 1.015 (1.005-1.025); Urine Blood Negative (Negative); Urine Ketones Negative (Negative); Urine Protein Negative (Neg-Trace)
[2024-08-04 10:14] LABS: Alanine Aminotransferase 15 U/L (0-31); Albumin Level 3.8 g/dL (3.5-5.0); Alkaline Phosphatase 115 U/L (39-117); Anion Gap 14 (12-20); Aspartate Amino Transferase 22 U/L (5-31); Bilirubin Total 0.6 mg/dL (0.0-1.0); Blood Urea Nitrogen 14 mg/dL (9-16); Calcium 9.4 mg/dL (8.4-10.2); Carbon Dioxide 28 mmol/L (22-29); Chloride 106 mmol/L (96-108); Cholesterol 162 mg/dL (<200); Estimated Glomerular Filt Rate > 60; Glucose Fasting 92 mg/dL (60-99); HDL Cholesterol 46 mg/dL (>40); LDL Cholesterol Calculated 94 mg/dL (<100); Potassium 4.8 mmol/L (3.3-5.1); Sodium 143 mmol/L (135-145); Triglycerides 110 mg/dL (<150); Uric Acid 7.7 mg/dL (2.4-5.7)
[2024-08-04 10:17] LABS: Erythrocyte Sedimentation Rate 26 MM/HR (0-20)
[2024-08-04 10:37] LABS: Free T4 (Free Thyroxine) 1.41 ng/dL (0.71-1.85); Thyroid Stimulating Hormone 0.24 uIU/mL (0.32-4.0)
== END 2024-08-04 08:53 | disposition home or self-care (01) ==
LOC: HO.LAB 08:52
PROVIDERS: PCP Internal Medicine; Visit Provider Internal Medicine
DX: R73.01 Impaired fasting glucose (principal); E78.00 Pure hypercholesterolemia, unspecified; R30.0 Dysuria; E79.0 Hyperuricemia without signs of inflammatory arthritis and tophaceous disease; E03.9 Hypothyroidism, unspecified; E55.9 Vitamin D deficiency, unspecified; M19.041 Primary osteoarthritis, right hand; M19.042 Primary osteoarthritis, left hand; D64.9 Anemia, unspecified
CPT/HCPCS: 36415; 80053; 80061; 81003; 82306; 83036; 84439; 84443; 84550; 85025; 85652

== ENCOUNTER 2024-08-06 10:32 | Outpatient (AMB) | payer OTHER, SELFPAY ==
--- NOTE | 2024-08-06 10:53 | MHC.PC.OV ---
Vital Signs 08/06/24 10:54 Height 4 ft 11 in Weight 260 lb BMI 52.5 BP 120/74 Blood Pressure Location Lt brachial Position Sitting Pulse 90 Pulse Source Pulse Oximeter Pulse Oximetry (%) 95 Oxygen Delivery Method Room Air Intake Visit Reasons: HTN, dyslipidemia, IFG, hyopothyroidism, OAB Accounts Receivable Clerk Required: No Accompanied by: Self / Same As Patient Allergies No Known Allergies [No Known Allergies*] Allergy (Verified 08/06/24 11:33) Medication List - Last Reconciled 08/06/24 by Antonino Barrera MD [ADULT PULL UPS (Size XXL) As directed] [ADULT WIPES As directed] albuterol sulfate 2.5 mg (3 mL) continuous nebulization Q6-8H PRN albuterol sulfate 90 mcg/actuation 2 puffs inhalation Q6H PRN amlodipine 2.5 mg PO DAILY [BEDSIDE COMMODE As directed] bisacodyl (Laxative (bisacodyl)) 10 mg (2 x 5 mg) PO BEDTIME cholecalciferol (vitamin D3) 25 mcg PO DAILY 90 days [compression stockings As directed] CPAP (CPAP Machine/Device) As directed cyanocobalamin (vitamin B-12) 1,000 mcg PO DAILY 90 days diclofenac sodium 1% 2 grams topical BID [DISPOSABLE BED PADS As directed] [Disposable UNDERPADS As directed] gabapentin 400 mg PO TID hydrocortisone 1% (Anti-Itch (hydrocortisone)) 1 appl topical TID PRN [INCONTINENT BED PADS As directed] [KOTEX PADS As directed] levothyroxine 137 mcg PO DAILY 90 days linaclotide (Linzess) 290 mcg PO QAM lisinopril 40 mg PO DAILY 90 days meclizine 25 mg PO BID PRN mirabegron ER (Myrbetriq) 25 mg PO DAILY 30 days mometasone 0.1% 1 appl topical DAILY PRN [MOTORIZED SCOOTER As directed] omeprazole 20 mg PO DAILY 90 days oxycodone-acetaminophen 5-325 mg 1 tab PO Q6H PRN 28 days [ROLLATOR WALKER As directed] sertraline 100 mg PO DAILY 90 days [SHOWER CHAIR As directed] spironolactone 100 mg PO BID Tobacco use date assessed: 08/06/24 Fall risk assessment: No Falls in past year Last assessed Fall Risk: 08/06/24 Dental Screening Dental Screen Date: 08/06/24 Did you have a dental visit in the last 12 months?: No Did you have a dental problem in the last 6 months where you did not have access to dental care?: No Was dental information given to patient?: No HPI HTN, dyslipidemia, IFG, hyopothyroidism, OAB HPI Details Patient comes in today for follow-up visit States she feels okay She denies any headaches or dizziness Denies any chest pains, no increased shortness of breath No nausea/ vomiting, no abdominal pain No change in bowel habits noted States that her chronic neck pain, low back pain and joint pains remain adequately controlled on her current medications She was seen by bariatric surgery (Dr. 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, bilateral Bilateral primary osteoarthritis of knee Impaired fasting glucose Primary osteoarthritis involving multiple joints Depression Anxiety Insomnia Overactive bladder Lumbar degenerative disc disease Degenerative disc disease, cervical Vitamin D deficiency GERD without esophagitis Obstructive sleep apnea Vitamin B12 deficiency Fibromyalgia Cardiac murmur Mild intermittent asthma without complication Chronic kidney disease (CKD), stage II (mild) Acquired hypothyroidism Benign essential hypertension Surgical History S/P excision of lipoma H/O blepharoplasty History of colonoscopy Family History Father CVD (cardiovascular disease) Mother CVD (cardiovascular disease) Diabetes Hypertension Social History Household Members: Spouse Housing: Condominium Are you a primary veterinarian laboratory animal care to a significant other at home: No Do you presently have visiting nurse or other home services: Yes Alcohol intake: never Patient Tobacco Use Status: Never used Tobacco e-Cigarette/Vaping Use: Never Used Second Hand Smoke Exposure: No service: No Current occupational status: unemployed, student and disabled Cognitive needs: Yes (walker) Hearing needs: No Vision needs: Yes (glasses) Questionnaire PHQ-9 Over the last 2 weeks, how often have you been bothered by any of the following problems? 1. Little interest or pleasure in doing things: not at all 2. Feeling down, depressed, or hopeless: not at all 3. Trouble falling or staying asleep, or sleeping too much: not at all 4. Feeling tired or having little energy: not at all 5. Poor appetite or overeating: not at all 6. Feeling bad about yourself - or that you are a failure or have let yourself or your family down: not at all 7. Trouble concentrating on things, such as reading the newspaper or watching television: not at all 8. Moving or speaking so slowly that other people could have noticed. Or the opposite - being so fidgety or restless that you have been moving around a lot more than usual: not at all 9. Thoughts that you would be better off or of hurting yourself in some way: not at all Total score: 0 Depression Screening Interpretation: Negative Depression Screening Done: Yes 21536 - PHQ-9 Billing: Yes Source: Developed by Drs. Feng Lopez, Selina Pedro, Merlin Villalta and colleagues, with an educational nacho from [employer] (formerly [employer]). Thrive Questionnaire Date Thrive assessed: 08/06/24 I am a: Patient What is your living situation today?: I have a steady place to live Within the past 12 months, did the food you bought not last and you didn't have the money to get more?: Never true Within the past 12 months, did you worry whether your food would run out before you got money to buy more?: Never true Do you have trouble paying for medicines?: No Do you have trouble getting transportation to medical appointments?: No Do you have trouble paying your heating and electricity bill?: No Do you have trouble taking care of your child, family member or friend?: No Do you have trouble with day-to-day activities such as bathing, preparing meals, shopping, managing finances, etc.?: No Are you currently unemployed and looking for a job?: No Are you interested in more education?: No Please select the resources that you would like help with: None Currently or been in a relationship where the following occur: No concerns reported THRIVE Score: 0 AUDIT C Alcohol Use Questionnaire (AUDIT-C) 1. How often do you have a drink containing alcohol?: Never 3. How often do you have six or more drinks on one occasion?: Never Total Score: 0 Score Reviewed/Action Taken: Yes IGNACIA-7 AMB Questionnaire IGNACIA-7 Date IGNACIA - 7 assessed: 08/06/24 Feeling nervous, anxious, or on edge: 0 = Not at all Not being able to stop or control worryin = Not at all Worrying too much about different things: 0 = Not at all Trouble relaxin = Not at all Being so restless that it is hard to sit still: 0 = Not at all Becoming easily annoyed or irritable: 0 = Not at all Feeling afraid as if something awful might happen: 0 = Not at all Total IGNACIA-7 score (0-4 normal; 5-9 mild; 10-14 moderate; 15-21 severe): 0 Source: Developed by Drs. Feng Lopez, Selina Pedro, Merlin Villalta and colleagues, with an educational nacho from [employer] (formerly [employer]). Review of Systems Const Denies chills, Denies fatigue, Denies fever(s) and Denies headache(s) ENT Denies dysphagia, Denies dizziness, Denies otalgia, Denies headache(s), Reports neck pain (chronic), Denies odynophagia and Denies sore throat Card Denies chest pain, Denies palpitations and Reports dyspnea on exertion (mild) Resp Denies cough, Reports dyspnea on exertion (mild) and Denies wheezing GI Denies abdominal pain, Reports constipation (on and off), Denies dysphagia, Denies diarrhea, Denies nausea, Denies odynophagia and Denies vomiting Denies difficulty voiding, Reports nocturia, Denies dysuria, Reports urinary incontinence and Denies urinary urgency Musc Reports back pain (over the lower back - chronic), Reports arthralgias (over both knees ) and Reports neck pain (chronic) Skin/Breast Denies rash Neuro Denies dizziness and Denies headache(s) Endo Denies fatigue and Denies palpitations Aller/Immun Denies wheezing Physical exam (Primary Care) Vital Signs: Last Vital Signs Pulse 90 08/06/24 10:54 BP 120/74 08/06/24 10:54 Pulse Ox 95 08/06/24 10:54 Oxygen Delivery Method Room Air 08/06/24 10:54 BMI result Body Mass Index 52.5 Tobacco/Smoking Status: Tobacco use Status Tobacco use date assessed 08/06/24 08/06/24 10:56 Patient Tobacco Use Status Never used Tobacco 08/06/24 10:56 e-Cigarette/Vaping Use Never Used 08/06/24 10:56 PHQ-9: PHQ-9 Score PHQ-9: Total score 0 08/06/24 11:09 Depression Screening Interpretation: Negative Thrive Assessment: Date of Thrive Assessment Date Thrive assessed 08/06/24 08/06/24 10:56 Currently or been in a relationship where the following occur: No concerns reported Const General: no acute distress and alert HENMT Ears: TM's normal bilaterally and EAC's normal Throat: Yes posterior oropharynx normal and Yes tonsils normal (no TP congestion noted) Neck Neck: Yes supple and No lymphadenopathy Thyroid: Thyroid normal Resp Auscultation: clear to auscultation bilaterally, no rales and no wheezes Cardio Rate: regular rate Rhythm: regular rhythm Heart sounds: Murmur heart sound present systolic soft and at the left sternal border (at the left lower sternal border) GI Palpation (GI): Soft to palpation and nontender Auscultation: normal bowel sounds General: Yes no CVA tenderness Back/Spine/Pelvis Back: no CVA tenderness Cervical Spine: Cervical spine tenderness Thoracic/Lumbar Spine: lumbar spinal tenderness Skin Rashes: no rashes Extrem General: Yes no clubbing, cyanosis or edema Right lower extremity: knee Details: tenderness; no swelling Left lower extremity: knee Details: tenderness; no swelling Results Reviewed Results Reviewed: Laboratory Tests 08/04/24 08/04/24 08:58 09:01 WBC 9.8 Hgb 13.1 Hct 39.0 Plt Count 168 ESR 26 H Sodium 143 Potassium 4.8 Creatinine 0.82 Estimated GFR > 60 Fasting Glucose 92 Hemoglobin A1c % 5.7 Uric Acid 7.7 H Calcium 9.4 AST 22 ALT 15 Triglycerides 110 Cholesterol 162 LDL Cholesterol, Calc 94 HDL Cholesterol 46 25-OH Vitamin D Total 35.0 TSH 0.24 L Free T4 1.41 Ur Specific [place] 1.015 Urine Protein Negative Urine Glucose (UA) Negative Urine Blood Negative Urine Nitrite Negative Ur Leukocyte Esterase Negative Coding Level of Care Code Est Pt Level 4 (83880) Diagnoses Benign essential hypertension I10 Chronic kidney disease (CKD), stage II (mild) N18.2 Acquired hypothyroidism E03.9 Mild intermittent asthma without complication J45.20 Impaired fasting glucose R73.01 Cardiac murmur R01.1 Obstructive sleep apnea G47.33 GERD without esophagitis K21.9 Degeneration of intervertebral disc of lumbar region with discogenic back pain and lower extremity pain M51.362 Disc-related pain type: discogenic back pain and lower extremity pain Degenerative disc disease, cervical M50.30 Primary osteoarthritis involving multiple joints M89.49 Fibromyalgia M79.7 Chronic idiopathic constipation K59.04 Vitamin B12 deficiency E53.8 Vitamin D deficiency E55.9 Overactive bladder N32.81 Insomnia, unspecified type G47.00 Insomnia type: unspecified Anxiety F41.9 Episode of recurrent major depressive disorder, unspecified depression episode severity F33.9 Depression Type: major depressive disorder Major depression recurrence: recurrent Active/Remission status: currently active Major depression episode severity: unspecified Morbid obesity with BMI of 45.0-49.9, adult E66.01; Z68.42 Additional Codes PHQ-9 - 50110 - PHQ-9 Billing: Yes ([id number]) Assessment & Plan Assessment & Plan (1) Benign essential hypertension: Code(s): I10 - Essential (primary) hypertension Category: Medical Plan: Results of her labs done a couple of days ago reviewed and discussed with patient Reinforced low-sodium diet -?goal is systolic BP of at least 130 to 140 mm or less Continue Lisinopril 40 mg QD, Spironolactone 100 mg BID and Amlodipine 2.5 mg QD Have reminded patient to continue monitoring her blood pressure regularly (2) Chronic kidney disease (CKD), stage II (mild): Code(s): N18.2 - Chronic kidney disease, stage 2 (mild) Category: Medical Plan: GFR stable?-? will continue to monitor her renal function regularly Will recheck her labs in 3 months for follow-up (3) Acquired hypothyroidism: Code(s): E03.9 - Hypothyroidism, unspecified Category: Medical Plan: Her TFTs were again normal on her recent labs Continue Levothyroxine 150 mcg QD Will continue to monitor her TFTs regularly (4) Mild intermittent asthma without complication: Code(s): J45.20 - Mild intermittent asthma, uncomplicated Category: Medical Plan: Stable/controlled Continue Albuterol HFA 2 puffs 4 times a day as needed; patient also has her Albuterol nebulizer that she uses when needed (5) Impaired fasting glucose: Code(s): R73.01 - Impaired fasting glucose Category: Medical Plan: Her FBS is normal at 92 mg/dl on her recent labs Her HgbA1c has remained normal at 5.7% Reinforced low calorie/low carb diet; exercise as tolerated (6) Cardiac murmur: Comment: Echocardiogram done in 2011 showed (+) mild MR and trace TR, which are the most likely cause of her cardiac murmur; LVEF was normal and there were no other abnormalities noted Repeat echocardiogram done in 2019 showed no significant changes from her previous echo in 2011; LV systolic function remains normal and EF was between 65-70% Code(s): R01.1 - Cardiac murmur, unspecified Category: Medical Plan: Echocardiogram done in October 2023 revealed that the left ventricular systolic function is normal and the calculated ejection fraction is around 62% by biplane method. There are trace MR and TR with no other obvious valvular pathology seen on this study Will continue to monitor these regularly/periodically (7) Obstructive sleep apnea: Code(s): G47.33 - Obstructive sleep apnea (adult) (pediatric) Category: Medical Plan: Continue using her CPAP device when sleeping at night -??CPAP titration done in January 2018 recommended acceptable CPAP pressure setting of 13-14 cm Follow up with Sleep Medicine as scheduled (8) GERD without esophagitis: Code(s): K21.9 - Gastro-esophageal reflux disease without esophagitis Category: Medical Plan: Dietary restrictions reinforced Continue Omeprazole 20 mg QD (9) Lumbar degenerative disc disease: Code(s): M51.36 - Other intervertebral disc degeneration, lumbar region Category: Medical Qualifiers: Disc-related pain type: discogenic back pain and lower extremity pain Qualified Code(s): M51.362 - Other intervertebral disc degeneration, lumbar region with discogenic back pain and lower extremity pain Plan: Reinforced activity and weight lifting restrictions to minimize aggravating her low back pain States that her symptoms remain mostly manageable on her current medications, including her Percocet 5-325 mg that she takes every 6 hours as needed (10) Degenerative disc disease, cervical: Code(s): M50.30 - Other cervical disc degeneration, unspecified cervical region Category: Medical Plan: Findings of cervical DDD confirmed on cervical spine x-rays done in 2014 -? symptoms are reportedly manageable on her current meds (11) Primary osteoarthritis involving multiple joints: Code(s): M89.49 - Other hypertrophic osteoarthropathy, multiple sites Category: Medical Plan: Continue Salsalate 500 mg 2 tablets 3 times a day and Oxycodone-Acetaminophen 5-325 mg 1 tablet every 6 hours as needed Follow-up with Rheumatology at [facility] as scheduled X-rays of both knees done years ago showed (+) OA?changes bilaterally; repeat x-rays done in August 2023 revealed (+) moderate degenerative changes in both knees (12) Fibromyalgia: Code(s): M79.7 - Fibromyalgia Category: Medical Plan: Continue Gabapentin 400 mg 3 times a day and Lidoderm patches 5% 1 patch daily Patient is again encouraged to exercise regularly to help manage her fibromyalgia symptoms better Follow-up with rheumatology as scheduled (13) Chronic idiopathic constipation: Code(s): K59.04 - Chronic idiopathic constipation Category: Medical Plan: Patient is encouraged again on increased oral fluids and dietary fiber Continue Senna 8.6 mg 2 tablets at bedtime daily Follow up with GI as scheduled (14) Vitamin B12 deficiency: Code(s): E53.8 - Deficiency of other specified B group vitamins Category: Medical Plan: Will continue to monitor her serum Vitamin B12 level regularly (15) Vitamin D deficiency: Code(s): E55.9 - Vitamin D deficiency, unspecified Category: Medical Plan: Continue Vitamin D2 35129 units once a week (16) Overactive bladder: Code(s): N32.81 - Overactive bladder Category: Medical Plan: Continue Oxybutynin ER 10 mg QD Follow up with urology as scheduled (17) Insomnia: Code(s): G47.00 - Insomnia, unspecified Category: Medical Qualifiers: Insomnia type: unspecified Qualified Code(s): G47.00 - Insomnia, unspecified Plan: Sleep hygiene reinforced Continue Zolpidem 10 mg daily at bedtime as needed (18) Anxiety: Code(s): F41.9 - Anxiety disorder, unspecified Category: Medical Plan: Continue Doxepin 25 mg daily at bedtime as needed Patient is also on Sertraline, which helps with her anxiety as well (19) Depression: Code(s): F32.9 - Major depressive disorder, single episode, unspecified Category: Medical Qualifiers: Depression Type: major depressive disorder Major depression recurrence: recurrent Active/Remission status: currently active Major depression episode severity: unspecified Qualified Code(s): F33.9 - Major depressive disorder, recurrent, unspecified Plan: Continue Sertraline 100 mg once a day Follow-up with Psychiatry as scheduled (20) Morbid obesity with BMI of 45.0-49.9, adult: Code(s): E66.01 - Morbid (severe) obesity due to excess calories; Z68.42 - Body mass index [BMI] 45.0-49.9, adult Category: Medical Plan: Reinforced diet/exercise as tolerated/lose weight Follow up with weight management as scheduled - she was seen by bariatric surgery a few weeks ago and is still contemplating whether to go forward with sleeve gastrectomy or not Plan Follow up in 3 months Orders: Orders Free T4 (Free Thyroxine) 3 Months E03.9 - Hypothyroidism, unspecified UA CC w/rflx Micro + Cult 3 Months R30.0 - Dysuria Vitamin D 25-OH Total 3 Months E55.9 - Vitamin D deficiency, unspecified Hemoglobin A1c 3 Months R73.01 - Impaired fasting glucose Complete Blood Count Auto Diff 3 Months D64.9 - Anemia, unspecified Comprehensive [place]. Panel Fast 3 Months E78.00 - Pure hypercholesterolemia, unspecified Lipid Panel 3 Months E78.00 - Pure hypercholesterolemia, unspecified Thyroid Stimulating Hormone 3 Months E03.9 - Hypothyroidism, unspecified Uric Acid 3 Months M10.9 - Gout, unspecified
[2024-08-06 10:54] VITALS: BP 120/74; PULSE 90; O2SAT 95; BMI 52.5
--- OUTSIDE RECORDS SUMMARY | 2024-08-06 12:25 | XMS_ITS ---
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 Generated for Francesca jennings/Levi/eTransmitting on:?08/06/2024 12:24 PM EST
--- OUTSIDE RECORDS SUMMARY | 2024-08-06 12:25 | XMS_ITS | Patient Health Record ---
Author Organization [facility] Centerbaljit kayla HarringtonEnder Address [address] [facility] [place] [address] Care Team Providers Care Highway Traffic Control Technician Name Role Phone Antonino Barrera MD Primary Care Provider Tisha Vital Unavailable [phone] Allergies No Known Allergies Reason For Referral [...] 20 MG TAKE 1 CAPSULE BY [facility] EVERY DAY Oral for 90 Days Active [...] Problem Acquired hammer toe of right foot (1780006262850858) Other hammer toe(s) (acquired), right foot (M20.41) Active confirmed Problem Acquired hammer toe of left foot (1977327884405702) Other hammer toe(s) (acquired), left foot (M20.42) Active confirmed Problem Localized, primary osteoarthritis of the ankle and/or foot (816256996) Arthritis of joint of lesser toe, left (M19.072) Active confirmed Problem Localized, primary osteoarthritis of the ankle and/or foot (644276523) Arthritis of joint of lesser toe, right (M19.071) Active confirmed Vital Signs Height 5ft 2in in 03/06/2024 Weight 240 lbs 03/06/2024 BMI 43.89 kg/m2 03/06/2024 Encounters Encounter Location Date Provider Diagnosis [facility] [address] 03/06/2024 Tisha Arguello Tinea pedis of both feet B35.3 ; Pain in right toe(s) M79.674 ; Other hammer toe(s) (acquired), right foot M20.41 ; Pain in left toe(s) M79.675 and Other hammer toe(s) (acquired), left foot M20.42 [facility] [address] 01/30/2024 Tisha Arguello Assessments Encounter Date Diagnosis [...] Insured Coverage Start Date Coverage End Date [facility] [address] [place] [address] [id number] [facility] Colon, Yeimi Self - patient is the insured Medical (General) History Medical History History ICD Code Anxiety Arthritis asthma Back,Hip,and Knee pain CAD (Cholesterol) Cataracts covid-19 Depression Fibromyalgia Headaches/Migraines Hypertension Reflux ( GERD) Rheumatic fever Chicken pox Surgical History Surgery Date(Month/Year) cataract surgery implants removed
--- OUTSIDE RECORDS SUMMARY | 2024-08-06 12:25 | XMS_ITS ---
Author Organization [facility] kayla Corral Address [address] [facility] [place] [address] Care Team Providers Care Program Director/Traffic Director Name Role Phone Bruce BOLAÑOS, [place] Primary Care Provider Tisha Vital Unavailable [phone] Allergies No Known Allergies REASON FOR VISIT [...] Problem Acquired hammer toe of right foot (6219999867646766) Other hammer toe(s) (acquired), right foot (M20.41) Active confirmed Problem Localized, primary osteoarthritis of the ankle and/or foot (429336575) Arthritis of joint of lesser toe, right (M19.071) Active confirmed Problem Acquired hammer toe of left foot (8134976543306371) Other hammer toe(s) (acquired), left foot (M20.42) Active confirmed Problem Localized, primary osteoarthritis of the ankle and/or foot (699921265) Arthritis of joint of lesser toe, left (M19.072) Active confirmed Vital Signs Height 5ft 2in in 03/06/2024 Weight 240 lbs 03/06/2024 BMI 43.89 kg/m2 03/06/2024 Encounters Encounter Location Date Provider Diagnosis [facility] [address] [place] [address] 03/06/2024 Tisha Arguello Tinea pedis of both [...] Notes * Yeimi FUENTESDOB:1950 (74 yo F)Acc No.[id number]:03/06/2024 Progress Notes Patient:?Ed Fuentesaris Provider:?Tisha Arguello DPM :1950???Age:74 Y???Sex:Female D ate:03/06/2024 Address:[address] [place] [address], [facility] Pcp:Antonino Barrera MD Subjective: * Chief Complaints: [...] Arguello DPM Date:? Generated for Francesca jennings/Levi/Sam on:?08/06/2024 12:24 PM EST History and Physical Notes * HPI [...]
--- OUTSIDE RECORDS SUMMARY | 2024-08-06 12:25 | XMS_ITS | Clinical Summary ---
Author Organization 175 [facility] Address [address] [place] [address] Phone Care Team Providers Care Epic Ambulatory Analyst Name Role Phone Antonino Barrera MD Primary Care Provider [phone] Encounters Date Type Department Care Team Description 06/17/2024 9:30 AM EST Evaluation [address] [phone] Mercedes Braun PT Physical deconditioning (Primary Dx) 06/17/2024 Plan of Care Documentation [address] [phone] from Last 3 Months Social History Tobacco [...] topic Insurance [employer] MEDICARE Care Teams Epic Ambulatory Analyst Relationship Specialty Start Date End Date Antonino Barrera MD [address] [place] [address] PCP - General Internal Medicine 05/26/24
--- OUTSIDE RECORDS SUMMARY | 2024-08-06 12:25 | XMS_ITS ---
Author Name Mariaelena Garcia NP Address [address] [place] [address] Phone [phone] Organization [facility] Care Team Providers Care Center Customer Service Associate Name Role Phone Mariaelena Garcia Unavailable [phone] Bruce Antonino Unavailable [phone] Unavailable Unavailable Unavailable Reason for Referral Not [...] Service Diagnosis/Co mplaint Medication List Documented (1159F) [facility] Medication List Documented (1159F) [facility] Medication List Documented (1159F) [facility] Medication List Documented (1159F) [facility] Medication List Documented (1159F) [facility] Medication List Documented (1159F) [facility] Essential (primary) hypertensionUnspecified asthma, uncomplicatedMorbid (severe) obesity due to excess caloriesOpioid dependence, uncomplicatedMajor depressive disorder, recurrent, moderateBody mass index (BMI) 45.0-49.9, adultAnxiety disorder, unspecifiedDorsalgia, unspecifiedGastro-esophageal reflux disease without esophagitisOther chronic painHypothyroidism, unspecifiedObstructive sleep apnea (adult) (pediatric)Irritable bowel syndrome without diarrhea Medication List Documented (1159F) [facility] Medication List Documented (1159F) [facility] Estab. patient 30-39min; chronic exacerbation, 2 stable chronic or 1 acute illness add add modifier 95 for video, (do not use for phone, instead use 23444-59) [facility], ([place]) 04/24/2023 Essential (primary) hypertensionGastro-esophageal reflux disease without [...] (do not use for phone, instead use 78480-19) [facility] Estab. patient 30-39min; chronic exacerbation, 2 stable chronic or 1 acute illness add add modifier 95 for video, (do not use for phone, instead use 46342-97) [facility] 04/24/2023 Estab. patient 30-39min; chronic exacerbation, 2 stable chronic or 1 acute illness add add modifier 95 for video, (do not use for phone, instead use 78447-26) [facility] 04/24/2023 Estab. patient 30-39min; chronic exacerbation, 2 stable chronic or 1 acute illness add add modifier 95 for video, (do not use for phone, instead use 05861-31) [facility] 04/24/2023 Estab. patient 30-39min; chronic exacerbation, 2 stable chronic or 1 acute illness add add modifier 95 for video, (do not use for phone, instead use 59326-35) [facility] 04/24/2023 Estab. patient 30-39min; chronic exacerbation, 2 stable chronic or 1 acute illness add add modifier 95 for video, (do not use for phone, instead use 19889-24) [facility] 04/24/2023 Estab. patient 30-39min; chronic exacerbation, 2 stable chronic or 1 acute illness add add modifier 95 for video, (do not use for phone, instead use 41297-10) [facility] 04/24/2023 Estab. patient 30-39min; chronic exacerbation, 2 stable chronic or 1 acute illness add add modifier 95 for video, (do not use for phone, instead use 67659-64) [facility] 04/24/2023 Estab. patient 30-39min; chronic exacerbation, 2 stable chronic or 1 acute illness add add modifier 95 for video, (do not use for phone, instead use 66502-17) [facility] 04/24/2023 Estab. patient 30-39min; chronic exacerbation, 2 stable chronic or 1 acute illness add add modifier 95 for video, (do not use for phone, instead use 28812-77) [facility] 07/17/2023 Essential (primary) hypertensionGastro-esophageal reflux disease without [...] (do not use for phone, instead use 23617-63) [facility] 07[place]17/20[place] Estab. patient 30-39min; chronic exacerbation, 2 stable chronic or 1 acute illness add add modifier 95 for video, (do not use for phone, instead use 10571-28) [facility] 07/17/2023 Estab. patient 30-39min; chronic exacerbation, 2 stable chronic or 1 acute illness add add modifier 95 for video, (do not use for phone, instead use 81883-15) [facility] 07/17/2023 Estab. patient 30-39min; chronic exacerbation, 2 stable chronic or 1 acute illness add add modifier 95 for video, (do not use for phone, instead use 88098-25) [facility] 07/17/2023 Estab. patient 30-39min; chronic exacerbation, 2 stable chronic or 1 acute illness add add modifier 95 for video, (do not use for phone, instead use 92616-53) [facility] 07/17/2023 Estab. patient 30-39min; chronic exacerbation, 2 stable chronic or 1 acute illness add add modifier 95 for video, (do not use for phone, instead use 45443-95) [facility]17[place] Estab. patient 30-39min; chronic exacerbation, 2 stable chronic or 1 acute illness add add modifier 95 for video, (do not use for phone, instead use 84546-26) [facility] Vital Signs Date of [...] Time Current Smoking Status Never smoker 2024-07-12 7 Sex Female History of Procedures Procedures Service [...] (do not use for phone, instead use 17912-93) 65387 2022-04-17 No Data Available No Data Availa ble SBP < 130 (3074F) 3074F 2022-04-17 No Data Available No Data Available DBP 80-89 (3079F) 3079F 2022-04-17 No Data Available No Data Available Estab. patient 30-39min; chronic exacerbation, 2 stable chronic or 1 acute illness add add modifier 95 for video, (do not use for phone, instead use 69740-86) 86605 2023-04-24 No Data Available No Data Availa [...] (do not use for phone, instead use 55393-60) 17098 2023-07-17 No Data Available No Data Availa [...] life alert 2023-04-24 Has BP cuff 2023-04-24 [facility] nurse 2023-04-24 Continent uses bed pads for accidents 20 02-05-15 Lives alone, but daughter there most of day, daughter is ROAD MACHINERY INSPECTOR 2023-04-24 ADLsAmbulating - Needs Alejandrina tanceDressing - [...] PCP every 3 months, BP assessed by ROAD MACHINERY INSPECTOR dailyrecommend healthy lifestyle changes (weight loss, heart [...] PCP every 3 months, BP assessed by ROAD MACHINERY INSPECTOR dailyLast BP 127/75; has BP cuff at [...] PCP every 3 months, BP assessed by ROAD MACHINERY INSPECTOR dailyLast BP 127/75; has BP cuff at [...] risk for dependence/respiratory depression/falls/cognitive dysfunction. 4Declines Narcan. Dtr/ROAD MACHINERY INSPECTOR has it put away unless she needs [...] concerns 2022-04-17 Keep it up with the [employer] Concerns Date Concern 2023-07-17 Visit completed usin g audio/video. Patient/Guardian agreed to visit via telehealth. Today, patient has chief complaint of: follow up care and comprehensive review.Reviewed Allergies, Medications, Active Medical conditions, past medical/surgical history, Social history. 2023-07-17 Full code, CPR, atte mpt resuscitation. HCP: Daughter Health Care Surrogate : Jailene Boykin [phone] 2023-07-17 Most recent hospital stay(s) or ER visit(s) and precipitating factors: 2023-07-17 Open HEDIS Measure wali rodríguez:
== END 2024-08-06 11:44 | disposition home or self-care (01) ==
PROVIDERS: PCP Internal Medicine; Visit Provider Internal Medicine
DX: I12.9 Hypertensive chronic kidney disease with stage 1 through stage 4 chronic kidney disease, or unspecified chronic kidney disease (principal); N18.2 Chronic kidney disease, stage 2 (mild); F33.9 Major depressive disorder, recurrent, unspecified; E66.01 Morbid (severe) obesity due to excess calories; Z68.42 Body mass index [BMI] 45.0-49.9, adult; E03.9 Hypothyroidism, unspecified; J45.20 Mild intermittent asthma, uncomplicated; R73.01 Impaired fasting glucose; R01.1 Cardiac murmur, unspecified; G47.33 Obstructive sleep apnea (adult) (pediatric); K21.9 Gastro-esophageal reflux disease without esophagitis; M51.362 Other intervertebral disc degeneration, lumbar region with discogenic back pain and lower extremity pain

== ENCOUNTER → 2024-08-06 10:32 | Outpatient (BNVA) | payer OTHER, SELFPAY | PROVIDERS: PCP Internal Medicine; Visit Provider Internal Medicine | DX: N18.2 Chronic kidney disease, stage 2 (mild) (principal); E03.9 Hypothyroidism, unspecified; J45.20 Mild intermittent asthma, uncomplicated; R73.01 Impaired fasting glucose; R01.1 Cardiac murmur, unspecified; G47.33 Obstructive sleep apnea (adult) (pediatric); K21.9 Gastro-esophageal reflux disease without esophagitis; M51.362 Other intervertebral disc degeneration, lumbar region with discogenic back pain and lower extremity pain; M50.30 Other cervical disc degeneration, unspecified cervical region; M89.49 Other hypertrophic osteoarthropathy, multiple sites; M79.7 Fibromyalgia; K59.04 Chronic idiopathic constipation; E53.8 Deficiency of other specified B group vitamins; E55.9 Vitamin D deficiency, unspecified; N32.81 Overactive bladder; G47.00 Insomnia, unspecified; F41.9 Anxiety disorder, unspecified; F33.9 Major depressive disorder, recurrent, unspecified; E66.01 Morbid (severe) obesity due to excess calories; Z68.42 Body mass index [BMI] 45.0-49.9, adult; Z71.3 Dietary counseling and surveillance | CPT/HCPCS: 96127; 99212 ==

== ENCOUNTER 2024-08-13 09:53 | Outpatient (REF) | payer OTHER, SELFPAY ==
--- NOTE | ~2024-08-13 | US_ITS ---
CLINICAL HISTORY: N32.81 - Overactive bladder US retroperitoneum with color Doppler Comparison: None Findings: Right kidney normal size and echotexture, 9.6 cm length. No hydronephrosis. Normal color flow. No nephrolithiasis. No renal masses Left kidney normal size and echotexture, 10.0 cm in length. No hydronephrosis. Normal color flow. No nephrolithiasis. No renal masses Urinary bladder is unremarkable. Prevoid volume 197.0 mL. Postvoid volume 0 mL. Ureteral jets are visualized bilaterally Impression: 1. Normal retroperitoneal ultrasound This document has been electronically signed by: Robin Carvalho MD on 08/15/2024 16:00:17
--- OUTSIDE RECORDS SUMMARY | 2024-08-13 11:27 | XMS_ITS ---
Author Organization [facility] kayla Bogue Address [address] [facility] [place] [address] Care Team Providers Care Tamping Machine Operator Name Role Phone Bruce BOLAÑOS, [place] Primary Care Provider Tisha Vital Unavailable [phone] Allergies No Known Allergies REASON FOR VISIT [...] Problem Acquired hammer toe of right foot ([id number]) Other hammer toe(s) (acquired), right foot (M20.41) Active confirmed Problem Localized, primary osteoarthritis of the ankle and/or foot (754261928) Arthritis of joint of lesser toe, right (M19.071) Active confirmed Problem Acquired hammer toe of left foot (7429044796503544) Other hammer toe(s) (acquired), left foot (M20.42) Active confirmed Problem Localized, primary osteoarthritis of the ankle and/or foot (259574555) Arthritis of joint of lesser toe, left (M19.072) Active confirmed Vital Signs Height 5ft 2in in 03/06/2024 Weight 240 lbs 03/06/2024 BMI 43.89 kg/m2 03/06/2024 Encounters Encounter Location Date Provider Diagnosis [facility] [address] [place] [address] 03/06/2024 Tisha Arguello Tinea pedis of both [...] Notes * Yeimi FUENTESDOB:1950 (74 yo F)Acc No.[id number]:03/06/2024 Progress Notes Patient:?Ed Fuentesaris Provider:?Tisha Arguello DPM :1950???Age:74 Y???Sex:Female D ate:03/06/2024 Address:[address] [place] [address], [facility] Pcp:Antonino Barrera MD Subjective: * Chief Complaints: [...] Arguello DPM Date:? Generated for Francesca jennings/Levi/Sam on:?08/13/2024 11:26 AM EST History and Physical Notes * [...]
--- OUTSIDE RECORDS SUMMARY | 2024-08-13 11:27 | XMS_ITS | Clinical Summary ---
Author Organization 175 [facility] Address [address] [place] [address] Phone Care Team Providers Care Embroidery Patternmaker Name Role Phone Antonino Barrera MD Primary Care Provider Encounters Date Type Department Care Team Description 06/17/2024 9:30 AM EST Evaluation [address] [phone] Mercedes Braun PT Physical deconditioning (Primary Dx) 06/17/2024 Plan of Care Documentation [address] [phone] from Last 3 Months Social History Tobacco [...] topic Insurance [employer] MEDICARE Care Teams Embroidery Patternmaker Relationship Specialty Start Date End Date Antonino Barrera MD [address] [place] [address] PCP - General Internal Medicine 05/26/24
--- OUTSIDE RECORDS SUMMARY | 2024-08-13 11:27 | XMS_ITS ---
Author Name Mariaelena Garcia NP Address [address] [place] [address] Phone [phone] Organization [facility] Care Team Providers Care Transactional Paralegal Name Role Phone Mariaelena Garcia Unavailable [phone] Bruce Antonino Unavailable [phone] Reason for Referral Not Available Allergies, adverse [...] Service Diagnosis/Co mplaint Medication List Documented (1159F) [facility] Medication List Documented (1159F) [facility] Medication List Documented (1159F) [facility] Medication List Documented (1159F) [facility] Medication List Documented (1159F) [facility] Medication List Documented (1159F) [facility] Essential (primary) hypertensionUnspecified asthma, uncomplicatedMorbid (severe) obesity due to excess caloriesOpioid dependence, uncomplicatedMajor depressive disorder, recurrent, moderateBody mass index (BMI) 45.0-49.9, adultAnxiety disorder, unspecifiedDorsalgia, unspecifiedGastro-esophageal reflux disease without esophagitisOther chronic painHypothyroidism, unspecifiedObstructive sleep apnea (adult) (pediatric)Irritable bowel syndrome without diarrhea Medication List Documented (1159F) [facility]/20[place] Medication List Documented (1159F) [facility] 04[place] Estab. patient 30-39min; chronic exacerbation, 2 stable chronic or 1 acute illness add add modifier 95 for video, (do not use for phone, instead use 00232-64) [facility] ([place] 04/24/2023 Essential (primary) hypertensionGastro-esophageal reflux disease without [...] (do not use for phone, instead use 75625-21) [facility] Estab. patient 30-39min; chronic exacerbation, 2 stable chronic or 1 acute illness add add modifier 95 for video, (do not use for phone, instead use 98788-73) [facility] 04[place] Estab. patient 30-39min; chronic exacerbation, 2 stable chronic or 1 acute illness add add modifier 95 for video, (do not use for phone, instead use 15811-15) [facility] 04/[place]/2023 Estab. patient 30-39min; chronic exacerbation, 2 stable chronic or 1 acute illness add add modifier 95 for video, (do not use for phone, instead use 86765-93) [facility] 04[place] Estab. patient 30-39min; chronic exacerbation, 2 stable chronic or 1 acute illness add add modifier 95 for video, (do not use for phone, instead use 29666-69) [facility] 04[place] Estab. patient 30-39min; chronic exacerbation, 2 stable chronic or 1 acute illness add add modifier 95 for video, (do not use for phone, instead use 49946-53) [facility] Estab. patient 30-39min; chronic exacerbation, 2 stable chronic or 1 acute illness add add modifier 95 for video, (do not use for phone, instead use 68953-50) [facility] 04[place] Estab. patient 30-39min; chronic exacerbation, 2 stable chronic or 1 acute illness add add modifier 95 for video, (do not use for phone, instead use 49102-80) [facility] 04[place] Estab. patient 30-39min; chronic exacerbation, 2 stable chronic or 1 acute illness add add modifier 95 for video, (do not use for phone, instead use 18989-29) [facility] 04[place]23 Estab. patient 30-39min; chronic exacerbation, 2 stable chronic or 1 acute illness add add modifier 95 for video, (do not use for phone, instead use 41118-67) [facility] 07[place]2023 Essential (primary) hypertensionGastro-esophageal reflux disease without [...] (do not use for phone, instead use 87778-21) [facility] 07[place]20[place] Estab. patient 30-39min; chronic exacerbation, 2 stable chronic or 1 acute illness add add modifier 95 for video, (do not use for phone, instead use 16488-72) [facility] 07[place]17[place]2023 Estab. patient 30-39min; chronic exacerbation, 2 stable chronic or 1 acute illness add add modifier 95 for video, (do not use for phone, instead use 20274-53) [facility] 07[place]20[place] Estab. patient 30-39min; chronic exacerbation, 2 stable chronic or 1 acute illness add add modifier 95 for video, (do not use for phone, instead use 84348-67) [facility] 07/17/2023 Estab. patient 30-39min; chronic exacerbation, 2 stable chronic or 1 acute illness add add modifier 95 for video, (do not use for phone, instead use 47651-50) [facility] 07/17/2023 Estab. patient 30-39min; chronic exacerbation, 2 stable chronic or 1 acute illness add add modifier 95 for video, (do not use for phone, instead use 53552-50) [facility] 07[place]17[place] Estab. patient 30-39min; chronic exacerbation, 2 stable chronic or 1 acute illness add add modifier 95 for video, (do not use for phone, instead use 86133-77) [facility] 07[place]2023 Vital Signs Date of Collection [...] tive Time Current Smoking Status Never smoker 5 Sex Female History of Procedures Procedures Service [...] (do not use for phone, instead use 14160-18) 49348 2022-04-17 No Data Available No Data Availa ble SBP < 130 (3074F) 3074F 2022-04-17 No Data Available No Data Available DBP 80-89 (3079F) 3079F 2022-04-17 No Data Available No Data Available Estab. patient 30-39min; chronic exacerbation, 2 stable chronic or 1 acute illness add add modifier 95 for video, (do not use for phone, instead use 58086-12) 15962 2023-04-24 No Data Available No Data Availa [...] (do not use for phone, instead use 57441-38) 37445 2023-07-17 No Data Available No Data Availa [...] life alert 2023-04-24 Has BP cuff 2023-04-24 [facility] nurse 2023-04-24 Continent uses bed pads for accidents 20 02-05-15 Lives alone, but daughter there most of day, daughter is CLERICAL ASSOCIATE 2023-04-24 ADLsAmbulating - Needs Alejandrina tanceDressing - [...] PCP every 3 months, BP assessed by CLERICAL ASSOCIATE dailyrecommend healthy lifestyle changes (weight loss, heart [...] Documented (1125F)Continue to see PCP. [facility] or disease education needs that may arise.Continues on Amlodipine, Lisinopril, Spironolactone sees PCP every 3 months, BP assessed by CLERICAL ASSOCIATE dailyLast BP 127/75; has BP cuff at [...] PCP every 3 months, BP assessed by CLERICAL ASSOCIATE dailyLast BP 127/75; has BP cuff at [...] risk for dependence/respiratory depression/falls/cognitive dysfunction. 4Declines Narcan. Dtr/CLERICAL ASSOCIATE has it put away unless she needs [...] concerns 2022-04-17 Keep it up with the [employer] Health Concerns Date Concern 2023-07-17 Visit completed in g audio/video. Patient/Guardian agreed to visit via telehealth. Today, patient has chief complaint of: follow up care and comprehensive review.Reviewed Allergies, Medications, Active Medical conditions, past medical/surgical history, Social history. 2023-07-17 Full code, CPR, atte mpt resuscitation. HCP: Daughter Health Care Surrogate : Jailene Boykin [phone] 2023-07-17 Most recent hospital stay(s) or ER visit(s) and precipitating factors: 2023-07-17 Open HEDIS Measure r marcos:
--- OUTSIDE RECORDS SUMMARY | 2024-08-13 11:27 | XMS_ITS | Patient Health Record ---
Author Organization [facility] Center[facility] kayla HarringtonAv[place] Address [address] [facility] [place] [address] Care Team Providers Care Appraiser Oil [employer] Water Name Role Phone Antonino Barrera MD Primary Care Provider Tisha Vital Unavailable [phone] Allergies No Known Allergies Reason For Referral [...] 20 MG TAKE 1 CAPSULE BY [facility] EVERY DAY Oral for 90 Days Active [...] Problem Acquired hammer toe of right foot ([id number]) Other hammer toe(s) (acquired), right foot (M20.41) Active confirmed Problem Acquired hammer toe of left foot (7414598882404675) Other hammer toe(s) (acquired), left foot (M20.42) Active confirmed Problem Localized, primary osteoarthritis of the ankle and/or foot (205956015) Arthritis of joint of lesser toe, left (M19.072) Active confirmed Problem Localized, primary osteoarthritis of the ankle and/or foot (318041258) Arthritis of joint of lesser toe, right (M19.071) Active confirmed Vital Signs Height 5ft 2in in 03/06/2024 Weight 240 lbs 03/06/2024 BMI 43.89 kg/m2 03/06/2024 Encounters Encounter Location Date Provider Diagnosis [facility] [address] 03/06/2024 Tisha Arguello Tinea pedis of both feet B35.3 ; Pain in right toe(s) M79.674 ; Other hammer toe(s) (acquired), right foot M20.41 ; Pain in left toe(s) M79.675 and Other hammer toe(s) (acquired), left foot M20.42 [facility] [address] 01/30/2024 Tisha Arguello Assessments Encounter Date Diagnosis [...] Insured Coverage Start Date Coverage End Date [id number] [address] [address] [place] [id number] [facility] Colon, Yeimi Self - patient is the insured Medical (General) History Medical History History ICD Code Anxiety Arthritis asthma Back,Hip,and Knee pain CAD (Cholesterol) Cataracts covid-19 Depression Fibromyalgia Headaches/Migraines Hypertension Reflux ( GERD) Rheumatic fever Chicken pox Surgical History Surgery Date(Month/Year) cataract surgery implants removed
--- OUTSIDE RECORDS SUMMARY | 2024-08-13 11:27 | XMS_ITS ---
Author Organization [facility] Address [address] [place] [address] Care Team Providers Care Manufacturing Controls Engineer Name Role Phone Bruce BOLAÑOS, [place] Primary Care Provider Tisha Vital Unavailable [phone] REASON FOR VISIT BLOOD BANK BUSINESS MANAGER PPWK Entered Encounters Encounter Location Date Provider Diagnosis [facility] [address] [place] [address] 01/30/2024 Tisha Arguello Plan Of Treatment No Information Progress Notes * Yeimi FUENTESDOB:1950 (73 yo F)Acc No.[id number]:01/30/2024 Patient:?Yeimi Fuentes :1950???Age:73 Y???Sex:Female Address:[address] [place], [address] * true * Date:? Generated for Francesca jennings/Levi/eTransmitting on:?08/13/2024 11:27 AM EST
== END 2024-08-13 09:54 | disposition home or self-care (01) ==
LOC: HO.US 09:53
PROVIDERS: PCP Internal Medicine; Visit Provider Nurse Practitioner Family
DX: N32.81 Overactive bladder (principal); N39.46 Mixed incontinence; R35.1 Nocturia
CPT/HCPCS: 76770

== ENCOUNTER → 2024-08-13 09:56 | Outpatient (BNV) | payer OTHER, SELFPAY | PROVIDERS: PCP Internal Medicine; Visit Provider Radiology Diagnostic Radiology | DX: N32.81 Overactive bladder (principal) | CPT/HCPCS: 76770 ==

== ENCOUNTER 2024-08-27 10:44 | Outpatient (AMB) | payer OTHER, SELFPAY ==
--- NOTE | 2024-08-27 10:45 | A.OFFVIS_ITS ---
Intake Visit Reasons: 2m/US(set) Intake Note: Patient presents today for follow up on: Incontinence and ultrasound results Imaging Completed: 08/14/23 Any Urology Medication: mybertriq Antibiotic Allergies: None Blood Thinners: None PVR: 103ml's Active Directory Architect Required: No Accompanied by: Daughter Allergies No Known Allergies [No Known Allergies*] Allergy (Verified 08/27/24 11:52) Medication List - Last Reconciled 08/27/24 by JOO AllisonBC [ADULT PULL UPS (Size XXL) As directed] [ADULT WIPES As directed] albuterol sulfate 2.5 mg (3 mL) continuous nebulization Q6-8H PRN albuterol sulfate 90 mcg/actuation 2 puffs inhalation Q6H PRN amlodipine 2.5 mg PO DAILY [BEDSIDE COMMODE As directed] bisacodyl (Laxative (bisacodyl)) 10 mg (2 x 5 mg) PO BEDTIME cholecalciferol (vitamin D3) 25 mcg PO DAILY 90 days [compression stockings As directed] CPAP (CPAP Machine/Device) As directed cyanocobalamin (vitamin B-12) 1,000 mcg PO DAILY 90 days diclofenac sodium 1% 2 grams topical BID [DISPOSABLE BED PADS As directed] [Disposable UNDERPADS As directed] gabapentin 400 mg PO TID hydrocortisone 1% (Anti-Itch (hydrocortisone)) 1 appl topical TID PRN [INCONTINENT BED PADS As directed] [KOTEX PADS As directed] levothyroxine 137 mcg PO DAILY 90 days linaclotide (Linzess) 290 mcg PO QAM lisinopril 40 mg PO DAILY 90 days meclizine 25 mg PO BID PRN mometasone 0.1% 1 appl topical DAILY PRN [MOTORIZED SCOOTER As directed] omeprazole 20 mg PO DAILY 90 days oxycodone-acetaminophen 5-325 mg 1 tab PO Q6H PRN 28 days [ROLLATOR WALKER As directed] sertraline 100 mg PO DAILY 90 days [SHOWER CHAIR As directed] spironolactone 100 mg PO BID vibegron (Gemtesa) 75 mg PO DAILY 30 days HPI Comments Details: Yeimi is a very pleasant 74-year-old Vietnamese-speaking female patient of Dr. Barrera who was accompanied by her daughter at today's office visit. She has a past medical history of obesity, bilateral cataracts, constipation, osteoarthritis, depression, anxiety, insomnia, overactive bladder, lumbar degenerative disc disease, vitamin-D deficiency, GERD, obstructive sleep apnea, vitamin B12 deficiency, fibromyalgia, asthma, chronic kidney disease stage 2, hypothyroidism, and hypertension. She presents to the office today for follow- up. Of note, patient was seen approximately 2 months ago as a new patient for ongoing lower urinary tract symptoms she had been experiencing at which time a retroperitoneal ultrasound was ordered for further assessment evaluation and the patient was started on 25 mg of Myrbetriq daily. In discussion with the patient today she reports noting improvement in episodes of urinary urgency and frequency however continues with mixed urinary incontinence. Retroperitoneal ultrasound 09/01 notes bilateral kidneys are normal in size and echotexture. No renal masses, hydronephrosis, or nephrolithiasis noted. The urinary bladder is unremarkable. Pre void bladder volume is approximately 200 mL. Postvoid bladder volume is a proximally 0 mL. Normal retroperitoneal ultrasound. She does feel bothered by episodes of mixed urinary incontinence she continues to experience. We discussed further treatment options and risks and benefits of these treatment options. She has also trialed oxybutynin without improvement in lower urinary tract symptoms. She otherwise denies hematuria, dysuria, foul smelling urine, changes to urinary stream, flank pain, fever, and or chills. In office urinalysis results reviewed with the patient today. PVR 10 mL. She reports lower urinary tract symptoms have been present for years however feels they are worsening. She does have a previous history of 8 vaginal deliveries. All questions were answered. She otherwise offers no other issues or concerns at this time. Plan The patient will begin Gemtesa, an alternative medication for her urinary incontinence, discontinuing her current medication to prevent interactions. If her symptoms do not improve with Gemtesa, we may explore further options including urodynamic testing. Monitoring of her response to the new medication will be crucial and additional interventions will depend on her progress. Educational materials regarding potential procedures and future interventions were provided for her understanding and preparation. Patient was informed and verbally consented to the use of an ambient scribe for clinic note documentation during this visit. Discussion Notes I discussed with the patient the persistence of her urinary incontinence symptoms, despite current medication, and the limited relief achieved thus far. It was explained that Gemtesa would be prescribed as an alternative with the aim of improved symptom control. Possible next steps, such as urodynamic testing. I ensured she understood the procedure for initiating Gemtesa and the importance of not taking it alongside her current medication due to the potential for drug interactions. Materials on the urodynamics procedure were provided, should this be required in the future. Anticipatory guidance included the need for close monitoring of symptoms and response to the new medication, and a follow-up plan was discussed. 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, bilateral Bilateral primary osteoarthritis of knee Impaired fasting glucose Primary osteoarthritis involving multiple joints Depression Anxiety Insomnia Overactive bladder Lumbar degenerative disc disease Degenerative disc disease, cervical Vitamin D deficiency GERD without esophagitis Obstructive sleep apnea Vitamin B12 deficiency Fibromyalgia Cardiac murmur Mild intermittent asthma without complication Chronic kidney disease (CKD), stage II (mild) Acquired hypothyroidism Benign essential hypertension Surgical History S/P excision of lipoma H/O blepharoplasty History of colonoscopy Family History Father CVD (cardiovascular disease) Mother CVD (cardiovascular disease) Diabetes Hypertension Social History Household Members: Spouse Housing: Condominium Are you a primary rn critical care to a significant other at home: No Do you presently have visiting nurse or other home services: Yes Alcohol intake: never Patient Tobacco Use Status: Never used Tobacco e-Cigarette/Vaping Use: Never Used Second Hand Smoke Exposure: No service: No Current occupational status: unemployed, student and disabled Cognitive needs: Yes (walker) Hearing needs: No Vision needs: Yes (glasses) Review of Systems Eyes Reports as per HPI ENT Reports no additional complaints Card Reports as per [facility] Resp Reports as per [facility] GI Reports as per [facility] Reports as per [facility] Musc Reports as per [facility] Neuro Reports no additional complaints Psych Reports as per [facility] Endo Reports as per [facility] Javier/Lymph Reports no additional complaints Aller/Immun Reports no additional complaints Physical Exam Const General: cooperative, healthy appearing, comfortable, no acute distress, well developed, alert and awake Nutritional Appearance: overweight Orientation/consciousness: patient oriented x3 Limitations: no limitations HEENT Head: Yes normal to inspection, Yes normocephalic and Yes atraumatic Ears: hearing grossly normal bilaterally Eyes General: appearance normal, both eyes and all related structures Neck Neck: Yes normal visual inspection and Yes trachea midline Chest Chest palpation & inspection: normal inspection of the chest Resp Effort & Inspection: normal respiratory effort and able to speak in complete sentences Cardio Rate: regular rate GI Inspection: Yes normal to inspection General: Yes no CVA tenderness Back/Spine/Pelvis Back: no CVA tenderness Skin General skin exam: no rashes or lesions noted Neuro General: patient oriented x3 Extrem General: Yes normal to inspection Psych Appearance: grossly normal and well kempt Mental Status: mental status grossly normal Speech and movement: Normal speech and movement present and Clear speech present Affect: normal affect Attitude: cooperative Thought process: Normal thought process present Thought content: Normal thought content present Insight: Fair insight present (Psych) Judgement: Fair judgement present (Psych) Office Procedures Post Void Residual Post Residual Void Post Void Residual (PVR): 103 21231-Gegt Void Residual by ultrasound Results AMB Urinalysis, Automated UA Leukoctes 0 Carlos/uL Last Edit by Backupify Jc on 08/27/24 11:29 UA Nitrite Last Edit by Frogtek Bopcarlotta on 08/27/24 11:29 UA Urobilinogen 0.2 mg/dL Last Edit by Nexterra on 08/27/24 11:29 UA Protein 15 mg/dL Last Edit by Frogtek Bopcarlotta on 08/27/24 11:29 UA pH 6.0 Last Edit by [email or web address] Greene on 08/27/24 11:29 UA Blood 0 Inder/uL Last Edit by Backupify Jc on 08/27/24 11:29 UA Specific Harwood 1.025 Last Edit by Nexterra on 08/27/24 11:29 UA Ketone Last Edit by Daryl Greene on 08/27/24 11:29 UA Bilirubin 0 mg/dL Last Edit by Daryl Greene on 08/27/24 11:29 UA Glucose 0 mg/dL Last Edit by Daryl Greene on 08/27/24 11:29 Results Reviewed Results Reviewed: Laboratory Last Values Urine pH (Auto) 6.0 08/27/24 11: Specific Harwood (Auto) 1.025 08/27/24 11:27 Urine Protein (Auto) 15 mg/dL 08/27/24 11:27 Glucose (UA)(Auto) 0 mg/dL 08/27/24 11: Urine Blood (Auto) 0 Inder/uL 08/27/24 11: Urine Bilirubin (Auto) 0 mg/dL 08/27/24 11: Urine Urobilinogen (Auto) 0.2 mg/dL 08/27/24 11:27 Leukocyte Esterase (Auto) 0 Carlos/uL 08/27/24 11:27 Date of Service: 08/13/24 Procedure(s): US retroperitoneal comp Findings: Right kidney normal size and echotexture, 9.6 cm length. No hydronephrosis. Normal color flow. No nephrolithiasis. No renal masses Left kidney normal size and echotexture, 10.0 cm in length. No hydronephrosis. Normal color flow. No nephrolithiasis. No renal masses Urinary bladder is unremarkable. Prevoid volume 197.0 mL. Postvoid volume 0 mL. Ureteral jets are visualized bilaterally Impression: 1. Normal retroperitoneal ultrasound Assessment & Plan Assessment & Plan (1) Overactive bladder: Code(s): N32.81 - Overactive bladder Category: Medical Plan In office urinalysis results with the patient today; as noted above. PVR 10 mL. Recent retroperitoneal ultrasound results reviewed with the patient today; as noted above. We discussed and stressed the importance of weight loss in relation to lower urinary tract symptoms as well as overall health and well-being. We discussed further treatment options and risks and benefits of these treatment options. Stop Myrbetriq. Start Gemtesa as discussed and prescribed. We discussed importance of timed/scheduled voiding given decreased mobility. Follow-up in 1-3 months with imaging and PVR; or sooner with any issues, concerns, and or questions. Orders: Orders AMB Post Void Residual by ultrasound Today N39.46 - Mixed incontinence AMB Urinalysis Automated Today Z13.9 - Encounter for screening, unspecified Medications: New vibegron (Gemtesa) 75 mg PO DAILY 30 tabs 3RF 30 days N32.81 - Overactive bladder Discontinued mirabegron ER (Myrbetriq) Discontinued Reason: Doctor's Order 25 mg PO DAILY 30 tabs 3RF 30 days N30.10 - Interstitial cystitis (chronic) without hematuria, N32.81 - Overactive bladder, R35.1 - Nocturia, R39.15 - Urgency of urination Patient Instructions: The patient had an opportunity to ask questions regarding the treatment plan. All questions were answered. Physical exam, labs, and imaging were discussed and reviewed in detail. As well as risks, benefits, and discussion of treatment choices. No major barriers to understanding were identified. The patient expressed understanding and agreement with the above treatment plan. The patient was made aware they should contact our office by phone for worsening of their current condition, the appearance of new symptoms, or with any questions or concerns. Compliance is encouraged with any medications and follow up testing that is ordered. It is a privilege to be allowed the opportunity to participate in? your urological care.? Again, if you have any questions or concerns If you have any questions or concerns please do not hesitate to contact me. The office is [phone]. This note is constructed using voice recognition software. While every effort has been made to ensure accuracy lip cutter errors may have been included. Yours sincerely, JENNA Allison Coding Level of Care Code Est Pt Level 4 (48295) Complex EM visit Add On G2211 Diagnoses Overactive bladder N32.81 CPT Codes Post Residual Void - PVR CPT Code: 53858-Siyc Void Residual by ultrasound ( [id number])
--- OUTSIDE RECORDS SUMMARY | 2024-08-27 12:34 | XMS_ITS ---
Author Organization [facility] Address [address] [place] [address] Care Team Providers Care Body Mechanic Apprentice Name Role Phone Bruce BOLAÑOS, [place] Primary Care Provider Tisha Vital Unavailable [phone] REASON FOR VISIT ED TRANSPORTER PPWK Entered Encounters Encounter Location Date Provider Diagnosis [facility] [address] [place] [address] 01/30/2024 Tisha Arguello Plan Of Treatment No Information Progress Notes * Yeimi FUENTESDOB:1950 (73 yo F)Acc No.[id number]:01/30/2024 Patient:?Yeimi Fuentes :1950???Age:73 Y???Sex:Female Address:[address], [address] * true * Date:? Generated for Xii michaela/Levi/eTransmitting on:?08/27/2024 12:34 PM EDT
--- OUTSIDE RECORDS SUMMARY | 2024-08-27 12:34 | XMS_ITS ---
Author Organization [facility] kayla Denton Address [address] [facility] [place] [address] Care Team Providers Care Grip Wrapper Name Role Phone Bruce BOLAÑOS, [place] Primary Care Provider Tisha Vital Unavailable [phone] Allergies No Known Allergies REASON FOR VISIT [...] Problem Acquired hammer toe of right foot (9428567235411018) Other hammer toe(s) (acquired), right foot (M20.41) Active confirmed Problem Localized, primary osteoarthritis of the ankle and/or foot (939786262) Arthritis of joint of lesser toe, right (M19.071) Active confirmed Problem Acquired hammer toe of left foot (6236977570518058) Other hammer toe(s) (acquired), left foot (M20.42) Active confirmed Problem Localized, primary osteoarthritis of the ankle and/or foot (378965264) Arthritis of joint of lesser toe, left (M19.072) Active confirmed Vital Signs Height 5ft 2in in 03/06/2024 Weight 240 lbs 03/06/2024 BMI 43.89 kg/m2 03/06/2024 Encounters Encounter Location Date Provider Diagnosis [facility] [address] [place] [address] 03/06/2024 Tisha Arguello Tinea pedis of both [...] Notes * Yeimi FUENTESDOB:1950 (74 yo F)Acc No.[id number]:03/06/2024 Progress Notes Patient:?Ed Fuentesaris Provider:?Tisha Arguello DPM :1950???Age:74 Y???Sex:Female D ate:03/06/2024 Address:[address] [place] [address], [id number] Pcp:Antonino Barrera MD Subjective: * Chief Complaints: [...] Arguello DPM Date:? Generated for Francesca jennings/Levi/Sam on:?08/27/2024 12:34 PM EDT History and Physical Notes * HPI (History [...]
--- OUTSIDE RECORDS SUMMARY | 2024-08-27 12:35 | XMS_ITS ---
Author Name Mariaelena Garcia NP Address [address] [place] [address] Phone [phone] [facility] Care Team Providers Care Press Tender Long Goods Name Role Phone Mariaelena Garcia Unavailable [phone] Bruce Antonino Unavailable [phone] Reason for Referral Not Available Allergies, adverse [...] NEEDED FOR CONSTIPATION 2021-10-24 No Data Available oxyCODONE-Acetaminophen 5/32 5 mg [...] MOUTH EVERY DAY 2023-06-11 No Data Available Ciclopirox Olamine 0.77 % Crm APPLY EXTE RNALLY TWICE A DAY TO FEET INCLUDING BETWEEN THE TOES 2024-03-06 No Data Available Mometasone Furoate 0.1 % Crm APPLY TO AF FECTED AREA DAILY NEEDED FOR RASH 2024-03-12 No Data Available Myrbetriq 25 mg Tab ER 24hr TOME 1 TABLE TA POR V A ORAL TODOS LOS D 2024-06-24 No Data Available Tylenol Extra Strength 500 m g Tab 2 tablet orally TID x 7 days PRN pain 2024-08-26 No Data Available Narcan 4 mg/0.1ML Liquid Nasal use 1 spray in one nostril in the event of opioid overdose. Call 911 after use 2024-08-26 No Data Available Problem List Problem Status Onset Date Resolved Date GERD (gastroesophageal reflux disease) Active 01-05-08 N/A Anxiety and major depressive disorder, recurent, moderate Active 2022-04-17 N/A Sleep apnea, obstructive Active 2022-04-17 N/A Hypothyroid Active 2022-04-17 N/A Hypertension Active 2022-04-17 N/A IBS (irritable bowel syndrome) Active 2022-04-17 N/A Morbid Obesity Active 2022-04-17 N/A Asthma Active 2022-04-17 N/A Opioid use Active 2022-04-19 N/A Chronic back pain Active 2022-04-17 N/A Chronic respiratory failure due to obstructive sleep apnea Active 2024-08-26 N/A Encounters Encounters Type Facility Date of Service Diagnosis/Co mplaint Medication List Documented (1159F) [facility] Medication List Documented (1159F) [facility] Medication List Documented (1159F) [facility] Medication List Documented (1159F) [facility] Medication List Documented (1159F) [facility] Medication List Documented (1159F) [facility]20[place] Essential (primary) hypertensionUnspecified asthma, uncomplicatedMorbid (severe) obesity due to excess caloriesOpioid dependence, uncomplicatedMajor depressive disorder, recurrent, moderateBody mass index (BMI) 45.0-49.9, adultAnxiety disorder, unspecifiedDorsalgia, unspecifiedGastro-esophageal reflux disease without esophagitisOther chronic painHypothyroidism, unspecifiedObstructive sleep apnea (adult) (pediatric)Irritable bowel syndrome without diarrhea Medication List Documented (1159F) [facility] Medication List Documented (1159F) [facility] Estab. patient 30-39min; chronic exacerbation, 2 stable chronic or 1 acute illness add add modifier 95 for video, (do not use for phone, instead use 29889-20) [facility] [place]20[place] Essential (primary) hypertensionGastro-esophageal reflux disease without [...] (do not use for phone, instead use 09531-07) [facility] Estab. patient 30-39min; chronic exacerbation, 2 stable chronic or 1 acute illness add add modifier 95 for video, (do not use for phone, instead use 54777-29) [facility] Estab. patient 30-39min; chronic exacerbation, 2 stable chronic or 1 acute illness add add modifier 95 for video, (do not use for phone, instead use 52939-39) [facility] [place] Estab. patient 30-39min; chronic exacerbation, 2 stable chronic or 1 acute illness add add modifier 95 for video, (do not use for phone, instead use 45887-62) [facility] [place]23 Estab. patient 30-39min; chronic exacerbation, 2 stable chronic or 1 acute illness add add modifier 95 for video, (do not use for phone, instead use 48265-95) [facility] [place]23 Estab. patient 30-39min; chronic exacerbation, 2 stable chronic or 1 acute illness add add modifier 95 for video, (do not use for phone, instead use 40564-90) [facility] [place]23 Estab. patient 30-39min; chronic exacerbation, 2 stable chronic or 1 acute illness add add modifier 95 for video, (do not use for phone, instead use 11360-45) [facility] Estab. patient 30-39min; chronic exacerbation, 2 stable chronic or 1 acute illness add add modifier 95 for video, (do not use for phone, instead use 81118-23) [facility]/2023 Estab. patient 30-39min; chronic exacerbation, 2 stable chronic or 1 acute illness add add modifier 95 for video, (do not use for phone, instead use 61838-36) [facility]/2023 Estab. patient 30-39min; chronic exacerbation, 2 stable chronic or 1 acute illness add add modifier 95 for video, (do not use for phone, instead use 52192-35) [facility] 07[place]2023 Essential (primary) hypertensionGastro-esophageal reflux disease without [...] (do not use for phone, instead use 71728-77) [facility]20[place] Estab. patient 30-39min; chronic exacerbation, 2 stable chronic or 1 acute illness add add modifier 95 for video, (do not use for phone, instead use 20700-09) [facility]17[place]2023 Estab. patient 30-39min; chronic exacerbation, 2 stable chronic or 1 acute illness add add modifier 95 for video, (do not use for phone, instead use 94781-59) [facility]17/2023 Estab. patient 30-39min; chronic exacerbation, 2 stable chronic or 1 acute illness add add modifier 95 for video, (do not use for phone, instead use 26470-73) [facility]17[place]2023 Estab. patient 30-39min; chronic exacerbation, 2 stable chronic or 1 acute illness add add modifier 95 for video, (do not use for phone, instead use 67032-75) [facility] Estab. patient 30-39min; chronic exacerbation, 2 stable chronic or 1 acute illness add add modifier 95 for video, (do not use for phone, instead use 81139-85) [facility] Estab. patient 30-39min; chronic exacerbation, 2 stable chronic or 1 acute illness add add modifier 95 for video, (do not use for phone, instead use 59268-92) [facility]20[place] Estab. patient 20-29min; 1 stable chronic or 2 minor; add add modifier 95 for video, modifier 93 for phone [facility] 08[place]26/2024 Essential (primary) hypertensionGastro-esophageal reflux disease without esophagitisDorsalgia, unspecifiedOther chronic painChronic respiratory failure, unsp w hypoxia or hypercapniaObstructive sleep apnea (adult) (pediatric) Estab. patient 20-29min; 1 stable chronic or 2 minor; add add modifier 95 for video, modifier 93 for phone [facility] Estab. patient 20-29min; 1 stable chronic or 2 minor; add add modifier 95 for video, modifier 93 for phone [facility]/26/20[place] Estab. patient 20-29min; 1 stable chronic or 2 minor; add add modifier 95 for video, modifier 93 for [facility] 08/26/2024 Estab. patient 20-29min; 1 stable chronic or 2 minor; add add modifier 95 for video, modifier 93 for phone [facility]/26/2024 Estab. patient 20-29min; 1 stable chronic or 2 minor; add add modifier 95 for video, modifier 93 for phone [facility] 08/26/2024 Estab. patient 20-29min; 1 stable chronic or 2 minor; add add modifier 95 for video, modifier 93 for phone [facility], ([place] 08/26/2024 Body mass index (bmi) 50-59. 9 , adult Estab. patient 20-29min; 1 stable chronic or 2 minor; add add modifier 95 for video, modifier 93 for phone [facility]/26/2024 Estab. patient 20-29min; 1 stable chronic or 2 minor; add add modifier 95 for video, modifier 93 for phone [facility] 08/26/2024 Essential (primary) hypertension Estab. patient 20-29min; 1 stable chronic or 2 minor; add add modifier 95 for video, modifier 93 for phone [facility] 08/26/2024 Essential (primary) hypertension Vital Signs Date of Collection Vitals 2022-04-17 [...] - 81.0 mm[Hg]BP Systolic - 137.0 mm[Hg] 2024-08-26 07:45:06 Height - 149.86 cmWe ight - 119.75 kgBody Mass Index (BMI) - 53.32 kg/m2BP Diastolic - 78.0 mm[Hg]BP Systolic - 137.0 mm[Hg]Pain Scale - 8.0 {score} Social History Social History Social History Observation Description Effec tive Time Current Smoking Status Never smoker 2024-08-09 0 Sex Female History of Procedures Procedures Service Procedure code Service date Servicing provider Phone# Medication List Documented (9509F) 1159F 2022-04-17 No Data Available No Data [...] (do not use for phone, instead use 35971-66) 68756 2022-04-17 No Data Available No Data Availa ble SBP < 130 (3074F) 3074F 2022-04-17 No Data Available No Data Available DBP 80-89 (3079F) 3079F 2022-04-17 No Data Available No Data Available Estab. patient 30-39min; chronic exacerbation, 2 stable chronic or 1 acute illness add add modifier 95 for video, (do not use for phone, instead use 01533-34) 47739 2023-04-24 No Data Available No Data Availa [...] (do not use for phone, instead use 90881-49) 63184 2023-07-17 No Data Available No Data Availa [...] Available No Data Avail able Estab. patient 20-29min; 1 stable chronic or 2 minor; add add modifier 95 for video, modifier 93 for phone 99725 2024-08-26 No Data Available No Data Availa ble Medication List Documented (1159F) 1159F 2024-08-26 No Data Available No Data Candice ilable Medication Review by prescribing provider or pharmacist documented (1160F) 1160F 2024-08-26 No Data Available No Data Candice ilable Functional Status Assessed (1170F) 1170F 2024-08-26 No Data Available No Data Avail able Advance Care Directive Advance care planning discussion documented in the medical record (1158F) 1158F 2024-08-26 No Data Available No Data Availa ble Advance care planning discussed and documented ? advance care plan or surrogate decision-maker was documented in the medical record. (1123F) 1123F 2024-08-26 No Data Available No Data Availa ble Pain Assessment - Pain Documented on a Pain Scale (1125F) 1125F 2024-08-26 No Data Available No Data Candice ilable SBP 130-139 (3075F) 3075F 2024-08-26 No Data Availabl e No Data Available DBP <80 (3078F) 3078F 2024-08-26 No Data Available No Data Available Functional Status Functional Category Effective Dates Cognition Status: Oriented t o Person, Place and TimeRecall 2/3 words at 3 minutes 2022-04-17 Has wheelchair, uses walker 2023-04-24 Has life alert 2023-04-24 Has BP cuff 2023-04-24 [facility] nurse 2023-04-24 Continent uses bed pads for accidents 02-05-15 Lives alone, but daughter there most of day, daughter is LAB ANALYST 2023-04-24 ADLsAmbulating - Needs Alejandrina tanceDressing - Needs assistanceBathing - Needs assistanceToileting - Needs assistanceTransfers - Needs assistanceEating - Some assistanceiADLsShopping - Needs assistanceMedications - Needs assistanceHousekeeping - Needs assistanceCooking - Needs assistanceFalls in last 6 months - No 2023-07-17 Mental Status No Information Assessments Date of Service Assessments 2022-04-17 08:59:16 [...] (irritable bowel syndrome)HypothyroidOpioid dependence, uncomplicatedChronic back pain 2024-08-26 07:45:06 HypertensionGERD (ga stroesophageal reflux disease)Anxiety and major depressive disorder, recurent, moderateMorbid ObesityAsthmaSleep apnea, obstructiveIBS (irritable bowel syndrome)HypothyroidOpioid useChronic respiratory failure due to obstructive sleep apneaChronic back pain Plan of Care Date of [...] PCP every 3 months, BP assessed by LAB ANALYST dailyrecommend healthy lifestyle changes (weight loss, heart [...] PCP every 3 months, BP assessed by LAB ANALYST dailyLast BP 127/75; has BP cuff at [...] PCP every 3 months, BP assessed by LAB ANALYST dailyLast BP 127/75; has BP cuff at [...] risk for dependence/respiratory depression/falls/cognitive dysfunction. 4Declines Narcan. Dtr/LAB ANALYST has it put away unless she needs it.pt takes gabapentin and OTC medications as needed Will trial lidoderm patches. counseled pt on non pharmacological ways to reduce painrecommend following up with PCP, regular exercise and weight loss Very resistant to losing weight. Encouragement. 2024-08-26 07:45:06 Functional Status As sessed (1170F)Advance Care Directive Advance care planning discussion documented in the medical record (1158F)Advance care planning discussed and documented ? advance care plan or surrogate decision-maker was documented in the medical record. (1123F)SBP 130-139 (3075F)DBP <80 (3078F)Estab. patient 20-29min; 1 stable chronic or 2 minor; add add modifier 95 for video, modifier 93 for phoneMedication List Documented (1159F)Medication Review by prescribing provider or pharmacist documented (1160F)Pain Assessment - Pain Documented on a Pain Scale (1125F)Continue to see PCP. Follow-up with [facility] as needed for any acute or disease education needs that may arise.Continues on Amlodipine, Lisinopril, Spironolactone 142/743/feels well denies H/ADiagnosed in 2007, on a daily PPI states [...] if adverse effects occur. Follow up with PCP.08/26/24with limited mobility due to pain,BMI 53PCP has recommended bariatric surgery. Member wants to hold off on surgery for nowwe discussed weight loss at length. Discussed sequela for morbid obesity, including increased pain and increased SOB. -recommend GLP1 to help with wt loss-member hesitant to start GLP1, will think about and discuss with PCP-encouraged to f/u with bariatric specialist for further obesity managementfeels well , has all inhalers at home bipap and oxygen PRN 2L, 08/26/24last used PRN Oxygen 3 days ago denies SOB todaystable without disease progression on CPAP at night time; states no issues with current settings, last adjusted two years agodiscussed and counseled patient on adherence to CPAP userecommend nightly use to avoid sleep issues and daytime sleepiness , weight loss also recommendedContinues on Linzesspt reported medication effectiveness and complianceLast BM today , hard stools , no blood in stoolsstable on Levothyroxine daily no lab data available for review, pt states she's been in current dose for years reviewed meds and assessed pt for signs of current thyroid functionrecommend continue with medication and following with PCP every 3 monthstaking hydrocodone routinely with refills monthlyHas tolerance and inability to cut down or stop. takes PRN Narcan Rx sent 08/26/24bipap and oxygen PRN 2L, 08/26/24last used PRN Oxygen 3 days ago denies SOB todaypt takes gabapentin and OTC medications as needed 08/26/24Trial tylenol 1g on scheuled doses TIDuse voltaren 4x/day if neededoffered PT, member declined *has PT referral in place from PCPAmbulatory referral to Physical Therapy and Athletic Training Outpatient Referral Routine Persons encountering health services in other specified circumstances1 Occurrences starting 05/21/2024 until 05/21/2025 Goals Date Goal 2022-04-17 Remember to take you r medications as prescribed and to check BP daily 2022-04-17 Call me if you have any questions or concerns 2022-04-17 Keep it up with the healthier food choices Health Concerns Date Concern 2024-08-26 Visit completed usin g audio and video. Patient and Guardian agreed to visit via telehealth. Today, patient has chief complaint of: follow up care and comprehensive review.Reviewed Allergies, Medications, Active Medical conditions, past medical/surgical history, Social history. 2024-08-26 Most recent hospital stay(s) or ER visit(s) and precipitating factors: NO HEDIS MEASURES POPULATED IN [facility] FOR 20242024-08-26 Open HEDIS Measure r eview: 2024-08-26 last PCP visit 08/062024-08-26 f/u Rheum 08/28/24
--- OUTSIDE RECORDS SUMMARY | 2024-08-27 12:35 | XMS_ITS | Clinical Summary ---
Author Organization [address] [facility] Address [address] [place] [address] Phone Care Team Providers Care Advertising Writer Name Role Phone Antonino Barrera MD Primary Care Provider Encounters Date Type Department Care Team Description 06/17/2024 9:30 AM EST Evaluation [address] [phone] Mercedes Braun PT Physical deconditioning (Primary Dx) 06/17/2024 Plan of Care Documentation [address] [phone] from Last 3 Months Social History Tobacco [...] topic Insurance [employer] Care Teams Advertising Writer Relationship Specialty Start Date End Date Antonino Barrera MD [address] [place] [address] PCP - General Internal Medicine 05/26/24
--- OUTSIDE RECORDS SUMMARY | 2024-08-27 12:35 | XMS_ITS | Patient Health Record ---
Author Organization [facility] Harrington[facility] Address [address] [place] [address] Care Team Providers Care Brick Unloader Tender Name Role Phone Antonino Barrera MD Primary Care Provider Tisha Vital Unavailable [phone] Allergies No Known Allergies Reason For Referral [...] 20 MG TAKE 1 CAPSULE BY [facility] EVERY DAY Oral for 90 Days Active [...] Problem Acquired hammer toe of right foot (5205456846595648) Other hammer toe(s) (acquired), right foot (M20.41) Active confirmed Problem Acquired hammer toe of left foot (9616615895175975) Other hammer toe(s) (acquired), left foot (M20.42) Active confirmed Problem Localized, primary osteoarthritis of the ankle and/or foot (490950432) Arthritis of joint of lesser toe, left (M19.072) Active confirmed Problem Localized, primary osteoarthritis of the ankle and/or foot (163697315) Arthritis of joint of lesser toe, right (M19.071) Active confirmed Vital Signs Height 5ft 2in in 03/06/2024 Weight 240 lbs 03/06/2024 BMI 43.89 kg/m2 03/06/2024 Encounters Encounter Location Date Provider Diagnosis [facility] [phone] 03/06/2024 Tisha Arguello Tinea pedis of both feet B35.3 ; Pain in right toe(s) M79.674 ; Other hammer toe(s) (acquired), right foot M20.41 ; Pain in left toe(s) M79.675 and Other hammer toe(s) (acquired), left foot M20.[address] [facility] [address] 01/30/2024 Tisha Arguello Assessments Encounter Date Diagnosis [...] Insured Coverage Start Date Coverage End Date [facility] [address] [address] [place] [address] [id number] [facility] [employer] Colon, Yeimi Self - patient is the insured Medical (General) History Medical History History ICD Code Anxiety Arthritis asthma Back,Hip,and Knee pain CAD (Cholesterol) Cataracts covid-19 Depression Fibromyalgia Headaches/Migraines Hypertension Reflux ( GERD) Rheumatic fever Chicken pox Surgical History Surgery Date(Month/Year) cataract surgery implants removed
== END 2024-08-27 11:23 | disposition home or self-care (01) ==
LOC: HO.HUSH 10:45
PROVIDERS: PCP Internal Medicine; Visit Provider Nurse Practitioner Family
DX: Z13.9 Encounter for screening, unspecified (principal); N32.81 Overactive bladder
CPT/HCPCS: 99214; G2211

== ENCOUNTER → 2024-08-27 10:44 | Outpatient (BNVA) | payer OTHER, SELFPAY | PROVIDERS: PCP Internal Medicine; Visit Provider Nurse Practitioner Family | DX: N32.81 Overactive bladder (principal); R32 Unspecified urinary incontinence; N39.46 Mixed incontinence; N30.10 Interstitial cystitis (chronic) without hematuria; R35.1 Nocturia; R39.15 Urgency of urination | CPT/HCPCS: 51798; 81003; 99212 ==

== ENCOUNTER 2024-08-28 08:27 | Outpatient (AMB) | payer OTHER, SELFPAY ==
[2024-08-28 08:29] VITALS: BP 132/76; PULSE 89; O2SAT 94; BMI 52.4
--- NOTE | 2024-08-28 08:29 | A.OFFVIS_ITS ---
Vital Signs 08/28/24 08:29 Height 4 ft 11 in Weight 259 lb 4.218 oz BMI 52.4 BP 132/76 Blood Pressure Location Lt brachial Position Sitting Pulse 89 Pulse Source Pulse Oximeter Pulse Oximetry (%) 94 Oxygen Delivery Method Room Air Intake Visit Reasons: Osteoarthritis Intake Note: Patient last seen by Jayla Diaz on 08/14/23. Presents today for Osteoarthritis follow up. Accompanied by: Daughter Allergies No Known Allergies [No Known Allergies*] Allergy (Verified 08/28/24 08:32) Medication List - Last Reconciled 08/28/24 by Juliann Valentin MD [ADULT PULL UPS (Size XXL) As directed] [ADULT WIPES As directed] albuterol sulfate 2.5 mg (3 mL) continuous nebulization Q6-8H PRN albuterol sulfate 90 mcg/actuation 2 puffs inhalation Q6H PRN amlodipine 2.5 mg PO DAILY [BEDSIDE COMMODE As directed] bisacodyl (Laxative (bisacodyl)) 10 mg (2 x 5 mg) PO BEDTIME cholecalciferol (vitamin D3) 25 mcg PO DAILY 90 days [compression stockings As directed] CPAP (CPAP Machine/Device) As directed cyanocobalamin (vitamin B-12) 1,000 mcg PO DAILY 90 days diclofenac sodium 1% 2 grams topical BID [DISPOSABLE BED PADS As directed] [Disposable UNDERPADS As directed] gabapentin 400 mg PO TID hydrocortisone 1% (Anti-Itch (hydrocortisone)) 1 appl topical TID PRN [INCONTINENT BED PADS As directed] [KOTEX PADS As directed] levothyroxine 137 mcg PO DAILY 90 days linaclotide (Linzess) 290 mcg PO QAM lisinopril 40 mg PO DAILY 90 days meclizine 25 mg PO BID PRN mometasone 0.1% 1 appl topical DAILY PRN [MOTORIZED SCOOTER As directed] omeprazole 20 mg PO DAILY 90 days oxycodone-acetaminophen 5-325 mg 1 tab PO Q6H PRN 28 days [ROLLATOR WALKER As directed] sertraline 100 mg PO DAILY 90 days [SHOWER CHAIR As directed] spironolactone 100 mg PO BID vibegron (Gemtesa) 75 mg PO DAILY 30 days HPI Comments Details: Patient is a 74 y.o. female with hypertension complicated by CKD stage 2, mixed incontinence urge/stress, hypothyroidism, depression/anxiety, fibromyalgia and polyarticular osteoarthritis here today for follow-up Interval History: Patient last seen 08/14/2023 with Jayla Diaz. At that time she was following up for review of labs. She was complaining of worsening chronic bilateral knee pain and was taking Percocet, gabapentin and topical diclofenac. Today patient is with her daughter Complaining of bilateral lower extremity edema Whole body pain Poor exercise tolerance Rheumatologic History: Polyarticular osteoarthritis Fibromyalgia 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 Current Rheumatology Medication(s): Gabapentin 400mg tid PFSH Medical History Morbid obesity with BMI of 45.0-49.9, adult Cataracts, bilateral Acute respiratory failure with hypoxia COVID-19 Pruritus Constipation 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, bilateral Bilateral primary osteoarthritis of knee Impaired fasting glucose Primary osteoarthritis involving multiple joints Depression Anxiety Insomnia Overactive bladder Lumbar degenerative disc disease Degenerative disc disease, cervical Vitamin D deficiency GERD without esophagitis Obstructive sleep apnea Vitamin B12 deficiency Fibromyalgia Cardiac murmur Mild intermittent asthma without complication Chronic kidney disease (CKD), stage II (mild) Acquired hypothyroidism Benign essential hypertension Surgical History S/P excision of lipoma H/O blepharoplasty History of colonoscopy Family History Father CVD (cardiovascular disease) Mother CVD (cardiovascular disease) Diabetes Hypertension Social History Household Members: [facility] Are you a primary manager respiratory care to a significant other at home: No Do you presently have visiting nurse or other home services: Yes Alcohol intake: never Patient Tobacco Use Status: Never used Tobacco e-Cigarette/Vaping Use: Never Used Second Hand Smoke Exposure: No service: No Current occupational status: unemployed, student and disabled Cognitive needs: Yes (walker) Hearing needs: No Vision needs: Yes (glasses) Review of Systems Const Details: Review of Systems Constitutional: Denies fever, chills, weight loss ENT: Denies vision changes, eye pain or eye redness, dental caries, dry mouth GI: Denies nausea, vomiting, diarrhea, abdominal pain, change in BM Pulm: Denies SOB, CAMACHO, hemoptysis, wheezing Cards: Denies chest pain, palpitations Skin: Denies Raynaud's, rash, nail changes, photosensitivity, STUDENT MINISTRIES DIRECTOR: Denies headaches, weakness, paresthesias, recurrent falls MSK: as per HPI All other systems reviewed and are unremarkable except noted above Physical Exam Vital Signs: Last Vital Signs Pulse 89 08/28/24 08:29 BP 132/76 08/28/24 08:29 Pulse Ox 94 08/28/24 08:29 Oxygen Delivery Method Room Air 08/28/24 08:29 BMI result Body Mass Index 52.4 Vital signs reviewed Physical Examination CONSTITUITIONAL Patient alert and cooperative. Well appearing and in no apparent painful distress HEENT Conjunctiva and sclera clear. ?Pupils equal round and reactive to light. ?No lymphadenopathy. ? CHEST/RESPIRATORY SYSTEM Normal respiratory effort and able to speak in complete sentences. ?Clear to auscultation bilaterally. ?No crackles, rales, rhonchi, wheezes heard. CARDIAC SYSTEM Regular rate and rhythm. ?S1 and S2 heard no murmurs. ?Radial pulses intact bilaterally MSK Hands: ?Good drier helper strength bilaterally. No deformities noted. ?No synovitis noted to the MCPs, PIPs or DIPs. ?No tenderness to palpation of these joints. Wrists: ?Full range of motion at the wrists without pain. ?No tenderness to palpation or synovitis noted to the wrists. Elbows: Full range of motion without pain. No tenderness, weakness, swelling, increased warmth or erythema. Shoulders: Full range of motion without pain. No tenderness, weakness, swelling, increased warmth or erythema. Hips: Full range of motion without pain. Hip bursa: Tenderness to palpation Knees: ?Full range of motion. ?No tenderness, swelling, increased warmth or erythema.?No effusion or crepitations Ankles: Full range of motion. ?No tenderness, swelling, increased warmth or erythema.? Pitting edema up to the knees Feet: ?Negative squeeze test. ?No tenderness to palpation or swelling of the MTPs. Tender points:?Tenderness to palpation of the bilateral trapezius, supraspinatus, greater trochanters, anterior costochondral junctions, bilateral gluteal areas, bilateral suboccipital muscle insertions SKIN Skin intact without rashes. Results Reviewed Results Reviewed: Laboratory Tests 04/25/24 08/04/24 09:28 09:01 WBC 9.8 RBC 4.27 Hgb 13.1 Hct 39.0 Plt Count 168 ESR 26 H Sodium 143 Potassium 4.8 Chloride 106 Carbon Dioxide 28 BUN 14 Creatinine 0.82 Uric Acid 8.3 H 7.7 H 04/25/24 08/04/24 09:28 09:01 TSH 0.92 0.24 L Free T4 1.07 1.41 Assessment & Plan Assessment & Plan (1) Fibromyalgia: Code(s): M79.7 - Fibromyalgia Category: Medical Plan: #Fibromyalgia Patient is a 74-year-old female with polyarticular osteoarthritis and fibromyalgia here today for follow up. Patient complaining of widespread pain consistent with symptoms of fibromyalgia. At this time we will increase her gabapentin from 400 t.i.d. to 600 t.i.d. to see if there is any benefit. We will also add alpha lipoic acid to help with her neuropathy/pain. Encouraged exercise but daughter noted that easy fatigability with minimal activity. Plan - Gabapentin 600mg tid - Alpha lipoic acid 600mg daily - Recheck TSH, ESR, CRP, T3, T4 - RTC 6 months (2) Edema of both lower extremities: Code(s): R60.0 - Localized edema Category: Medical Plan: #Bilateral LE edema Bilateral LE edema. ECHO in 2023 normal Recommend compression stockings Continue spironolactone as per PCP (3) Hyperuricemia without signs inflammatory arthritis/tophaceous disease: Code(s): E79.0 - Hyperuricemia without signs of inflammatory arthritis and tophaceous disease Category: Medical Plan: #Elevated Uric Acid without evidence of gout Patient with hyperuricemia and no evidence of recurrent gout flares We will continue to monitor Plan I spent 25 minutes reviewing the record and labs, taking a history, examining the patient, discussing the treatment plan, ordering diagnostic work up and documenting in the medical record Orders: Orders Erythrocyte Sedimentation Rate Today M79.7 - Fibromyalgia Comprehensive Met. Panel Today M79.7 - Fibromyalgia C Reactive Protein Today M79.7 - Fibromyalgia Thyroid Stimulating Hormone Today M79.7 - Fibromyalgia Triiodothyronine T3 Free Today E03.9 - Hypothyroidism, unspecified Triiodothyronine T3 Total Today E03.9 - Hypothyroidism, unspecified Free T4 (Free Thyroxine) Today E03.9 - Hypothyroidism, unspecified Medications: New alpha lipoic acid 600 mg PO DAILY 90 caps 1RF M79.7 - Fibromyalgia Changed From gabapentin 400 mg PO TID 270 caps 1RF M79.7 - Fibromyalgia To gabapentin 600 mg (2 x 300 mg) PO TID 90 days 540 caps 1RF M79.7 - Fibromyalgia Coding Level of Care Code Est Pt Level 3 (19804) Complex EM visit Add On G2211 Diagnoses Fibromyalgia M79.7 Edema of both lower extremities R60.0 Hyperuricemia without signs inflammatory arthritis/tophaceous disease E79.0
--- OUTSIDE RECORDS SUMMARY | 2024-08-28 08:45 | XMS_ITS ---
Author Organization [facility] kayla Hope Address [address] [place] [address] Care Team Providers Care Pals Nurse Name Role Phone Bruce BOLAÑOS, [place] Primary Care Provider Tisha Vital Unavailable [phone] Allergies No Known Allergies REASON FOR VISIT [...] Problem Acquired hammer toe of right foot ([id number]) Other hammer toe(s) (acquired), right foot (M20.41) Active confirmed Problem Localized, primary osteoarthritis of the ankle and/or foot (476822450) Arthritis of joint of lesser toe, right (M19.071) Active confirmed Problem Acquired hammer toe of left foot (5136800086784763) Other hammer toe(s) (acquired), left foot (M20.42) Active confirmed Problem Localized, primary osteoarthritis of the ankle and/or foot (934743162) Arthritis of joint of lesser toe, left (M19.072) Active confirmed Vital Signs Height 5ft 2in in 03/06/2024 Weight 240 lbs 03/06/2024 BMI 43.89 kg/m2 03/06/2024 Encounters Encounter Location Date Provider Diagnosis [facility] [place] [address] [place] [address] 03/06/2024 Tisha Arguello Tinea pedis of both [...] Notes * Yeimi FUENTESDOB:1950 (74 yo F)Acc No.[id number]:03/06/2024 Progress Notes Patient:?Ed Fuentesaris Provider:?Tisha Arguello DPM :1950???Age:74 Y???Sex:Female D ate:03/06/2024 Address:[address] [place] [address], [facility], [id number] Pcp:Antonino Barrera MD Subjective: * Chief Complaints: [...] Arguello DPM Date:? Generated for Francesca jennings/Levi/Sam on:?08/28/2024 08:45 AM EDT History and Physical Notes * HPI [...]
--- OUTSIDE RECORDS SUMMARY | 2024-08-28 08:45 | XMS_ITS ---
Author Organization [facility] Address [address] [place] [address] Care Team Providers Care Gis Developer Name Role Phone Bruce BOLÑAOS, [place] Primary Care Provider Tisha Vital Unavailable [phone] REASON FOR VISIT INDUSTRIAL CHEMIST PPWK Entered Encounters Encounter Location Date Provider Diagnosis [facility] [address] [place] [address] 01/30/2024 Tisha Arguello Plan Of Treatment No Information Progress Notes * Yeimi FUENTESDOB:1950 (73 yo F)Acc No.[id number]:01/30/2024 Patient:?Yeimi Fuentes :1950???Age:73 Y???Sex:Female Address:[address] [place], [address] * true * Date:? Generated for Xii michaela/Levi/eTransmitting on:?08/28/2024 08:45 AM EDT
--- OUTSIDE RECORDS SUMMARY | 2024-08-28 08:45 | XMS_ITS ---
Author Name Mariaelena Garcia NP Address [address] [place] [address] Phone [phone] [facility] Care Team Providers Care Acid Changer Name Role Phone Mariaelena Garcia Unavailable [phone] Bruce Antonino Unavailable [phone] Reason for Referral Not Available Allergies, adverse [...] Service Diagnosis/Co mplaint Medication List Documented (1159F) [facility] Medication List Documented (1159F) [facility] Medication List Documented (1159F) [facility] Medication List Documented (1159F) [facility] Medication List Documented (1159F) [facility] Medication List Documented (1159F) [facility]20[place] Essential (primary) hypertensionUnspecified asthma, uncomplicatedMorbid (severe) obesity due to excess caloriesOpioid dependence, uncomplicatedMajor depressive disorder, recurrent, moderateBody mass index (BMI) 45.0-49.9, adultAnxiety disorder, unspecifiedDorsalgia, unspecifiedGastro-esophageal reflux disease without esophagitisOther chronic painHypothyroidism, unspecifiedObstructive sleep apnea (adult) (pediatric)Irritable bowel syndrome without diarrhea Medication List Documented (1159F) [facility]20[place] Medication List Documented (1159F) [facility] Estab. patient 30-39min; chronic exacerbation, 2 stable chronic or 1 acute illness add add modifier 95 for video, (do not use for phone, instead use 22727-78) [facility] ([place]) 04/24/2023 Essential (primary) hypertensionGastro-esophageal reflux disease [...] (do not use for phone, instead use 35253-18) [facility] ([place] 04[place]24/20[place] Estab. patient 30-39min; chronic exacerbation, 2 stable chronic or 1 acute illness add add modifier 95 for video, (do not use for phone, instead use 99134-14) [facility] ([place] 04/24/2023 Estab. patient 30-39min; chronic exacerbation, 2 stable chronic or 1 acute illness add add modifier 95 for video, (do not use for phone, instead use 11226-51) [facility] ([place] 04/24/2023 Estab. patient 30-39min; chronic exacerbation, 2 stable chronic or 1 acute illness add add modifier 95 for video, (do not use for phone, instead use 37818-28) [facility] ([place] 04/24/2023 Estab. patient 30-39min; chronic exacerbation, 2 stable chronic or 1 acute illness add add modifier 95 for video, (do not use for phone, instead use 14909-44) [facility] ([place] 04/24/2023 Estab. patient 30-39min; chronic exacerbation, 2 stable chronic or 1 acute illness add add modifier 95 for video, (do not use for phone, instead use 57854-51) [facility] ([place] 04/24/2023 Estab. patient 30-39min; chronic exacerbation, 2 stable chronic or 1 acute illness add add modifier 95 for video, (do not use for phone, instead use 19472-72) [facility], ([place] 04/24/2023 Estab. patient 30-39min; chronic exacerbation, 2 stable chronic or 1 acute illness add add modifier 95 for video, (do not use for phone, instead use 43837-62) [facility], ([place] 04/24/2023 Estab. patient 30-39min; chronic exacerbation, 2 stable chronic or 1 acute illness add add modifier 95 for video, (do not use for phone, instead use 21626-97) [facility], ([place] 04/24/2023 Estab. patient 30-39min; chronic exacerbation, 2 stable chronic or 1 acute illness add add modifier 95 for video, (do not use for phone, instead use 92152-32) [facility], ([place] 07/17/2023 Essential (primary) hypertensionGastro-esophageal reflux disease [...] (do not use for phone, instead use 09237-83) [facility], ([place] 07/17/2023 Estab. patient 30-39min; chronic exacerbation, 2 stable chronic or 1 acute illness add add modifier 95 for video, (do not use for phone, instead use 10806-25) [facility], ([place] 07/17/2023 Estab. patient 30-39min; chronic exacerbation, 2 stable chronic or 1 acute illness add add modifier 95 for video, (do not use for phone, instead use 86655-21) [facility], ([place] 07/17/2023 Estab. patient 30-39min; chronic exacerbation, 2 stable chronic or 1 acute illness add add modifier 95 for video, (do not use for phone, instead use 55222-04) [facility], ([place] 07/17/2023 Estab. patient 30-39min; chronic exacerbation, 2 stable chronic or 1 acute illness add add modifier 95 for video, (do not use for phone, instead use 76464-32) [facility]17[place] Estab. patient 30-39min; chronic exacerbation, 2 stable chronic or 1 acute illness add add modifier 95 for video, (do not use for phone, instead use 92374-61) [facility] Estab. patient 30-39min; chronic exacerbation, 2 stable chronic or 1 acute illness add add modifier 95 for video, (do not use for phone, instead use 84900-97) [facility] 07[place]17[place]2023 Estab. patient 20-29min; 1 stable chronic or 2 minor; add add modifier 95 for video, modifier 93 for phone [facility], ([place] 08/26/2024 Essential (primary) hypertensionGastro-esophageal reflux disease without esophagitisDorsalgia, unspecifiedOther chronic painChronic respiratory failure, unsp w hypoxia or hypercapniaObstructive sleep apnea (adult) (pediatric) Estab. patient 20-29min; 1 stable chronic or 2 minor; add add modifier 95 for video, modifier 93 for phone [facility]/26/20[place] Estab. patient 20-29min; 1 stable chronic or 2 minor; add add modifier 95 for video, modifier 93 for phone [facility] 08/26/2024 Estab. patient 20-29min; 1 stable chronic or 2 minor; add add modifier 95 for video, modifier 93 for [facility]/26/20[place] Estab. patient 20-29min; 1 stable chronic or 2 minor; add add modifier 95 for video, modifier 93 for phone [facility] 08/26/2024 Estab. patient 20-29min; 1 stable chronic or 2 minor; add add modifier 95 for video, modifier 93 for phone [facility] 08/26/2024 Estab. patient 20-29min; 1 stable chronic or 2 minor; add add modifier 95 for video, modifier 93 for phone [facility], ([place]) 08/26/2024 Body mass index (bmi) 50-59. 9 , adult Estab. patient 20-29min; 1 stable chronic or 2 minor; add add modifier 95 for video, modifier 93 for phone [facility], ([place] 08/26/2024 Estab. patient 20-29min; 1 stable chronic or 2 minor; add add modifier 95 for video, modifier 93 for phone [facility], ([place] 08/26/2024 Essential (primary) hypertension Estab. patient 20-29min; 1 stable chronic or 2 minor; add add modifier 95 for video, modifier 93 for phone [facility], ([place] 08/26/2024 Essential (primary) hypertension Vital Signs Date [...] Time Current Smoking Status Never smoker 2024-08-09 1 Sex Female History of Procedures Procedures Service Procedure code Service date Servicing provider Phone# Medication List Documented (5649F) 1159F 2022-04-17 No Data Available No Data [...] (do not use for phone, instead use 55829-09) 73371 2022-04-17 No Data Available No Data Availa ble SBP < 130 (3074F) 3074F 2022-04-17 No Data Available No Data Available DBP 80-89 (3079F) 3079F 2022-04-17 No Data Available No Data Available Estab. patient 30-39min; chronic exacerbation, 2 stable chronic or 1 acute illness add add modifier 95 for video, (do not use for phone, instead use 38689-24) 97893 2023-04-24 No Data Available No Data Availa [...] (do not use for phone, instead use 34412-28) 68123 2023-07-17 No Data Available No Data Availa [...] 95 for video, modifier 93 for phone 76469 2024-08-26 No Data Available No Data Availa [...] life alert 2023-04-24 Has BP cuff 2023-04-24 [facility] nurse 2023-04-24 Continent uses bed pads for accidents 02-05-15 Lives alone, but daughter there most of day, daughter is [employer]ACTICE PSYCHIATRIC NURSE 2023-04-24 ADLsAmbulating - Needs Alejandrina tanceDressing - [...] PCP every 3 months, BP assessed by ADVANCED PRACTICE PSYCHIATRIC NURSE dailyrecommend healthy lifestyle changes (weight loss, heart [...] PCP every 3 months, BP assessed by ADVANCED PRACTICE PSYCHIATRIC NURSE dailyLast BP 127/75; has BP cuff at [...] PCP every 3 months, BP assessed by ADVANCED PRACTICE PSYCHIATRIC NURSE dailyLast BP 127/75; has BP cuff at [...] risk for dependence/respiratory depression/falls/cognitive dysfunction. 4Declines Narcan. Dtr/ADVANCED PRACTICE PSYCHIATRIC NURSE has it put away unless she needs [...] Scale (1125F)Continue to see PCP. Follow-up with [facility] as needed for any acute or [...]
--- OUTSIDE RECORDS SUMMARY | 2024-08-28 08:45 | XMS_ITS | Clinical Summary ---
Author Organization [address] [facility] Address [address] [place] [address] Phone Care Team Providers Care Assisted Living Executive Director Name Role Phone Antonino Barrera MD Primary Care Provider Encounters Date Type Department Care Team Description 06/17/2024 9:30 AM EST Evaluation [address] [phone] Mercedes Braun PT Physical deconditioning (Primary Dx) 06/17/2024 Plan of Care Documentation [address] [phone] from Last 3 Months Social History Tobacco [...] topic Insurance [employer] MEDICARE Care Teams Assisted Living Executive Director Relationship Specialty Start Date End Date Antonino Barrera MD [address] [place] [address] PCP - General Internal Medicine 05/26/24
--- OUTSIDE RECORDS SUMMARY | 2024-08-28 08:45 | XMS_ITS | Patient Health Record ---
Author Organization [facility] kayla HarringtonEnder Address [address] [facility] [place] [address] Care Team Providers Care Biomedical Scientist Name Role Phone Antonino Barrera MD Primary Care Provider Tisha Vital Unavailable [phone] Allergies No Known Allergies Reason For Referral [...] Problem Acquired hammer toe of right foot (6971578101417642) Other hammer toe(s) (acquired), right foot (M20.41) Active confirmed Problem Acquired hammer toe of left foot (3589356280018856) Other hammer toe(s) (acquired), left foot (M20.42) Active confirmed Problem Localized, primary osteoarthritis of the ankle and/or foot (529968517) Arthritis of joint of lesser toe, left (M19.072) Active confirmed Problem Localized, primary osteoarthritis of the ankle and/or foot (516400753) Arthritis of joint of lesser toe, right (M19.071) Active confirmed Vital Signs Height 5ft 2in in 03/06/2024 Weight 240 lbs 03/06/2024 BMI 43.89 kg/m2 03/06/2024 Encounters Encounter Location Date Provider Diagnosis [facility] [address] 03/06/2024 Tisha Arguello Tinea pedis of both feet B35.3 ; Pain in right toe(s) M79.674 ; Other hammer toe(s) (acquired), right foot M20.41 ; Pain in left toe(s) M79.675 and Other hammer toe(s) (acquired), left foot M20.42 [facility] [address] 01/30/2024 Tisha Arguello Assessments Encounter Date Diagnosis [...] Insured Coverage Start Date Coverage End Date [facility] [address] [place] [id number] [facility] [place], Yeimi Self - patient is the insured Medical (General) History Medical History History ICD Code Anxiety Arthritis asthma Back,Hip,and Knee pain CAD (Cholesterol) Cataracts covid-19 Depression Fibromyalgia Headaches/Migraines Hypertension Reflux ( GERD) Rheumatic fever Chicken pox Surgical History Surgery Date(Month/Year) cataract surgery implants removed
== END 2024-08-28 09:15 | disposition home or self-care (01) ==
LOC: HO.RHE 08:27
PROVIDERS: PCP Internal Medicine; Visit Provider Student in an Organized Health Care Education/Training Program
DX: M79.7 Fibromyalgia (principal); R60.0 Localized edema; E79.0 Hyperuricemia without signs of inflammatory arthritis and tophaceous disease
CPT/HCPCS: 99213; G2211

== ENCOUNTER 2024-08-28 08:27 | Outpatient (REF) | payer OTHER, SELFPAY ==
[2024-08-28 11:08] LABS: Erythrocyte Sedimentation Rate 31 MM/HR (0-20)
[2024-08-28 11:16] LABS: Alanine Aminotransferase 13 U/L (0-31); Albumin Level 3.8 g/dL (3.5-5.0); Alkaline Phosphatase 112 U/L (39-117); Anion Gap 10 (12-20); Aspartate Amino Transferase 14 U/L (5-31); Bilirubin Total 0.5 mg/dL (0.0-1.0); Blood Urea Nitrogen 13 mg/dL (9-16); C Reactive Protein 1.75 mg/dL (< or = 0.50); Calcium 8.9 mg/dL (8.4-10.2); Carbon Dioxide 32 mmol/L (22-29); Chloride 107 mmol/L (96-108); Estimated Glomerular Filt Rate 60; Free T4 (Free Thyroxine) 1.33 ng/dL (0.71-1.85); Glucose Random 112 mg/dL (60-115); Potassium 4.3 mmol/L (3.3-5.1); Sodium 145 mmol/L (135-145); Thyroid Stimulating Hormone 0.43 uIU/mL (0.32-4.0); Total Protein 6.9 g/dL (6.5-8.0)
[2024-08-29 05:54] LABS: Triiodothyronine T3 Total 115 ng/dL (76-181)
== END 2024-08-28 08:28 | disposition home or self-care (01) ==
LOC: HO.LAB 08:27
PROVIDERS: PCP Internal Medicine; Visit Provider Student in an Organized Health Care Education/Training Program
DX: M79.7 Fibromyalgia (principal); E03.9 Hypothyroidism, unspecified; R60.0 Localized edema; E79.0 Hyperuricemia without signs of inflammatory arthritis and tophaceous disease
CPT/HCPCS: 36415; 80053; 84439; 84443; 84480; 84481; 85652; 86140; 99212

== ENCOUNTER 2024-09-18 11:30 | Outpatient (AMB) | payer OTHER, SELFPAY ==
--- NOTE | 2024-09-18 11:36 | MHC.OFFVIS ---
Vital Signs 09/18/24 11:51 Height 4 ft 11 in Weight 260 lb BMI 52.5 BP 130/58 L Blood Pressure Location Lt brachial Position Sitting Pulse 84 Intake Visit Reasons: Follow up [facility]IC Intake Note: Patient in office today in follow up of [facility]. CC: Patient reports occasional RLQ abd pain. She takes Omeprazole for GERD and it helps w/ symptoms per patient. Receptionist Airline Lounge Required: Yes Receptionist Airline Lounge Language: Sales Order Clerk Name: daughter Accompanied by: Daughter Allergies No Known Allergies [No Known Allergies*] Allergy (Verified 09/18/24 11:54) HPI HPI Follow up [facility]: Details: Assessment & Plan (1) GERD without esophagitis: Code(s): K21.9 - Gastro-esophageal reflux disease without esophagitis Category: Medical (2) Chronic idiopathic constipation: Code(s): K59.04 - Chronic idiopathic constipation Category: Medical Plan She is doing fine with bisacodyl and LInzess 290, and omeprazole 20 mg daily for GERD.? She remains satisfied with her GI regimen. Return office visit in 6 months Medications: Refilled omeprazole 20 mg PO DAILY 90 caps 4RF linaclotide (Linzess) 290 mcg PO QAM 30 caps 6RF TODAY'S VISIT Gambian #declines Dtr accompanies her and is supportive. She is doing fine with bisacodyl and LInzess 290, and omeprazole 20 mg daily for GERD ROV 6 mos. 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, bilateral Bilateral primary osteoarthritis of knee Impaired fasting glucose Primary osteoarthritis involving multiple joints Depression Anxiety Insomnia Overactive bladder Lumbar degenerative disc disease Degenerative disc disease, cervical Vitamin D deficiency GERD without esophagitis Obstructive sleep apnea Vitamin B12 deficiency Fibromyalgia Cardiac murmur Mild intermittent asthma without complication Chronic kidney disease (CKD), stage II (mild) Acquired hypothyroidism Benign essential hypertension Surgical History S/P excision of lipoma H/O blepharoplasty History of colonoscopy Family History Father CVD (cardiovascular disease) Mother CVD (cardiovascular disease) Diabetes Hypertension Social History Household Members: [facility] Are you a primary healthcare business analyst to a significant other at home: No Do you presently have visiting nurse or other home services: Yes Alcohol intake: never Patient Tobacco Use Status: Never used Tobacco e-Cigarette/Vaping Use: Never Used Second Hand Smoke Exposure: No service: No Current occupational status: unemployed, student and disabled Cognitive needs: Yes (walker) Hearing needs: No Vision needs: Yes (glasses) Review of Systems Const Denies fatigue, Denies fever(s), Denies night sweats, Denies poor appetite and Denies weight loss ENT Reports Normal hearing present, Denies dental pain, Denies dysphagia, Denies hearing loss, Denies mouth pain, Denies odynophagia, Denies throat swelling, Denies tongue swelling and Reports other (Dentition adequate) Card Reports no additional complaints Resp Reports no additional complaints GI Details: Denies abdominal pain, Denies melena, Denies bloating, Denies hematochezia, Reports constipation, Denies GI cramping, Denies dysphagia, Denies excessive flatus, Denies early satiety, Reports heartburn, Denies diarrhea, Denies nausea, Denies odynophagia, Denies vomiting and Denies hematemesis Skin/Breast Denies pruritus, Denies lesions, Denies rash and Denies jaundice Neuro Reports Normal hearing present and Denies Abnormal speech present Endo Denies fatigue Aller/Immun Denies throat swelling and Denies tongue swelling Physical Exam Vital Signs: Last Vital Signs Pulse 84 09/18/24 11:51 BP 130/58 L 09/18/24 11:51 BMI result Body Mass Index 52.5 Const General: cooperative, no acute distress, well developed and well groomed Nutritional Appearance: well nourished and obese morbidly obese Orientation/consciousness: oriented to person, oriented to place and oriented to time Limitations: language barrier HEENT Head: Yes normocephalic and Yes atraumatic Eyes General: appearance normal, both eyes and all related structures Pupils: Equal, round and reactive pupils present Neck Neck: Yes normal visual inspection and Yes no lymphadenopathy Thyroid: Thyroid normal Resp Effort & Inspection: normal respiratory effort and able to speak in complete sentences Auscultation: clear to auscultation bilaterally Cardio Rate: regular rate Rhythm: regular rhythm Heart sounds: Normal, physiologic split S2 sound present Peripheral pulses: radial pulses present and posterior tibial pulses present GI Inspection: No distended, Yes Abdominal panniculus present and Yes obesity Palpation (GI): Soft to palpation, nontender, no guarding, not rigid and No hepatosplenomegaly present Percussion: Yes normal to percussion Auscultation: normal bowel sounds Rectal Exam - Female: deferred Skin General skin exam: no rashes or lesions noted, turgor normal, skin not dry, no jaundice, No spider nevi and no striae Rashes: no rashes Nails: normal Neuro General: oriented to person, oriented to place and oriented to time Cranial nerves: Yes Equal, round and reactive pupils present and Yes Normal hearing present Speech: No Abnormal speech present Extrem General: Yes normal to inspection, No clubbing, No cyanosis and No edema Psych Appearance: grossly normal and well kempt Mental Status: mental status grossly normal Speech and movement: Normal speech and movement present Affect: normal affect Attitude: cooperative Thought process: Normal thought process present and not confabulating Thought content: Normal thought content present Insight: Limited insight present (Psych) Judgement: Limited judgement present (Psych) Assessment & Plan Assessment & Plan (1) Chronic idiopathic constipation: Code(s): K59.04 - Chronic idiopathic constipation Category: Medical (2) GERD without esophagitis: Code(s): K21.9 - Gastro-esophageal reflux disease without esophagitis Category: Medical (3) BMI 50.0-59.9, adult: Code(s): Z68.43 - Body mass index [BMI] 50.0-59.9, adult Category: Medical Plan Gambian #declines Dtr accompanies her and is supportive. She is doing fine with bisacodyl and LInzess 290, and omeprazole 20 mg daily for GERD ROV 6 mos. Medications: Refilled linaclotide (Linzess) 290 mcg PO QAM 30 caps 6RF omeprazole stopped in error ... please continue 20 mg PO DAILY 90 caps 3RF 90 days bisacodyl (Laxative (bisacodyl)) 10 mg (2 x 5 mg) PO BEDTIME 60 tabs 6RF Coding Level of Care Code Est Pt Level 3 (10673) Diagnoses Chronic idiopathic constipation K59.04 GERD without esophagitis K21.9 BMI 50.0-59.9, adult Z68.43
[2024-09-18 11:51] VITALS: BP 130/58; PULSE 84; BMI 52.5
--- OUTSIDE RECORDS SUMMARY | 2024-09-18 12:32 | XMS_ITS ---
Author Organization [facility] kayla Muir Address [address] [facility] [place] [address] Care Team Providers Care Support Services Manager Name Role Phone Bruce BOLAÑOS, [place] Primary Care Provider Tisha Vital Unavailable [phone] Allergies No Known Allergies REASON FOR VISIT [...] Problem Acquired hammer toe of right foot (0014483862599909) Other hammer toe(s) (acquired), right foot (M20.41) Active confirmed Problem Localized, primary osteoarthritis of the ankle and/or foot (398935451) Arthritis of joint of lesser toe, right (M19.071) Active confirmed Problem Acquired hammer toe of left foot (7736438646759722) Other hammer toe(s) (acquired), left foot (M20.42) Active confirmed Problem Localized, primary osteoarthritis of the ankle and/or foot (835777255) Arthritis of joint of lesser toe, left (M19.072) Active confirmed Vital Signs Height 5ft 2in in 03/06/2024 Weight 240 lbs 03/06/2024 BMI 43.89 kg/m2 03/06/2024 Encounters Encounter Location Date Provider Diagnosis [facility] [address] [place] [address] 03/06/2024 Tisha Arguello Tinea pedis of both [...] Notes * Yeimi FUENTESDOB:1950 (74 yo F)Acc No.[id number]:03/06/2024 Progress Notes Patient:?Ed Fuentesaris Provider:?Tisha Arguello DPM :1950???Age:74 Y???Sex:Female D ate:03/06/2024 Address:[address] [place] [address], [facility], [id number] Pcp:Antonino Barrera MD Subjective: * Chief Complaints: [...] Arguello DPM Date:? Generated for Francesca jennings/Levi/Sam on:?09/18/2024 12:32 PM EDT History and Physical Notes * [...] , Medial , TA , T5 Orthopedic FOOTWEAR EVALUATION: shoe gear p roperties exacerbate patients foot/toe deformity DIGITAL DEFORMITIES: Digital [...]
--- OUTSIDE RECORDS SUMMARY | 2024-09-18 12:32 | XMS_ITS ---
Author Name Cristobal Edouard NP Address [address] [place] [address] Phone [phone] Organization [facility] Care Team Providers Care Cuff Maker Name Role Phone Cristobal Edouard Unavailable [phone] BruceAntonino Unavailable [phone] Reason for Referral Not Available Allergies, adverse [...] IBS (irritable bowel syndrome) Active 2022-04-17 N/A Asthma Active 2022-04-17 N/A Opioid use Active 2022-04-19 N/A Chronic back pain Active 2022-04-17 N/A Chronic respiratory failure due to obstructive sleep apnea Active 2024-08-26 N/A Morbid Obesity Active 2022-04-17 N/A Other problems related to [facility] and other health care Active 2024-09-14 N/A Encounters Encounters Type Facility Date of Service Diagnosis/Co mplaint Medication List Documented (1159F) [facility] Medication List Documented (1159F[place] [facility] Medication List Documented (1159F[place] [facility] Medication List Documented (1159F[place] [facility] Medication List Documented (1159F[place] [facility] Medication List Documented (1159F[place] [facility] Essential (primary) hypertensionUnspecified asthma, uncomplicatedMorbid (severe) obesity due to excess caloriesOpioid dependence, uncomplicatedMajor depressive disorder, recurrent, moderateBody mass index (BMI) 45.0-49.9, adultAnxiety disorder, unspecifiedDorsalgia, unspecifiedGastro-esophageal reflux disease without esophagitisOther chronic painHypothyroidism, unspecifiedObstructive sleep apnea (adult) (pediatric)Irritable bowel syndrome without diarrhea Medication List Documented (1159F) [facility] Medication List Documented (1159F) [facility] Estab. patient 30-39min; chronic exacerbation, 2 stable chronic or 1 acute illness add add modifier 95 for video, (do not use for phone, instead use 02776-98) [facility]23 Essential (primary) hypertensionGastro-esophageal reflux disease without [...] (do not use for phone, instead use 78569-21) [facility] Estab. patient 30-39min; chronic exacerbation, 2 stable chronic or 1 acute illness add add modifier 95 for video, (do not use for phone, instead use 18418-65) [facility]23 Estab. patient 30-39min; chronic exacerbation, 2 stable chronic or 1 acute illness add add modifier 95 for video, (do not use for phone, instead use 48627-37) [facility]23 Estab. patient 30-39min; chronic exacerbation, 2 stable chronic or 1 acute illness add add modifier 95 for video, (do not use for phone, instead use 08811-60) [facility]23 Estab. patient 30-39min; chronic exacerbation, 2 stable chronic or 1 acute illness add add modifier 95 for video, (do not use for phone, instead use 12389-27) [facility]23 Estab. patient 30-39min; chronic exacerbation, 2 stable chronic or 1 acute illness add add modifier 95 for video, (do not use for phone, instead use 54932-97) [facility] 04[place]23 Estab. patient 30-39min; chronic exacerbation, 2 stable chronic or 1 acute illness add add modifier 95 for video, (do not use for phone, instead use 64191-29) [facility]24/2023 Estab. patient 30-39min; chronic exacerbation, 2 stable chronic or 1 acute illness add add modifier 95 for video, (do not use for phone, instead use 88408-40) [facility] [place] Estab. patient 30-39min; chronic exacerbation, 2 stable chronic or 1 acute illness add add modifier 95 for video, (do not use for phone, instead use 20668-40) [facility] [place] 04[place]24/[place]23 Estab. patient 30-39min; chronic exacerbation, 2 stable chronic or 1 acute illness add add modifier 95 for video, (do not use for phone, instead use 19671-70) [facility] 07[place]/2023 Essential (primary) hypertensionGastro-esophageal reflux disease without [...] (do not use for phone, instead use 87916-44) [facility] 07[place]17[place]2023 Estab. patient 30-39min; chronic exacerbation, 2 stable chronic or 1 acute illness add add modifier 95 for video, (do not use for phone, instead use 24796-51) [facility] [place] 07[place]17/[place]23 Estab. patient 30-39min; chronic exacerbation, 2 stable chronic or 1 acute illness add add modifier 95 for video, (do not use for phone, instead use 00305-16) [facility] [place] 07/17/2023 Estab. patient 30-39min; chronic exacerbation, 2 stable chronic or 1 acute illness add add modifier 95 for video, (do not use for phone, instead use 24760-91) [facility] [place] 07/17/2023 Estab. patient 30-39min; chronic exacerbation, 2 stable chronic or 1 acute illness add add modifier 95 for video, (do not use for phone, instead use 11608-66) [facility] [place] 07/17/2023 Estab. patient 30-39min; chronic exacerbation, 2 stable chronic or 1 acute illness add add modifier 95 for video, (do not use for phone, instead use 40334-96) [facility] [place] 07/17/2023 Estab. patient 30-39min; chronic exacerbation, 2 stable chronic or 1 acute illness add add modifier 95 for video, (do not use for phone, instead use 11504-70) [facility] 07/17/2023 Estab. patient 20-29min; 1 stable chronic or 2 minor; add add modifier 95 for video, modifier 93 for phone [facility] [place] 08/26/2024 Essential (primary) hypertensionGastro-esophageal reflux disease without esophagitisDorsalgia, unspecifiedOther chronic painChronic respiratory failure, unsp w hypoxia or hypercapniaObstructive sleep apnea (adult) (pediatric)Major depressive disorder, recurrent, moderateAnxiety disorder, unspecifiedMorbid (severe) obesity due to excess caloriesBody mass index (bmi) 50-59.9 , adultUnspecified asthma, uncomplicatedIrritable bowel syndrome without diarrheaHypothyroidism, unspecifiedOpioid use, unspecified, uncomplicatedOther problems related to medical facilities and other health care Estab. patient 20-29min; 1 stable chronic or 2 minor; add add modifier 95 for video, modifier 93 for phone [facility] [place] 08/26/2024 Estab. patient 20-29min; 1 stable chronic or 2 minor; add add modifier 95 for video, modifier 93 for phone [facility] ([place] 08/26/2024 Estab. patient 20-29min; 1 stable chronic or 2 minor; add add modifier 95 for video, modifier 93 for phone [facility] [place] Estab. patient 20-29min; 1 stable chronic or 2 minor; add add modifier 95 for video, modifier 93 for phone [facility] [place]/26/2024 Estab. patient 20-29min; 1 stable chronic or 2 minor; add add modifier 95 for video, modifier 93 for phone [facility] [place]/26/2024 Estab. patient 20-29min; 1 stable chronic or 2 minor; add add modifier 95 for video, modifier 93 for phone [facility] [place]/26/2024 Estab. patient 20-29min; 1 stable chronic or 2 minor; add add modifier 95 for video, modifier 93 for phone [facility] [place] 08/26/2024 Estab. patient 20-29min; 1 stable chronic or 2 minor; add add modifier 95 for video, modifier 93 for phone [facility] ([place] 08/26/2024 Vital Signs Date of Collection Vitals 2022-04-17 [...] tive Time Current Smoking Status Never smoker 2024-09-08 1 Sex Female History of Procedures Procedures [...] (do not use for phone, instead use 90500-36) 90488 2022-04-17 No Data Available No Data Availa ble SBP < 130 (3074F) 3074F 2022-04-17 No Data Available No Data Available DBP 80-89 (3079F) 3079F 2022-04-17 No Data Available No Data Available Estab. patient 30-39min; chronic exacerbation, 2 stable chronic or 1 acute illness add add modifier 95 for video, (do not use for phone, instead use 39839-96) 38125 2023-04-24 No Data Available No Data Availa [...] (do not use for phone, instead use 93261-65) 36626 2023-07-17 No Data Available No Data Availa [...] 95 for video, modifier 93 for phone 77889 2024-08-26 No Data Available No Data Availa ble Medication Review by prescribing provider or pharmacist documented (1160F) 1160F 2024-08-26 No Data Available No Data Candice ilable SBP 130-139 (3075F) 3075F 2024-08-26 No Data Availabl e No Data Available DBP <80 (3078F) 3078F 2024-08-26 No Data Available No Data Available Pain Assessment - Pain Documented on a Pain Scale (1125F) 1125F 2024-08-26 No Data Available No Data Candice ilable Medication List Documented (1159F) 1159F 2024-08-26 No Data Available No Data Candice ilable Advance Care Directive Advance care planning discussion documented in the medical record (1158F) 1158F 2024-08-26 No Data Available No Data Availa ble Advance care planning discussed and documented ? advance care plan or surrogate decision-maker was documented in the medical record. (1123F) 1123F 2024-08-26 No Data Available No Data Availa ble Functional Status Assessed (1170F) 1170F 2024-08-26 No Data Available No Data Avail able Functional Status Functional Category Effective Dates Cognition Status: Oriented t o Person, Place and TimeRecall 2/3 words at 3 minutes 2022-04-17 Has wheelchair, uses walker 2023-04-24 Has life alert 2023-04-24 Has BP cuff 2023-04-24 [facility] nurse 2023-04-24 Continent uses bed pads for accidents 20 02-05-15 Lives alone, but daughter there most of day, daughter is MEDICAL CODING SPECIALIST 2023-04-24 ADLsAmbulating - Needs Alejandrina tanceDressing - [...] useChronic respiratory failure due to obstructive sleep apneaOther problems related to medical facilities and other health careChronic back pain Plan of Care Date of [...] PCP every 3 months, BP assessed by MEDICAL CODING SPECIALIST dailyrecommend healthy lifestyle changes (weight loss, heart [...] PCP every 3 months, BP assessed by MEDICAL CODING SPECIALIST dailyLast BP 127/75; has BP cuff at [...] PCP every 3 months, BP assessed by MEDICAL CODING SPECIALIST dailyLast BP 127/75; has BP cuff at [...] risk for dependence/respiratory depression/falls/cognitive dysfunction. 4Declines Narcan. Dtr/MEDICAL CODING SPECIALIST has it put away unless she needs [...] Scale (1125F)Continue to see PCP. Follow-up with [facility] [...] PRN Oxygen 3 days ago denies SOB todayASTHMA CONTINGENCY PLANLast updated: 09/14/2024Member to call for the following symptoms: Albuterol not working/ O2 sat <92%??/ WheezingPlanned intervention: Increase use of albuterol inhaler to q2h PRN cough, breathlessness/ Prednisone 50mg PO daily x 5 days/ Doxycycline 100mg BID x 7 dayspt takes gabapentin and OTC medications as needed [...] GOLGI FOR 20242024-08-26 Open HEDIS Measure r priyaw: 2024-08-26 last PCP visit 08/062024-08-26 f/u Rheum 08/28/24
--- OUTSIDE RECORDS SUMMARY | 2024-09-18 12:32 | XMS_ITS | Patient Health Record ---
Author Organization [facility] kayla HarringtonEnder Address [address] [facility] [place] [address] Care Team Providers Care Boil Off Machine Operator Cloth Name Role Phone Antonino Barrera MD Primary Care Provider Tisha Vital Unavailable [phone] Allergies No Known Allergies Reason For Referral [...] 20 MG TAKE 1 CAPSULE BY [facility] EVERY DAY Oral for 90 [...] Problem Acquired hammer toe of right foot (7512399390871603) Other hammer toe(s) (acquired), right foot (M20.41) Active confirmed Problem Acquired hammer toe of left foot (2149739385405489) Other hammer toe(s) (acquired), left foot (M20.42) Active confirmed Problem Localized, primary osteoarthritis of the ankle and/or foot (664310045) Arthritis of joint of lesser toe, left (M19.072) Active confirmed Problem Localized, primary osteoarthritis of the ankle and/or foot (420772899) Arthritis of joint of lesser toe, right (M19.071) Active confirmed Vital Signs Height 5ft 2in in 03/06/2024 Weight 240 lbs 03/06/2024 BMI 43.89 kg/m2 03/06/2024 Encounters Encounter Location Date Provider Diagnosis [facility] [address] 03/06/2024 Tisha Arguello Tinea pedis of both feet B35.3 ; Pain in right toe(s) M79.674 ; Other hammer toe(s) (acquired), right foot M20.41 ; Pain in left toe(s) M79.675 and Other hammer toe(s) (acquired), left foot M20.42 [facility] [address] 01/30/2024 Tisha Arguello Assessments Encounter Date Diagnosis [...] Insured Coverage Start Date Coverage End Date [facility] [address] [address] [place] [id number] [facility] Colon, Yeimi Self - patient is the insured Medical (General) History Medical History History ICD Code Anxiety Arthritis asthma Back,Hip,and Knee pain CAD (Cholesterol) Cataracts covid-19 Depression Fibromyalgia Headaches/Migraines Hypertension Reflux ( GERD) Rheumatic fever Chicken pox Surgical History Surgery Date(Month/Year) cataract surgery implants removed
--- OUTSIDE RECORDS SUMMARY | 2024-09-18 12:32 | XMS_ITS | Clinical Summary ---
Author Organization [facility] Address [address] [place] [address] Phone Care Team Providers Care Express Manager Name Role Phone Antonino Barrera MD Primary Care Provider [phone] Social History Tobacco Use Types Packs/Day Years [...] Influencers of Health Screening 01/10/2024 RSV Immunization Adult Patients (1 - 1-dose 75+ series) 02/07/2024 COVID-19 Vaccine (3 - season) 2024 05/26/2021, 09/12/2020 Influenza Vaccine (#1) 2024 , 06/07/2022, 05/10/2021, Additional history exists Zoster Vaccines [...] age to complete this topic Meningococcal B Vaccine Aged Out No l onger eligible based on patient's age to complete this topic RSV Immunization Patients Under 20 months Aged Out No longer eligible based on patient's age to complete this topic Varicella Vaccines Aged Out No longer eligible based on patient's age to complete this topic Insurance [employer] MEDICARE Care Teams Express Manager Relationship Specialty Start Date End Date Antonino Barrera MD [address] [place] [address] PCP - General Internal Medicine 05/26/24
--- OUTSIDE RECORDS SUMMARY | 2024-09-18 12:32 | XMS_ITS ---
Author Organization [facility] Address [address] [facility] [place] [address] Care Team Providers Care Television Inspector Name Role Phone Bruce BOLAÑOS, [place] Primary Care Provider Tisha Vital Unavailable [phone] REASON FOR VISIT PIZZA BAKER PPWK Entered Encounters Encounter Location Date Provider Diagnosis [facility] [address] [place] [address] 01/30/2024 Tisha Arguello Plan Of Treatment No Information Progress Notes * Yeimi FUENTESDOB:1950 (73 yo F)Acc No.[id number]:01/30/2024 Patient:?Yeimi Fuentes :1950???Age:73 Y???Sex:Female Address:[address] [place], [address] * true * Date:? Generated for Xii michaela/Levi/eTransmitting on:?09/18/2024 12:32 PM EDT
== END 2024-09-18 12:26 | disposition home or self-care (01) ==
LOC: HO.HGI 11:31
PROVIDERS: PCP Internal Medicine; Visit Provider Nurse Practitioner
DX: K59.04 Chronic idiopathic constipation (principal); K21.9 Gastro-esophageal reflux disease without esophagitis; Z68.43 Body mass index [BMI] 50.0-59.9, adult
CPT/HCPCS: 99213

== ENCOUNTER → 2024-09-18 11:30 | Outpatient (BNVA) | payer OTHER, SELFPAY | PROVIDERS: PCP Internal Medicine; Visit Provider Nurse Practitioner | DX: K59.04 Chronic idiopathic constipation (principal); K21.9 Gastro-esophageal reflux disease without esophagitis; E66.01 Morbid (severe) obesity due to excess calories; Z68.43 Body mass index [BMI] 50.0-59.9, adult | CPT/HCPCS: 99212 ==

== ENCOUNTER 2024-11-19 10:30 | Outpatient (AMB) | payer OTHER, SELFPAY ==
[2024-11-19 11:14] VITALS: BP 126/88; PULSE 92; TEMP 36.8; O2SAT 92; BMI 48.5
--- NOTE | 2024-11-19 11:14 | AM.OFFWIN_ITS ---
Intake Vital Signs 11/19/24 11:14 Height 4 ft 11 in Weight 240 lb BMI 48.5 BP 126/88 Blood Pressure Location Rt brachial Position Sitting Pulse 92 Pulse Source Pulse Oximeter Temp 98.3 F Temp Source Oral Pulse Oximetry (%) 92 Oxygen Delivery Method Room Air Intake Visit Reasons: EP-feet swollen/pain Intake Note: Pt presents to the office today for c/o bilateral feet and leg swelling/pain that started yesterday. Patient Tobacco Use Status: Never used Tobacco Allergies No Known Allergies [No Known Allergies*] Allergy (Verified 11/19/24 11:18) HPI HPI Comments History of Present Illness Details History of Present Illness - The patient is a 74-year-old female pr esenting with family who is interpreting for her for swelling of the legs. - Both legs experience swelling, with no te that one leg exhibits greater severity than the other. - Swelling has been ongoing but recently worsened to the point of discomfort. - She occasionally wears compression sto ckings, but the swelling has persisted and is bothersome. - Denies associated symptoms including c hest pain or dyspnea. - Identifies no changes in medication, d iet, or travel correlating with symptom exacerbation. - No reported pain or insect stings in t he swollen areas. - The patient was instructed by her [facility] physician to pursue further assessment as her symptoms are unrelieved. - No history of thrombotic events or cur rent anticoagulant therapy. - She has not undergone prior leg ultras ounds. - She denies CAMACHO, PND, CP, SOB, numbness , tingling, or recent travel. She has no recent trauma or falls. - She denies fever or chills. Physical Exam General: Cooperative, healthy appearing, comfortable, no acute distress and well developed Orientation: Patient oriented x3 Limitations: walks with a walker Respiratory: Normal respiratory effort and able to speak in complete sentences. Clear to auscultation bilaterally. No w/r/r noted. Cardiovascular: Regular rate and rhythm. Normal S1 and S2 GI: Normal to inspection. Soft to palpation and nontender Skin: No rashes or lesions noted. Slight erythema noted on the left lower leg. Neuro: Sensation intact. Extremities: Swelling noted in both legs, 3+ on the left and 2+ on the right. No calf tenderness noted. Negative Homans noted. Ambulates with walker. Patient was informed and verbally consented to the use of an ambient scribe for clinic note documentation during this visit. 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, bilateral Bilateral primary osteoarthritis of knee Impaired fasting glucose Primary osteoarthritis involving multiple joints Depression Anxiety Insomnia Overactive bladder Lumbar degenerative disc disease Degenerative disc disease, cervical Vitamin D deficiency GERD without esophagitis Obstructive sleep apnea Vitamin B12 deficiency Fibromyalgia Cardiac murmur Mild intermittent asthma without complication Chronic kidney disease (CKD), stage II (mild) Acquired hypothyroidism Benign essential hypertension Surgical History S/P excision of lipoma H/O blepharoplasty History of colonoscopy Family History Father CVD (cardiovascular disease) Mother CVD (cardiovascular disease) Diabetes Hypertension Social History Household Members: Spouse Housing: Condominium Are you a primary manager long term care to a significant other at home: No Do you presently have visiting nurse or other home services: Yes Alcohol intake: never Patient Tobacco Use Status: Never used Tobacco e-Cigarette/Vaping Use: Never Used Second Hand Smoke Exposure: No service: No Current occupational status: unemployed, student and disabled Cognitive needs: Yes (walker) Hearing needs: No Vision needs: Yes (glasses) Review of Systems Const All systems reviewed & are unremarkable except as noted in HPI and below Physical Exam Vital Signs: Last Vital Signs Temp 98.3 F 11/19/24 11:14 Pulse 92 11/19/24 11:14 BP 126/88 11/19/24 11:14 Pulse Ox 92 11/19/24 11:14 Oxygen Delivery Method Room Air 11/19/24 11:14 BMI result Body Mass Index 48.5 Assessment & Plan Assessment & Plan (1) Edema of both lower extremities: Code(s): R60.0 - Localized edema Plan Most likely dependent edema vs DVT vs CHF vs lymphadema vs vascular insufficiency Plan - I will consider a duplex ultrasound to evaluate for deep vein thrombosis, considering the symptoms and context discussed. - Advise regular use of compression stockings to aid in managing the edema effectively. - Encourage observation for any new symptoms, especially respiratory or functional changes, to identify any need for further evaluation. - Suggest ongoing follow-up with the primary care provider for potential additional diagnostic needs or interventions if symptoms are unrelieved. - May need diuretics - Ensure patient understanding of monitoring symptom escalation necessitating urgent care. Orders: Orders US venous duplex LE RT Today R60.0 - Localized edema Coding Level of Care Code Est Pt Level 4 (09756) Diagnoses Edema of both lower extremities R60.0
--- OUTSIDE RECORDS SUMMARY | 2024-11-19 12:14 | XMS_ITS ---
Author Name Cristobal Edouard NP Address [address] [place] [address] Phone [phone] Organization [facility] Care Team Providers Care Landscaping Supervisor Name Role Phone Cristobal Edouard Unavailable [phone] BruceAntonino Unavailable [phone] Reason for Referral Not Available Allergies, adverse [...] List Problem Status Onset Date Resolved Date Synopsis GERD (gastroesophageal reflux disease) Active 2022-04-17 N/A Diagnosed in 200 8, on a daily PPI states spicy foods to be triggers of flare ups; recommend avoidance meds reviewed and patient counseled on use of PPI recommend dietary modifications, avoiding triggers and weight loss Anxiety and major depressive disorder, recurent, moderate Active 2022-04-17 N/A stable on a S SRI, sertraline, no recent attacks reported Depression tips: [...] if adverse effects occur. Follow up with PCP. Sleep apnea, obstructive Active 2022-04-17 N/A stable without disease progression on CPAP at night time; states no issues with current settings, last adjusted two years agodiscussed and counseled patient on adherence to CPAP userecommend nightly use to avoid sleep issues and daytime sleepiness , weight loss also recommended Hypothyroid Active 2022-04-17 N/A stable on Lev othyroxine daily no lab data available for review, pt states she's been in current dose for years reviewed meds and assessed pt for signs of current thyroid functionrecommend continue with medication and following with PCP every 3 months Hypertension Active 2022-04-17 N/A Continues on Amlodipine, Lisinopril, Spironolactone 142/743/feels well denies H/A IBS (irritable bowel syndrome) Active 2022-04-17 N/A Continues on Hazel zesspt reported medication effectiveness and complianceLast BM today , hard stools , no blood in stools Asthma Active 2022-04-17 N/A feels well , h as all inhalers at home bipap and oxygen PRN 2L, 08/26/24last used PRN Oxygen 3 days ago denies SOB today Opioid use Active 2022-04-19 N/A taking hydroco done routinely with refills monthlyHas tolerance and inability to cut down or stop. takes PRN Narcan Rx sent 08/26/24 Chronic back pain Active 2022-04-17 N/A pt take s gabapentin and OTC medications as needed 08/26/24Trial tylenol 1g on scheuled doses TIDuse voltaren 4x/day if neededoffered PT, member declined *has PT referral in place from [facility] Referral Routine Persons encountering health services in other specified circumstances1 Occurrences starting 05/21/2024 until 05/21/2025 Chronic respiratory failure due to obstructive sleep apnea Active 2024-08-26 N/A bipap an d oxygen PRN 2L, 08/26/24last used PRN Oxygen 3 days ago denies SOB today Morbid Obesity Active 2022-04-17 N/A 08/26/24wit h limited mobility due to pain,BMI 53.32PCP has recommended bariatric surgery. Member wants to hold off on surgery for nowwe discussed weight loss at length. Discussed sequela for morbid obesity, including increased pain and increased SOB. -recommend GLP1 to help with wt loss-member hesitant to start GLP1, will think about and discuss with PCP-encouraged to f/u with bariatric specialist for further obesity management Other problems related to medical facilities and other health care Active 2024-09-14 N/A ASTHMA CONTINGENCY PLANLast updated: 09/14/2024Member to call for the following symptoms: Albuterol not working/ O2 sat <92%??/ WheezingPlanned intervention: Increase use of albuterol inhaler to q2h PRN cough, breathlessness/ Prednisone 50mg PO daily x 5 days/ Doxycycline 100mg BID x 7 days Encounters Encounters Type Facility Date of Service Diagnosis/Co mplaint Medication List Documented (1159F) [facility], ([place]) 04[place]/20[place] Medication List Documented (1159F) [facility] ([place]20[place] Medication List Documented (1159F) [facility] ([place] Medication List Documented (1159F) [facility] ([place]20[place] Medication List Documented (1159F) [facility], ([place]) 04/17/2022 Medication List Documented (1159F) [facility], ([place]) 04/17/2022 Essential (primary) hypertensionUnspecified asthma, uncomplicatedMorbid (severe) obesity due to excess caloriesOpioid dependence, uncomplicatedMajor depressive disorder, recurrent, moderateBody mass index (BMI) 45.0-49.9, adultAnxiety disorder, unspecifiedDorsalgia, unspecifiedGastro-esophageal reflux disease without esophagitisOther chronic painHypothyroidism, unspecifiedObstructive sleep apnea (adult) (pediatric)Irritable bowel syndrome without diarrhea Medication List Documented (1159F) [facility], ([place]) 04/17/2022 Medication List Documented (1159F) [facility], ([place] 04[place]/20[place] Estab. patient 30-39min; chronic exacerbation, 2 stable chronic or 1 acute illness add add modifier 95 for video, (do not use for phone, instead use 71025-30) [facility], ([place]) 04/24/2023 Essential (primary) hypertensionGastro-esophageal reflux disease without [...] (do not use for phone, instead use 09299-34) [facility], ([place]) 04[place]/20[place] Estab. patient 30-39min; chronic exacerbation, 2 stable chronic or 1 acute illness add add modifier 95 for video, (do not use for phone, instead use 11731-88) [facility] ([place]) 04[place]/2023 Estab. patient 30-39min; chronic exacerbation, 2 stable chronic or 1 acute illness add add modifier 95 for video, (do not use for phone, instead use 51654-25) [facility], ([place]) 04/24/2023 Estab. patient 30-39min; chronic exacerbation, 2 stable chronic or 1 acute illness add add modifier 95 for video, (do not use for phone, instead use 21455-00) [facility], ([place]) 04/24/2023 Estab. patient 30-39min; chronic exacerbation, 2 stable chronic or 1 acute illness add add modifier 95 for video, (do not use for phone, instead use 61108-24) [facility], ([place]) 04/24/2023 Estab. patient 30-39min; chronic exacerbation, 2 stable chronic or 1 acute illness add add modifier 95 for video, (do not use for phone, instead use 74128-56) [facility], ([place]) 04/24/2023 Estab. patient 30-39min; chronic exacerbation, 2 stable chronic or 1 acute illness add add modifier 95 for video, (do not use for phone, instead use 55454-06) [facility], ([place]) 04/24/2023 Estab. patient 30-39min; chronic exacerbation, 2 stable chronic or 1 acute illness add add modifier 95 for video, (do not use for phone, instead use 11801-58) [facility], ([place]) 04/24/2023 Estab. patient 30-39min; chronic exacerbation, 2 stable chronic or 1 acute illness add add modifier 95 for video, (do not use for phone, instead use 65972-91) [facility], ([place] 04/24/2023 Estab. patient 30-39min; chronic exacerbation, 2 stable chronic or 1 acute illness add add modifier 95 for video, (do not use for phone, instead use 86677-73) [facility], ([place]) 07/17/2023 Essential (primary) hypertensionGastro-esophageal reflux disease without [...] (do not use for phone, instead use 73816-40) [facility], ([place]) 07/17/20[place] Estab. patient 30-39min; chronic exacerbation, 2 stable chronic or 1 acute illness add add modifier 95 for video, (do not use for phone, instead use 55120-68) [facility], ([place]) 07/17/2023 Estab. patient 30-39min; chronic exacerbation, 2 stable chronic or 1 acute illness add add modifier 95 for video, (do not use for phone, instead use 26672-78) [facility], ([place]) 07/17/2023 Estab. patient 30-39min; chronic exacerbation, 2 stable chronic or 1 acute illness add add modifier 95 for video, (do not use for phone, instead use 63786-58) [facility], ([place]) 07/17/2023 Estab. patient 30-39min; chronic exacerbation, 2 stable chronic or 1 acute illness add add modifier 95 for video, (do not use for phone, instead use 81807-13) [facility], ([place] 07[place]17/2023 Estab. patient 30-39min; chronic exacerbation, 2 stable chronic or 1 acute illness add add modifier 95 for video, (do not use for phone, instead use 73910-79) [facility], ([place] 07/17/2023 Estab. patient 30-39min; chronic exacerbation, 2 stable chronic or 1 acute illness add add modifier 95 for video, (do not use for phone, instead use 84260-09) [facility], ([place] 07/17/20[place] Estab. patient 20-29min; 1 stable chronic or 2 minor; add add modifier 95 for video, modifier [address] [facility] ([place]/2024 Essential (primary) hypertensionGastro-esophageal reflux disease without [...] 95 for video, modifier 93 for phone [facility] Estab. patient 20-29min; 1 stable chronic or 2 minor; add add modifier 95 for video, modifier 93 for phone [facility], ([place] 08/26/20[place] Estab. patient 20-29min; 1 stable chronic or 2 minor; add add modifier 95 for video, modifier 93 for phone [facility], ([place] 08/26/2024 Estab. patient 20-29min; 1 stable chronic or 2 minor; add add modifier 95 for video, modifier 93 for phone [facility] ([place] 08/26/2024 Estab. patient 20-29min; 1 stable chronic or 2 minor; add add modifier 95 for video, modifier 93 for phone [facility], ([place] 08/26/2024 Estab. patient 20-29min; 1 stable chronic or 2 minor; add add modifier 95 for video, modifier 93 for phone [facility], ([place] 08/26/2024 Estab. patient 20-29min; 1 stable chronic or 2 minor; add add modifier 95 for video, modifier 93 for phone [facility] ([place] 08/26/2024 Estab. patient 20-29min; 1 stable chronic or 2 minor; add add modifier 95 for video, modifier 93 for phone [facility], ([place]) 08/26/2024 Vital Signs Date of Collection [...] tive Time Current Smoking Status Never smoker 2024-11-08 2 Sex Female History of Procedures Procedures Service [...] (do not use for phone, instead use 45879-82) [id number] 2022-04-17 No Data Available No Data Availa ble SBP < 130 (3074F) 3074F 2022-04-17 No Data Available No Data Available DBP 80-89 (3079F) 3079F 2022-04-17 No Data Available No Data Available Estab. patient 30-39min; chronic exacerbation, 2 stable chronic or 1 acute illness add add modifier 95 for video, (do not use for phone, instead use 07967-75) 40407 2023-04-24 No Data Available No Data Availa [...] (do not use for phone, instead use 67501-05) 66740 2023-07-17 No Data Available No Data Availa [...] 95 for video, modifier 93 for phone 28576 2024-08-26 No Data Available No Data Availa [...] life alert 2023-04-24 Has BP cuff 2023-04-24 [facility] nurse 2023-04-24 Continent uses bed pads for accidents 02-05-15 Lives alone, but daughter there most of day, daughter is [employer] 2023-04-24 ADLsAmbulating - Needs Alejandrina tanceDressing - [...] PCP every 3 months, BP assessed by [employer] PA[employer] dailyrecommend healthy lifestyle changes (weight loss, heart [...] PCP every 3 months, BP assessed by [employer] PA[employer] dailyLast BP 127/75; has BP cuff at [...] PCP every 3 months, BP assessed by [employer] PA[employer] dailyLast BP 127/75; has BP cuff at [...] risk for dependence/respiratory depression/falls/cognitive dysfunction. 4Declines Narcan. Dtr/[employer] PA[employer] has it put away unless she needs [...] that may arise.Continues on Amlodipine, Lisinopril, Spironolactone 142/743/19/25feels well denies H/ADiagnosed in 2007, on a [...] concerns 2022-04-17 Keep it up with the [email or web address] Health Concerns Date Concern 2024-08-26 Visit completed gerardo feng audio and video. Patient and Guardian agreed [...]
== END 2024-11-19 13:10 | disposition home or self-care (01) ==
PROVIDERS: PCP Internal Medicine; Visit Provider Physician Assistant Medical
DX: R60.0 Localized edema (principal)

== ENCOUNTER → 2024-11-19 10:30 | Outpatient (BNVA) | payer OTHER, SELFPAY | PROVIDERS: PCP Internal Medicine; Visit Provider Physician Assistant Medical | DX: Z13.89 Encounter for screening for other disorder (principal) ==

== ENCOUNTER 2024-11-19 13:04 | Outpatient (REF) | payer OTHER, SELFPAY ==
--- NOTE | ~2024-11-19 | US_ITS ---
EXAMINATION: US TRIPLEX LOWER EXTREMITY, BILATERAL CLINICAL INFORMATION: Edema, both lower extremities. COMPARISON: None available. TECHNIQUE: Color-flow triplex imaging with spectral analysis and compression Doppler were performed on the bilateral lower extremities. FINDINGS: Respiratory variation, normal compression and augmented flow are present throughout the interrogated common femoral vein, superficial femoral vein, profunda femoral vein, popliteal vein and midcalf peroneal and posterior tibial venous segments, both lower extremities. There is no Cardoso's cyst. US/US venous duplex LE BI IMPRESSION: No acute deep venous thrombosis interrogated veins, bilateral lower extremities. Negative for DVT. Electronically signed by: Thierry Epps MD 11/19/2024 02:23 PM EDT
== END 2024-11-19 13:05 | disposition home or self-care (01) ==
LOC: HO.HMGCX 13:04
PROVIDERS: PCP Internal Medicine; Visit Provider Physician Assistant
DX: R60.0 Localized edema (principal)
CPT/HCPCS: 93970; 99212

== ENCOUNTER → 2024-11-19 13:14 | Outpatient (BNV) | payer OTHER, SELFPAY | PROVIDERS: PCP Internal Medicine; Visit Provider Radiology Diagnostic Radiology | DX: R22.43 Localized swelling, mass and lump, lower limb, bilateral (principal) | CPT/HCPCS: 93970 ==

== ENCOUNTER 2024-11-26 11:43 | Outpatient (AMB) | payer OTHER, SELFPAY ==
--- NOTE | 2024-11-26 11:45 | MHC.OFFVIS ---
Intake Visit Reasons: 3m/PVR Intake Note: Patient presents today for follow up on: Incontinence and ultrasound results Imaging Completed: 11/24/24 Any Urology Medication: GEMTESA Antibiotic Allergies: None Blood Thinners: None PVR: 51ml's [employer] Required: Yes [employer] Services: [employer] Offered & Declined Accompanied by: Daughter Allergies No Known Allergies (No Known Allergies*) Allergy (Verified 11/26/24 23:18) Medication List - Last Reconciled 11/26/24 by JENNA Allison [ADULT PULL UPS (Size XXL) As directed] [ADULT WIPES As directed] albuterol sulfate 90 mcg/actuation 2 puffs inhalation Q6H PRN albuterol sulfate 2.5 mg (3 mL) continuous nebulization Q6-8H PRN alpha lipoic acid 600 mg PO DAILY amlodipine 2.5 mg PO DAILY [BEDSIDE COMMODE As directed] bisacodyl (Laxative (bisacodyl)) 10 mg (2 x 5 mg) PO BEDTIME cholecalciferol (vitamin D3) 25 mcg PO DAILY 90 days [compression stockings As directed] CPAP (CPAP Machine/Device) As directed cyanocobalamin (vitamin B-12) 1,000 mcg PO DAILY 90 days diclofenac sodium 1% 2 grams topical BID [DISPOSABLE BED PADS As directed] [Disposable UNDERPADS As directed] gabapentin 600 mg (2 x 300 mg) PO TID 90 days hydrocortisone 1% (Anti-Itch (hydrocortisone)) 1 appl topical TID PRN [INCONTINENT BED PADS As directed] [KOTEX PADS As directed] levothyroxine 137 mcg PO DAILY 90 days linaclotide (Linzess) 290 mcg PO QAM lisinopril 40 mg PO DAILY 90 days meclizine 25 mg PO BID PRN mometasone 0.1% 1 appl topical DAILY PRN [MOTORIZED SCOOTER As directed] omeprazole 20 mg PO DAILY 90 days oxycodone-acetaminophen 5-325 mg 1 tab PO Q6H PRN 28 days [ROLLATOR WALKER As directed] sertraline 100 mg PO DAILY 90 days [SHOWER CHAIR As directed] spironolactone 100 mg PO BID vibegron (Gemtesa) 75 mg PO DAILY 90 days HPI Comments Details: Yeimi is a very pleasant 74-year-old Austrian-speaking female patient of Dr. Barrera who was accompanied by her daughter at today's office visit. She has a past medical history of obesity, bilateral cataracts, constipation, osteoarthritis, depression, anxiety, insomnia, overactive bladder, lumbar degenerative disc disease, vitamin-D deficiency, GERD, obstructive sleep apnea, vitamin B12 deficiency, fibromyalgia, asthma, chronic kidney disease stage 2, hypothyroidism, and hypertension. She presents to the office today for follow-up. Of note, patient was seen approximately 3 months ago at which time a retroperitoneal ultrasound was ordered for further assessment evaluation in the patient was started on Gemtesa. Retroperitoneal ultrasound 09/01 bilateral kidneys are normal in size and echotexture. No nephrolithiasis, hydronephrosis or masses noted. The urinary bladder is unremarkable. She reports significant improvement in episodes of mixed urinary incontinence she had been experiencing. She has previously trialed Myrbetriq and oxybutynin without improvement in urinary symptoms. In office urinalysis results reviewed with the patient today. PVR 51 mL. She denies hematuria, dysuria, foul smelling urine, changes to urinary stream, flank pain, fever, and or chills. She reports lower urinary tract symptoms have been present for years. She does have a previous history of 8 vaginal deliveries. All questions were answered. She otherwise offers no other issues or concerns at this time. 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, bilateral Bilateral primary osteoarthritis of knee Impaired fasting glucose Primary osteoarthritis involving multiple joints Depression Anxiety Insomnia Overactive bladder Lumbar degenerative disc disease Degenerative disc disease, cervical Vitamin D deficiency GERD without esophagitis Obstructive sleep apnea Vitamin B12 deficiency Fibromyalgia Cardiac murmur Mild intermittent asthma without complication Chronic kidney disease (CKD), stage II (mild) Acquired hypothyroidism Benign essential hypertension Surgical History S/P excision of lipoma H/O blepharoplasty History of colonoscopy Family History Father CVD (cardiovascular disease) Mother CVD (cardiovascular disease) Diabetes Hypertension Social History Household Members: Spouse Housing: Condominium Are you a primary day care provider to a significant other at home: No Do you presently have visiting nurse or other home services: Yes Alcohol intake: never Patient Tobacco Use Status: Never used Tobacco e-Cigarette/Vaping Use: Never Used Second Hand Smoke Exposure: No service: No Current occupational status: unemployed, student and disabled Cognitive needs: Yes (walker) Hearing needs: No Vision needs: Yes (glasses) Review of Systems Eyes Reports as per [facility] ENT Reports no additional complaints Card Reports as per HPI Resp Reports as per [facility] GI Reports as per HPI Reports as per [facility] Musc Reports as per [facility] Neuro Reports no additional complaints Psych Reports as per [facility] Endo Reports as per [facility] Javier/Lymph Reports no additional complaints Aller/Immun Reports no additional complaints Physical Exam Const General: cooperative, healthy appearing, comfortable, no acute distress, well developed, alert and awake Nutritional Appearance: overweight Orientation/consciousness: patient oriented x3 Limitations: no limitations HEENT Head: Yes normal to inspection, Yes normocephalic and Yes atraumatic Ears: hearing grossly normal bilaterally Eyes General: appearance normal, both eyes and all related structures Neck Neck: Yes normal visual inspection and Yes trachea midline Chest Chest palpation & inspection: normal inspection of the chest Resp Effort & Inspection: normal respiratory effort and able to speak in complete sentences Cardio Rate: regular rate GI Inspection: Yes normal to inspection General: Yes no CVA tenderness Back/Spine/Pelvis Back: no CVA tenderness Skin General skin exam: no rashes or lesions noted Neuro General: patient oriented x3 Extrem General: Yes normal to inspection Psych Appearance: grossly normal and well kempt Mental Status: mental status grossly normal Speech and movement: Normal speech and movement present and Clear speech present Affect: normal affect Attitude: cooperative Thought process: Normal thought process present Thought content: Normal thought content present Insight: Fair insight present (Psych) Judgement: Fair judgement present (Psych) Results AMB Urinalysis, Automated UA Leukoctes 0 Carlos/uL Last Edit by Priti Calhoun MA on 11/26/24 12:01 UA Nitrite Negative Last Edit by Priti Calhoun MA on 11/26/24 12:01 UA Urobilinogen 0.2 mg/dL Last Edit by Priti Calhoun, [place] on 11/26/24 12:01 UA Protein 15 mg/dL Last Edit by Priti Calhoun CO on 11/26/24 12:01 UA pH 6.0 Last Edit by Priti Calhoun, [place] on 11/26/24 12:01 UA Blood 0 Inder/uL Last Edit by Priti Calhoun, [place] on 11/26/24 12:01 UA Specific [place] 1.015 Last Edit by Priti Calhoun [place] on 11/26/24 12:01 UA Ketone Negative Last Edit by Priti Calhoun CO on 11/26/24 12:01 UA Bilirubin 0 mg/dL Last Edit by Priti Calhoun CO on 11/26/24 12:01 UA Glucose 0 mg/dL Last Edit by Priti Calhoun [place] on 11/26/24 12:01 Results Reviewed Results Reviewed: Laboratory Last Values Urine pH (Auto) 6.0 11/26/24 11:47 Specific [place] (Auto) 1.015 11/26/24 11:47 Urine Protein (Auto) 15 mg/dL 11/26/24 11:47 Glucose (UA)(Auto) 0 mg/dL 11/26/24 11:47 Urine Ketones (Auto) Negative 11/26/24 11:47 Urine Blood (Auto) 0 Inder/uL 11/26/24 11:47 Urine Nitrite (Auto) Negative 11/26/24 11:47 Urine Bilirubin (Auto) 0 mg/dL 11/26/24 11:47 Urine Urobilinogen (Auto) 0.2 mg/dL 11/26/24 11:47 Leukocyte Esterase (Auto) 0 Carlos/uL 11/26/24 11:47 Date of Service: 08/13/24 Procedure(s): US retroperitoneal comp Findings: Right kidney normal size and echotexture, 9.6 cm length. No hydronephrosis. Normal color flow. No nephrolithiasis. No renal masses Left kidney normal size and echotexture, 10.0 cm in length. No hydronephrosis. Normal color flow. No nephrolithiasis. No renal masses Urinary bladder is unremarkable. Prevoid volume 197.0 mL. Postvoid volume 0 mL. Ureteral jets are visualized bilaterally Impression: 1. Normal retroperitoneal ultrasound Assessment & Plan Assessment & Plan (1) Mixed incontinence urge and stress: Code(s): N39.46 - Mixed incontinence Category: Medical (2) Nocturia: Code(s): R35.1 - Nocturia Category: Medical Plan In office urinalysis results with the patient today; as noted above. Recent retroperitoneal ultrasound results reviewed with the patient today; as noted above. PVR 51 mL. Patient reports be happy with current voiding parameters. She currently denies any bothersome urinary issues or concerns. Continue Gemtesa as discussed and prescribed. We discussed the importance of timed/scheduled voiding. Follow-up in 6 months with PVR; or sooner with any issues, concerns, and or questions. Orders: Orders AMB Post Void Residual by ultrasound 11/26/24 N39.46 - Mixed incontinence AMB Urinalysis Automated 11/26/24 Z13.9 - Encounter for screening, unspecified Medications: Changed From vibegron (Gemtesa) 75 mg PO DAILY 30 days 30 tabs 3RF N32.81 - Overactive bladder To vibegron (Gemtesa) 75 mg PO DAILY 90 tabs 3RF 90 days N32.81 - Overactive bladder Patient Instructions: The patient had an opportunity to ask questions regarding the treatment plan. All questions were answered. Physical exam, labs, and imaging were discussed and reviewed in detail. As well as risks, benefits, and discussion of treatment choices. No major barriers to understanding were identified. The patient expressed understanding and agreement with the above treatment plan. The patient was made aware they should contact our office by phone for worsening of their current condition, the appearance of new symptoms, or with any questions or concerns. Compliance is encouraged with any medications and follow up testing that is ordered. It is a privilege to be allowed the opportunity to participate in? your urological care.? Again, if you have any questions or concerns If you have any questions or concerns please do not hesitate to contact me. The office is [phone]. This note is constructed using voice recognition software. While every effort has been made to ensure accuracy reports developer errors may have been included. Yours sincerely, JENNA Allison Coding Level of Care Code Est Pt Level 3 (97974) Complex EM visit Add On G2211 Diagnoses Mixed incontinence urge and stress N39.46 Nocturia R35.1
--- OUTSIDE RECORDS SUMMARY | 2024-11-26 13:14 | XMS_ITS ---
Author Name Cristobal Edouard NP Address [address] [place] [address] Phone [phone] Organization [facility] Care Team Providers Care Sight Mounter Name Role Phone Cristobal Edouard Unavailable [phone] BruceAntonino Unavailable [phone] Reason for Referral Not Available Allergies, adverse [...] following symptoms: Albuterol not working/ O2 sat <92% / WheezingPlanned intervention: Increase use of albuterol inhaler [...] Documented (1159F) [facility], ([place]) 04/17/2022 Essential (primary) hypertensionUnspecified asthma, uncomplicatedMorbid (severe) obesity due to excess caloriesOpioid dependence, uncomplicatedMajor depressive disorder, recurrent, moderateBody mass index (BMI) 45.0-49.9, adultAnxiety disorder, unspecifiedDorsalgia, unspecifiedGastro-esophageal reflux disease without esophagitisOther chronic painHypothyroidism, unspecifiedObstructive sleep apnea (adult) (pediatric)Irritable bowel syndrome without diarrhea Medication List Documented (1159F) [facility] ([place]17/2022 Medication List Documented (1159F) [facility] Estab. patient 30-39min; chronic exacerbation, 2 stable chronic or 1 acute illness add add modifier 95 for video, (do not use for phone, instead use 83158-39) [facility] Essential (primary) hypertensionGastro-esophageal reflux disease without [...] (do not use for phone, instead use 37646-54) [facility] Estab. patient 30-39min; chronic exacerbation, 2 stable chronic or 1 acute illness add add modifier 95 for video, (do not use for phone, instead use 48725-06) [facility] Estab. patient 30-39min; chronic exacerbation, 2 stable chronic or 1 acute illness add add modifier 95 for video, (do not use for phone, instead use 96783-80) [facility] Estab. patient 30-39min; chronic exacerbation, 2 stable chronic or 1 acute illness add add modifier 95 for video, (do not use for phone, instead use 46734-84) [facility] Estab. patient 30-39min; chronic exacerbation, 2 stable chronic or 1 acute illness add add modifier 95 for video, (do not use for phone, instead use 63159-87) [facility] Estab. patient 30-39min; chronic exacerbation, 2 stable chronic or 1 acute illness add add modifier 95 for video, (do not use for phone, instead use 92835-96) [facility] Estab. patient 30-39min; chronic exacerbation, 2 stable chronic or 1 acute illness add add modifier 95 for video, (do not use for phone, instead use 55837-69) [facility] Estab. patient 30-39min; chronic exacerbation, 2 stable chronic or 1 acute illness add add modifier 95 for video, (do not use for phone, instead use 88476-00) [facility] ([place] Estab. patient 30-39min; chronic exacerbation, 2 stable chronic or 1 acute illness add add modifier 95 for video, (do not use for phone, instead use 43477-91) [facility] Estab. patient 30-39min; chronic exacerbation, 2 stable chronic or 1 acute illness add add modifier 95 for video, (do not use for phone, instead use 01564-85) [facility] Essential (primary) hypertensionGastro-esophageal reflux disease [...] (do not use for phone, instead use 56249-45) [facility] Estab. patient 30-39min; chronic exacerbation, 2 stable chronic or 1 acute illness add add modifier 95 for video, (do not use for phone, instead use 00025-33) [facility] Estab. patient 30-39min; chronic exacerbation, 2 stable chronic or 1 acute illness add add modifier 95 for video, (do not use for phone, instead use 64847-19) [facility] Estab. patient 30-39min; chronic exacerbation, 2 stable chronic or 1 acute illness add add modifier 95 for video, (do not use for phone, instead use 60164-30) [facility] Estab. patient 30-39min; chronic exacerbation, 2 stable chronic or 1 acute illness add add modifier 95 for video, (do not use for phone, instead use 09208-02) [facility] Estab. patient 30-39min; chronic exacerbation, 2 stable chronic or 1 acute illness add add modifier 95 for video, (do not use for phone, instead use 23103-33) [facility] Estab. patient 30-39min; chronic exacerbation, 2 stable chronic or 1 acute illness add add modifier 95 for video, (do not use for phone, instead use 80347-72) [facility] Estab. patient 20-29min; 1 stable chronic or 2 minor; add add modifier 95 for video, modifier 93 for phone [facility] ([place]) [place]/2024 Essential (primary) hypertensionGastro-esophageal reflux disease without [...] 95 for video, modifier 93 for phone [facility] ([place] 08[place]26/20[place] Estab. patient 20-29min; 1 stable chronic or 2 minor; add add modifier 95 for video, modifier 93 for phone [facility]26/20[place] Estab. patient 20-29min; 1 stable chronic or 2 minor; add add modifier 95 for video, modifier 93 for phone [facility], [place] 08[place]26/20[place] Estab. patient 20-29min; 1 stable chronic or 2 minor; add add modifier 95 for video, modifier 93 for phone [facility] 08/26/2024 Estab. patient 20-29min; 1 stable chronic or 2 minor; add add modifier 95 for video, modifier 93 for phone [facility] 08/26/2024 Estab. patient 20-29min; 1 stable chronic or 2 minor; add add modifier 95 for video, modifier 93 for phone [facility] 08/26/2024 Estab. patient 20-29min; 1 stable chronic or 2 minor; add add modifier 95 for video, modifier 93 for phone [facility] [place] 08/26/2024 Estab. patient 20-29min; 1 stable chronic or 2 minor; add add modifier 95 for video, modifier 93 for phone [facility] [facility], ([place] 08/26/2024 Vital Signs Date of [...] Time Current Smoking Status Never smoker 2024-11-08 8 Sex Female History of Procedures Procedures Service [...] (do not use for phone, instead use 48608-57) [id number] 2022-04-17 No Data Available No Data Availa ble SBP < 130 (3074F) 3074F 2022-04-17 No Data Available No Data Available DBP 80-89 (3079F) 3079F 2022-04-17 No Data Available No Data Available Estab. patient 30-39min; chronic exacerbation, 2 stable chronic or 1 acute illness add add modifier 95 for video, (do not use for phone, instead use 49259-89) 09456 2023-04-24 No Data Available No Data Availa [...] ble Advance care planning discussed and documented advance care plan or surrogate decision-maker was [...] (do not use for phone, instead use 73333-63) 19634 2023-07-17 No Data Available No Data Availa [...] 95 for video, modifier 93 for phone 29598 2024-08-26 No Data Available No Data Availa [...] ble Advance care planning discussed and documented advance care plan or surrogate decision-maker was [...] 2023-04-24 Has BP cuff 2023-04-24 [facility] nurse 2023-04-24 Continent uses bed pads for accidents 02-05-15 Lives alone, but daughter there most of day, daughter is HYDROELECTRIC PLANT MECHANICAL ENGINEER 2023-04-24 ADLsAmbulating - Needs Alejandrina tanceDressing - [...] PCP every 3 months, BP assessed by HYDROELECTRIC PLANT MECHANICAL ENGINEER dailyrecommend healthy lifestyle changes (weight loss, heart [...] modifier 95Advance care planning discussed and documented advance care plan or surrogate decision-maker was documented in the medical record. (1123F)Advance care planning discussed and documented in the medical record beneficiary/patient did not wish to or was unable to provide an advance care plan or name a surrogate decision-king telles. (1124F)Pain Assessment - Pain Documented (1125F)Continue to see PCP. Follow-up with [facility] as needed for any acute or disease education needs that may arise.Continues on Amlodipine, Lisinopril, Spironolactone sees PCP every 3 months, BP assessed by HYDROELECTRIC PLANT MECHANICAL ENGINEER dailyLast BP 127/75; has BP cuff at [...] modifier 95Advance care planning discussed and documented advance care plan or surrogate decision-maker was documented in the medical record. (1123F)Pain Assessment - Pain Documented (1125F)Continue to see PCP. Follow-up with [facility] as needed for any acute or disease education needs that may arise.<Add contingency plans here>Continues on Amlodipine, Lisinopril, Spironolactone sees PCP every 3 months, BP assessed by HY[employer]OELECT[employer] PLANT MECHANICAL ENGINEER dailyLast BP 127/75; has BP cuff at [...] risk for dependence/respiratory depression/falls/cognitive dysfunction. 4Declines Narcan. Dtr/HY[employer]OELECT[employer]IC PLANT MECHANICAL ENGINEER has it put away unless she needs [...] record (1158F)Advance care planning discussed and documented advance care plan or surrogate decision-maker was [...] following symptoms: Albuterol not working/ O2 sat <92% / WheezingPlanned intervention: Increase use of albuterol inhaler [...] concerns 2022-04-17 Keep it up with the [facility] [facility] Concerns Date Concern 2024-08-26 Visit completed [...]
== END 2024-11-26 12:23 | disposition home or self-care (01) ==
LOC: HO.HUSH 11:43
PROVIDERS: PCP Internal Medicine; Visit Provider Nurse Practitioner Family
DX: Z13.9 Encounter for screening, unspecified (principal)

== ENCOUNTER → 2024-11-26 11:43 | Outpatient (BNVA) | payer OTHER, SELFPAY | PROVIDERS: PCP Internal Medicine; Visit Provider Nurse Practitioner Family | DX: N39.46 Mixed incontinence (principal); R35.1 Nocturia | CPT/HCPCS: 81003; 99212 ==

== ENCOUNTER 2024-12-17 08:28 | Outpatient (REF) | payer OTHER, SELFPAY ==
--- OUTSIDE RECORDS SUMMARY | 2024-12-17 08:40 | XMS_ITS ---
Author Name Cristobal Edouard NP Address [address] [place] [address] Phone [phone] Organization [facility] Care Team Providers Care Site Acquisition Specialist Name Role Phone Cristobal Edouard Unavailable [phone] BruceAntonino Unavailable [phone] Reason for Referral Not Available Allergies, adverse [...] Service Diagnosis/Co mplaint Medication List Documented (1159F) [facility] Medication List Documented (1159F) [facility] Medication List Documented (1159F) [facility] Medication List Documented (1159F) [facility] Medication List Documented (1159F) [facility] Medication List Documented (1159F) [facility] Essential (primary) hypertensionUnspecified asthma, uncomplicatedMorbid (severe) obesity due to excess caloriesOpioid dependence, uncomplicatedMajor depressive disorder, recurrent, moderateBody mass index (BMI) 45.0-49.9, adultAnxiety disorder, unspecifiedDorsalgia, unspecifiedGastro-esophageal reflux disease without esophagitisOther chronic painHypothyroidism, unspecifiedObstructive sleep apnea (adult) (pediatric)Irritable bowel syndrome without diarrhea Medication List Documented (1159F) [facility]20[place] Medication List Documented (1159F) [facility] Estab. patient 30-39min; chronic exacerbation, 2 stable chronic or 1 acute illness add add modifier 95 for video, (do not use for phone, instead use 99204-96) [facility]/2023 Essential (primary) hypertensionGastro-esophageal reflux disease without [...] (do not use for phone, instead use 74032-21) [facility] Estab. patient 30-39min; chronic exacerbation, 2 stable chronic or 1 acute illness add add modifier 95 for video, (do not use for phone, instead use 70725-38) [facility] Estab. patient 30-39min; chronic exacerbation, 2 stable chronic or 1 acute illness add add modifier 95 for video, (do not use for phone, instead use 06521-56) [facility] Estab. patient 30-39min; chronic exacerbation, 2 stable chronic or 1 acute illness add add modifier 95 for video, (do not use for phone, instead use 32752-71) [facility] Estab. patient 30-39min; chronic exacerbation, 2 stable chronic or 1 acute illness add add modifier 95 for video, (do not use for phone, instead use 25746-06) [facility] Estab. patient 30-39min; chronic exacerbation, 2 stable chronic or 1 acute illness add add modifier 95 for video, (do not use for phone, instead use 71108-26) [facility] 04[place] Estab. patient 30-39min; chronic exacerbation, 2 stable chronic or 1 acute illness add add modifier 95 for video, (do not use for phone, instead use 73512-79) [facility] Estab. patient 30-39min; chronic exacerbation, 2 stable chronic or 1 acute illness add add modifier 95 for video, (do not use for phone, instead use 59016-51) [facility] Estab. patient 30-39min; chronic exacerbation, 2 stable chronic or 1 acute illness add add modifier 95 for video, (do not use for phone, instead use 71212-83) [facility] Estab. patient 30-39min; chronic exacerbation, 2 stable chronic or 1 acute illness add add modifier 95 for video, (do not use for phone, instead use 77769-15) [facility] Essential (primary) hypertensionGastro-esophageal reflux disease [...] (do not use for phone, instead use 04325-80) [facility] Estab. patient 30-39min; chronic exacerbation, 2 stable chronic or 1 acute illness add add modifier 95 for video, (do not use for phone, instead use 09613-65) [facility] 07[place]17/[place]23 Estab. patient 30-39min; chronic exacerbation, 2 stable chronic or 1 acute illness add add modifier 95 for video, (do not use for phone, instead use 26525-07) [facility] 07/17/2023 Estab. patient 30-39min; chronic exacerbation, 2 stable chronic or 1 acute illness add add modifier 95 for video, (do not use for phone, instead use 45650-74) [facility] 07[place]17/2023 Estab. patient 30-39min; chronic exacerbation, 2 stable chronic or 1 acute illness add add modifier 95 for video, (do not use for phone, instead use 83267-53) [facility] 07[place]17/2023 Estab. patient 30-39min; chronic exacerbation, 2 stable chronic or 1 acute illness add add modifier 95 for video, (do not use for phone, instead use 71879-76) [facility] 07[place]17/[place]23 Estab. patient 30-39min; chronic exacerbation, 2 stable chronic or 1 acute illness add add modifier 95 for video, (do not use for phone, instead use 65522-11) [facility] 07/17/2023 Estab. patient 20-29min; 1 stable chronic or 2 minor; add add modifier 95 for video, modifier 93 for phone [facility] ([place] 08/26/2024 Essential (primary) hypertensionGastro-esophageal reflux disease without [...] 95 for video, modifier 93 for phone [facility] Estab. patient 20-29min; 1 stable chronic or 2 minor; add add modifier 95 for video, modifier 93 for phone [facility]26/20[place] Estab. patient 20-29min; 1 stable chronic or 2 minor; add add modifier 95 for video, modifier 93 for phone [facility] Estab. patient 20-29min; 1 stable chronic or 2 minor; add add modifier 95 for video, modifier 93 for phone [facility] 08/26/20[place] Estab. patient 20-29min; 1 stable chronic or 2 minor; add add modifier 95 for video, modifier 93 for phone [facility] 08/26/2024 Estab. patient 20-29min; 1 stable chronic or 2 minor; add add modifier 95 for video, modifier 93 for phone [facility] 08/26/2024 Estab. patient 20-29min; 1 stable chronic or 2 minor; add add modifier 95 for video, modifier 93 for phone [facility] 08/26/2024 Estab. patient 20-29min; 1 stable chronic or 2 minor; add add modifier 95 for video, modifier 93 for phone [facility] [email or web address] [facility] 08/26/2024 Vital Signs Date [...] tive Time Current Smoking Status Never smoker 2024-12-08 0 Sex Female History of Procedures Procedures [...] (do not use for phone, instead use 67001-56) 31087 2022-04-17 No Data Available No Data Availa ble SBP < 130 (3074F) 3074F 2022-04-17 No Data Available No Data Available DBP 80-89 (3079F) 3079F 2022-04-17 No Data Available No Data Available Estab. patient 30-39min; chronic exacerbation, 2 stable chronic or 1 acute illness add add modifier 95 for video, (do not use for phone, instead use 03904-19) [id number] 2023-04-24 No Data Available No Data Availa [...] (do not use for phone, instead use 03631-49) 56489 2023-07-17 No Data Available No Data Availa [...] 95 for video, modifier 93 for phone 21088 2024-08-26 No Data Available No Data Availa [...] life alert 2023-04-24 Has BP cuff 2023-04-24 [facility] nurse 2023-04-24 Continent uses bed pads for accidents 02-05-15 Lives alone, but daughter there most of day, daughter is [employer] 2023-04-24 ADLsAmbulating - Needs Alejandrina tanceDressing - [...] PCP every 3 months, BP assessed by [employer] dailyrecommend healthy lifestyle changes (weight loss, heart [...] PCP every 3 months, BP assessed by [employer] dailyLast BP 127/75; has BP cuff at [...] PCP every 3 months, BP assessed by [employer] dailyLast BP 127/75; has BP cuff at [...] risk for dependence/respiratory depression/falls/cognitive dysfunction. 4Declines Narcan. Dtr/[employer] has it put away unless she needs [...] concerns 2022-04-17 Keep it up with the [employer] Health Concerns Date Concern 2024-08-26 Visit completed [...]
--- OUTSIDE RECORDS SUMMARY | 2024-12-17 08:40 | XMS_ITS | Patient Health Record ---
Author Organization [facility] Address [address] [place] [address] Care Team Providers Care Corporate Travel Manager Name Role Phone Bruce BOLAÑOS, [place] Primary Care Provider Feng Abel Unavailable [phone] Reason For Referral No Information Medications Medication SIG (Take, Route, Frequency, Duration) Notes Start Date End Date Status oxyCODONE-Acetaminophen 5-325 MG (Schedule II Drug) TAKE 1 TABLET BY MOUTH EVERY 6 HOURS NEEDED FOR PAIN Oral for 28 Active Omeprazole 20 MG TAKE 1 CAPSULE ONCE A DAY ORALLY 30 DAYS Oral for 90 PRN--once or twice a week Active Spironolactone 100 MG TAKE 1 TABLET BY MOUTH TWICE A DAY Oral for 90 Active Lisinopril 40 MG 1 tablet Orally Once a day for 30 day(s) Active Zolpidem Tartrate 10 MG 1 tablet at bedt modesta as needed Orally Once a day Active MiraLax (colon prep) 8.3 ounce ((238) grams mixed with Gatorade or Crystal Light orally begin at 5:00 p.m. the day before the procedure for 1 day 06/17/2018 Active Levothyroxine Sodium 150 MCG TAKE 1 TABLET BY MOUTH ONCE A DAY INTHE MORNING Oral for 90 Active Dulcolax (colon prep) 5 MG take at 3:00 p.m and 7:00p.m. Orally two tablets twice a day for one day for 1 day 06/17/2018 Active Vitamin B-12 250 MCG TAKE 1 TABLET ONCE A DAY BY MOUTH 90 DAYS Oral for 90 Active D3-1000 1000 UNIT TAKE 1 CAPSULE BY MOUTH EVERY DAY Oral for 30 Active ProAir HFA 108 (90 Base) MCG/ACT 2 puffs as needed Inhalation every 6 hrs Active Clotrimazole-Betamethaso ne 1-0.05 % 1 application to affected area Externally Twice a day Active Meclizine HCl 25 MG 1 TABLET NEEDED 2 TIMES A DAY ORALLY 30 DAY(S) Oral for 30 Active oxyBUTYnin Chloride ER 10 MG 1 tablet Orally Once a day for 30 day(s) Active Immunizations Vaccine Route Administration Date Status Comme nts Influenza Unknown 04/10/2018 Administered Social History Tobacco Use: Social History Observation Description Date Details (start date - stop date) Never Smoker NA - NA Tobacco Use/Smoking Question Answer Notes Patient is a nonsmoker Alcohol Screen Question Answer Notes Did you have a drink containing alcohol in the p ast year? No Points 0 Interpretation Negative Section Notes: Nonsmoker; no significant al cohol Problems Problem Type SNOMED Code ICD Code Onset Dates Problem Status W/U Status Risk Notes Problem 409730836 Encounter for screening for malignant neoplasm of colon (Z12.11) Active confirmed Problem 027175429 Gastroesophageal reflux disease, esophagitis presence not specified (K21.9) Active confirmed Problem 64052767 Irritable bowel syndrome, unspecified type (K58.9) Active confirmed Plan Of Treatment Pending Test Test Name Order Date GI BIOPSY 08/20/2018 Future Test Test Name Order Date UPPER GI ENDOSCOPY 06/17/2018 COLONOSCOPY 06/17/2018 Insurance Providers Payer Name Payer Address Payer Phone Subscriber Number Group Number Insured Name Patient Relationship to Insured Coverage Start Date Coverage End Date [facility] [address] [place] [address] [phone] [id number] COLON, [place] Self - patient is the insured Medical (General) History Medical History History ICD Code Hypertension Hypothyroidism Fibromyalgia Sleep apnea - cpap machne Vitamin B12 deficiency Arthritis Anxiety Depression Fatty liver on ultrasound , but with a normal liver profile in May 2018 Asthma Denies VA,DM,CVA,renal disease Negative screening colonosco py in August of 2008 except for some diverticulosis and internal hemorrhoids Surgical History Surgery Date(Month/Year) Right shoulder
--- OUTSIDE RECORDS SUMMARY | 2024-12-17 08:41 | XMS_ITS | Patient Health Record ---
[facility] [place] Address [address] [place] [address] Care Team Providers Care Manager Market Development Name Role Phone Antonino Barrera MD Primary Care Provider Tisha Vital Unavailable [phone] Allergies No Known Allergies Reason For Referral No Information Medications Medication SIG (Take, Route, Frequency, Duration) Notes Start Date End Date Status oxyCODONE-Acetaminophen 5-325 MG TAKE 1 TABLET BY MOUTH EVERY 6 HOURS NEEDED FOR PAIN Oral; Duration: 28 Days Active Spironolactone 100 MG TAKE 1 TABLET BY M OUTH TWICE A DAY Oral; Duration: 90 Days Active D3-1000 25 MCG (1000 UT) TAKE 1 CAPSULE ORALLY DAILY FOR 90 DAYS Oral; Duration: 90 Days Active Diclofenac Sodium 1 % APPLY 2GM TOPICALL Y 2 TIMES A DAY External; Duration: 5 Days Active Albuterol Sulfate HFA 108 (90 Base) MCG/ACT INHALE 2 PUFFS BY MOUTH EVERY 6 HOURS NEEDED FOR BRONCHOSPASM Inhalation; Duration: 25 Days Active Linzess 290 MCG TAKE 1 CAPSULE BY MO UTH EVERY MORNING Oral; Duration: 30 Days Active Vitamin B-12 1000 MCG TAKE 1 TABLET BY M OUTH EVERY DAY Oral; Duration: 90 Days Active Lisinopril 40 MG TAKE 1 TABLET BY LONG TH DAILY Oral; Duration: 90 Days Active Sertraline HCl 100 MG TAKE 1 TABLET ORAL LY DAILY FOR 90 DAYS Oral; Duration: 90 Days Active Ciclopirox Olamine 0.77 % 1 application Externally Twice a day to feet including between the toes; Duration: 30 days Active Hydrocortisone 01/30/2024 Acti ve Gabapentin 400 MG TAKE 1 CAPSULE BY MO UTH 3 TIMES A DAY Oral; Duration: 90 Days Active Levothyroxine Sodium 137 MCG TAKE 1 TABLET BY MOUTH EVERY DAY Oral; Duration: 90 Days Active Meclizine HCl 25 MG TAKE 1 TABLET BY LONG 2 TIMES A DAY NEEDED FOR DIZZINESS Oral; Duration: 30 Days Active Omeprazole 20 MG TAKE 1 CAPSULE BY MO [facility] EVERY DAY Oral; Duration: 90 Days Active oxyBUTYnin Chloride ER 10 MG TAKE 1 TABLET BY MOUTH EVERY DAY Oral; Duration: 90 Days Active Social History Tobacco Use: [...] Problem Acquired hammer toe of right foot (1666554839219896) Other hammer toe(s) (acquired), right foot (M20.41) Active confirmed Problem Acquired hammer toe of left foot (2369841258965957) Other hammer toe(s) (acquired), left foot (M20.42) Active confirmed Problem Localized, primary osteoarthritis of the ankle and/or foot (345550885) Arthritis of joint of lesser toe, left (M19.072) Active confirmed Problem Localized, primary osteoarthritis of the ankle and/or foot (147377547) Arthritis of joint of lesser toe, right (M19.071) Active confirmed Vital Signs Height 5ft 2in in 03/06/2024 Weight 240 lbs 03/06/2024 BMI 43.89 kg/m2 03/06/2024 Encounters Encounter [facility] Date [facility] [address] [facility] Tisha Arguello Tinea pedis of both feet B35.3 ; Pain in right toe(s) M79.674 ; Other hammer toe(s) (acquired), right foot M20.41 ; Pain in left toe(s) M79.675 and Other hammer toe(s) (acquired), left foot M20.42 [facility] [address] [address] 01/30/2024 Tisha Arguello Assessments Encounter Date Diagnosis [...] Insured Coverage Start Date Coverage End Date [facility] [address] [place] [address] [phone] [id number] [facility] Colon, Yeimi Self - patient is the insured Medical (General) History Medical History History ICD Code Anxiety Arthritis asthma Back,Hip,and Knee pain CAD (Cholesterol) Cataracts covid-19 Depression Fibromyalgia Headaches/Migraines Hypertension Reflux ( GERD) Rheumatic fever Chicken pox Surgical History Surgery Date(Month/Year) cataract surgery implants removed
--- OUTSIDE RECORDS SUMMARY | 2024-12-17 08:41 | XMS_ITS | Clinical Summary ---
Author Organization [facility] Address [address] [place] [address] Phone Care Team Providers Care Field Manager Name Role Phone Antonino Barrera MD Primary Care Provider Social History Tobacco Use Types Packs/Day Years [...] Vaccine (3 - season) 2024 05/26/2021, 09/12/2020 Zoster Vaccines (2 of 2) 07/21/2024 05/26/2024 Influenza Vaccine (#1) 2025 3, 06/07/2022, 05/10/2021, Additional history exists DTaP,Tdap,and Td Vaccines (3 - Td or [...] topic Insurance [employer] Care Teams Field Manager Relationship Specialty Start Date End Date Antonino Barrera MD [address] [place] [address] PCP - General Internal Medicine 05/26/24
[2024-12-17 08:55] LABS: MANUAL DIFF FLAG NO
[2024-12-17 09:53] LABS: Hemoglobin A1C 133.8184 umol/L; Total Hemoglobin (HGBA1C) 3353.9510 umol/L
[2024-12-17 09:54] LABS: Hematocrit 37.3 % (37.0-47.0); Hemoglobin 12.3 g/dl (12.0-16.0); Imm Gran Abs Auto 0.02 X10*3/uL (0.00-0.03); Imm Gran Pct Auto 0.3 % (0.0-0.4); Lymphocytes Absolute Auto 1.5 X10*3/uL (1.2-4.9); Mean Corpuscular HGB Conc 33.0 g/dl (31.0-35.0); Mean Corpuscular Hemoglobin 30.1 pg (27.0-33.0); Mean Corpuscular Volume 91.4 fL (80.0-98.0); NRBC Abs Auto 0.000 X10*3/uL (0.0-0.012); NRBC Pct Auto 0.0 /100WBC (0.0-0.2); Platelet Count 143 X10*3/uL (160-400); Red Blood Count 4.08 X10*6/uL (4.20-5.50); White Blood Count 7.4 X10*3/uL (4.8-10.8)
[2024-12-17 09:55] LABS: Appearance Urine Clear; Glucose Urine UA Negative (Negative); PH 6.0 (5.0-9.0); Specific Gravity - Urine 1.020 (1.005-1.025)
[2024-12-17 10:08] LABS: Alanine Aminotransferase 15 U/L (0-31); Albumin Level 4.1 g/dL (3.5-5.0); Alkaline Phosphatase 99 U/L (39-117); Anion Gap 9 (12-20); Aspartate Amino Transferase 18 U/L (5-31); Blood Urea Nitrogen 17 mg/dL (9-16); Calcium 8.8 mg/dL (8.4-10.2); Carbon Dioxide 30 mmol/L (22-29); Chloride 110 mmol/L (96-108); Estimated Glomerular Filt Rate 49; Potassium 4.2 mmol/L (3.3-5.1); Sodium 145 mmol/L (135-145); Total Protein 6.4 g/dL (6.5-8.0); Uric Acid 8.6 mg/dL (2.4-5.7)
[2024-12-17 10:09] LABS: Alanine Aminotransferase 15 U/L (0-31); Albumin Level 4.1 g/dL (3.5-5.0); Alkaline Phosphatase 102 U/L (39-117); Anion Gap 11 (12-20); Aspartate Amino Transferase 21 U/L (5-31); Blood Urea Nitrogen 17 mg/dL (9-16); Calcium 9.1 mg/dL (8.4-10.2); Carbon Dioxide 28 mmol/L (22-29); Chloride 109 mmol/L (96-108); Cholesterol 158 mg/dL (<200); Estimated Glomerular Filt Rate 46; HDL Cholesterol 44 mg/dL (>40); Potassium 4.2 mmol/L (3.3-5.1); Sodium 144 mmol/L (135-145); Total Protein 6.8 g/dL (6.5-8.0); Triglycerides 87 mg/dL (<150); Uric Acid 8.7 mg/dL (2.4-5.7)
[2024-12-17 10:29] LABS: Free T4 (Free Thyroxine) 1.17 ng/dL (0.71-1.85); Thyroid Stimulating Hormone 0.71 uIU/mL (0.32-4.0)
== END 2024-12-17 08:29 | disposition home or self-care (01) ==
LOC: HO.LAB 08:28
PROVIDERS: PCP Internal Medicine; Referring Provider Student in an Organized Health Care Education/Training Program; Visit Provider Internal Medicine
DX: M89.49 Other hypertrophic osteoarthropathy, multiple sites (principal); D64.9 Anemia, unspecified; E78.00 Pure hypercholesterolemia, unspecified; R30.0 Dysuria; E03.9 Hypothyroidism, unspecified; R73.01 Impaired fasting glucose; E55.9 Vitamin D deficiency, unspecified
CPT/HCPCS: 36415; 80053; 80061; 81003; 82306; 83036; 84439; 84443; 84550; 85025; 85652; 86140

== ENCOUNTER 2024-12-22 10:31 | Outpatient (AMB) | payer OTHER, SELFPAY ==
[2024-12-22 10:34] VITALS: BP 132/78; PULSE 92; O2SAT 94; BMI 52.3
--- NOTE | 2024-12-22 10:34 | MHC.PC.OV ---
Vital Signs 12/22/24 10:34 Height 4 ft 11 in Weight 259 lb BMI 52.3 BP 132/78 Blood Pressure Location Lt brachial Position Sitting Pulse 92 Pulse Source Pulse Oximeter Pulse Oximetry (%) 94 Oxygen Delivery Method Room Air Intake Visit Reasons: HTN, hypothyroidism, IFG, OA, fibromyalgia Mill Supervisor Required: No Accompanied by: Self / Same As Patient Allergies No Known Allergies (No Known Allergies*) Allergy (Verified 12/22/24 11:01) Medication List - Last Reconciled 12/22/24 by Antonino Barrera MD [ADULT PULL UPS (Size XXL) As directed] [ADULT WIPES As directed] albuterol sulfate 90 mcg/actuation 2 puffs inhalation Q6H PRN albuterol sulfate 2.5 mg (3 mL) continuous nebulization Q6-8H PRN alpha lipoic acid 600 mg PO DAILY amlodipine 2.5 mg PO DAILY [BEDSIDE COMMODE As directed] bisacodyl (Laxative (bisacodyl)) 10 mg (2 x 5 mg) PO BEDTIME cholecalciferol (vitamin D3) 25 mcg PO DAILY 90 days [compression stockings As directed] CPAP (CPAP Machine/Device) As directed cyanocobalamin (vitamin B-12) 1,000 mcg PO DAILY 90 days diclofenac sodium 1% 2 grams topical BID [DISPOSABLE BED PADS As directed] [Disposable UNDERPADS As directed] gabapentin 600 mg (2 x 300 mg) PO TID 90 days hydrocortisone 1% (Anti-Itch (hydrocortisone)) 1 appl topical TID PRN [INCONTINENT BED PADS As directed] [KOTEX PADS As directed] levothyroxine 137 mcg PO DAILY 90 days linaclotide (Linzess) 290 mcg PO QAM lisinopril 40 mg PO DAILY 90 days meclizine 25 mg PO BID PRN mometasone 0.1% 1 appl topical DAILY PRN [MOTORIZED SCOOTER As directed] omeprazole 20 mg PO DAILY 90 days oxycodone-acetaminophen 5-325 mg 1 tab PO Q6H PRN 28 days [ROLLATOR WALKER As directed] sertraline 100 mg PO DAILY 90 days [SHOWER CHAIR As directed] spironolactone 100 mg PO BID vibegron (Gemtesa) 75 mg PO DAILY 90 days Tobacco use date assessed: 12/22/24 Fall risk assessment: No Falls in past year Last assessed Fall Risk: 12/22/24 Dental Screening Dental Screen Date: 12/22/24 Did you have a dental visit in the last 12 months?: Yes Did you have a dental problem in the last 6 months where you did not have access to dental care?: No Was dental information given to patient?: Patient has dentist HPI HTN, hypothyroidism, IFG, OA, fibromyalgia HPI Details Patient comes in today for follow-up visit States she feels okay She denies any headaches or dizziness Denies any chest pains, no increased shortness of breath No nausea/ vomiting, no abdominal pain No change in bowel habits noted States that her chronic neck pain, low back pain and joint pains remain adequately controlled on her current medications She had her follow up labs done a few days ago - to discuss her results She is also requesting to be started on a GLP-1 injection at this time to help her lose some weight [facility] Medical History (Updated 12/22/24 @ 11:18 by Antonino Barrera MD) Morbid obesity with BMI of 50.0-59.9, adult Morbid obesity with BMI of 45.0-49.9, adult Morbid obesity with BMI of 40.0-44.9, adult Morbid obesity Ingrown right big toenail Preoperative examination Cataracts, bilateral Acute respiratory failure with hypoxia COVID-19 Pruritus Constipation 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, bilateral Bilateral primary osteoarthritis of knee Impaired fasting glucose Primary osteoarthritis involving multiple joints Depression Anxiety Insomnia Overactive bladder Lumbar degenerative disc disease Degenerative disc disease, cervical Vitamin D deficiency GERD without esophagitis Obstructive sleep apnea Vitamin B12 deficiency Fibromyalgia Cardiac murmur Mild intermittent asthma without complication Chronic kidney disease (CKD), stage II (mild) Acquired hypothyroidism Benign essential hypertension Surgical History S/P excision of lipoma H/O blepharoplasty History of colonoscopy Family History Father CVD (cardiovascular disease) Mother CVD (cardiovascular disease) Diabetes Hypertension Social History Household Members: Spouse Housing: Condominium Are you a primary patient care technician to a significant other at home: No Do you presently have visiting nurse or other home services: Yes Alcohol intake: never Patient Tobacco Use Status: Never used Tobacco e-Cigarette/Vaping Use: Never Used Second Hand Smoke Exposure: No service: No Current occupational status: unemployed, student and disabled Cognitive needs: Yes (walker) Hearing needs: No Vision needs: Yes (glasses) Questionnaire PHQ-9 Over the last 2 weeks, how often have you been bothered by any of the following problems? 1. Little interest or pleasure in doing things: several days 2. Feeling down, depressed, or hopeless: several days 3. Trouble falling or staying asleep, or sleeping too much: not at all 4. Feeling tired or having little energy: more than half the days 5. Poor appetite or overeating: several days 6. Feeling bad about yourself - or that you are a failure or have let yourself or your family down: not at all 7. Trouble concentrating on things, such as reading the newspaper or watching television: not at all 8. Moving or speaking so slowly that other people could have noticed. Or the opposite - being so fidgety or restless that you have been moving around a lot more than usual: not at all 9. Thoughts that you would be better off or of hurting yourself in some way: not at all Total score: 5 Depression Screening Interpretation: Positive Depression Screening Follow-up: Follow-up Visit Requested Depression Screening Done: Yes 30935 - PHQ-9 Billing: Yes Source: Developed by Drs. Feng Lopez, Selina Pedro, Merlin Villalta and colleagues, with an educational nacho from [employer]. Thrive Questionnaire Date Thrive assessed: 12/22/24 I am a: Parent/Caregiver What is your living situation today?: I have a steady place to live Within the past 12 months, did the food you bought not last and you didn't have the money to get more?: Never true Within the past 12 months, did you worry whether your food would run out before you got money to buy more?: Never true Do you have trouble paying for medicines?: No Do you have trouble getting transportation to medical appointments?: No Do you have trouble paying your heating and electricity bill?: No Do you have trouble taking care of your child, family member or friend?: I choose not to answer this question Do you have trouble with day-to-day activities such as bathing, preparing meals, shopping, managing finances, etc.?: I choose not to answer this question Are you currently unemployed and looking for a job?: I choose not to answer this question Are you interested in more education?: I choose not to answer this question Please select the resources that you would like help with: None Currently or been in a relationship where the following occur: No concerns reported THRIVE Score: 0 AUDIT C Alcohol Use Questionnaire (AUDIT-C) 1. How often do you have a drink containing alcohol?: Never 3. How often do you have six or more drinks on one occasion?: Never Total Score: 0 Score Reviewed/Action Taken: Yes IGNACIA-7 AMB Questionnaire IGNACIA-7 Date IGNACIA - 7 assessed: 12/22/24 Feeling nervous, anxious, or on edge: 1 = Several days Not being able to stop or control worryin = Several days Worrying too much about different things: 1 = Several days Trouble relaxin = Several days Being so restless that it is hard to sit still: 0 = Not at all Becoming easily annoyed or irritable: 2 = More than half the days Feeling afraid as if something awful might happen: 0 = Not at all Total IGNACIA-7 score (0-4 normal; 5-9 mild; 10-14 moderate; 15-21 severe): 6 Source: Developed by Drs. Feng Lopez, Selina Pedro, Merlin Villalta and colleagues, with an educational nacho from [employer]. Review of Systems Const Denies chills, Denies fatigue, Denies fever(s) and Denies headache(s) ENT Denies dysphagia, Denies dizziness, Denies otalgia, Denies headache(s), Reports neck pain (chronic), Denies odynophagia and Denies sore throat Card Denies chest pain, Denies palpitations and Reports dyspnea on exertion (mild) Resp Denies cough, Reports dyspnea on exertion (mild) and Denies wheezing GI Denies abdominal pain, Reports constipation (on and off), Denies dysphagia, Denies diarrhea, Denies nausea, Denies odynophagia and Denies vomiting Denies difficulty voiding, Reports nocturia, Denies dysuria, Reports urinary incontinence and Denies urinary urgency Musc Reports back pain (over the lower back - chronic), Reports arthralgias (over both knees ) and Reports neck pain (chronic) Skin/Breast Denies rash Neuro Denies dizziness and Denies headache(s) Endo Denies fatigue and Denies palpitations Aller/Immun Denies wheezing Physical exam (Primary Care) Vital Signs: Last Vital Signs Pulse 92 12/22/24 10:34 BP 132/78 12/22/24 10:34 Pulse Ox 94 12/22/24 10:34 Oxygen Delivery Method Room Air 12/22/24 10:34 BMI result Body Mass Index 52.3 Tobacco/Smoking Status: Tobacco use Status Tobacco use date assessed 12/22/24 12/22/24 10:41 Patient Tobacco Use Status Never used Tobacco 12/22/24 10:41 e-Cigarette/Vaping Use Never Used 12/22/24 10:41 PHQ-9: PHQ-9 Score PHQ-9: Total score 5 12/22/24 10:41 Depression Screening Interpretation: Positive Depression Screening Follow-up: Follow-up Visit Requested Thrive Assessment: Date of Thrive Assessment Date Thrive assessed 12/22/24 12/22/24 10:41 Currently or been in a relationship where the following occur: No concerns reported Const General: no acute distress and alert HENMT Ears: TM's normal bilaterally and EAC's normal Throat: Yes posterior oropharynx normal and Yes tonsils normal (no TP congestion noted) Neck Neck: Yes supple and No lymphadenopathy Thyroid: Thyroid normal Resp Auscultation: clear to auscultation bilaterally, no rales and no wheezes Cardio Rate: regular rate Rhythm: regular rhythm Heart sounds: Murmur heart sound present systolic soft and at the left sternal border (at the left lower sternal border) GI Palpation (GI): Soft to palpation and nontender Auscultation: normal bowel sounds General: Yes no CVA tenderness Back/Spine/Pelvis Back: no CVA tenderness Cervical Spine: Cervical spine tenderness Thoracic/Lumbar Spine: lumbar spinal tenderness Skin Rashes: no rashes Extrem General: Yes no clubbing, cyanosis or edema Right lower extremity: knee Details: tenderness; no swelling Left lower extremity: knee Details: tenderness; no swelling Results Reviewed Results Reviewed: Laboratory Tests 12/17/24 12/17/24 12/17/24 08:35 08:53 09:47 WBC 7.4 Hgb 12.3 Hct 37.3 Plt Count 143 L ESR 23 H Sodium 145 Potassium 4.2 Creatinine 1.09 Estimated GFR 49 Fasting Glucose 101 H Hemoglobin A1c % 5.8 Uric Acid 8.6 H Calcium 8.8 AST 18 ALT 15 C-Reactive Protein 1.66 H Triglycerides 87 Cholesterol 158 LDL Cholesterol, Calc 97 HDL Cholesterol 44 25-OH Vitamin D Total 38.2 TSH 0.71 Free T4 1.17 Ur Specific Watson 1.020 Urine Protein Negative Urine Glucose (UA) Negative Urine Blood Negative Urine Nitrite Negative Ur Leukocyte Esterase Negative Coding Level of Care Code Est Pt Level 4 (96989) Complex EM visit Add On G2211 Diagnoses Benign essential hypertension I10 Chronic kidney disease (CKD), stage II (mild) N18.2 Acquired hypothyroidism E03.9 Mild intermittent asthma without complication J45.20 Impaired fasting glucose R73.01 Cardiac murmur R01.1 Obstructive sleep apnea G47.33 GERD without esophagitis K21.9 Degeneration of intervertebral disc of lumbar region with discogenic back pain and lower extremity pain M51.362 Disc-related pain type: discogenic back pain and lower extremity pain Degenerative disc disease, cervical M50.30 Primary osteoarthritis involving multiple joints M89.49 Fibromyalgia M79.7 Chronic idiopathic constipation K59.04 Vitamin B12 deficiency E53.8 Vitamin D deficiency E55.9 Overactive bladder N32.81 Insomnia, unspecified type G47.00 Insomnia type: unspecified Anxiety F41.9 Episode of recurrent major depressive disorder, unspecified depression episode severity F33.9 Depression Type: major depressive disorder Major depression recurrence: recurrent Active/Remission status: currently active Major depression episode severity: unspecified Morbid obesity with BMI of 50.0-59.9, adult E66.01; Z68.43 Additional Codes PHQ-9 - 82752 - PHQ-9 Billing: Yes ([id number]) Assessment & Plan Assessment & Plan (1) Benign essential hypertension: Code(s): I10 - Essential (primary) hypertension Category: Medical Plan: Results of her labs done a few days ago reviewed and discussed with patient Reinforced low-sodium diet -?goal is systolic BP of at least 130 to 140 mm or less Continue Lisinopril 40 mg QD, Spironolactone 100 mg BID and Amlodipine 2.5 mg QD Have again reminded patient to continue monitoring her blood pressure regularly (2) Chronic kidney disease (CKD), stage II (mild): Code(s): N18.2 - Chronic kidney disease, stage 2 (mild) Category: Medical Plan: GFR stable?-? will continue to monitor her renal function regularly Will recheck her labs in 3 months for follow-up (3) Acquired hypothyroidism: Code(s): E03.9 - Hypothyroidism, unspecified Category: Medical Plan: Her TFTs were again normal on her recent labs Continue Levothyroxine 150 mcg QD Will continue to monitor her TFTs regularly (4) Mild intermittent asthma without complication: Code(s): J45.20 - Mild intermittent asthma, uncomplicated Category: Medical Plan: Controlled Continue Albuterol HFA 2 puffs 4 times a day as needed; patient also has her Albuterol nebulizer that she uses when needed (5) Impaired fasting glucose: Code(s): R73.01 - Impaired fasting glucose Category: Medical Plan: Her FBS is at 101 mg/dl on her recent labs; her HgbA1c remains normal at 5.8% Reinforced low calorie/low carb diet; exercise as tolerated (6) Cardiac murmur: Comment: Echocardiogram done in 2011 showed (+) mild MR and trace TR, which are the most likely cause of her cardiac murmur; LVEF was normal and there were no other abnormalities noted Repeat echocardiogram done in 2019 showed no significant changes from her previous echo in 2011; LV systolic function remains normal and EF was between 65-70% Code(s): R01.1 - Cardiac murmur, unspecified Category: Medical Plan: Echocardiogram done in October 2023 revealed normal left ventricular systolic function, with the calculated ejection fraction at around 62% by biplane method. There are trace MR and TR with no other obvious valvular pathology seen on this study Will continue to monitor these regularly/periodically (7) Obstructive sleep apnea: Code(s): G47.33 - Obstructive sleep apnea (adult) (pediatric) Category: Medical Plan: Continue using her CPAP device when sleeping at night -??CPAP titration done in January 2018 recommended acceptable CPAP pressure setting of 13-14 cm Follow up with Sleep Medicine as scheduled (8) GERD without esophagitis: Code(s): K21.9 - Gastro-esophageal reflux disease without esophagitis Category: Medical Plan: Dietary restrictions reinforced Continue Omeprazole 20 mg QD (9) Lumbar degenerative disc disease: Code(s): M51.36 - Other intervertebral disc degeneration, lumbar region Category: Medical Qualifiers: Disc-related pain type: discogenic back pain and lower extremity pain Qualified Code(s): M51.362 - Other intervertebral disc degeneration, lumbar region with discogenic back pain and lower extremity pain Plan: Reinforced activity and weight lifting restrictions to minimize aggravating her low back pain States that her symptoms remain mostly manageable on her current medications, including her Percocet 5-325 mg that she takes every 6 hours as needed (10) Degenerative disc disease, cervical: Code(s): M50.30 - Other cervical disc degeneration, unspecified cervical region Category: Medical Plan: Findings of cervical DDD confirmed on cervical spine x-rays done in 2014 -? symptoms are reportedly manageable on her current meds (11) Primary osteoarthritis involving multiple joints: Code(s): M89.49 - Other hypertrophic osteoarthropathy, multiple sites Category: Medical Plan: Continue Salsalate 500 mg 2 tablets 3 times a day and Oxycodone-Acetaminophen 5-325 mg 1 tablet every 6 hours as needed [place] [facility] [place] of both knees done years ago showed (+) OA?changes bilaterally; repeat x-rays done in August 2023 revealed (+) moderate degenerative changes in both knees (12) Fibromyalgia: Code(s): M79.7 - Fibromyalgia Category: Medical Plan: Continue Gabapentin 600 mg 3 times a day and Lidoderm patches 5% 1 patch daily Patient is again encouraged to exercise regularly to help manage her fibromyalgia symptoms better Follow-up with rheumatology as scheduled (13) Chronic idiopathic constipation: Code(s): K59.04 - Chronic idiopathic constipation Category: Medical Plan: Patient is encouraged again on increased oral fluids and dietary fiber Continue Bisacodyl 10 mg Q HS Follow up with GI as scheduled (14) Vitamin B12 deficiency: Code(s): E53.8 - Deficiency of other specified B group vitamins Category: Medical Plan: Will continue to monitor her serum Vitamin B12 level regularly (15) Vitamin D deficiency: Code(s): E55.9 - Vitamin D deficiency, unspecified Category: Medical Plan: Continue Vitamin D2 54561 units once a week (16) Overactive bladder: Code(s): N32.81 - Overactive bladder Category: Medical Plan: Continue Gemtesa 75 mg QD Follow up with urology as scheduled (17) Insomnia: Code(s): G47.00 - Insomnia, unspecified Category: Medical Qualifiers: Insomnia type: unspecified Qualified Code(s): G47.00 - Insomnia, unspecified Plan: Sleep hygiene reinforced Continue Zolpidem 10 mg daily at bedtime as needed (18) Anxiety: Code(s): F41.9 - Anxiety disorder, unspecified Category: Medical Plan: Patient is on Sertraline for depression - this helps with her anxiety as well (19) Depression: Code(s): F32.9 - Major depressive disorder, single episode, unspecified Category: Medical Qualifiers: Depression Type: major depressive disorder Major depression recurrence: recurrent Active/Remission status: currently active Major depression episode severity: unspecified Qualified Code(s): F33.9 - Major depressive disorder, recurrent, unspecified Plan: Continue Sertraline 100 mg once a day Follow-up with Psychiatry as scheduled (20) Morbid obesity with BMI of 50.0-59.9, adult: Code(s): E66.01 - Morbid (severe) obesity due to excess calories; Z68.43 - Body mass index [BMI] 50.0-59.9, adult Category: Medical Plan: Reinforced diet/exercise as tolerated/lose weight - she has gained some more weight since her last visit Follow up with weight management as scheduled - she was seen by bariatric surgery a few months ago and was debating whether to go forward with sleeve gastrectomy or not but she currently decided against going for bariatric surgery and is requesting for a trial of a GLP-1 medication instead Have advised patient that her insurance may not agree to cover the Rx and that there are now reports of patients experiencing some eye problems (including retinopathy and macular edema) while on these medications Despite these potential issues, patient states that she is willing to try the Rx as she really wants to try losing some weight Will try sending in Rx for Zepbound 2.5 mg SQ once a week - she is instructed to stop taking this immediately if she starts experiencing progressively worsening abdominal pain or worsening depression while on Zepbound or any equivalent GLP-1 medication Plan Follow up in 3 months Orders: Orders Complete Blood Count Auto Diff 3 Months D64.9 - Anemia, unspecified Comprehensive [place]. Panel Fast 3 Months E78.00 - Pure hypercholesterolemia, unspecified Lipid Panel 3 Months E78.00 - Pure hypercholesterolemia, unspecified Hemoglobin A1c 3 Months R73.01 - Impaired fasting glucose Free T4 (Free Thyroxine) 3 Months E03.9 - Hypothyroidism, unspecified Vitamin B12 and Folate 3 Months E53.8 - Deficiency of other specified B group vitamins Vitamin D 25-OH Total 3 Months E55.9 - Vitamin D deficiency, unspecified UA CC w/rflx Micro + Cult 3 Months R30.0 - Dysuria Thyroid Stimulating Hormone 3 Months E03.9 - Hypothyroidism, unspecified Medications: New tirzepatide (weight loss) (Zepbound) for 4 weeks 2.5 mg (0.5 mL) subcut QWEEK 2 mL 0RF 4 weeks Z68.43 - Body mass index [BMI] 50.0-59.9, adult
--- OUTSIDE RECORDS SUMMARY | 2024-12-22 11:48 | XMS_ITS ---
Author Name Cristobal Edouard NP Address [address] [place] [address] Phone [phone] Organization [facility] Care Team Providers Care Soil Science Technical Officer Name Role Phone Cristobal Edouard Unavailable [phone] BruceAntonino Unavailable [phone] Reason for Referral Not Available Allergies, adverse [...] Service Diagnosis/Co mplaint Medication List Documented (1159F) [facility] Medication List Documented (1159F[place] [facility] Medication List Documented (1159F[place] [facility] Medication List Documented (1159F[place] [facility] Medication List Documented (1159F[place] [facility] Medication List Documented (1159F) [facility] Essential (primary) hypertensionUnspecified asthma, uncomplicatedMorbid (severe) obesity due to excess caloriesOpioid dependence, uncomplicatedMajor depressive disorder, recurrent, moderateBody mass index (BMI) 45.0-49.9, adultAnxiety disorder, unspecifiedDorsalgia, unspecifiedGastro-esophageal reflux disease without esophagitisOther chronic painHypothyroidism, unspecifiedObstructive sleep apnea (adult) (pediatric)Irritable bowel syndrome without diarrhea Medication List Documented (1159F) [facility] Medication List Documented (1159F) [facility] Estab. patient 30-39min; chronic exacerbation, 2 stable chronic or 1 acute illness add add modifier 95 for video, (do not use for phone, instead use 40953-31) [facility] Essential (primary) hypertensionGastro-esophageal reflux disease without [...] (do not use for phone, instead use 74893-31) [facility] Estab. patient 30-39min; chronic exacerbation, 2 stable chronic or 1 acute illness add add modifier 95 for video, (do not use for phone, instead use 97149-85) [facility] Estab. patient 30-39min; chronic exacerbation, 2 stable chronic or 1 acute illness add add modifier 95 for video, (do not use for phone, instead use 17503-85) [facility] Estab. patient 30-39min; chronic exacerbation, 2 stable chronic or 1 acute illness add add modifier 95 for video, (do not use for phone, instead use 03884-22) [facility] Estab. patient 30-39min; chronic exacerbation, 2 stable chronic or 1 acute illness add add modifier 95 for video, (do not use for phone, instead use 90304-47) [facility] Estab. patient 30-39min; chronic exacerbation, 2 stable chronic or 1 acute illness add add modifier 95 for video, (do not use for phone, instead use 30953-99) [facility] Estab. patient 30-39min; chronic exacerbation, 2 stable chronic or 1 acute illness add add modifier 95 for video, (do not use for phone, instead use 32579-26) [facility] Estab. patient 30-39min; chronic exacerbation, 2 stable chronic or 1 acute illness add add modifier 95 for video, (do not use for phone, instead use 05808-68) [facility] Estab. patient 30-39min; chronic exacerbation, 2 stable chronic or 1 acute illness add add modifier 95 for video, (do not use for phone, instead use 04712-31) [facility] Estab. patient 30-39min; chronic exacerbation, 2 stable chronic or 1 acute illness add add modifier 95 for video, (do not use for phone, instead use 57672-44) [facility] Essential (primary) hypertensionGastro-esophageal reflux disease [...] (do not use for phone, instead use 68536-62) [facility] Estab. patient 30-39min; chronic exacerbation, 2 stable chronic or 1 acute illness add add modifier 95 for video, (do not use for phone, instead use 89024-62) [facility] Estab. patient 30-39min; chronic exacerbation, 2 stable chronic or 1 acute illness add add modifier 95 for video, (do not use for phone, instead use 04389-70) [facility] 07[place] Estab. patient 30-39min; chronic exacerbation, 2 stable chronic or 1 acute illness add add modifier 95 for video, (do not use for phone, instead use 11330-78) [facility] Estab. patient 30-39min; chronic exacerbation, 2 stable chronic or 1 acute illness add add modifier 95 for video, (do not use for phone, instead use 37750-16) [facility] Estab. patient 30-39min; chronic exacerbation, 2 stable chronic or 1 acute illness add add modifier 95 for video, (do not use for phone, instead use 19833-08) [facility] Estab. patient 30-39min; chronic exacerbation, 2 stable chronic or 1 acute illness add add modifier 95 for video, (do not use for phone, instead use 33563-43) [facility] Estab. patient 20-29min; 1 stable chronic or 2 minor; add add modifier 95 for video, modifier 93 for phone [facility] ([place] 08/[place]/2024 Essential (primary) hypertensionGastro-esophageal reflux disease without [...] 95 for video, modifier 93 for phone [facility] Estab. patient 20-29min; 1 stable chronic or 2 minor; add add modifier 95 for video, modifier 93 for phone [facility] 08/26/20[place] Estab. patient 20-29min; 1 stable chronic or 2 minor; add add modifier 95 for video, modifier 93 for phone [facility] 08/26/20[place] Estab. patient 20-29min; 1 stable chronic or 2 minor; add add modifier 95 for video, modifier 93 for phone [facility] 08/26/2024 Estab. patient 20-29min; 1 stable chronic or 2 minor; add add modifier 95 for video, modifier 93 for phone [facility] 08/26/2024 Estab. patient 20-29min; 1 stable chronic or 2 minor; add add modifier 95 for video, modifier 93 for phone [facility] 08/26/2024 Estab. patient 20-29min; 1 stable chronic or 2 minor; add add modifier 95 for video, modifier 93 for phone [facility] 08/26/2024 Estab. patient 20-29min; 1 stable chronic or 2 minor; add add modifier 95 for video, modifier 93 for phone [facility] 08/26/2024 Vital Signs [...] Time Current Smoking Status Never smoker 2024-12-08 4 Sex Female History of Procedures Procedures [...] (do not use for phone, instead use 10017-53) 09161 2022-04-17 No Data Available No Data Availa ble SBP < 130 (3074F) 3074F 2022-04-17 No Data Available No Data Available DBP 80-89 (3079F) 3079F 2022-04-17 No Data Available No Data Available Estab. patient 30-39min; chronic exacerbation, 2 stable chronic or 1 acute illness add add modifier 95 for video, (do not use for phone, instead use 93394-70) 73456 2023-04-24 No Data Available No Data Availa [...] (do not use for phone, instead use 11422-93) 84159 2023-07-17 No Data Available No Data Availa [...] 95 for video, modifier 93 for phone 96094 2024-08-26 No Data Available No Data Availa [...] life alert 2023-04-24 Has BP cuff 2023-04-24 [facility] nurse 2023-04-24 Continent uses bed pads for accidents 02-05-15 Lives alone, but daughter there most of day, daughter is DIRECTOR SAFETY 2023-04-24 ADLsAmbulating - Needs Alejandrina tanceDressing - [...] PCP every 3 months, BP assessed by DIRECTOR SAFETY dailyrecommend healthy lifestyle changes (weight loss, heart [...] PCP every 3 months, BP assessed by DIRECTOR SAFETY dailyLast BP 127/75; has BP cuff at [...] PCP every 3 months, BP assessed by DIRECTOR SAFETY dailyLast BP 127/75; has BP cuff at [...] risk for dependence/respiratory depression/falls/cognitive dysfunction. 4Declines Narcan. Dtr/DIRECTOR SAFETY has it put away unless she needs [...] concerns 2022-04-17 Keep it up with the [facility] Health Concerns Date Concern 2024-08-26 Visit completed [...]
--- OUTSIDE RECORDS SUMMARY | 2024-12-22 11:48 | XMS_ITS | Clinical Summary ---
Author Organization [address] [facility] Address [address] [place] [address] Phone Care Team Providers Care Gage Maker Name Role Phone Antonino Barrera MD Primary [...] topic Insurance [employer] MEDICARE Care Teams Gage Maker Relationship Specialty Start Date End Date Antonino Barrera MD [address] [place] [address] PCP - General Internal Medicine 05/26/24
--- OUTSIDE RECORDS SUMMARY | 2024-12-22 11:48 | XMS_ITS | Patient Health Record ---
Author Organization [facility] Address [address] [place] [address] Care Team Providers Care Curtain Cutter Hand Name Role Phone Bruce BOLAÑOS, [place] Primary Care Provider Feng Abel Unavailable [phone] Reason For Referral No Information Medications Medication [...] Problem Status W/U Status Risk Notes Problem 612078910 Encounter for screening for malignant neoplasm of colon (Z12.11) Active confirmed Problem 616156623 Gastroesophageal reflux disease, esophagitis presence not specified (K21.9) Active confirmed Problem 16229949 Irritable bowel syndrome, unspecified type (K58.9) Active confirmed Plan Of Treatment Pending Test Test Name Order Date GI BIOPSY 08/20/2018 Future Test Test Name Order Date UPPER GI ENDOSCOPY 06/17/2018 COLONOSCOPY 06/17/2018 Insurance Providers Payer Name Payer Address Payer Phone Subscriber Number Group Number Insured Name Patient Relationship to Insured Coverage Start Date Coverage End Date [facility] [address] [place] [address] [id number] COLON, GE Self - patient is the insured Medical (General) History Medical History History ICD Code Hypertension Hypothyroidism Fibromyalgia Sleep apnea - cpap machne Vitamin B12 deficiency Arthritis Anxiety Depression Fatty liver on ultrasound , but with a normal liver profile in May 2018 Asthma Denies AR,DM,CVA,renal disease Negative screening colonosco py in August of 2008 except for some diverticulosis and internal hemorrhoids Surgical History Surgery Date(Month/Year) Right shoulder
--- OUTSIDE RECORDS SUMMARY | 2024-12-22 11:48 | XMS_ITS | Patient Health Record ---
Author Organization [facility] Address [address] [facility] [place] [address] Care Team Providers Care Credit Negotiator Name Role Phone Antonino Barrera MD Primary Care Provider Tisha Vital Unavailable [phone] Allergies No Known Allergies Reason For Referral [...] 20 MG TAKE 1 CAPSULE BY MO [facility] EVERY DAY Oral; Duration: 90 Days Active [...] Problem Acquired hammer toe of right foot (8238483145262086) Other hammer toe(s) (acquired), right foot (M20.41) Active confirmed Problem Acquired hammer toe of left foot (1404116202493648) Other hammer toe(s) (acquired), left foot (M20.42) Active confirmed Problem Localized, primary osteoarthritis of the ankle and/or foot (860521384) Arthritis of joint of lesser toe, left (M19.072) Active confirmed Problem Localized, primary osteoarthritis of the ankle and/or foot (754539224) Arthritis of joint of lesser toe, right (M19.071) Active confirmed Vital Signs Height 5ft 2in in 03/06/2024 Weight 240 lbs 03/06/2024 BMI 43.89 kg/m2 03/06/2024 Encounters Encounter Location Date Provider Diagnosis [facility] [address] 03/06/2024 Tisha Arguello Tinea pedis of both feet B35.3 ; Pain in right toe(s) M79.674 ; Other hammer toe(s) (acquired), right foot M20.41 ; Pain in left toe(s) M79.675 and Other hammer toe(s) (acquired), left foot M20.42 [facility] [address] [address] 01/30/2024 Tisha Arguello Assessments Encounter Date Diagnosis [...] Insured Coverage Start Date Coverage End Date [facility] [address] [place] [address] [phone] [id number] [facility] Colon, Yeimi Self - patient is the insured Medical (General) History Medical History History ICD Code Anxiety Arthritis asthma Back,Hip,and Knee pain CAD (Cholesterol) Cataracts covid-19 Depression Fibromyalgia Headaches/Migraines Hypertension Reflux ( GERD) Rheumatic fever Chicken pox Surgical History Surgery Date(Month/Year) cataract surgery implants removed
== END 2024-12-22 11:17 | disposition home or self-care (01) ==
LOC: HO.HMCH 10:33
PROVIDERS: PCP Internal Medicine; Visit Provider Internal Medicine
DX: I12.9 Hypertensive chronic kidney disease with stage 1 through stage 4 chronic kidney disease, or unspecified chronic kidney disease (principal); N18.2 Chronic kidney disease, stage 2 (mild); E66.01 Morbid (severe) obesity due to excess calories; Z68.43 Body mass index [BMI] 50.0-59.9, adult; E03.9 Hypothyroidism, unspecified; J45.20 Mild intermittent asthma, uncomplicated; R73.01 Impaired fasting glucose; R01.1 Cardiac murmur, unspecified; G47.33 Obstructive sleep apnea (adult) (pediatric); K21.9 Gastro-esophageal reflux disease without esophagitis; M51.362 Other intervertebral disc degeneration, lumbar region with discogenic back pain and lower extremity pain; M50.30 Other cervical disc degeneration, unspecified cervical region

== ENCOUNTER → 2024-12-22 10:31 | Outpatient (BNVA) | payer OTHER, SELFPAY | PROVIDERS: PCP Internal Medicine; Visit Provider Internal Medicine | DX: I12.9 Hypertensive chronic kidney disease with stage 1 through stage 4 chronic kidney disease, or unspecified chronic kidney disease (principal); N18.2 Chronic kidney disease, stage 2 (mild); E03.9 Hypothyroidism, unspecified; J45.20 Mild intermittent asthma, uncomplicated; R73.01 Impaired fasting glucose; R01.1 Cardiac murmur, unspecified; G47.33 Obstructive sleep apnea (adult) (pediatric); K21.9 Gastro-esophageal reflux disease without esophagitis; M51.362 Other intervertebral disc degeneration, lumbar region with discogenic back pain and lower extremity pain; M79.7 Fibromyalgia; K59.04 Chronic idiopathic constipation; E53.8 Deficiency of other specified B group vitamins; E55.9 Vitamin D deficiency, unspecified; N32.81 Overactive bladder; F41.9 Anxiety disorder, unspecified; F33.9 Major depressive disorder, recurrent, unspecified; E66.01 Morbid (severe) obesity due to excess calories; Z68.43 Body mass index [BMI] 50.0-59.9, adult; Z71.3 Dietary counseling and surveillance | CPT/HCPCS: 96127; 99212 ==

== ENCOUNTER 2025-02-05 08:53 | Outpatient (REF) | payer OTHER, SELFPAY ==
--- NOTE | ~2025-02-05 | MM_ITS ---
EXAMINATION: MM SCREENING DIGITAL BREAST TOMOSYNTHESIS, BILATERAL CLINICAL INFORMATION: Screening. Asymptomatic. COMPARISON: Mammography: Comparison is made with available priors TECHNIQUE: Digital breast mammography with tomosynthesis is performed in both the craniocaudal and mediolateral oblique views along with computer-aided detection (CAD). FINDINGS: There are scattered areas of fibroglandular density (ACR BI-RADS breast composition Category b). Bilateral circumscribed oval masses which wax and wane consistent with benign fibrocystic changes. There are no significant masses, abnormal calcifications, or other abnormalities. MM/MM tomosynthesis screening BI IMPRESSION: No mammographic evidence of malignancy. ASSESSMENT: BI-RADS BI-RADS 2 - Benign Findings RECOMMENDATION: Routine annual mammography screening. 1 year F/U This examination should not preclude the clinical evaluation of a suspicious palpable abnormality. This patient's information was entered into a reminder system with a target due date for their next mammogram. Electronically signed by: Mila Ramírez DO 02/09/2025 10:26 AM EDT
--- OUTSIDE RECORDS SUMMARY | 2025-02-05 09:44 | XMS_ITS ---
Author Name Francoise Linares NP Address [address] [place] [address] Phone [phone] Organization [facility] Care Team Providers Care Vegetable Grower Name Role Phone Linares Francoise Unavailable [phone] Bruce Antonino Unavailable [phone] Reason for Referral Not Available Allergies, adverse [...] N/A bipap an d oxygen PRN 2L, 01/01/25: denies SOB today Morbid Obesity Active 2022-04-17 [...] days/ Doxycycline 100mg BID x 7 days Goals of care, counseling/discussion Active 2025-01-01 N/A 01/01/25: C onversation with daughter Jailene. She reports that the patient has been doing well and she is currently 'stable'. Denies any acute concerns at this time regarding the patient's health prognosis. She is aware that the patient will continue to decline. The goal is for the patient to remain home until eol. Yeimi has some awareness of her health condition but requires Iris support to make decisions. No concerns at this time for eol services conversation. Encounters Encounters Type Facility Date of Service Diagnosis/Co mplaint Medication List Documented (8792F) [facility] ([place] Medication List Documented (1159F) [facility] Medication List Documented (1159F) [facility] Medication List Documented (1159F) [facility] Medication List Documented (1159F) [facility] Medication List Documented (1159F) [facility] Essential (primary) hypertensionUnspecified asthma, uncomplicatedMorbid (severe) obesity due to excess caloriesOpioid dependence, uncomplicatedMajor depressive disorder, recurrent, moderateBody mass index (BMI) 45.0-49.9, adultAnxiety disorder, unspecifiedDorsalgia, unspecifiedGastro-esophageal reflux disease without esophagitisOther chronic painHypothyroidism, unspecifiedObstructive sleep apnea (adult) (pediatric)Irritable bowel syndrome without diarrhea Medication List Documented (1159F) [facility] Medication List Documented (1159F) [facility] Estab. patient 30-39min; chronic exacerbation, 2 stable chronic or 1 acute illness add add modifier 95 for video, (do not use for phone, instead use 07164-70) [facility] Essential (primary) hypertensionGastro-esophageal reflux disease without [...] (do not use for phone, instead use 00428-37) [facility] Estab. patient 30-39min; chronic exacerbation, 2 stable chronic or 1 acute illness add add modifier 95 for video, (do not use for phone, instead use 81268-02) [facility] Estab. patient 30-39min; chronic exacerbation, 2 stable chronic or 1 acute illness add add modifier 95 for video, (do not use for phone, instead use 03007-38) [facility] Estab. patient 30-39min; chronic exacerbation, 2 stable chronic or 1 acute illness add add modifier 95 for video, (do not use for phone, instead use 63620-61) [facility] Estab. patient 30-39min; chronic exacerbation, 2 stable chronic or 1 acute illness add add modifier 95 for video, (do not use for phone, instead use 02310-77) [facility] Estab. patient 30-39min; chronic exacerbation, 2 stable chronic or 1 acute illness add add modifier 95 for video, (do not use for phone, instead use 58541-81) [facility] Estab. patient 30-39min; chronic exacerbation, 2 stable chronic or 1 acute illness add add modifier 95 for video, (do not use for phone, instead use 42733-23) [facility] Estab. patient 30-39min; chronic exacerbation, 2 stable chronic or 1 acute illness add add modifier 95 for video, (do not use for phone, instead use 79816-62) [facility] Estab. patient 30-39min; chronic exacerbation, 2 stable chronic or 1 acute illness add add modifier 95 for video, (do not use for phone, instead use 08182-16) [facility] Estab. patient 30-39min; chronic exacerbation, 2 stable chronic or 1 acute illness add add modifier 95 for video, (do not use for phone, instead use 25730-92) [facility] Essential (primary) hypertensionGastro-esophageal reflux disease without [...] (do not use for phone, instead use 65972-09) [facility] Estab. patient 30-39min; chronic exacerbation, 2 stable chronic or 1 acute illness add add modifier 95 for video, (do not use for phone, instead use 48259-55) [facility] Estab. patient 30-39min; chronic exacerbation, 2 stable chronic or 1 acute illness add add modifier 95 for video, (do not use for phone, instead use 49385-64) [facility] Estab. patient 30-39min; chronic exacerbation, 2 stable chronic or 1 acute illness add add modifier 95 for video, (do not use for phone, instead use 42254-97) [facility] Estab. patient 30-39min; chronic exacerbation, 2 stable chronic or 1 acute illness add add modifier 95 for video, (do not use for phone, instead use 91805-08) [facility] Estab. patient 30-39min; chronic exacerbation, 2 stable chronic or 1 acute illness add add modifier 95 for video, (do not use for phone, instead use 84040-30) [facility] Estab. patient 30-39min; chronic exacerbation, 2 stable chronic or 1 acute illness add add modifier 95 for video, (do not use for phone, instead use 98588-38) [facility] Estab. patient 20-29min; 1 stable chronic or 2 minor; add add modifier 95 for video, modifier 93 for phone [facility] Essential (primary) hypertensionGastro-esophageal reflux disease without [...] 95 for video, modifier 93 for phone [facility]/26/20[place] Estab. patient 20-29min; 1 stable chronic or 2 minor; add add modifier 95 for video, modifier 93 for phone [facility] [place] Estab. patient 20-29min; 1 stable chronic or 2 minor; add add modifier 95 for video, modifier 93 for phone [facility] [place] Estab. patient 20-29min; 1 stable chronic or 2 minor; add add modifier 95 for video, modifier 93 for phone [facility]/26/20[place] Estab. patient 20-29min; 1 stable chronic or 2 minor; add add modifier 95 for video, modifier 93 for phone [facility] [place] Estab. patient 20-29min; 1 stable chronic or 2 minor; add add modifier 95 for video, modifier 93 for phone [facility] [place] Estab. patient 20-29min; 1 stable chronic or 2 minor; add add modifier 95 for video, modifier 93 for phone [facility]/20[place] Estab. patient 20-29min; 1 stable chronic or 2 minor; add add modifier 95 for video, modifier 93 for phone [facility]26/20[place] Estab. patient 10-29min; 1 minor problem; add add modifier 95 for video, modifier 93 for phone [facility]/2025 Chronic respiratory failure, unsp w hypoxia or hypercapniaObstructive sleep apnea (adult) (pediatric)Dependence on supplemental oxygenOther specified counselingOther problems related to medical facilities and other health care Vital Signs Date of Collection Vitals 2022-04-17 [...] tive Time Current Smoking Status Never smoker 2025-01-09 8 Sex Female History of Procedures Procedures [...] (do not use for phone, instead use 95426-63) 66703 2022-04-17 No Data Available No Data Availa ble SBP < 130 (3074F) 3074F 2022-04-17 No Data Available No Data Available DBP 80-89 (3079F) 3079F 2022-04-17 No Data Available No Data Available Estab. patient 30-39min; chronic exacerbation, 2 stable chronic or 1 acute illness add add modifier 95 for video, (do not use for phone, instead use 30464-83) 10688 2023-04-24 No Data Available No Data Availa [...] (do not use for phone, instead use 18962-21) 25080 2023-07-17 No Data Available No Data Availa [...] 95 for video, modifier 93 for phone 37496 2024-08-26 No Data Available No Data Availa [...] Available No Data Avail able Estab. patient 10-29min; 1 minor problem; add add modifier 95 for video, modifier 93 for phone 99987 2025-01-01 No Data Available No Data Availa ble Functional Status Functional Category Effective Dates Cognition Status: Oriented t o Person, Place and TimeRecall 2/3 words at 3 minutes 2022-04-17 Has wheelchair, uses walker 2023-04-24 Has life alert 2023-04-24 Has BP cuff 2023-04-24 [facility] nurse 2023-04-24 Continent uses bed pads for accidents 20 02-05-15 Lives alone, but daughter there most of day, daughter is TOOL CRIB ATTENDANT 2023-04-24 ADLsAmbulating - Needs Alejandrina tanceDressing - [...] facilities and other health careChronic back pain 2025-01-01 09:24:30 Goals of care, couns eling/discussionOther problems related to medical facilities and other health careChronic respiratory failure due to obstructive sleep apnea Plan of Care Date of Service Plans [...] PCP every 3 months, BP assessed by TOOL CRIB ATTENDANT dailyrecommend healthy lifestyle changes (weight loss, heart [...] PCP every 3 months, BP assessed by TOOL CRIB ATTENDANT dailyLast BP 127/75; has BP cuff at [...] PCP every 3 months, BP assessed by TOOL CRIB ATTENDANT dailyLast BP 127/75; has BP cuff at [...] There is risk for dependence/respiratory depression/falls/cognitive dysfunction. 07/17/2023eclines Narcan. Dtr/TOOL CRIB ATTENDANT has it put away unless she needs [...] specified circumstances1 Occurrences starting 05/21/2024 until 05/21/2025 2025-01-01 09:24:30 Estab. patient 10-29 min; 1 minor problem; add add modifier 95 for video, modifier 93 for phoneContinue to see PCP. Follow-up with Antonietta as needed for any acute or disease education needs that may arise 31/12.01/01/25: Conversation with daughter Jailene. She reports that the patient has been doing well and she is currently 'stable'. Denies any acute concerns at this time regarding the patient's health prognosis. She is aware that the patient will continue to decline. The goal is for the patient to remain home until eol. Yeimi has some awareness of her health condition but requires Iris support to make decisions. No concerns at this time for eol services conversation.ASTHMA CONTINGENCY PLANLast updated: 09/14/2024 to call for the following symptoms: Albuterol not working/ O2 sat <92% / WheezingPlanned intervention: Increase use of albuterol inhaler to q2h PRN cough, breathlessness/ Prednisone 50mg PO daily x 5 days/ Doxycycline 100mg BID x 7 daysbipap and oxygen PRN 2L, 01/01/25: denies SOB today Goals Date Goal 2022-04-17 Remember to take you r medications as prescribed and to check BP daily 2022-04-17 Call me if you have any questions or concerns 2022-04-17 Keep it up with the healthier food choices Health Concerns Date Concern 2025-01-01 Patient/Guardian meka allred to visit via telehealth.Visit completed via:[ ] audio and video; [x] audio only 2025-01-01 Concerns for today's visit:No acute concerns or needs
--- OUTSIDE RECORDS SUMMARY | 2025-02-05 09:44 | XMS_ITS | Patient Health Record ---
Author Organization [facility] Centerbaljit kayla HarringtonEnder Address [address] [place] [address] Care Team Providers Care Coordinator Hotels Name Role Phone Antonino Barrera MD Primary Care Provider Tisha Vital Unavailable [phone] Allergies No Known Allergies Reason For Referral [...] MG TAKE 1 CAPSULE BY MO [facility] EVERY DAY Oral; Duration: [...] Problem Acquired hammer toe of right foot (6915172020670343) Other hammer toe(s) (acquired), right foot (M20.41) Active confirmed Problem Acquired hammer toe of left foot (3023833551428277) Other hammer toe(s) (acquired), left foot (M20.42) Active confirmed Problem Localized, primary osteoarthritis of the ankle and/or foot (964064960) Arthritis of joint of lesser toe, left (M19.072) Active confirmed Problem Localized, primary osteoarthritis of the ankle and/or foot (797758610) Arthritis of joint of lesser toe, right (M19.071) Active confirmed Vital Signs Height 5ft 2in in 03/06/2024 Weight 240 lbs 03/06/2024 BMI 43.89 kg/m2 03/06/2024 Encounters Encounter Location Date Provider Diagnosis [facility] [address] [place] [address] 03/06/2024 Tisha Arguello Tinea pedis of both [...] Insured Coverage Start Date Coverage End Date [facility] [address] [place] [address] [id number] [facility] Colon, Yeimi Self - patient is the insured Medical (General) History Medical History History ICD Code Anxiety Arthritis asthma Back,Hip,and Knee pain CAD (Cholesterol) Cataracts covid-19 Depression Fibromyalgia Headaches/Migraines Hypertension Reflux ( GERD) Rheumatic fever Chicken pox Surgical History Surgery Date(Month/Year) cataract surgery implants removed
--- OUTSIDE RECORDS SUMMARY | 2025-02-05 09:44 | XMS_ITS | Clinical Summary ---
Author Organization [address] [facility] Address [address] [place] [address] Phone Care Team Providers Care Timber Packer Name Role Phone Antonino Barrera MD Primary [...] PCV) 1999 Colorectal Cancer Screening: Colonoscopy 01/10/2024 Falls Risk Assessment 01/10/2024 Hepatitis C Screening 01/10/2024 Medicare Annual Wellness Visit 01/10/2024 Osteoporosis Screening (Bone Density Screening) 01/10/2024 Social Influencers of Health Screening 01/10/2024 RSV Immunization Adult Patients (1 - 1-dose 75+ series) 02/07/2024 COVID-19 Vaccine (3 - season) 2024 05/26/2021, 09/12/2020 Depression Screening 06/10/2024 Zoster Vaccines (2 of 2) 07/21/2024 05/26/2024 [...] topic Insurance [employer] MEDICARE Care Teams Timber Packer Relationship Specialty Start Date End Date Antonino Barrera MD PCP - General Internal Medicine 05/26/24
--- OUTSIDE RECORDS SUMMARY | 2025-02-05 09:44 | XMS_ITS | Patient Health Record ---
Author Organization [facility] Address [address] [place] [address] Care Team Providers Care Optician Manager Name Role Phone Bruce BOLAÑOS, Tamms Primary Care Provider Feng Abel Unavailable [phone] Reason For Referral No Information Medications Medication [...] Problem Status W/U Status Risk Notes Problem [id number] Encounter for screening for malignant neoplasm of colon (Z12.11) Active confirmed Problem 026130918 Gastroesophageal reflux disease, esophagitis presence not specified (K21.9) Active confirmed Problem 75650199 Irritable bowel syndrome, unspecified type (K58.9) Active confirmed Plan Of Treatment Pending Test Test Name Order Date GI BIOPSY 08/20/2018 Future Test Test Name Order Date UPPER GI ENDOSCOPY 06/17/2018 COLONOSCOPY 06/17/2018 Insurance Providers Payer Name Payer Address Payer Phone Subscriber Number Group Number Insured Name Patient Relationship to Insured Coverage Start Date Coverage End Date [facility] [address] [place] [address] [phone] [id number] COLON, GE Self - patient is the insured Medical (General) History Medical History History ICD Code Hypertension Hypothyroidism Fibromyalgia Sleep apnea - cpap machne Vitamin B12 deficiency Arthritis Anxiety Depression Fatty liver on ultrasound , but with a normal liver profile in May 2018 Asthma Denies [place],DM,CVA,renal disease Negative screening colonosco py in August of 2008 except for some diverticulosis and internal hemorrhoids Surgical History Surgery Date(Month/Year) Right shoulder
--- OUTSIDE RECORDS SUMMARY | 2025-02-05 09:44 | XMS_ITS | Clinical Summary ---
Author Organization [facility] Address [address] [place] [address] Phone Care Team Providers Care Stenocaptioner Name Role Phone Antonino Barrera MD Primary Care Provider [phone] Social History Tobacco Use Types Packs/Day Years Used Date Smoking Tobacco: Never Assessed Education Answer Date Recorded Are you interested in more education? Not on lacy e 03/19/2023 Are you concerned about learning? Not on file 03/19/2023 No 03/19/2023 No 03/19/2023 Digital Access Answer Date Recorded No 03/19/2023 No 03/19/2023 Reliable internet access at home? Not on file 03/19/2023 Device with a working camera? Not on file Comments Unknown Sex and Gender Information Value Date Recorded Sex Assigned at Not on file Legal Sex Female 11:21 AM EDT Gender Identity Not on file Sexual Orientation Not on file Plan of Treatment Health Maintenance Due Date Last Done Comments Adult Td,Tdap Booster 1949 LIPID PANEL 1949 DEPRESSION SCREENING 1961 SMOKING Hx and SMOKELESS TOB ACCO SCREENING 1962 HEPATITIS C SCREENING 1967 COLOGUARD 1994 COLONOSCOPY 1994 COLORECTAL CANCER SCREENING 1994 FIT TEST 1994 FOBT 1994 SIGMOIDOSCOPY 1994 VIRTUAL COLONOSCOPY 1994 PNEUMOCOCCAL VACCINES (50+ y ears) (1 of 1 - PCV) 1999 ZOSTER VACCINES (1 of 2) 1999 OSTEOPOROSIS SCREENING INITI AL (ONE-TIME) 2014 RSV VACCINE (1 - 1-dose 75+ series) 02/07/2024 COVID-19 VACCINE (2023-2 5 season) 2024 HEPATITIS A VACCINES Aged Out No long er eligible based on patient's age to complete this topic HIB VACCINES Aged Out No longer eligi ble based on patient's age to complete this topic MENINGOCOCCAL VACCINES (ACWY) Aged Out No longer eligible based on patient's age to complete this topic MENINGOCOCCAL VACCINES (B) Aged Out N o longer eligible based on patient's age to complete this topic Medical Devices Not on file Insurance Member Subscriber Plan / Payer (Ef fective 2022-Present) Name:Yeimi Calhoun Relation to Subscriber:Self Name:Yeimi Calhoun Payer ID:[id number] (NAIC) Group ID:Not on file Type:Medicare Address: [place] [id number] [facility] MEDICARE REPLACEMENT [facility] MEDICARE REPLACEMENT [facility] MEDICARE REPLACEMENT MEDICARE REPLACEMENT MEDICARE REPLACEMENT Care Teams Stenocaptioner Relationship Specialty Start Date End Date Antonino Barrera MD [address] [place] [address] [place] [address] PCP - General Internal Medicine 03/14/23 Additional Source Comments The information contained in this document represents components of the legal health record. It is not the complete legal health record.[facility]
== END 2025-02-05 08:54 | disposition home or self-care (01) ==
LOC: HO.MAMMO 08:53
PROVIDERS: PCP Internal Medicine; Visit Provider Internal Medicine
DX: Z12.31 Encounter for screening mammogram for malignant neoplasm of breast (principal)
CPT/HCPCS: 77063; 77067

== ENCOUNTER → 2025-02-05 09:15 | Outpatient (BNV) | payer OTHER, SELFPAY | PROVIDERS: PCP Internal Medicine; Visit Provider Internal Medicine | DX: Z12.31 Encounter for screening mammogram for malignant neoplasm of breast (principal) | CPT/HCPCS: 77063; 77067 ==

== ENCOUNTER 2025-03-02 08:55 | Outpatient (AMB) | payer OTHER, SELFPAY ==
--- NOTE | 2025-03-02 08:58 | A.OFFVIS_ITS ---
Vital Signs 03/02/25 09:05 Height 4 ft 11 in Weight 256 lb 6.362 oz BMI 51.8 BP 132/84 Blood Pressure Location Lt radial Position Sitting Pulse 86 Pulse Source Pulse Oximeter Pulse Oximetry (%) 93 Oxygen Delivery Method Room Air Intake Visit Reasons: OA Intake Note: Patient presents for OA follow up. Hides And Skins Colorer Required: Yes Hides And Skins Colorer Language: Pbx Installer Services: Hides And Skins Colorer Present Hides And Skins Colorer Name: Ishmael [id number] Information Interpreted: non-clinical & clinical Allergies No Known Allergies (No Known Allergies*) Allergy (Verified 03/02/25 09:04) Medication List - Last Reconciled 03/02/25 by Juliann Valentin MD [ADULT PULL UPS (Size XXL) As directed] [ADULT WIPES As directed] albuterol sulfate 2.5 mg (3 mL) continuous nebulization Q6-8H PRN albuterol sulfate 90 mcg/actuation 2 puffs inhalation Q6H PRN alpha lipoic acid 600 mg PO DAILY amlodipine 2.5 mg PO DAILY [BEDSIDE COMMODE As directed] bisacodyl (Laxative (bisacodyl)) 10 mg (2 x 5 mg) PO BEDTIME cholecalciferol (vitamin D3) 25 mcg PO DAILY 90 days [compression stockings As directed] CPAP (CPAP Machine/Device) As directed cyanocobalamin (vitamin B-12) 1,000 mcg PO DAILY 90 days diclofenac sodium 1% 2 grams topical BID [DISPOSABLE BED PADS As directed] [Disposable UNDERPADS As directed] gabapentin 600 mg (2 x 300 mg) PO TID 90 days hydrocortisone 1% (Anti-Itch (hydrocortisone)) 1 appl topical TID PRN [INCONTINENT BED PADS As directed] [KOTEX PADS As directed] levothyroxine 137 mcg PO DAILY 90 days linaclotide (Linzess) 290 mcg PO QAM lisinopril 40 mg PO DAILY 90 days meclizine 25 mg PO BID PRN mometasone 0.1% 1 appl topical DAILY PRN [MOTORIZED SCOOTER As directed] omeprazole 20 mg PO DAILY 90 days oxycodone-acetaminophen 5-325 mg 1 tab PO Q6H PRN 28 days [ROLLATOR WALKER As directed] sertraline 100 mg PO DAILY 90 days [SHOWER CHAIR As directed] spironolactone 100 mg PO BID tirzepatide (weight loss) (Zepbound) 2.5 mg (0.5 mL) subcut QWEEK 4 weeks vibegron (Gemtesa) 75 mg PO DAILY 90 days HPI Comments Details: Patient is a 75 y.o. female with hypertension complicated by CKD stage 2, mixed incontinence urge/stress, hypothyroidism, depression/anxiety, fibromyalgia and polyarticular osteoarthritis here today for follow-up Interval History: Patient last seen 08/28/2024 with ca - On gabapentin 400mg tid - Patient is with her daughter - Complaining of bilateral lower extremity edema - Whole body pain - Poor exercise tolerance - Gabapentin increased, alpha lipoic acid added Today - On Gabapentin 600mg tid and alpha lipoic acid 600mg daily - Feels that the interventions from last time did help - Still has whole body pain - She has been trying to do more strecthes daily Rheumatologic History: Polyarticular osteoarthritis Fibromyalgia 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 Current Rheumatology Medication(s): Gabapentin 600mg tid Alpha lipoic acid 600mg daily [facility] Medical History (Updated 12/22/24 @ 11:18 by Antonino Barrera MD) Morbid obesity with BMI of 50.0-59.9, adult Morbid obesity with BMI of 45.0-49.9, adult Morbid obesity with BMI of 40.0-44.9, adult Morbid obesity Ingrown right big toenail Preoperative examination Cataracts, bilateral Acute respiratory failure with hypoxia COVID-19 Pruritus Constipation 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, bilateral Bilateral primary osteoarthritis of knee Impaired fasting glucose Primary osteoarthritis involving multiple joints Depression Anxiety Insomnia Overactive bladder Lumbar degenerative disc disease Degenerative disc disease, cervical Vitamin D deficiency GERD without esophagitis Obstructive sleep apnea Vitamin B12 deficiency Fibromyalgia Cardiac murmur Mild intermittent asthma without complication Chronic kidney disease (CKD), stage II (mild) Acquired hypothyroidism Benign essential hypertension Surgical History S/P excision of lipoma H/O blepharoplasty History of colonoscopy Family History Father CVD (cardiovascular disease) Mother CVD (cardiovascular disease) Diabetes Hypertension Social History Household Members: Spouse Housing: [facility] Are you a primary child day care teacher to a significant other at home: No Do you presently have visiting nurse or other home services: Yes Alcohol intake: never Patient Tobacco Use Status: Never used Tobacco e-Cigarette/Vaping Use: Never Used Second Hand Smoke Exposure: No service: No Current occupational status: unemployed, student and disabled Cognitive needs: Yes (walker) Hearing needs: No Vision needs: Yes (glasses) Review of Systems Const Details: Review of Systems Constitutional: Denies fever, chills, weight loss ENT: Denies vision changes, eye pain or eye redness, dental caries, dry mouth GI: Denies nausea, vomiting, diarrhea, abdominal pain, change in BM Pulm: Denies SOB, CAMACHO, hemoptysis, wheezing Cards: Denies chest pain, palpitations Skin: Denies Raynaud's, rash, nail changes, photosensitivity, TRUSS ASSEMBLER: Denies headaches, weakness, paresthesias, recurrent falls MSK: as per HPI All other systems reviewed and are unremarkable except noted above Physical Exam Exam Exam: Vital signs reviewed Physical Examination CONSTITUITIONAL Patient alert and cooperative. Morbidly obese Well appearing and in no apparent painful distress Audible wheezing during exam MSK Hands * Right Hand: Able to make a fist. No swelling or tenderness to palpation of the MCPs, PIPs or DIPs. * Left Hand: Able to make a fist. No swelling or tenderness to palpation of the MCPs, PIPs or DIPs. * Herbedens nodes noted bilaterally Wrists * Right Wrist: Full ROM to flexion and extension. No swelling or TTP * Left Wrist: Full ROM to flexion and extension. No swelling or TTP Elbows * Right Elbow: Full ROM. No swelling or TTP. No TTP of the medial epicondyle. No TTP of the lateral epicondyle * Left Elbow: Full ROM. No swelling or TTP. No TTP of the medial epicondyle. No TTP of the lateral epicondyle Shoulders * Right shoulder: Decreased ROM. No swelling noted. * Left shoulder: Decreased ROM. No swelling noted. Knees * Right knee: Full ROM. No swelling noted. No TTP of the knee joint line. No TTP of pes anserine bursa * Left knee: Full ROM. No swelling noted. No TTP of the knee joint line. No TTP of pes anserine bursa. * Crepitations felt bilaterally Lower extremity * Bilateral pitting edema up to the tibial tuberosity Ankles * Right ankle: Good ankle dorsiflexion and plantar flexion. No swelling. No TTP of the ankle joint * Left ankle: Good ankle dorsiflexion and plantar flexion. No swelling. No TTP of the ankle joint Feet * Right foot: Negative squeeze test * Left foot: Negative squeeze test Tender points? * Tenderness to palpation of the bilateral trapezius, supraspinatus, anterior costochondral junctions, bilateral suboccipital muscle insertions SKIN No rashes Vital Signs: Last Vital Signs Pulse 86 03/02/25 09:05 BP 132/84 03/02/25 09:05 Pulse Ox 93 03/02/25 09:05 Oxygen Delivery Method Room Air 03/02/25 09:05 BMI result Body Mass Index 51.8 Results Reviewed Results Reviewed: Laboratory Tests 08/04/24 08/28/24 12/17/24 09:01 09:36 08:53 WBC 7.4 RBC 4.08 L Hgb 12.3 Hct 37.3 Plt Count 168 143 L ESR 31 H Sodium Potassium Chloride Carbon Dioxide BUN Creatinine Uric Acid AST ALT C-Reactive Protein 25-OH Vitamin D Total 38.2 12/17/24 09:47 WBC RBC Hgb Hct Plt Count ESR 23 H Sodium 145 Potassium 4.2 Chloride 110 H Carbon Dioxide 30 H BUN 17 H Creatinine 1.09 Uric Acid 8.6 H AST 18 ALT 15 C-Reactive Protein 1.66 H 25-OH Vitamin D Total Assessment & Plan Assessment & Plan (1) Fibromyalgia: Code(s): M79.7 - Fibromyalgia Category: Medical Plan: #Fibromyalgia Patient is a 75-year-old female with polyarticular osteoarthritis and fibromyalgia here today for follow up. Patient complaining of widespread pain consistent with symptoms of fibromyalgia. The increase in gabapentin and addition of alpha lipoic acid was beneficial for her Plan - Gabapentin 600mg tid - Alpha lipoic acid 600mg daily - RTC 6 months (2) Edema of both lower extremities: Code(s): R60.0 - Localized edema Category: Medical Plan: #Bilateral LE edema Bilateral LE edema. ECHO in 2023 normal Recommend compression stockings Continue spironolactone as per PCP (3) Hyperuricemia without signs inflammatory arthritis/tophaceous disease: Code(s): E79.0 - Hyperuricemia without signs of inflammatory arthritis and tophaceous disease Category: Medical Plan: #Elevated Uric Acid without evidence of gout Patient with hyperuricemia and no evidence of recurrent gout flares We will continue to monitor (4) Screening for osteoporosis: Code(s): Z13.820 - Encounter for screening for osteoporosis Plan: #Screening for osteoporosis Order DEXA Plan I spent 30 minutes reviewing the record and labs, taking a history, examining the patient, discussing the treatment plan, ordering diagnostic work up and documenting in the medical record Orders: Orders XR DEXA axial skeleton Today M81.0 - Age-related osteoporosis without current pathological fracture Coding Level of Care Code Est Pt Level 4 (99521) Diagnoses Fibromyalgia M79.7 Edema of both lower extremities R60.0 Hyperuricemia without signs inflammatory arthritis/tophaceous disease E79.0 Screening for osteoporosis Z13.820
[2025-03-02 09:05] VITALS: BP 132/84; PULSE 86; O2SAT 93; BMI 51.8
--- OUTSIDE RECORDS SUMMARY | 2025-03-02 10:10 | XMS_ITS | Patient Health Record ---
Author Organization [facility] Address [address] [place] [address] Care Team Providers Care Recovery Unit Operator Name Role Phone Bruce BOLAÑOS, Matthews Primary Care Provider Feng Abel Unavailable [phone] Reason For Referral No Information Medications Medication [...] Problem Status W/U Status Risk Notes Problem 191262736 Encounter for screening for malignant neoplasm of colon (Z12.11) Active confirmed Problem 289672839 Gastroesophageal reflux disease, esophagitis presence not specified (K21.9) Active confirmed Problem 41201562 Irritable bowel syndrome, unspecified type (K58.9) Active confirmed Plan Of Treatment Pending Test Test Name Order Date GI BIOPSY 08/20/2018 Future Test Test Name Order Date UPPER GI ENDOSCOPY 06/17/2018 COLONOSCOPY 06/17/2018 Insurance Providers Payer Name Payer Address Payer Phone Subscriber Number Group Number Insured Name Patient Relationship to Insured Coverage Start Date Coverage End Date [facility] [address] [place] [address] [phone] [id number] COLON, GE Self - patient is the insured Medical (General) History Medical History History ICD Code Hypertension Hypothyroidism Fibromyalgia Sleep apnea - cpap machne Vitamin B12 deficiency Arthritis Anxiety Depression Fatty liver on ultrasound , but with a normal liver profile in May 2018 Asthma Denies [place],DM,CVA,renal disease Negative screening colonosco py in August of 2008 except for some diverticulosis and internal hemorrhoids Surgical History Surgery Date(Month/Year) Right shoulder
--- OUTSIDE RECORDS SUMMARY | 2025-03-02 10:10 | XMS_ITS | Patient Health Record ---
Author Organization [facility] kayla HarringtonEnder Address [address] [facility] [place] [address] Care Team Providers Care Lowerator Operator Name Role Phone Antonino Barrera MD Primary Care Provider Tisha Vital Unavailable [phone] Allergies No Known Allergies Reason For Referral [...] 20 MG TAKE 1 CAPSULE BY MO [facility] EVERY DAY Oral; Duration: 90 Days [...] Problem Acquired hammer toe of right foot (9047146610936732) Other hammer toe(s) (acquired), right foot (M20.41) Active confirmed Problem Acquired hammer toe of left foot (2553196079120682) Other hammer toe(s) (acquired), left foot (M20.42) Active confirmed Problem Localized, primary osteoarthritis of the ankle and/or foot (996914464) Arthritis of joint of lesser toe, left (M19.072) Active confirmed Problem Localized, primary osteoarthritis of the ankle and/or foot (260867992) Arthritis of joint of lesser toe, right (M19.071) Active confirmed Vital Signs Height 5ft 2in in 03/06/2024 Weight 240 lbs 03/06/2024 BMI 43.89 kg/m2 03/06/2024 Encounters Encounter Location Date Provider Diagnosis [facility] [address] [place] [address] 03/06/2024 Tisha Arguello Tinea pedis of both [...] Insured Coverage Start Date Coverage End Date [facility] [address] [place] [address] [id number] [facility] Colon, Yeimi Self - patient is the insured Medical (General) History Medical History History ICD Code Anxiety Arthritis asthma Back,Hip,and Knee pain CAD (Cholesterol) Cataracts covid-19 Depression Fibromyalgia Headaches/Migraines Hypertension Reflux ( GERD) Rheumatic fever Chicken pox Surgical History Surgery Date(Month/Year) cataract surgery implants removed
--- OUTSIDE RECORDS SUMMARY | 2025-03-02 10:10 | XMS_ITS | Clinical Summary ---
Author Organization [address] [facility] Address [address] [place] [address] Phone Care Team Providers Care Dry Can Tender Name Role Phone Antonino Barrera MD Primary Care Provider [phone] Social History Tobacco Use Types Packs/Day Years [...] Years (1 of 1 - PCV) 1999 Falls Risk Assessment 01/10/2024 Hepatitis C Screening 01/10/2024 Medicare Annual Wellness Visit 01/10/2024 Osteoporosis Screening (Bone Density Screening) 01/10/2024 Social Influencers of Health Screening 01/10/2024 RSV Immunization Adult Patients (1 - 1-dose 75+ series) 02/07/2024 Depression Screening 06/10/2024 Zoster Vaccines (2 of 2) 07/21/2024 05/26/2024 COVID-19 Vaccine (3 - season) 2025 05/26/2021, 09/12/2020 Influenza Vaccine (#1) 2025 , 06/07/2022, 05/10/2021, Additional history exists DTaP,Tdap,and Td [...] topic Insurance [employer] MEDICARE Care Teams Dry Can Tender Relationship Specialty Start Date End Date Antonino Barrera MD PCP - General Internal Medicine 05/26/24
--- OUTSIDE RECORDS SUMMARY | 2025-03-02 10:10 | XMS_ITS ---
Author Name Francoise Linares NP Address [address] [place] [address] Phone [phone] Organization [facility] Care Team Providers Care Health And Wellness Coordinator Name Role Phone Linares Francoise Unavailable [phone] Bruce Antonino Unavailable [phone] Reason for Referral Not Available Allergies, adverse [...] D3 1,000 UNIT SOFTGEL TAKE 1 CAP BERANA BY MOUTH DAILY 2021-08-24 No Data Available [...] of Service Diagnosis/Co mplaint Medication List Documented (5173F) [facility] Medication List Documented (1159F) [facility] Medication List Documented (1159F) [facility] Medication List Documented (1159F) [facility] Medication List Documented (1159F) [facility] Medication List Documented (1159F) [facility] Essential (primary) hypertensionUnspecified asthma, uncomplicatedMorbid (severe) obesity due to excess caloriesOpioid dependence, uncomplicatedMajor depressive disorder, recurrent, moderateBody mass index (BMI) 45.0-49.9, adultAnxiety disorder, unspecifiedDorsalgia, unspecifiedGastro-esophageal reflux disease without esophagitisOther chronic painHypothyroidism, unspecifiedObstructive sleep apnea (adult) (pediatric)Irritable bowel syndrome without diarrhea Medication List Documented (1159F) [facility] Medication List Documented (1159F) [facility] Estab. patient 30-39min; chronic exacerbation, 2 stable chronic or 1 acute illness add add modifier 95 for video, (do not use for phone, instead use 63514-62) [facility] 04[place]23 Essential (primary) hypertensionGastro-esophageal reflux disease [...] (do not use for phone, instead use 26922-19) [facility] Estab. patient 30-39min; chronic exacerbation, 2 stable chronic or 1 acute illness add add modifier 95 for video, (do not use for phone, instead use 45224-94) [facility] 04/24/[place] Estab. patient 30-39min; chronic exacerbation, 2 stable chronic or 1 acute illness add add modifier 95 for video, (do not use for phone, instead use 08304-04) [facility] 04/24/[place]23 Estab. patient 30-39min; chronic exacerbation, 2 stable chronic or 1 acute illness add add modifier 95 for video, (do not use for phone, instead use 31489-61) [facility] 04/24/2023 Estab. patient 30-39min; chronic exacerbation, 2 stable chronic or 1 acute illness add add modifier 95 for video, (do not use for phone, instead use 09939-76) [facility] 04/24/[place]23 Estab. patient 30-39min; chronic exacerbation, 2 stable chronic or 1 acute illness add add modifier 95 for video, (do not use for phone, instead use 83235-97) [facility] Estab. patient 30-39min; chronic exacerbation, 2 stable chronic or 1 acute illness add add modifier 95 for video, (do not use for phone, instead use 99467-67) [facility] Estab. patient 30-39min; chronic exacerbation, 2 stable chronic or 1 acute illness add add modifier 95 for video, (do not use for phone, instead use 56104-22) [facility] Estab. patient 30-39min; chronic exacerbation, 2 stable chronic or 1 acute illness add add modifier 95 for video, (do not use for phone, instead use 34442-04) [facility] Estab. patient 30-39min; chronic exacerbation, 2 stable chronic or 1 acute illness add add modifier 95 for video, (do not use for phone, instead use 38678-86) [facility] 07/17/2023 Essential (primary) hypertensionGastro-esophageal reflux disease without [...] (do not use for phone, instead use 74586-30) [facility] 07/17/2023 Estab. patient 30-39min; chronic exacerbation, 2 stable chronic or 1 acute illness add add modifier 95 for video, (do not use for phone, instead use 97943-28) [facility] 07/17/2023 Estab. patient 30-39min; chronic exacerbation, 2 stable chronic or 1 acute illness add add modifier 95 for video, (do not use for phone, instead use 02798-57) [facility] 07/17/2023 Estab. patient 30-39min; chronic exacerbation, 2 stable chronic or 1 acute illness add add modifier 95 for video, (do not use for phone, instead use 39594-09) [facility] Estab. patient 30-39min; chronic exacerbation, 2 stable chronic or 1 acute illness add add modifier 95 for video, (do not use for phone, instead use 22258-54) [facility] 07[place]17/[place] Estab. patient 30-39min; chronic exacerbation, 2 stable chronic or 1 acute illness add add modifier 95 for video, (do not use for phone, instead use 61976-03) [facility] 07/17/2023 Estab. patient 30-39min; chronic exacerbation, 2 stable chronic or 1 acute illness add add modifier 95 for video, (do not use for phone, instead use 04011-81) [facility] 07/17/2023 Estab. patient 20-29min; 1 stable chronic or 2 minor; add add modifier 95 for video, modifier 93 for phone [facility] 08/26/2024 Essential (primary) hypertensionGastro-esophageal reflux disease without [...] 95 for video, modifier 93 for phone [facility] 08/26/2024 Estab. patient 20-29min; 1 stable chronic or 2 minor; add add modifier 95 for video, modifier 93 for phone [facility], [place] 08/26/2024 Estab. patient 20-29min; 1 stable chronic or 2 minor; add add modifier 95 for video, modifier 93 for phone [facility] [place] 08/26/2024 Estab. patient 20-29min; 1 stable chronic or 2 minor; add add modifier 95 for video, modifier 93 for phone [facility] 08/26/2024 Estab. patient 20-29min; 1 stable chronic or 2 minor; add add modifier 95 for video, modifier 93 for phone [facility] [place] 08/26/2024 Estab. patient 20-29min; 1 stable chronic or 2 minor; add add modifier 95 for video, modifier 93 for phone [facility] [place] 08/26/2024 Estab. patient 20-29min; 1 stable chronic or 2 minor; add add modifier 95 for video, modifier 93 for phone [facility] 08/26/2024 Estab. patient 20-29min; 1 stable chronic or 2 minor; add add modifier 95 for video, modifier 93 for phone [facility] 08/26/2024 Estab. patient 10-29min; 1 minor problem; add add modifier 95 for video, modifier 93 for phone [facility], [place] 01/01/2025 Chronic respiratory failure, unsp w hypoxia [...] tive Time Current Smoking Status Never smoker 2025-02-09 3 Sex Female History of Procedures Procedures Service [...] (do not use for phone, instead use 24062-92) 66822 2022-04-17 No Data Available No Data Availa ble SBP < 130 (3074F) 3074F 2022-04-17 No Data Available No Data Available DBP 80-89 (3079F) 3079F 2022-04-17 No Data Available No Data Available Estab. patient 30-39min; chronic exacerbation, 2 stable chronic or 1 acute illness add add modifier 95 for video, (do not use for phone, instead use 99897-26) 24277 2023-04-24 No Data Available No Data Availa [...] (do not use for phone, instead use 83484-58) 53470 2023-07-17 No Data Available No Data Availa [...] 95 for video, modifier 93 for phone 38357 2024-08-26 No Data Available No Data Availa [...] 95 for video, modifier 93 for phone 57741 2025-01-01 No Data Available No Data Availa ble Functional Status Functional Category Effective Dates Cognition Status: Oriented t o Person, Place and TimeRecall 2/3 words at 3 minutes 2022-04-17 Has wheelchair, uses walker 2023-04-24 Has life alert 2023-04-24 Has BP cuff 2023-04-24 [facility] nurse 2023-04-24 Continent uses bed pads for accidents 20 02-05-15 Lives alone, but daughter there most of day, daughter is SUPERVISOR AGENC[employer]POINTMENTS 2023-04-24 ADLsAmbulating - Needs Alejandrina tanceDressing - [...] PCP every 3 months, BP assessed by SUPERVISOR [employer] dailyrecommend healthy lifestyle changes (weight loss, heart [...] PCP every 3 months, BP assessed by SUPERVISOR AG[employer] dailyLast BP 127/75; has BP cuff at [...] PCP every 3 months, BP assessed by SUPERVISOR AGENC[employer] APPOINTMENTS dailyLast BP 127/75; has BP cuff at [...] risk for dependence/respiratory depression/falls/cognitive dysfunction. 07/17/2023eclines Narcan. Dtr/SUPERVISOR AG[employer] has it put away unless she needs [...]
--- OUTSIDE RECORDS SUMMARY | 2025-03-02 10:10 | XMS_ITS | Clinical Summary ---
Author Organization [facility] Address [address] [place] [address] Phone Care Team Providers Care Market Research Manager Name Role Phone Antonino Barrera MD Primary Care Provider [phone] Social History Tobacco Use Types Packs/Day Years [...] ACCO SCREENING 1962 HEPATITIS C SCREENING 1967 PNEUMOCOCCAL VACCINES (50+ y ears) (1 of 1 - PCV) 1999 ZOSTER VACCINES (1 of 2) 1999 OSTEOPOROSIS SCREENING INITI AL (ONE-TIME) 2014 RSV VACCINE (1 - 1-dose 75+ series) 02/07/2024 INFLUENZA VACCINE (#1) 2025 COVID-19 VACCINE ( - 2023-2 5 season) 2025 HEPATITIS A VACCINES Aged Out No long [...] topic Medical Devices Not on [place] [address] [place] [address] [address] [place] [address] [place] [address] DUAL MEDICARE REPLACEMENT [facility] DUAL MEDICARE REPLACEMENT Member Subscriber Plan / Payer ( fective 2022-) Name:Colon, Yeimi Relation to Subscriber:Self Name:ColonEdYeimi Payer ID:[id number] (NAIC) Group ID:Not on file Type:Medicare Address: [place] [id number] [place] [address] DUAL MEDICARE REPLACEMENT Member Subscriber Plan / Payer (Ef fective 2022-Present) Name:ColonEdYeimi Relation to Subscriber:Self Name:ColonEdYeimi Payer ID:[id number] (NAIC) Group ID:Not on file Type:Medicare Address: [place] [id number] [place] [address] DUAL MEDICARE REPLACEMENT Member Subscriber Plan / Payer (Ef fective 2022-Present) Name:ColonEdYeimi Relation to Subscriber:Self Name:ColonEdYeimi Payer ID:[id number] (NAIC) Group ID:Not on file Type:Medicare Address: [place] [id number] [place] [address] DUAL MEDICARE REPLACEMENT Care Teams Market Research Manager Relationship Specialty Start Date End Date Antonino Barrera MD [address] [place] [address] [place] [address] PCP - General Internal Medicine 03/14/23 Additional Source Comments The information contained in this document represents components of the legal health record. It is not the complete legal health record.[facility]
== END 2025-03-02 09:25 | disposition home or self-care (01) ==
LOC: HO.RHES 08:55
PROVIDERS: PCP Internal Medicine; Visit Provider Student in an Organized Health Care Education/Training Program
DX: M79.7 Fibromyalgia (principal); R60.0 Localized edema; E79.0 Hyperuricemia without signs of inflammatory arthritis and tophaceous disease; Z13.820 Encounter for screening for osteoporosis
CPT/HCPCS: 99214

== ENCOUNTER → 2025-03-02 08:55 | Outpatient (BNVA) | payer OTHER, SELFPAY | PROVIDERS: PCP Internal Medicine; Visit Provider Student in an Organized Health Care Education/Training Program | DX: M79.7 Fibromyalgia (principal); R60.0 Localized edema; E79.0 Hyperuricemia without signs of inflammatory arthritis and tophaceous disease; Z13.820 Encounter for screening for osteoporosis | CPT/HCPCS: 99212 ==

== ENCOUNTER 2025-03-25 09:00 | Outpatient (REF) | payer OTHER, SELFPAY ==
[2025-03-25 09:29] LABS: MANUAL DIFF FLAG NO
[2025-03-25 09:58] LABS: Hematocrit 39.8 % (37.0-47.0); Hemoglobin 13.1 g/dl (12.0-16.0); Imm Gran Abs Auto 0.04 X10*3/uL (0.00-0.03); Imm Gran Pct Auto 0.5 % (0.0-0.4); Lymphocytes Absolute Auto 1.6 X10*3/uL (1.2-4.9); Mean Corpuscular HGB Conc 32.9 g/dl (31.0-35.0); Mean Corpuscular Hemoglobin 30.3 pg (27.0-33.0); Mean Corpuscular Volume 92.1 fL (80.0-98.0); NRBC Abs Auto 0.000 X10*3/uL (0.0-0.012); NRBC Pct Auto 0.0 /100WBC (0.0-0.2); Platelet Count 174 X10*3/uL (160-400); Red Blood Count 4.32 X10*6/uL (4.20-5.50); White Blood Count 8.1 X10*3/uL (4.8-10.8)
--- OUTSIDE RECORDS SUMMARY | 2025-03-25 09:58 | XMS_ITS | Clinical Summary ---
Author Organization [facility] Address [address] [place] [address] Phone Care Team Providers Care Side Seam Envelope Machine Operator Name Role Phone Antonino Barrera MD [...] topic Insurance [employer] MEDICARE Care Teams Side Seam Envelope Machine Operator Relationship Specialty Start Date End Date Antonino Barrera MD PCP - General Internal Medicine 05/26/24
--- OUTSIDE RECORDS SUMMARY | 2025-03-25 09:59 | XMS_ITS | Patient Health Record ---
[facility] Harrington[facility] Address [address] [facility] [place] [address] Care Team Providers Care Deputy Bailiff Name Role Phone Antonino Barrera MD Primary Care Provider Tisha Vital Unavailable [phone] Allergies No Known Allergies Reason For Referral [...] 20 MG TAKE 1 CAPSULE BY MO [facility] EVERY DAY Oral; Duration: 90 [...] Problem Acquired hammer toe of right foot (1472870824768453) Other hammer toe(s) (acquired), right foot (M20.41) Active confirmed Problem Acquired hammer toe of left foot (2686651823997816) Other hammer toe(s) (acquired), left foot (M20.42) Active confirmed Problem Localized, primary osteoarthritis of the ankle and/or foot (194160694) Arthritis of joint of lesser toe, left (M19.072) Active confirmed Problem Localized, primary osteoarthritis of the ankle and/or foot (498859895) Arthritis of joint of lesser toe, right (M19.071) Active confirmed Plan Of Treatment No Information Insurance Providers Payer Name Payer Address Payer Phone Subscriber Number Group Number Insured Name Patient Relationship to Insured Coverage Start Date Coverage End Date [facility] [address] [place] [id number] [facility] Colon[facility] Yeimi Self - patient is the insured Medical (General) History Medical History History ICD Code Anxiety Arthritis asthma Back,Hip,and Knee pain CAD (Cholesterol) Cataracts covid-19 Depression Fibromyalgia Headaches/Migraines Hypertension Reflux ( GERD) Rheumatic fever Chicken pox Surgical History Surgery Date(Month/Year) cataract surgery implants removed
--- OUTSIDE RECORDS SUMMARY | 2025-03-25 09:59 | XMS_ITS | Clinical Summary ---
Author Organization [facility] Address [address] [place] [address] Phone Care Team Providers Care Preconstruction Manager Name Role Phone Antonino Barrera MD Primary Care Provider [phone] Social History Tobacco Use Types Packs/Day Years [...] 02/07/2024 INFLUENZA VACCINE (#1) 2025 COVID-19 VACCINE (1 - 2024-2 6 season) 2025 HEPATITIS A VACCINES Aged Out [...] topic Medical Devices Not on file Insurance [place] [address] [place] [address] [place] [place] [address] MEDICARE REPLACEMENT [facility] MEDICARE REPLACEMENT [place] [place] [address] MEDICARE REPLACEMENT Member Subscriber Plan / Payer (Ef fective 2022-Present) Name:ColonEdYeimi Relation to Subscriber:Self Name:Yeimi Calhoun Payer ID:[id number] (NAIC) Group ID:Not on file Type:Medicare Address: [place] [id number] [place] [address] [place] [address] MEDICARE REPLACEMENT Care Teams Preconstruction Manager Relationship Specialty Start Date End Date Antonino Barrera MD [address] [place] [address] [place] [address] PCP - General Internal Medicine 03/14/23 Additional Source Comments The information contained in this document represents components of the legal health record. It is not the complete legal health record.[facility]
--- OUTSIDE RECORDS SUMMARY | 2025-03-25 09:59 | XMS_ITS ---
Author Name Francoise Linares NP Address [address] [place] [address] Phone [phone] Organization [facility] Care Team Providers Care Carton Forming Machine Helper Name Role Phone Linares Francoise Unavailable [phone] Bruce Antonino Unavailable [phone] Reason for Referral Not Available Allergies, adverse [...] of Service Diagnosis/Co mplaint Medication List Documented (6619F) [facility]20[place] Medication List Documented (1159F) [facility] Medication List Documented (1159F) [facility]/20[place] Medication List Documented (1159F) [facility]/20[place] Medication List Documented (1159F) [facility] Medication List Documented (1159F) [facility] 04[place]/20[place] Essential (primary) hypertensionUnspecified asthma, uncomplicatedMorbid (severe) obesity due to excess caloriesOpioid dependence, uncomplicatedMajor depressive disorder, recurrent, moderateBody mass index (BMI) 45.0-49.9, adultAnxiety disorder, unspecifiedDorsalgia, unspecifiedGastro-esophageal reflux disease without esophagitisOther chronic painHypothyroidism, unspecifiedObstructive sleep apnea (adult) (pediatric)Irritable bowel syndrome without diarrhea Medication List Documented (1159F) [facility] Medication List Documented (1159F) [facility] 04[place] Estab. patient 30-39min; chronic exacerbation, 2 stable chronic or 1 acute illness add add modifier 95 for video, (do not use for phone, instead use 30026-73) [facility] 04[place]/2023 Essential (primary) hypertensionGastro-esophageal reflux disease [...] (do not use for phone, instead use 03324-03) [facility] 04[place]/20[place] Estab. patient 30-39min; chronic exacerbation, 2 stable chronic or 1 acute illness add add modifier 95 for video, (do not use for phone, instead use 31285-73) [facility] ([place] 04/[place]/20[place] Estab. patient 30-39min; chronic exacerbation, 2 stable chronic or 1 acute illness add add modifier 95 for video, (do not use for phone, instead use 78214-47) [facility] Estab. patient 30-39min; chronic exacerbation, 2 stable chronic or 1 acute illness add add modifier 95 for video, (do not use for phone, instead use 40728-19) [facility] 04[place]/2023 Estab. patient 30-39min; chronic exacerbation, 2 stable chronic or 1 acute illness add add modifier 95 for video, (do not use for phone, instead use 57691-56) [facility] 04[place]/2023 Estab. patient 30-39min; chronic exacerbation, 2 stable chronic or 1 acute illness add add modifier 95 for video, (do not use for phone, instead use 34997-74) [facility] Estab. patient 30-39min; chronic exacerbation, 2 stable chronic or 1 acute illness add add modifier 95 for video, (do not use for phone, instead use 17499-62) [facility] 04[place]24/2023 Estab. patient 30-39min; chronic exacerbation, 2 stable chronic or 1 acute illness add add modifier 95 for video, (do not use for phone, instead use 49755-89) [facility] 04[place]24/2023 Estab. patient 30-39min; chronic exacerbation, 2 stable chronic or 1 acute illness add add modifier 95 for video, (do not use for phone, instead use 42548-91) [facility] 04/24/2023 Estab. patient 30-39min; chronic exacerbation, 2 stable chronic or 1 acute illness add add modifier 95 for video, (do not use for phone, instead use 92378-21) [facility] 07[place]/2023 Essential (primary) hypertensionGastro-esophageal reflux disease [...] (do not use for phone, instead use 13548-88) [facility] 07[place]17/2023 Estab. patient 30-39min; chronic exacerbation, 2 stable chronic or 1 acute illness add add modifier 95 for video, (do not use for phone, instead use 22796-97) [facility] 07/17/2023 Estab. patient 30-39min; chronic exacerbation, 2 stable chronic or 1 acute illness add add modifier 95 for video, (do not use for phone, instead use 51009-15) [facility] 07/17/2023 Estab. patient 30-39min; chronic exacerbation, 2 stable chronic or 1 acute illness add add modifier 95 for video, (do not use for phone, instead use 87865-47) [facility] 07[place] Estab. patient 30-39min; chronic exacerbation, 2 stable chronic or 1 acute illness add add modifier 95 for video, (do not use for phone, instead use 13941-45) [facility] 07/17/2023 Estab. patient 30-39min; chronic exacerbation, 2 stable chronic or 1 acute illness add add modifier 95 for video, (do not use for phone, instead use 63546-69) [facility] 07/17/2023 Estab. patient 30-39min; chronic exacerbation, 2 stable chronic or 1 acute illness add add modifier 95 for video, (do not use for phone, instead use 11329-59) [facility] 07[place]17/2023 Estab. patient 20-29min; 1 stable chronic or 2 minor; add add modifier 95 for video, modifier 93 for phone [facility]/2024 Essential (primary) hypertensionGastro-esophageal reflux disease [...] 95 for video, modifier 93 for phone [facility] [place] 08/26/2024 Estab. patient 20-29min; 1 stable chronic or 2 minor; add add modifier 95 for video, modifier 93 for phone [facility] [place] 08/26/2024 Estab. patient 20-29min; 1 stable chronic or 2 minor; add add modifier 95 for video, modifier 93 for phone [facility] [place] 08/26/2024 Estab. patient 20-29min; 1 stable chronic or 2 minor; add add modifier 95 for video, modifier 93 for phone [facility] [place] 08/26/2024 Estab. patient 20-29min; 1 stable chronic or 2 minor; add add modifier 95 for video, modifier 93 for phone [facility] [place] 08/26/2024 Estab. patient 20-29min; 1 stable chronic or 2 minor; add add modifier 95 for video, modifier 93 for phone [facility] [place] 08/26/2024 Estab. patient 20-29min; 1 stable chronic or 2 minor; add add modifier 95 for video, modifier 93 for phone [facility] [place] 08/26/2024 Estab. patient 20-29min; 1 stable chronic or 2 minor; add add modifier 95 for video, modifier 93 for phone [facility] [place] 08/26/2024 Estab. patient 10-29min; 1 minor problem; add add modifier 95 for video, modifier 93 for phone [facility] 01/01/2025 Chronic respiratory failure, unsp w hypoxia [...] tive Time Current Smoking Status Never smoker 2025-03-10 5 Sex Female History of Procedures Procedures [...] (do not use for phone, instead use 25645-80) 81745 2022-04-17 No Data Available No Data Availa ble SBP < 130 (3074F) 3074F 2022-04-17 No Data Available No Data Available DBP 80-89 (3079F) 3079F 2022-04-17 No Data Available No Data Available Estab. patient 30-39min; chronic exacerbation, 2 stable chronic or 1 acute illness add add modifier 95 for video, (do not use for phone, instead use 67086-65) 99596 2023-04-24 No Data Available No Data Availa [...] (do not use for phone, instead use 04343-53) 83238 2023-07-17 No Data Available No Data Availa [...] 95 for video, modifier 93 for phone 82193 2024-08-26 No Data Available No Data Availa [...] 95 for video, modifier 93 for phone 88782 2025-01-01 No Data Available No Data Availa ble Functional Status Functional Category Effective Dates Cognition Status: Oriented t o Person, Place and TimeRecall 2/3 words at 3 minutes 2022-04-17 Has wheelchair, uses walker 2023-04-24 Has life alert 2023-04-24 Has BP cuff 2023-04-24 [facility] nurse 2023-04-24 Continent uses bed pads for accidents 20 02-05-15 Lives alone, but daughter there most of day, daughter is ELECTRIC SYSTEM OPERATOR 2023-04-24 ADLsAmbulating - Needs Alejandrina tanceDressing - [...] PCP every 3 months, BP assessed by ELECTRIC SYSTEM OPERATOR dailyrecommend healthy lifestyle changes (weight loss, heart [...] PCP every 3 months, BP assessed by ELECTRIC SYSTEM OPERATOR dailyLast BP 127/75; has BP cuff at [...] PCP every 3 months, BP assessed by ELECTRIC SYSTEM OPERATOR dailyLast BP 127/75; has BP cuff at [...] risk for dependence/respiratory depression/falls/cognitive dysfunction. 07/17/2023eclines Narcan. Dtr/ELECTRIC SYSTEM OPERATOR has it put away unless she needs [...]
--- OUTSIDE RECORDS SUMMARY | 2025-03-25 09:59 | XMS_ITS | Patient Health Record ---
Author Organization [facility] Address [address] [place] [address] Care Team Providers Care Lens Assistant Name Role Phone Aquilino Barrera MDneth Primary Care Provider Feng Abel Unavailable [phone] Reason For Referral No Information Medications Medication SIG (Take, Route, Frequency, Duration) Notes Start Date End Date Status oxyCODONE-Acetaminophen 5-325 MG (Schedule II Drug) TAKE 1 TABLET BY MOUTH EVERY 6 HOURS NEEDED FOR PAIN Oral; Duration: 28 Active Omeprazole 20 MG TAKE 1 CAPSULE ONCE A DAY ORALLY 30 DAYS Oral; Duration: 90 PRN--once or twice a week Active Spironolactone 100 MG TAKE 1 TABLET BY MOUTH TWICE A DAY Oral; Duration: 90 Active Lisinopril 40 MG 1 tablet Orally Once a day; Duration: 30 day(s) Active Zolpidem Tartrate 10 MG 1 tablet at bedt [place] as needed Orally Once a day Active MiraLax (colon prep) 8.3 ounce ((238) grams mixed with Gatorade or Crystal Light orally begin at 5:00 p.m. the day before the procedure; Duration: 1 day 06/17/2018 Active Levothyroxine Sodium 150 MCG TAKE 1 TABLET BY MOUTH ONCE A DAY INTHE MORNING Oral; Duration: 90 Active Dulcolax (colon prep) 5 MG take at 3:00 p.m and 7:00p.m. Orally two tablets twice a day for one day; Duration: 1 day 06/17/2018 Active Vitamin B-12 250 MCG TAKE 1 TABLET ONCE A DAY BY MOUTH 90 DAYS Oral; Duration: 90 Active D3-1000 1000 UNIT TAKE 1 CAPSULE BY MOUTH EVERY DAY Oral; Duration: 30 Active ProAir HFA 108 (90 Base) MCG/ACT 2 puffs as needed Inhalation every 6 hrs Active Clotrimazole-Betamethaso ne 1-0.05 % 1 application to affected area Externally Twice a day Active Meclizine HCl 25 MG 1 TABLET NEEDED 2 TIMES A DAY ORALLY 30 DAY(S) Oral; Duration: 30 Active oxyBUTYnin Chloride ER 10 MG 1 tablet Orally Once a day; Duration: 30 day(s) Active Immunizations Vaccine Route Administration [...] Problem Status W/U Status Risk Notes Problem Screening for malignant neoplasm of colon (979838169) Encounter for screening for malignant neoplasm of colon (Z12.11) Active confirmed Problem Gastroesophageal reflux disease (152984429) Gastroesophageal reflux disease, esophagitis presence not specified (K21.9) Active confirmed Problem Irritable bowel syndrome (54978513) Irritable bowel syndrome, unspecified type (K58.9) Active confirmed Plan Of Treatment Pending Test Test Name Order Date GI BIOPSY 08/20/2018 Future Test Test Name Order Date UPPER GI ENDOSCOPY 06/17/2018 COLONOSCOPY 06/17/2018 Insurance Providers Payer Name Payer Address Payer Phone Subscriber Number Group Number Insured Name Patient Relationship to Insured Coverage Start Date Coverage End Date [facility] [address] [place] [address] [id number] [employer], [place] Self - patient is the insured Medical (General) History Medical History History ICD Code Hypertension Hypothyroidism Fibromyalgia Sleep apnea - cpap machne Vitamin B12 deficiency Arthritis Anxiety Depression Fatty liver on ultrasound , but with a normal liver profile in May 2018 Asthma Denies LA,DM,CVA,renal disease Negative screening colonosco py in August of 2008 except for some diverticulosis and internal hemorrhoids Surgical History Surgery Date(Month/Year) Right shoulder
[2025-03-25 10:31] LABS: Appearance Urine Clear; Glucose Urine UA Negative (Negative); PH 6.5 (5.0-9.0); Specific Gravity - Urine 1.015 (1.005-1.025)
[2025-03-25 11:00] LABS: Alanine Aminotransferase 17 U/L (0-31); Albumin Level 4.1 g/dL (3.5-5.0); Alkaline Phosphatase 119 U/L (39-117); Anion Gap 13 (12-20); Aspartate Amino Transferase 26 U/L (5-31); Blood Urea Nitrogen 15 mg/dL (9-16); Calcium 9.0 mg/dL (8.4-10.2); Carbon Dioxide 31 mmol/L (22-29); Chloride 104 mmol/L (96-108); Cholesterol 164 mg/dL (<200); Estimated Glomerular Filt Rate 56; HDL Cholesterol 40 mg/dL (>40); Potassium 4.2 mmol/L (3.3-5.1); Sodium 144 mmol/L (135-145); Total Protein 6.7 g/dL (6.5-8.0); Triglycerides 139 mg/dL (<150)
[2025-03-25 11:09] LABS: Free T4 (Free Thyroxine) 1.12 ng/dL (0.71-1.85); Thyroid Stimulating Hormone 1.65 uIU/mL (0.32-4.0)
[2025-03-25 11:37] LABS: Folate 7.3 ng/mL (> or = 4.0); Vitamin B12 381 pg/mL (200-900)
== END 2025-03-25 09:01 | disposition home or self-care (01) ==
LOC: HO.LAB 09:00
PROVIDERS: PCP Internal Medicine; Visit Provider Internal Medicine
DX: E53.8 Deficiency of other specified B group vitamins (principal); E78.00 Pure hypercholesterolemia, unspecified; E03.9 Hypothyroidism, unspecified; E55.9 Vitamin D deficiency, unspecified; D64.9 Anemia, unspecified; R30.0 Dysuria; R73.01 Impaired fasting glucose
CPT/HCPCS: 36415; 80053; 80061; 81003; 82306; 82607; 82746; 83036; 84439; 84443; 85025

== ENCOUNTER 2025-03-29 12:08 | Outpatient (AMB) | payer OTHER, SELFPAY ==
[2025-03-29 12:16] VITALS: BP 138/76; PULSE 84; TEMP 36.2; O2SAT 97; BMI 51.1
--- NOTE | 2025-03-29 12:16 | MHC.PC.OV ---
Vital Signs 03/29/25 12:16 Height 4 ft 11 in Weight 253 lb 2 oz BMI 51.1 BP 138/76 Blood Pressure Location Lt brachial Position Sitting Pulse 84 Pulse Source Pulse Oximeter Temp 97.1 F Temp Source Temporal Artery Scan Pulse Oximetry (%) 97 Oxygen Delivery Method Room Air Intake Visit Reasons: annual exam - see comments Water Resource Consultant Required: No Drafter Seismograph: Present Accompanied by: Daughter Allergies No Known Allergies (No Known Allergies*) Allergy (Verified 03/29/25 12:49) Medication List - Last Reconciled 03/29/25 by Antonino Barrera MD [ADULT PULL UPS (Size XXL) As directed] [ADULT WIPES As directed] albuterol sulfate 2.5 mg (3 mL) continuous nebulization Q6-8H PRN albuterol sulfate 90 mcg/actuation 2 puffs inhalation Q6H PRN alpha lipoic acid 600 mg PO DAILY amlodipine 2.5 mg PO DAILY [BEDSIDE COMMODE As directed] bisacodyl (Laxative (bisacodyl)) 10 mg (2 x 5 mg) PO BEDTIME cholecalciferol (vitamin D3) 25 mcg PO DAILY 90 days [compression stockings As directed] CPAP (CPAP Machine/Device) As directed cyanocobalamin (vitamin B-12) 1,000 mcg PO DAILY 90 days diclofenac sodium 1% 2 grams topical BID [DISPOSABLE BED PADS As directed] [Disposable UNDERPADS As directed] gabapentin 600 mg (2 x 300 mg) PO TID 90 days hydrocortisone 1% (Anti-Itch (hydrocortisone)) 1 appl topical TID PRN [INCONTINENT BED PADS As directed] [KOTEX PADS As directed] levothyroxine 137 mcg PO DAILY 90 days linaclotide (Linzess) 290 mcg PO QAM lisinopril 40 mg PO DAILY 90 days meclizine 25 mg PO BID PRN mometasone 0.1% 1 appl topical DAILY PRN [MOTORIZED SCOOTER As directed] omeprazole 20 mg PO DAILY 90 days oxycodone-acetaminophen 5-325 mg 1 tab PO Q6H PRN 28 days [ROLLATOR WALKER As directed] sertraline 100 mg PO DAILY 90 days [SHOWER CHAIR As directed] spironolactone 100 mg PO BID tirzepatide (weight loss) (Zepbound) 2.5 mg (0.5 mL) subcut QWEEK 4 weeks vibegron (Gemtesa) 75 mg PO DAILY 90 days Tobacco use date assessed: 03/29/25 Fall risk assessment: No Falls in past year Last assessed Fall Risk: 03/29/25 Dental Screening Dental Screen Date: 03/29/25 HPI annual exam - see comments HPI Details Patient comes in today for her annual physical examination States that she feels okay Relates that she came down with a cold a couple of weeks ago and is just getting over her symptoms recently - states that she still has some congestion, some residual coughing as well as some mild SOB on exertion She denies any headaches or dizziness; denies any fever or sore throat Denies any chest pains No nausea/vomiting, no abdominal pain No change in bowel habits noted Denies any acute urinary symptoms States that her chronic neck pain, low back pain and joint pains remain adequately controlled on her current medications She had her follow up labs done a few days ago - to discuss her results She had her screening colonoscopy last done in 2018 and was advised that at her age, she should not need any more follow up colonoscopies unless there is a specific indication for it She had her annual mammogram done in late January 2025 At her age, she no longer keeps up with her yearly gynecology exam and pap smear [facility] Medical History Morbid obesity with BMI of 50.0-59.9, adult Morbid obesity with BMI of 45.0-49.9, adult Morbid obesity with BMI of 40.0-44.9, adult Morbid obesity Ingrown right big toenail Preoperative examination Cataracts, bilateral Acute respiratory failure with hypoxia COVID-19 Pruritus Constipation 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, bilateral Bilateral primary osteoarthritis of knee Impaired fasting glucose Primary osteoarthritis involving multiple joints Depression Anxiety Insomnia Overactive bladder Lumbar degenerative disc disease Degenerative disc disease, cervical Vitamin D deficiency GERD without esophagitis Obstructive sleep apnea Vitamin B12 deficiency Fibromyalgia Cardiac murmur Mild intermittent asthma without complication Chronic kidney disease (CKD), stage II (mild) Acquired hypothyroidism Benign essential hypertension Surgical History S/P excision of lipoma H/O blepharoplasty History of colonoscopy Family History Father CVD (cardiovascular disease) Mother CVD (cardiovascular disease) Diabetes Hypertension Social History Household Members: Spouse Housing: Condominium Are you a primary career services manager to a significant other at home: No Do you presently have visiting nurse or other home services: Yes Alcohol intake: never Patient Tobacco Use Status: Never used Tobacco e-Cigarette/Vaping Use: Never Used Second Hand Smoke Exposure: No service: No Current occupational status: unemployed, student and disabled Cognitive needs: Yes (walker) Hearing needs: No Vision needs: Yes (glasses) Questionnaire PHQ-9 Over the last 2 weeks, how often have you been bothered by any of the following problems? 1. Little interest or pleasure in doing things: several days 2. Feeling down, depressed, or hopeless: several days 3. Trouble falling or staying asleep, or sleeping too much: not at all 4. Feeling tired or having little energy: more than half the days 5. Poor appetite or overeating: several days 6. Feeling bad about yourself - or that you are a failure or have let yourself or your family down: not at all 7. Trouble concentrating on things, such as reading the newspaper or watching television: not at all 8. Moving or speaking so slowly that other people could have noticed. Or the opposite - being so fidgety or restless that you have been moving around a lot more than usual: not at all 9. Thoughts that you would be better off or of hurting yourself in some way: not at all Total score: 5 Depression Screening Interpretation: Positive Depression Screening Follow-up: Existing condition and In treatment Depression Screening Done: Yes 98275 - PHQ-9 Billing: Yes Source: Developed by Drs. Feng Lopez, Selina Pedro, Merlin Villalta and colleagues, with an educational nacho from [employer]. Thrive Questionnaire Date Thrive assessed: 03/29/25 I am a: Parent/Caregiver What is your living situation today?: I have a steady place to live Within the past 12 months, did the food you bought not last and you didn't have the money to get more?: Never true Within the past 12 months, did you worry whether your food would run out before you got money to buy more?: Never true Do you have trouble paying for medicines?: No Do you have trouble getting transportation to medical appointments?: No Do you have trouble paying your heating and electricity bill?: No Do you have trouble taking care of your child, family member or friend?: I choose not to answer this question Do you have trouble with day-to-day activities such as bathing, preparing meals, shopping, managing finances, etc.?: I choose not to answer this question Are you currently unemployed and looking for a job?: I choose not to answer this question Are you interested in more education?: I choose not to answer this question Please select the resources that you would like help with: None Currently or been in a relationship where the following occur: No concerns reported THRIVE Score: 0 AUDIT C Alcohol Use Questionnaire (AUDIT-C) 1. How often do you have a drink containing alcohol?: Never 3. How often do you have six or more drinks on one occasion?: Never Total Score: 0 Score Reviewed/Action Taken: Yes IGNACIA-7 AMB Questionnaire IGNACIA-7 Date IGNACIA - 7 assessed: 12/22/24 Source: Developed by Drs. Feng Lopez, Selina Pedro, Merlin Villalta and colleagues, with an educational nacho from [employer]. Review of Systems Const Denies chills, Reports fatigue, Denies fever(s), Denies headache(s) and Denies malaise Eyes Denies blurry vision, Denies change in vision, Denies irritation and Denies itchy eyes ENT Denies dysphagia, Denies dizziness, Denies headache(s), Reports neck pain (chronic) and Denies odynophagia Card Denies chest pain, Denies rapid heart rate, Denies irregular heart rhythm, Denies palpitations and Reports dyspnea on exertion (mild) Resp Reports chest congestion (mild), Reports cough (occasional), Reports dyspnea on exertion (mild) and Denies wheezing GI Denies abdominal pain, Denies bloating, Denies constipation, Denies dysphagia, Denies heartburn, Denies diarrhea, Denies nausea, Denies odynophagia and Denies vomiting Denies hematuria, Denies difficulty voiding, Reports nocturia, Denies dysuria, Denies urinary incontinence and Reports urinary urgency (at times) Musc Reports back pain (over the lower back - chronic), Reports arthralgias (over both knees ) and Reports neck pain (chronic) Skin/Breast Denies breast pain, Denies breast mass, Denies change in pigmentation, Denies lesions, Denies rash and Denies unusual bruising Neuro Denies dizziness, Denies headache(s) and Denies paresthesias Psych Denies anxiety and Denies depression (current Rx helping) Endo Reports fatigue and Denies palpitations Javier/Lymph Denies easy bruising Aller/Immun Denies itchy eyes and Denies wheezing Physical exam (Primary Care) Vital Signs: Last Vital Signs Temp 97.1 F 03/29/25 12:16 Pulse 84 03/29/25 12:16 BP 138/76 03/29/25 12:16 Pulse Ox 97 03/29/25 12:16 Oxygen Delivery Method Room Air 03/29/25 12:16 BMI result Body Mass Index 51.1 Tobacco/Smoking Status: Tobacco use Status Tobacco use date assessed 03/29/25 03/29/25 12:19 Patient Tobacco Use Status Never used Tobacco 03/29/25 12:19 e-Cigarette/Vaping Use Never Used 03/29/25 12:19 Depression Screening Interpretation: Positive Depression Screening Follow-up: Existing condition and In treatment Thrive Assessment: Date of Thrive Assessment Date Thrive assessed 12/22/24 03/29/25 12:19 Currently or been in a relationship where the following occur: No concerns reported Const General: no acute distress, alert and awake Orientation/consciousness: patient oriented x3 HENMT Head: Yes normocephalic and Yes atraumatic Ears: external ears normal, TM's normal bilaterally and EAC's normal General nose exam: No nasal discharge present Face and sinus: Yes normal facial exam and Yes sinuses nontender Teeth and gingiva: dentition normal Throat: Yes posterior oropharynx normal and Yes tonsils normal (no TP congestion) Eyes Eyelids: Yes eyelids normal Conjunctivae: conjunctivae normal Pupils: Equal, round and reactive pupils present EOM: EOMs intact bilaterally Neck Neck: Yes supple and No lymphadenopathy Thyroid: Thyroid normal Resp Auscultation: no crackles, no rales, rhonchi (occasional) throughout, no wheezes and diminished lung sounds (slightly) bilateral Cardio Rate: regular rate Rhythm: regular rhythm Heart sounds: Murmur heart sound present systolic soft and at the left sternal border (at the left lower sternal border) GI Palpation (GI): Soft to palpation, nontender and No hepatosplenomegaly present Auscultation: normal bowel sounds General: Yes no CVA tenderness Back/Spine/Pelvis Back: no CVA tenderness Cervical Spine: Cervical spine tenderness Thoracic/Lumbar Spine: lumbar spinal tenderness Skin Lesions: no lesions Rashes: no rashes Neuro General: patient oriented x3, moves all extremities, no focal motor deficits and CN's II-XI intact bilaterally Cranial nerves: Yes Equal, round and reactive pupils present Cognition (Neuro): normal cognition Gait exam (Neuro): Normal gait present Extrem General: Yes no clubbing, cyanosis or edema Right lower extremity: knee Details: tenderness; no swelling Left lower extremity: knee Details: tenderness; no swelling Results Reviewed Results Reviewed: Laboratory Tests 03/25/25 03/25/25 09:18 09:26 WBC 8.1 Hgb 13.1 Hct 39.8 Plt Count 174 Sodium 144 Potassium 4.2 Creatinine 0.97 Estimated GFR 56 Fasting Glucose 97 Hemoglobin A1c % 5.9 Calcium 9.0 AST 26 ALT 17 Triglycerides 139 Cholesterol 164 LDL Cholesterol, Calc 97 HDL Cholesterol 40 L Vitamin B12 381 25-OH Vitamin D Total 36.1 TSH 1.65 Free T4 1.12 Ur Specific [place] 1.015 Urine Protein Negative Urine Glucose (UA) Negative Urine Blood Negative Urine Nitrite Negative Ur Leukocyte Esterase Negative Coding Level of Care Code Est Pt Prev Care >65y(56863) Diagnoses Annual physical exam Z00.00 Benign essential hypertension I10 Chronic kidney disease (CKD), stage II (mild) N18.2 Acquired hypothyroidism E03.9 Mild intermittent asthma without complication J45.20 Respiratory tract infection J98.8 Impaired fasting glucose R73.01 Cardiac murmur R01.1 Obstructive sleep apnea G47.33 GERD without esophagitis K21.9 Degeneration of intervertebral disc of lumbar region with discogenic back pain and lower extremity pain M51.362 Disc-related pain type: discogenic back pain and lower extremity pain Degenerative disc disease, cervical M50.30 Primary osteoarthritis involving multiple joints M89.49 Fibromyalgia M79.7 Chronic idiopathic constipation K59.04 Vitamin B12 deficiency E53.8 Vitamin D deficiency E55.9 Overactive bladder N32.81 Insomnia, unspecified type G47.00 Insomnia type: unspecified Anxiety F41.9 Episode of recurrent major depressive disorder, unspecified depression episode severity F33.9 Depression Type: major depressive disorder Major depression recurrence: recurrent Active/Remission status: currently active Major depression episode severity: unspecified Morbid obesity with BMI of 50.0-59.9, adult E66.01; Z68.43 Osteoporosis screening Z13.820 Additional Codes PHQ-9 - 84003 - PHQ-9 Billing: Yes ([id number]) Assessment & Plan Assessment & Plan (1) Annual physical exam: Code(s): Z00.00 - Encounter for general adult medical examination without abnormal findings Category: Medical Plan: Results of her labs done a few days ago reviewed and discussed with patient She had her screening colonoscopy last done in 2018 and was advised that at her age, she should not need any more follow up colonoscopies unless there is a specific indication for it She had her annual mammogram done in late January 2025 At her age, she no longer keeps up with her yearly gynecology exam and pap smear (2) Benign essential hypertension: Code(s): I10 - Essential (primary) hypertension Category: Medical Plan: Reinforced low-sodium diet -?goal is systolic BP of at least 130 to 140 mm or less Continue Lisinopril 40 mg QD, Spironolactone 100 mg BID and Amlodipine 2.5 mg QD Patient is again reminded to continue monitoring her blood pressure regularly (3) Chronic kidney disease (CKD), stage II (mild): Code(s): N18.2 - Chronic kidney disease, stage 2 (mild) Category: Medical Plan: GFR remains stable?-? will continue to monitor her renal function regularly Will recheck her labs in 3 months for follow-up (4) Acquired hypothyroidism: Code(s): E03.9 - Hypothyroidism, unspecified Category: Medical Plan: Her TFTs were again normal on her recent labs Continue Levothyroxine 150 mcg QD Will continue to monitor her TFTs regularly (5) Mild intermittent asthma without complication: Code(s): J45.20 - Mild intermittent asthma, uncomplicated Category: Medical Plan: Controlled although she seems to have had a mild exacerbation of her asthma recently She currently has no wheezing heard on auscultation of her lungs Continue Albuterol HFA 2 puffs 4 times a day as needed; patient also has her Albuterol nebulizer that she uses when needed (6) Respiratory tract infection: Code(s): J98.8 - Other specified respiratory disorders Category: Medical Plan: This was most likely a viral URI and patient's symptoms appear to be gradually improving Can cotinue with symptomatic Tx with OTC meds at this time (7) Impaired fasting glucose: Code(s): R73.01 - Impaired fasting glucose Category: Medical Plan: Her FBS was normal at 97 mg/dl on her recent labs; HgbA1c was at 5.9% Reinforced low calorie/low carb diet; exercise as tolerated (8) Cardiac murmur: Comment: Echocardiogram done in 2011 showed (+) mild MR and trace TR, which are the most likely cause of her cardiac murmur; LVEF was normal and there were no other abnormalities noted Repeat echocardiogram done in 2019 showed no significant changes from her previous echo in 2011; LV systolic function remains normal and EF was between 65-70% Code(s): R01.1 - Cardiac murmur, unspecified Category: Medical Plan: Echocardiogram done in October 2023 revealed normal left ventricular systolic function, with the calculated ejection fraction at around 62% by biplane method. There are trace MR and TR with no other obvious valvular pathology seen on this study Will continue to monitor these regularly/periodically (9) Obstructive sleep apnea: Code(s): G47.33 - Obstructive sleep apnea (adult) (pediatric) Category: Medical Plan: Continue using her CPAP device when sleeping at night -??CPAP titration done in January 2018 recommended acceptable CPAP pressure setting of 13-14 cm Follow up with Sleep Medicine as scheduled (10) GERD without esophagitis: Code(s): K21.9 - Gastro-esophageal reflux disease without esophagitis Category: Medical Plan: Dietary restrictions reinforced Continue Omeprazole 20 mg QD (11) Lumbar degenerative disc disease: Code(s): M51.36 - Other intervertebral disc degeneration, lumbar region Category: Medical Qualifiers: Disc-related pain type: discogenic back pain and lower extremity pain Qualified Code(s): M51.362 - Other intervertebral disc degeneration, lumbar region with discogenic back pain and lower extremity pain Plan: Reinforced activity and weight lifting restrictions to minimize aggravating her low back pain States that her symptoms remain mostly manageable on her current medications, including her Percocet 5-325 mg that she takes every 6 hours as needed (12) Degenerative disc disease, cervical: Code(s): M50.30 - Other cervical disc degeneration, unspecified cervical region Category: Medical Plan: Findings of cervical DDD confirmed on cervical spine x-rays done in 2014 -? symptoms are reportedly manageable on her current meds (13) Primary osteoarthritis involving multiple joints: Code(s): M89.49 - Other hypertrophic osteoarthropathy, multiple sites Category: Medical Plan: Continue Salsalate 500 mg 2 tablets 3 times a day and Oxycodone-Acetaminophen 5-325 mg 1 tablet every 6 hours as needed [place] [facility] [place] [facility] X-rays of both knees done years ago showed (+) OA?changes bilaterally; repeat x-rays done in August 2023 revealed (+) moderate degenerative changes in both knees (14) Fibromyalgia: Code(s): M79.7 - Fibromyalgia Category: Medical Plan: Continue Gabapentin 600 mg 3 times a day and Lidoderm patches 5% 1 patch daily Patient is again encouraged to exercise regularly to help manage her fibromyalgia symptoms better Follow-up with rheumatology as scheduled (15) Chronic idiopathic constipation: Code(s): K59.04 - Chronic idiopathic constipation Category: Medical Plan: Patient is encouraged again on increased oral fluids and dietary fiber Continue Bisacodyl 10 mg Q HS Follow up with GI as scheduled (16) Vitamin B12 deficiency: Code(s): E53.8 - Deficiency of other specified B group vitamins Category: Medical Plan: Will continue to monitor her serum Vitamin B12 level regularly (17) Vitamin D deficiency: Code(s): E55.9 - Vitamin D deficiency, unspecified Category: Medical Plan: Continue Vitamin D2 63043 units once a week (18) Overactive bladder: Code(s): N32.81 - Overactive bladder Category: Medical Plan: Continue Gemtesa 75 mg QD Follow up with urology as scheduled (19) Insomnia: Code(s): G47.00 - Insomnia, unspecified Category: Medical Qualifiers: Insomnia type: unspecified Qualified Code(s): G47.00 - Insomnia, unspecified Plan: Sleep hygiene reinforced Continue Zolpidem 10 mg daily at bedtime as needed (20) Anxiety: Code(s): F41.9 - Anxiety disorder, unspecified Category: Medical Plan: Patient is on Sertraline for depression - this helps with her anxiety as well (21) Depression: Code(s): F32.9 - Major depressive disorder, single episode, unspecified Category: Medical Qualifiers: Depression Type: major depressive disorder Major depression recurrence: recurrent Active/Remission status: currently active Major depression episode severity: unspecified Qualified Code(s): F33.9 - Major depressive disorder, recurrent, unspecified Plan: Continue Sertraline 100 mg once a day Follow-up with Psychiatry as scheduled (22) Morbid obesity with BMI of 50.0-59.9, adult: Code(s): E66.01 - Morbid (severe) obesity due to excess calories; Z68.43 - Body mass index [BMI] 50.0-59.9, adult Category: Medical Plan: Reinforced diet/exercise as tolerated/lose weight She was seen by bariatric surgery a few months ago and was debating whether to go forward with sleeve gastrectomy or not but she has decided against going for bariatric surgery She requested for a trial of a GLP-1 at her last visit to help with weight loss As expected, we send in Rx for Zepbound but her insurance declined to cover the Rx She is advised to follow up with weight management as scheduled and to discuss Rx options with them as well (23) Osteoporosis screening: Code(s): Z13.820 - Encounter for screening for osteoporosis Category: Medical Plan: Patient does not recall when was the last time she had BMD done - advised her that since we do not see any BMD in her chart that it is likely that her last scan was done over 5 years ago Will send her for repeat BMD for screening/follow up Plan Follow up in 3 months Orders: Orders XR DEXA axial skeleton Today Z78.0 - Asymptomatic menopausal state Thyroid Stimulating Hormone 3 Months E03.9 - Hypothyroidism, unspecified Free T4 (Free Thyroxine) 3 Months E03.9 - Hypothyroidism, unspecified UA CC w/rflx Micro + Cult 3 Months R30.0 - Dysuria Hemoglobin A1c 3 Months R73.01 - Impaired fasting glucose Complete Blood Count Auto Diff 3 Months D64.9 - Anemia, unspecified Comprehensive [place]. Panel Fast 3 Months E78.00 - Pure hypercholesterolemia, unspecified Lipid Panel 3 Months E78.00 - Pure hypercholesterolemia, unspecified Vitamin D 25-OH Total 3 Months E55.9 - Vitamin D deficiency, unspecified Vitamin B12 and Folate 3 Months E53.8 - Deficiency of other specified B group vitamins
== END 2025-03-29 13:15 | disposition home or self-care (01) ==
LOC: HO.HMCH 12:09
PROVIDERS: PCP Internal Medicine; Visit Provider Internal Medicine
DX: Z00.00 Encounter for general adult medical examination without abnormal findings (principal); I12.9 Hypertensive chronic kidney disease with stage 1 through stage 4 chronic kidney disease, or unspecified chronic kidney disease; N18.2 Chronic kidney disease, stage 2 (mild); E03.9 Hypothyroidism, unspecified; J45.20 Mild intermittent asthma, uncomplicated; J98.8 Other specified respiratory disorders; R73.01 Impaired fasting glucose; R01.1 Cardiac murmur, unspecified; G47.33 Obstructive sleep apnea (adult) (pediatric); K21.9 Gastro-esophageal reflux disease without esophagitis; E66.01 Morbid (severe) obesity due to excess calories; Z68.43 Body mass index [BMI] 50.0-59.9, adult; M51.362 Other intervertebral disc degeneration, lumbar region with discogenic back pain and lower extremity pain; M50.30 Other cervical disc degeneration, unspecified cervical region; M89.49 Other hypertrophic osteoarthropathy, multiple sites; M79.7 Fibromyalgia; E53.8 Deficiency of other specified B group vitamins; K59.04 Chronic idiopathic constipation; E55.9 Vitamin D deficiency, unspecified; N32.81 Overactive bladder

== ENCOUNTER → 2025-03-29 12:08 | Outpatient (BNVA) | payer OTHER, SELFPAY | PROVIDERS: PCP Internal Medicine; Visit Provider Internal Medicine | DX: Z00.00 Encounter for general adult medical examination without abnormal findings (principal); I12.9 Hypertensive chronic kidney disease with stage 1 through stage 4 chronic kidney disease, or unspecified chronic kidney disease; N18.2 Chronic kidney disease, stage 2 (mild); E03.9 Hypothyroidism, unspecified; J45.20 Mild intermittent asthma, uncomplicated; J98.8 Other specified respiratory disorders; R73.01 Impaired fasting glucose; R01.1 Cardiac murmur, unspecified; G47.33 Obstructive sleep apnea (adult) (pediatric); K21.9 Gastro-esophageal reflux disease without esophagitis; M51.362 Other intervertebral disc degeneration, lumbar region with discogenic back pain and lower extremity pain; M50.30 Other cervical disc degeneration, unspecified cervical region; M89.49 Other hypertrophic osteoarthropathy, multiple sites; M79.7 Fibromyalgia; K59.04 Chronic idiopathic constipation; E53.8 Deficiency of other specified B group vitamins; E55.9 Vitamin D deficiency, unspecified; N32.81 Overactive bladder; G47.00 Insomnia, unspecified; F33.9 Major depressive disorder, recurrent, unspecified; F41.9 Anxiety disorder, unspecified; E66.01 Morbid (severe) obesity due to excess calories; Z68.43 Body mass index [BMI] 50.0-59.9, adult; Z13.820 Encounter for screening for osteoporosis | CPT/HCPCS: 96127; 99397 ==

== ENCOUNTER 2025-05-24 10:46 | Outpatient (AMB) | payer OTHER, SELFPAY ==
--- NOTE | 2025-05-24 10:50 | A.OFFVIS_ITS ---
Intake Visit Reasons: 6m/PVR/UA Intake Note: Reason for Visit: 6M PVR/UA Follow Up Urology Meds: Gemtesa Blood Thinners: None Labs: BUN: 15 Creatinine: 0.97 A1C: 5.9 (03/25/2025) Last Culture: 2022 Imaging: None Last PVR: 51ml PVR: 0ml Maintenance Welder Required: Yes Maintenance Welder Services: Maintenance Welder Offered & Declined Machine Applicator Cementer: Machine Applicator Cementer Present Accompanied by: Daughter Allergies No Known Allergies (No Known Allergies*) Allergy (Verified 05/24/25 11:01) Medication List - Last Reconciled 05/24/25 by JENNA Allison [ADULT PULL UPS (Size XXL) As directed] [ADULT WIPES As directed] albuterol sulfate 2.5 mg (3 mL) continuous nebulization Q6-8H PRN albuterol sulfate 90 mcg/actuation 2 puffs inhalation Q6H PRN alpha lipoic acid 600 mg PO DAILY amlodipine 2.5 mg PO DAILY [BEDSIDE COMMODE As directed] bisacodyl (Laxative (bisacodyl)) 10 mg (2 x 5 mg) PO BEDTIME cholecalciferol (vitamin D3) 25 mcg PO DAILY 90 days [compression stockings As directed] CPAP (CPAP Machine/Device) As directed cyanocobalamin (vitamin B-12) 1,000 mcg PO DAILY 90 days diclofenac sodium 1% 2 grams topical BID [DISPOSABLE BED PADS As directed] [Disposable UNDERPADS As directed] gabapentin 600 mg (2 x 300 mg) PO TID 90 days hydrocortisone 1% (Anti-Itch (hydrocortisone)) 1 appl topical TID PRN [INCONTINENT BED PADS As directed] [KOTEX PADS As directed] levothyroxine 137 mcg PO DAILY 90 days linaclotide (Linzess) 290 mcg PO QAM lisinopril 40 mg PO DAILY 90 days meclizine 25 mg PO BID PRN mometasone 0.1% 1 appl topical DAILY PRN [MOTORIZED SCOOTER As directed] omeprazole 20 mg PO DAILY 90 days oxycodone-acetaminophen 5-325 mg 1 tab PO Q6H PRN 28 days [ROLLATOR WALKER As directed] sertraline 100 mg PO DAILY 90 days [SHOWER CHAIR As directed] spironolactone 100 mg PO BID tirzepatide (weight loss) (Zepbound) 2.5 mg (0.5 mL) subcut QWEEK 4 weeks vibegron (Gemtesa) 75 mg PO DAILY 90 days HPI Comments Details: Yeimi is a very pleasant 75-year-old female patient of Dr. Barrera who was accompanied by her daughter/METALLURGICAL ANALYST at today's office visit. She has a past medical history of obesity, bilateral cataracts, constipation, osteoarthritis, depression, anxiety, insomnia, overactive bladder, lumbar degenerative disc disease, vitamin-D deficiency, GERD, obstructive sleep apnea, vitamin B12 deficiency, fibromyalgia, asthma, chronic kidney disease stage 2, hypothyroidism, and hypertension. She presents to the office today for follow-up of her lower urinary tract symptoms. In discussion with the patient today she reports compliance in 75 mg of Gemtesa and does feel this has had significant improvement in mixed urinary incontinent episode she had been experiencing. She does at times still continue to experience these episodes however feel they have significantly improved. Previous workup has included a retroperitoneal ultrasound 09/01 bilateral kidneys are normal in size and echotexture. No nephrolithiasis, hydronephrosis or masses noted. The urinary bladder is unremarkable. She has previously trialed Myrbetriq and oxybutynin without improvement in urinary symptoms. In office urinalysis results reviewed with the patient today. PVR 0 mL. She denies hematuria, dysuria, foul smelling urine, changes to urinary stream, flank pain, fever, and or chills. She reports lower urinary tract symptoms have been present for years. She does have a previous history of 8 vaginal deliveries. We did discussed at length potential causes of mixed urinary incontinence as well as further treatment options and risks and benefits of these treatment options. However, she does feel she is happy with current management. Will continue. All questions were answered. She otherwise offers no other issues or concerns at this time. [facility] Medical History Morbid obesity with BMI of 50.0-59.9, adult Morbid obesity with BMI of 45.0-49.9, adult Morbid obesity with BMI of 40.0-44.9, adult Morbid obesity Ingrown right big toenail Preoperative examination Cataracts, bilateral Acute respiratory failure with hypoxia COVID-19 Pruritus Constipation 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, bilateral Bilateral primary osteoarthritis of knee Impaired fasting glucose Primary osteoarthritis involving multiple joints Depression Anxiety Insomnia Overactive bladder Lumbar degenerative disc disease Degenerative disc disease, cervical Vitamin D deficiency GERD without esophagitis Obstructive sleep apnea Vitamin B12 deficiency Fibromyalgia Cardiac murmur Mild intermittent asthma without complication Chronic kidney disease (CKD), stage II (mild) Acquired hypothyroidism Benign essential hypertension Surgical History S/P excision of lipoma H/O blepharoplasty History of colonoscopy Family History Father CVD (cardiovascular disease) Mother CVD (cardiovascular disease) Diabetes Hypertension Social History Household Members: [facility] Are you a primary care process manager to a significant other at home: No Do you presently have visiting nurse or other home services: Yes Alcohol intake: never Patient Tobacco Use Status: Never used Tobacco e-Cigarette/Vaping Use: Never Used Second Hand Smoke Exposure: No service: No Current occupational status: unemployed, student and disabled Cognitive needs: Yes (walker) Hearing needs: No Vision needs: Yes (glasses) Review of Systems Eyes Reports as per [facility] ENT Reports no additional complaints Card Reports as per [facility] Resp Reports as per [facility] GI Reports as per [facility] Reports as per [facility] Musc Reports as per [facility] Neuro Reports no additional complaints Psych Reports as per [facility] Endo Reports as per [facility] Javier/Lymph Reports no additional complaints Aller/Immun Reports no additional complaints Physical Exam Const General: cooperative, healthy appearing, comfortable, no acute distress, well developed, alert and awake Nutritional Appearance: overweight Orientation/consciousness: patient oriented x3 Limitations: no limitations HEENT Head: Yes normal to inspection, Yes normocephalic and Yes atraumatic Ears: hearing grossly normal bilaterally Eyes General: appearance normal, both eyes and all related structures Neck Neck: Yes normal visual inspection and Yes trachea midline Chest Chest palpation & inspection: normal inspection of the chest Resp Effort & Inspection: normal respiratory effort and able to speak in complete sentences Cardio Rate: regular rate GI Inspection: Yes normal to inspection General: Yes no CVA tenderness Back/Spine/Pelvis Back: no CVA tenderness Skin General skin exam: no rashes or lesions noted Neuro General: patient oriented x3 Extrem General: Yes normal to inspection Psych Appearance: grossly normal and well kempt Mental Status: mental status grossly normal Speech and movement: Normal speech and movement present and Clear speech present Affect: normal affect Attitude: cooperative Thought process: Normal thought process present Thought content: Normal thought content present Insight: Fair insight present (Psych) Judgement: Fair judgement present (Psych) Office Procedures Post Void Residual Post Residual Void Post Void Residual (PVR): 0 42323-[id number] Void Residual by ultrasound Results AMB Urinalysis, Automated UA Leukoctes 0 Carlos/uL Last Edit by Philomena [facility] [facility] on 05/24/25 11:01 UA Nitrite Negative Last Edit by Phil[employer]a [employer] A on 05/24/25 11:01 UA Urobilinogen 0.2 mg/dL Last Edit by [employer]a [employer] [facility] on 05/24/25 11:0 1 UA Protein 15 mg/dL Last Edit by [employer] [facility] on 05/24/25 11:01 UA pH 6.0 Last Edit by [employer] [facility] on 05/24/25 11:01 UA Blood 0 Inder/uL Last Edit by Philomena [employer] [facility] on 05/24/25 11:01 UA Specific [place] 1.015 Last Edit by Philomena Se[employer] [facility] on 05/24/25 11: 01 UA Ketone Negative Last Edit by [employer]a [employer] [facility] on 05/24/25 11:01 UA Bilirubin 0 mg/dL Last Edit by Philomena Seals A on 05/24/25 11:01 UA Glucose 0 mg/dL Last Edit by Philomena [employer] [facility] on 05/24/25 11:01 Assessment & Plan Assessment & Plan (1) Overactive bladder: Code(s): N32.81 - Overactive bladder Category: Medical (2) Mixed incontinence urge and stress: Code(s): N39.46 - Mixed incontinence Category: Medical Plan In office urinalysis results reviewed with the patient today; as noted above. PVR 0 mL. Continue Gemtesa as discussed and prescribed. She reports be happy with current voiding parameters. We did discussed potential causes of mixed urinary incontinence as well as further treatment options and risks and benefits of these treatment options. Will continue with current management. All questions were answered. We did discussed the importance of timed/scheduled voiding given decreased mobility. We discussed bladder triggers and irritants. Follow-up in 3-6 months with PVR; or sooner with any issues, concerns, and or questions. Orders: Orders AMB Urinalysis Automated Today Z13.9 - Encounter for screening, unspecified AMB Post Void Residual by ultrasound Today N32.81 - Overactive bladder Medications: Refilled vibegron (Gemtesa) 75 mg PO DAILY 90 tabs 3RF 90 days N32.81 - Overactive bladder Patient Instructions: The patient had an opportunity to ask questions regarding the treatment plan. All questions were answered. Physical exam, labs, and imaging were discussed and reviewed in detail. As well as risks, benefits, and discussion of treatment choices. No major barriers to understanding were identified. The patient expressed understanding and agreement with the above treatment plan. The patient was made aware they should contact our office by phone for worsening of their current condition, the appearance of new symptoms, or with any questions or concerns. Compliance is encouraged with any medications and follow up testing that is ordered. It is a privilege to be allowed the opportunity to participate in? your urological care.? Again, if you have any questions or concerns If you have any questions or concerns please do not hesitate to contact me. The office is [phone]. This note is constructed using voice recognition software. While every effort has been made to ensure accuracy lead systems developer errors may have been included. Yours sincerely, JENNA Allison Coding Level of Care Code Est Pt Level 3 (88955) Add On Problem Visit Only Diagnoses Overactive bladder N32.81 Mixed incontinence urge and stress N39.46 CPT Codes Post Residual Void - PVR CPT Code: 81230-Exrv Void Residual by ultrasound ([id number])
--- OUTSIDE RECORDS SUMMARY | 2025-05-24 15:01 | XMS_ITS ---
Author Name Jessica FISCHER, MRS. Suero Address [address] [place] [address] Phone [phone] [facility] Care Team Providers Care Process Improvement Specialist Name Role Phone Nimo Lopez Unavailable [phone] BruceAntonino crow Unavailable [phone] Reason for Referral Not Available Allergies, adverse [...] the patient to remain home until eol. Yemii has some awareness of her health condition but requires Iris support to make decisions. No concerns at this time for eol services conversation. Encounters Encounters Type Facility Date of Service Diagnosis/Co mplaint Medication List Documented (1159F) [facility] Medication List Documented (1159F[place] [facility] Medication List Documented (1159F[place] [facility] Medication List Documented (1159F[place] [facility] Medication List Documented (1159F[place] [facility] Medication List Documented (1159F[place] [facility] Essential (primary) hypertensionUnspecified asthma, uncomplicatedMorbid (severe) obesity due to excess caloriesOpioid dependence, uncomplicatedMajor depressive disorder, recurrent, moderateBody mass index (BMI) 45.0-49.9, adultAnxiety disorder, unspecifiedDorsalgia, unspecifiedGastro-esophageal reflux disease without esophagitisOther chronic painHypothyroidism, unspecifiedObstructive sleep apnea (adult) (pediatric)Irritable bowel syndrome without diarrhea Medication List Documented (1159F) [facility] Medication List Documented (1159F) [facility] Estab. patient 30-39min; chronic exacerbation, 2 stable chronic or 1 acute illness add add modifier 95 for video, (do not use for phone, instead use 12358-12) [facility] Essential (primary) hypertensionGastro-esophageal reflux [...] (do not use for phone, instead use 89923-26) [facility] Estab. patient 30-39min; chronic exacerbation, 2 stable chronic or 1 acute illness add add modifier 95 for video, (do not use for phone, instead use 33003-44) [facility] Estab. patient 30-39min; chronic exacerbation, 2 stable chronic or 1 acute illness add add modifier 95 for video, (do not use for phone, instead use 80576-96) [facility] Estab. patient 30-39min; chronic exacerbation, 2 stable chronic or 1 acute illness add add modifier 95 for video, (do not use for phone, instead use 66060-56) [facility] Estab. patient 30-39min; chronic exacerbation, 2 stable chronic or 1 acute illness add add modifier 95 for video, (do not use for phone, instead use 78161-93) [facility] Estab. patient 30-39min; chronic exacerbation, 2 stable chronic or 1 acute illness add add modifier 95 for video, (do not use for phone, instead use 30657-05) [facility] Estab. patient 30-39min; chronic exacerbation, 2 stable chronic or 1 acute illness add add modifier 95 for video, (do not use for phone, instead use 34650-14) [facility] Estab. patient 30-39min; chronic exacerbation, 2 stable chronic or 1 acute illness add add modifier 95 for video, (do not use for phone, instead use 46580-74) [facility] Estab. patient 30-39min; chronic exacerbation, 2 stable chronic or 1 acute illness add add modifier 95 for video, (do not use for phone, instead use 84501-86) [facility] Estab. patient 30-39min; chronic exacerbation, 2 stable chronic or 1 acute illness add add modifier 95 for video, (do not use for phone, instead use 49404-61) [facility] Essential (primary) hypertensionGastro-esophageal reflux [...] (do not use for phone, instead use 15337-71) [facility] Estab. patient 30-39min; chronic exacerbation, 2 stable chronic or 1 acute illness add add modifier 95 for video, (do not use for phone, instead use 53937-50) [facility] Estab. patient 30-39min; chronic exacerbation, 2 stable chronic or 1 acute illness add add modifier 95 for video, (do not use for phone, instead use 95682-60) [facility]17[place]20[place] Estab. patient 30-39min; chronic exacerbation, 2 stable chronic or 1 acute illness add add modifier 95 for video, (do not use for phone, instead use 19641-64) [facility] Estab. patient 30-39min; chronic exacerbation, 2 stable chronic or 1 acute illness add add modifier 95 for video, (do not use for phone, instead use 49511-47) [facility] Estab. patient 30-39min; chronic exacerbation, 2 stable chronic or 1 acute illness add add modifier 95 for video, (do not use for phone, instead use 59131-28) [facility] Estab. patient 30-39min; chronic exacerbation, 2 stable chronic or 1 acute illness add add modifier 95 for video, (do not use for phone, instead use 59050-41) [facility] Estab. patient 20-29min; 1 stable chronic or 2 minor; add add modifier 95 for video, modifier 93 for phone [facility]26/2024 Essential (primary) hypertensionGastro-esophageal reflux disease without [...] 95 for video, modifier 93 for phone [facility] Estab. patient 20-29min; 1 stable chronic or 2 minor; add add modifier 95 for video, modifier 93 for phone [facility] [place] Estab. patient 20-29min; 1 stable chronic or 2 minor; add add modifier 95 for video, modifier 93 for phone [facility] [place] Estab. patient 20-29min; 1 stable chronic or 2 minor; add add modifier 95 for video, modifier 93 for phone [facility]/26/20[place] Estab. patient 20-29min; 1 stable chronic or 2 minor; add add modifier 95 for video, modifier 93 for phone [facility]26[place]20[place] Estab. patient 20-29min; 1 stable chronic or 2 minor; add add modifier 95 for video, modifier 93 for phone [facility] 08[place]20[place] Estab. patient 20-29min; 1 stable chronic or 2 minor; add add modifier 95 for video, modifier 93 for phone [facility] 08/26/20[place] Estab. patient 20-29min; 1 stable chronic or 2 minor; add add modifier 95 for video, modifier 93 for phone [facility] [place] 08/26/20[place] Estab. patient 10-29min; 1 minor problem; add add modifier 95 for video, modifier 93 for phone [facility] 01/01/2025 Chronic respiratory failure, unsp w hypoxia [...] tive Time Current Smoking Status Never smoker 2025-05-10 4 Sex Female History of Procedures Procedures [...] (do not use for phone, instead use 45944-43) [id number] 2022-04-17 No Data Available No Data Availa ble SBP < 130 (3074F) 3074F 2022-04-17 No Data Available No Data Available DBP 80-89 (3079F) 3079F 2022-04-17 No Data Available No Data Available Estab. patient 30-39min; chronic exacerbation, 2 stable chronic or 1 acute illness add add modifier 95 for video, (do not use for phone, instead use 98543-21) 82439 2023-04-24 No Data Available No Data Availa [...] (do not use for phone, instead use 65462-73) 66723 2023-07-17 No Data Available No Data Availa [...] 95 for video, modifier 93 for phone 93019 2024-08-26 No Data Available No Data Availa [...] 95 for video, modifier 93 for phone 36310 2025-01-01 No Data Available No Data Availa ble Functional Status Functional Category Effective Dates Cognition Status: Oriented t o Person, Place and TimeRecall 2/3 words at 3 minutes 2022-04-17 Has wheelchair, uses walker 2023-04-24 Has life alert 2023-04-24 Has BP cuff 2023-04-24 [facility] nurse 2023-04-24 Continent uses bed pads for accidents 20 02-05-15 Lives alone, but daughter there most of day, daughter is WIND PROJECT MANAGER 2023-04-24 ADLsAmbulating - Needs Alejandrina tanceDressing - [...] PCP every 3 months, BP assessed by WIND PROJECT MANAGER dailyrecommend healthy lifestyle changes (weight loss, heart [...] PCP every 3 months, BP assessed by WIND PROJECT MANAGER dailyLast BP 127/75; has BP cuff at [...] PCP every 3 months, BP assessed by WIND PROJECT MANAGER dailyLast BP 127/75; has BP cuff at [...] risk for dependence/respiratory depression/falls/cognitive dysfunction. 07/17/2023eclines Narcan. Dtr/WIND PROJECT MANAGER has it put away unless she needs [...] at home bipap and oxygen PRN 2L, 3/19/25last used PRN Oxygen 3 days ago denies [...]
--- OUTSIDE RECORDS SUMMARY | 2025-05-24 15:01 | XMS_ITS | Clinical Summary ---
Author Organization [facility] Address [address] [place] [address] Phone Care Team Providers Care Industrial Yard Brake Coupler Name Role Phone Antonino Barrera MD Primary Care Provider [phone] Social History Tobacco Use Types Packs/Day Years [...] INFLUENZA VACCINE (#1) 2025 COVID-19 VACCINE ( 2024-2 6 season) 2025 HEPATITIS A VACCINES [...] topic Medical Devices Not on file [place] [address] [address] [place] [address] [place] [address] [place] [address] MEDICARE REPLACEMENT [facility] MEDICARE [place] [address] [place] [address] MEDICARE REPLACEMENT Member Subscriber Plan / Payer (Ef fective 2022-Present) Name:ColonEdYeimi Relation to Subscriber:Self Name:Yeimi Calhoun Payer ID:[id number] (NAIC) Group ID:Not on file Type:Medicare Address: [place] [id number] [place] [address] [place] [place] [address] MEDICARE REPLACEMENT Care Teams Industrial Yard Brake Coupler Relationship Specialty Start Date End Date Antonino Barrera MD [address] [place] [address] [place] [address] PCP - General Internal Medicine 03/14/23 Additional Source Comments The information contained in this document represents components of the legal health record. It is not the complete legal health record.[facility]
--- OUTSIDE RECORDS SUMMARY | 2025-05-24 15:01 | XMS_ITS | Clinical Summary ---
Author Organization [facility] Address [address] [place] [address] Phone Care Team Providers Care Merchandise Flow Associate Name Role Phone Antonino Barrera MD Primary [...] topic Insurance [employer] MEDICARE Care Teams Merchandise Flow Associate Relationship Specialty Start Date End Date Antonino Barrera MD PCP - General Internal Medicine 05/26/24
--- OUTSIDE RECORDS SUMMARY | 2025-05-24 15:01 | XMS_ITS | Patient Health Record ---
Author Organization [facility] Address [address] [place] [address] Care Team Providers Care Wheel Braider Name Role Phone Aquilino Barrera MDneth Primary Care Provider Feng Abel Unavailable [phone] Reason For Referral No Information Medications Medication SIG (Take, Route, Frequency, Duration) Notes Start Date End Date Status oxyCODONE-Acetaminophen 5-325 MG Tablet (Schedule II Drug) TAKE 1 TABLET BY MOUTH EVERY 6 HOURS NEEDED FOR PAIN Oral; Duration: 28 Active Omeprazole 20 MG Capsule Delayed Release TAKE 1 CAPSULE ONCE A DAY ORALLY 30 DAYS Oral; Duration: 90 PRN--once or twice a week Active Spironolactone 100 MG Tablet TAKE 1 TABLET BY MOUTH TWICE A DAY Oral; Duration: 90 Active Lisinopril 40 MG Tablet 1 tablet Orally Once a day; Duration: 30 day(s) Active Zolpidem Tartrate 10 MG Tablet 1 tablet at bedtime as needed Orally Once a day Active MiraLax (colon prep) 8.3 ounce ((238) grams mixed with Gatorade or Crystal Light orally begin at 5:00 p.m. the day before the procedure; Duration: 1 day 06/17/2018 Active Levothyroxine Sodium 150 MCG Tablet TAKE 1 TABLET BY MOUTH ONCE A DAY INTHE MORNING Oral; Duration: 90 Active Dulcolax (colon prep) 5 MG Tablet Delayed Release take at 3:00 p.m and 7:00p.m. Orally two tablets twice a day for one day; Duration: 1 day 06/17/2018 Active Vitamin B-12 250 MCG Tablet TAKE 1 TABLET ONCE A DAY BY MOUTH 90 DAYS Oral; Duration: 90 Active D3-1000 1000 UNIT Capsule TAKE 1 CAPSULE BY MOUTH EVERY DAY Oral; Duration: 30 Active ProAir HFA 108 (90 Base) MCG/ACT Aerosol Solution 2 puffs as needed Inhalation every 6 hrs Active Clotrimazole-Betamethaso ne 1-0.05 % Cream 1 application to affected area Externally Twice a day Active Meclizine HCl 25 MG Tablet 1 TABLET NEEDED 2 TIMES A DAY ORALLY 30 DAY(S) Oral; Duration: 30 Active oxyBUTYnin Chloride ER 10 MG Tablet Extended Release 24 Hour 1 tablet Orally Once a day; Duration: 30 day(s) Active Immunizations Vaccine Route Administration Date Status Comme nts Influenza Unknown 04/10/2018 Administered Social History Tobacco Use: Social History Observation Description Date Details (start date - stop date) Never Smoker NA - NA Social History Drugs/Alcohol: Social Info Question Answer Notes Alcohol Screen Did you have a drink containing alcohol in the past year? No Points 0 Interpretation Negative Tobacco Use: Social Info Question Answer Notes Tobacco Use/Smoking Patient is a nonsmoker Additional Details Category Social Info Options Details Miscellaneous: Marital status: Occupation: disability Section Notes: Nonsmoker; no significant al cohol Problems Problem Type SNOMED Code ICD Code Onset Dates Problem Status W/U Status Risk Notes Problem Screening for malignant neoplasm of colon (028118550) Encounter for screening for malignant neoplasm of colon (Z12.11) Active confirmed Problem Gastroesophageal reflux disease (718773159) Gastroesophageal reflux disease, esophagitis presence not specified (K21.9) Active confirmed Problem Irritable bowel syndrome (38352555) Irritable bowel syndrome, unspecified type (K58.9) Active confirmed Plan Of Treatment Pending Test Test Name Order Date GI BIOPSY 08/20/2018 Future Test Test Name Order Date UPPER GI ENDOSCOPY 06/17/2018 COLONOSCOPY 06/17/2018 Insurance Providers Payer Name Payer Address Payer Phone Subscriber Number Group Number Insured Name Patient Relationship to Insured Coverage Start Date Coverage End Date [facility] [address] [place] [address] [id number] COLONPRASHANTGE Self - patient is the insured Medical (General) History Medical History History ICD Code Hypertension Hypothyroidism Fibromyalgia Sleep apnea - cpap machne Vitamin B12 deficiency Arthritis Anxiety Depression Fatty liver on ultrasound , but with a normal liver profile in May 2018 Asthma Denies CA,DM,CVA,renal disease Negative screening colonosco py in August of 2008 except for some diverticulosis and internal hemorrhoids Surgical History Surgery Date(Month/Year) Right shoulder
--- OUTSIDE RECORDS SUMMARY | 2025-05-24 15:02 | XMS_ITS | Patient Health Record ---
Author [facility] Address [address] [place] [address] Care Team Providers Care Auto Bumper Straightener Name Role Phone Antonino Barrera MD Primary Care Provider Tisha Vital Unavailable [phone] Allergies No Known Allergies Reason For Referral [...] Problem Acquired hammer toe of right foot (6600359540351788) Other hammer toe(s) (acquired), right foot (M20.41) Active confirmed Problem Acquired hammer toe of left foot (0816744850546668) Other hammer toe(s) (acquired), left foot (M20.42) Active confirmed Problem Localized, primary osteoarthritis of the ankle and/or foot (980778954) Arthritis of joint of lesser toe, left (M19.072) Active confirmed Problem Localized, primary osteoarthritis of the ankle and/or foot (780084215) Arthritis of joint of lesser toe, right (M19.071) Active confirmed Plan Of Treatment No Information Insurance Providers Payer Name Payer Address Payer Phone Subscriber Number Group Number Insured Name Patient Relationship to Insured Coverage Start Date Coverage End Date [facility] [address] [address] [place] [address] [id number] [facility] Colon[facility] Yeimi Self - patient is the insured Medical (General) History Medical History History ICD Code Anxiety Arthritis asthma Back,Hip,and Knee pain CAD (Cholesterol) Cataracts covid-19 Depression Fibromyalgia Headaches/Migraines Hypertension Reflux ( GERD) Rheumatic fever Chicken pox Surgical History Surgery Date(Month/Year) cataract surgery implants removed
== END 2025-05-24 11:09 | disposition home or self-care (01) ==
LOC: HO.HUSH 10:47
PROVIDERS: PCP Internal Medicine; Visit Provider Nurse Practitioner Family
DX: N32.81 Overactive bladder (principal); N39.46 Mixed incontinence; Z13.9 Encounter for screening, unspecified
CPT/HCPCS: 99213; G2211

== ENCOUNTER → 2025-05-24 10:46 | Outpatient (BNVA) | payer OTHER, SELFPAY | PROVIDERS: PCP Internal Medicine; Visit Provider Nurse Practitioner Family | DX: N32.81 Overactive bladder (principal); N39.46 Mixed incontinence; Z13.9 Encounter for screening, unspecified | CPT/HCPCS: 51798; 81003; 99212 ==

== ENCOUNTER → 2025-06-04 10:00 | Outpatient (BNV) | payer OTHER, SELFPAY | PROVIDERS: PCP Internal Medicine; Visit Provider Radiology Diagnostic Radiology | DX: E28.39 Other primary ovarian failure (principal) | CPT/HCPCS: 77080 ==

== ENCOUNTER 2025-06-04 10:04 | Outpatient (REF) | payer OTHER, SELFPAY ==
--- NOTE | ~2025-06-04 | MM_ITS ---
EXAMINATION: DXA BONE DENSITY AXIAL HISTORY: Z78.0 - Asymptomatic menopausal state TECHNIQUE: Friends[employer] Dual energy absorptiometry (DEXA) of the lumbar spine, total left hip, and femoral neck was performed. COMPARISON: Comparison is made with the prior examination dated 04/01/2009. FINDINGS: The bone mineral density of the lumbar spine is 1.168 g/cm2, corresponding to a T-score of -0.1, and a Z-score of 0.5. This is indicative of normal bone mineral density. This represents a BMD change of 4.1% compared to the prior exam. This is statistically significant. The bone mineral density of the left total hip is 0.984 g/cm2, corresponding to a T-score of -0.2, and a Z-score of 0.8. This is indicative of normal bone mineral density. This represents a BMD change of -5.7% compared to the prior exam. This is statistically significant. The bone mineral density of the left femoral neck is 0.831 g/cm2, corresponding to a T-score of -1.5, and a Z-score of -0.3. This is indicative of osteopenia. This represents a BMD change of -17.6% compared to the prior exam. FRACTURE RISK: The FRAX index suggests a ten year probability of major osteoporotic fracture of 5.3%, and of hip fracture 1.0%. MM/XR DEXA axial skeleton IMPRESSION: Based on bone mineral density, and according to World Health Organization (WHO) criteria, the diagnosis is consistent with osteopenia. Statistically, 68% of repeat scans fall within 1 SD (+/- 0.010 g/cm2 for AP spine L1-L4) and 1 SD (+/- 0.012 g/cm2 for femur total) FRAX is a trademark of the [employer]'s [employer] Metabolic Bone Disease, a World Health Organization (WHO) Collaborating Center. Electronically signed by: Feng Ellis MD 06/04/2025 10:31 AM [facility] [place]
--- OUTSIDE RECORDS SUMMARY | 2025-06-04 10:09 | XMS_ITS | Patient Health Record ---
Author Organization [facility] Address [address] [place] [address] Care Team Providers Care College Professor Name Role Phone Aquilino Barrera MDneth Primary Care Provider Feng Abel Unavailable [phone] Reason For Referral No Information Medications Medication [...] Problem Screening for malignant neoplasm of colon (836617565) Encounter for screening for malignant neoplasm of colon (Z12.11) Active confirmed Problem Gastroesophageal reflux disease (234810942) Gastroesophageal reflux disease, esophagitis presence not specified (K21.9) Active confirmed Problem Irritable bowel syndrome (48529184) Irritable bowel syndrome, unspecified type (K58.9) Active confirmed Plan Of Treatment Pending Test Test Name Order Date GI BIOPSY 08/20/2018 Future Test Test Name Order Date UPPER GI ENDOSCOPY 06/17/2018 COLONOSCOPY 06/17/2018 Insurance Providers Payer Name Payer Address Payer Phone Subscriber Number Group Number Insured Name Patient Relationship to Insured Coverage Start Date Coverage End Date [facility] [address] [place] [address] [id number] COLONPRASHANTGE Self - patient is the insured Medical (General) History Medical History History ICD Code Hypertension Hypothyroidism Fibromyalgia Sleep apnea - cpap machne Vitamin B12 deficiency Arthritis Anxiety Depression Fatty liver on ultrasound , but with a normal liver profile in May 2018 Asthma Denies MD,DM,CVA,renal disease Negative screening colonosco py in August of 2008 except for some diverticulosis and internal hemorrhoids Surgical History Surgery Date(Month/Year) Right shoulder
--- OUTSIDE RECORDS SUMMARY | 2025-06-04 10:09 | XMS_ITS | Clinical Summary ---
Author Organization [facility] Address [address] [place] [address] Phone Care Team Providers Care Film Splicer Name Role Phone Antonino Barrera MD Primary Care Provider [phone] Social History Tobacco Use Types Packs/Day Years [...] topic Medical Devices Not on file [place] [address] [address] [place] [place] [address] MEDICARE REPLACEMENT [facility] MEDICARE RE[place]EMENT [place] [address] MEDICARE REPLACEMENT Member Subscriber Plan / Payer (Ef fective 2022-Present) Name:ColonEdYeimi Relation to Subscriber:Self Name:Yeimi Calhoun Payer ID:[id number] (NAIC) Group ID:Not on file Type:Medicare Address: [place] [id number] [place] [address] [place] [address] MEDICARE REPLACEMENT Care Teams Film Splicer Relationship Specialty Start Date End Date Antonino Barrera MD [address] [place] [address] [place] [address] PCP - General Internal Medicine 03/14/23 Additional Source Comments The information contained in this document represents components of the legal health record. It is not the complete legal health record.[facility]
--- OUTSIDE RECORDS SUMMARY | 2025-06-04 10:09 | XMS_ITS | Clinical Summary ---
Author Organization [address] [facility] Address [address] [place] [address] Phone Care Team Providers Care Final Operations Technician Name Role Phone Antonino Barrera MD [...] topic Insurance [employer] MEDICARE Care Teams Final Operations Technician Relationship Specialty Start Date End Date Antonino Barrera MD PCP - General Internal Medicine 05/26/24
--- OUTSIDE RECORDS SUMMARY | 2025-06-04 10:09 | XMS_ITS | Patient Health Record ---
Author Organization [facility] HarringtonEn[facility] Address [address] [place] [address] Care Team Providers Care Acute Care Physician Name Role Phone Antonino Barrera MD Primary Care Provider Tisha Vital Unavailable [phone] Allergies No Known Allergies Reason For Referral [...] 20 MG TAKE 1 CAPSULE BY [facility] EVERY DAY Oral; Duration: 90 Days [...] Problem Acquired hammer toe of right foot (0058046167919746) Other hammer toe(s) (acquired), right foot (M20.41) Active confirmed Problem Acquired hammer toe of left foot (1796356006282083) Other hammer toe(s) (acquired), left foot (M20.42) Active confirmed Problem Localized, primary osteoarthritis of the ankle and/or foot (839533706) Arthritis of joint of lesser toe, left (M19.072) Active confirmed Problem Localized, primary osteoarthritis of the ankle and/or foot (957243735) Arthritis of joint of lesser toe, right (M19.071) Active confirmed Plan Of Treatment No Information Insurance Providers Payer Name Payer Address Payer Phone Subscriber Number Group Number Insured Name Patient Relationship to Insured Coverage Start Date Coverage End Date [facility] [address] [place] [address] [id number] [facility] Colon, Yeimi Self - patient is the insured Medical (General) History Medical History History ICD Code Anxiety Arthritis asthma Back,Hip,and Knee pain CAD (Cholesterol) Cataracts covid-19 Depression Fibromyalgia Headaches/Migraines Hypertension Reflux ( GERD) Rheumatic fever Chicken pox Surgical History Surgery Date(Month/Year) cataract surgery implants removed
--- OUTSIDE RECORDS SUMMARY | 2025-06-04 10:09 | XMS_ITS ---
Author Name Jessica FISCHER, MRS. [place] Address [address] [place] [address] Phone [phone] [facility] Care Team Providers Care Guardian Family Member Name Role Phone Nimo Lopez Unavailable [phone] BruceAntonino crow Unavailable [phone] Reason for Referral Not Available Allergies, adverse [...] Service Diagnosis/Co mplaint Medication List Documented (1159F) [facility]/20[place] Medication List Documented (1159F) [facility]20[place] Medication List Documented (1159F) [facility]/17/20[place] Medication List Documented (1159F) [facility]/17/2022 Medication List Documented (1159F) [facility]/17/2022 Medication List Documented (1159F) [facility]/17/2022 Essential (primary) hypertensionUnspecified asthma, uncomplicatedMorbid (severe) obesity due to excess caloriesOpioid dependence, uncomplicatedMajor depressive disorder, recurrent, moderateBody mass index (BMI) 45.0-49.9, adultAnxiety disorder, unspecifiedDorsalgia, unspecifiedGastro-esophageal reflux disease without esophagitisOther chronic painHypothyroidism, unspecifiedObstructive sleep apnea (adult) (pediatric)Irritable bowel syndrome without diarrhea Medication List Documented (1159F) [facility]/17/2022 Medication List Documented (1159F) [facility] 04/17/20[place] Estab. patient 30-39min; chronic exacerbation, 2 stable chronic or 1 acute illness add add modifier 95 for video, (do not use for phone, instead use 01907-45) [facility] 04[place]24/2023 Essential (primary) hypertensionGastro-esophageal reflux disease [...] (do not use for phone, instead use 43360-12) [facility]/20[place] Estab. patient 30-39min; chronic exacerbation, 2 stable chronic or 1 acute illness add add modifier 95 for video, (do not use for phone, instead use 51946-61) [facility] 04/24/2023 Estab. patient 30-39min; chronic exacerbation, 2 stable chronic or 1 acute illness add add modifier 95 for video, (do not use for phone, instead use 52150-86) [facility] 04/24/2023 Estab. patient 30-39min; chronic exacerbation, 2 stable chronic or 1 acute illness add add modifier 95 for video, (do not use for phone, instead use 51253-84) [facility] 04/24/20[place] Estab. patient 30-39min; chronic exacerbation, 2 stable chronic or 1 acute illness add add modifier 95 for video, (do not use for phone, instead use 47092-08) [facility] 04/24/2023 Estab. patient 30-39min; chronic exacerbation, 2 stable chronic or 1 acute illness add add modifier 95 for video, (do not use for phone, instead use 67760-89) [facility] 04/24/2023 Estab. patient 30-39min; chronic exacerbation, 2 stable chronic or 1 acute illness add add modifier 95 for video, (do not use for phone, instead use 19156-86) [facility] 04/24/2023 Estab. patient 30-39min; chronic exacerbation, 2 stable chronic or 1 acute illness add add modifier 95 for video, (do not use for phone, instead use 41672-62) [facility] 04/24/2023 Estab. patient 30-39min; chronic exacerbation, 2 stable chronic or 1 acute illness add add modifier 95 for video, (do not use for phone, instead use 62437-40) [facility] 04/24/2023 Estab. patient 30-39min; chronic exacerbation, 2 stable chronic or 1 acute illness add add modifier 95 for video, (do not use for phone, instead use 05522-02) [facility] 07/17/2023 Essential (primary) hypertensionGastro-esophageal reflux disease [...] (do not use for phone, instead use 81215-03) [facility] 07[place]17[place] Estab. patient 30-39min; chronic exacerbation, 2 stable chronic or 1 acute illness add add modifier 95 for video, (do not use for phone, instead use 00246-19) [facility] 07/17/20[place] Estab. patient 30-39min; chronic exacerbation, 2 stable chronic or 1 acute illness add add modifier 95 for video, (do not use for phone, instead use 25480-98) [facility] 07[place]17/20[place] Estab. patient 30-39min; chronic exacerbation, 2 stable chronic or 1 acute illness add add modifier 95 for video, (do not use for phone, instead use 56677-78) [facility] 07[place]17/20[place] Estab. patient 30-39min; chronic exacerbation, 2 stable chronic or 1 acute illness add add modifier 95 for video, (do not use for phone, instead use 99437-56) [facility] 07/17/2023 Estab. patient 30-39min; chronic exacerbation, 2 stable chronic or 1 acute illness add add modifier 95 for video, (do not use for phone, instead use 85877-04) [facility] 07/17/2023 Estab. patient 30-39min; chronic exacerbation, 2 stable chronic or 1 acute illness add add modifier 95 for video, (do not use for phone, instead use 37024-03) [facility] 07/17/20[place] Estab. patient 20-29min; 1 stable chronic or 2 minor; add add modifier 95 for video, modifier 93 for phone [facility] [place] [facility] Essential (primary) hypertensionGastro-esophageal reflux disease without [...] 95 for video, modifier 93 for phone [facility] [place]/26/[facility] Estab. patient 20-29min; 1 stable chronic or 2 minor; add add modifier 95 for video, modifier 93 for phone [facility] [place] Estab. patient 20-29min; 1 stable chronic or 2 minor; add add modifier 95 for video, modifier 93 for phone [facility] [place] 08/26/2024 Estab. patient 20-29min; 1 stable chronic or 2 minor; add add modifier 95 for video, modifier 93 for phone [facility] [place] 08/26/2024 Estab. patient 20-29min; 1 stable chronic or 2 minor; add add modifier 95 for video, modifier 93 for phone [facility] [place] 08/26/2024 Estab. patient 20-29min; [...] 95 for video, modifier 93 for phone [facility] [place] 08/26/2024 Estab. patient 10-29min; 1 minor problem; add add modifier 95 for video, modifier 93 for phone [facility] 01/01/2025 Chronic respiratory failure, unsp w hypoxia [...] tive Time Current Smoking Status Never smoker 2025-05-11 5 Sex Female History of Procedures Procedures [...] (do not use for phone, instead use 99335-48) 46187 2022-04-17 No Data Available No Data Availa ble SBP < 130 (3074F) 3074F 2022-04-17 No Data Available No Data Available DBP 80-89 (3079F) 3079F 2022-04-17 No Data Available No Data Available Estab. patient 30-39min; chronic exacerbation, 2 stable chronic or 1 acute illness add add modifier 95 for video, (do not use for phone, instead use 14768-35) 22138 2023-04-24 No Data Available No Data Availa [...] (do not use for phone, instead use 92199-50) 01270 2023-07-17 No Data Available No Data Availa [...] 95 for video, modifier 93 for phone 32370 2024-08-26 No Data Available No Data Availa [...] 95 for video, modifier 93 for phone 02490 2025-01-01 No Data Available No Data Availa [...] daughter there most of day, daughter is STONE SANDBLASTER 2023-04-24 ADLsAmbulating - Needs Alejandrina tanceDressing - [...] PCP every 3 months, BP assessed by STONE SANDBLASTER dailyrecommend healthy lifestyle changes (weight loss, heart [...] PCP every 3 months, BP assessed by STONE SANDB[employer]ER dailyLast BP 127/75; has BP cuff at [...] PCP every 3 months, BP assessed by STONE SANDBLASTER dailyLast BP 127/75; has BP cuff at [...] risk for dependence/respiratory depression/falls/cognitive dysfunction. 07/17/2023eclines Narcan. Dtr/STONE SANDBLASTER has it put away unless she needs [...]
== END 2025-06-04 10:05 | disposition home or self-care (01) ==
LOC: HO.MAMMO 10:04
PROVIDERS: PCP Internal Medicine; Visit Provider Student in an Organized Health Care Education/Training Program
DX: M81.0 Age-related osteoporosis without current pathological fracture (principal); Z78.0 Asymptomatic menopausal state
CPT/HCPCS: 77080